=== PATIENT | male | born 1945 | race Caucasian/White ===

== ENCOUNTER 2016-11-01 16:38 | Inpatient (IN) | payer OTHER ==
[~2016-11-01] VITALS: Ht 177.8 cm; Wt 89.0 kg
[~2016-11-01 16:38] MED LIST: ASCO500T3 PO; ASPI81TA28 PO; ATOR-22 PO; ATV1 PO; ENAL10TA88 PO; FLV1 PO; GLC/500 PO; METO50TA16 PO; MRLP17X PO; MULT-506 PO; PYRI100T4 PO; RXC5 PO; THM100 PO; TRAZ50TA35 PO
[2016-11-01] MEDS ORDERED: MoRPHine SULFATE 10 MG/ML CARP/VIAL IM STA (17:11)
[2016-11-01] MEDS ORDERED: EFFSR75 PO (17:15)
[2016-11-01] MEDS ORDERED: METF-384 PO (17:15)
[2016-11-01] MEDS ORDERED: URX/10 PO (17:15)
[2016-11-01] MEDS ORDERED: PRS5 PO (17:15)
[2016-11-01] MEDS ORDERED: LXP10 PO (17:15)
[2016-11-01] MEDS ORDERED: KLN1X PO (17:15)
--- NOTE | 2016-11-01 17:38 | DIAGNOSTIC IMAGING REPORT ---
CT HEAD WITHOUT CONTRAST (CT) CLINICAL HISTORY: Head pain status post trauma. Fall from ladder. COMPARISON STUDY: 12/02/2014 TECHNIQUE: Axial CT of the brain is performed from the vertex to the skull base. IV contrast was not administered for this examination. CT DOSE: 2937.72 mGy.cm FINDINGS: No intra or extra-axial mass lesions are visualized. There is no CT evidence of acute cortical infarction. There is no evidence of midline shift. There is no acute hemorrhage. No calvarial fractures are visualized. There are minor white matter hypodensities likely on a small vessel basis. There is mild ventricular prominence, similar to the preceding study. There is no evidence of acute sinusitis IMPRESSION: No change the prior study. No acute intracranial findings. Stable mild ventricular prominence. Electronically signed by: Kaden Pride M.D. 11/01/2016 5:37 PM Dictated Date/Time: 11/01/2016 5:36 PM
--- NOTE | 2016-11-01 17:47 | DIAGNOSTIC IMAGING REPORT ---
CT OF THE CHEST WITHOUT IV CONTRAST CLINICAL HISTORY: Chest back and rib pain. Trauma. Fall from ladder. COMPARISON STUDY: No previous studies for comparison. CT DOSE: TECHNIQUE: CT of the thorax was performed from the thoracic inlet to the lung bases. Images are reviewed in the axial, sagittal, and coronal planes. IV contrast was not administered for this examination. FINDINGS: Thyroid: Imaged portions of the thyroid gland are normal in appearance. Thoracic aorta: The thoracic aorta is normal in course and caliber, noting standard 3 vessel arch anatomy. Heart: The heart is normal in size. There are coronary artery calcifications. There is no pericardial effusion. Lungs and pleural spaces: There is no pneumothorax. There is no evidence of pulmonary contusion. There are bibasal atelectatic changes. There is right pleural fluid/thickening. There are 2 tiny subpleural right upper lobe nodules, finding of doubtful significance. Mediastinum: There is no evidence of mediastinal hematoma. There is no pathologic adenopathy. Tierra: There is no pathologic hilar adenopathy given the limitations of a noncontrast study.. Axilla: Clear. Upper abdomen: Partially visualized upper abdominal viscera is within normal limits. Skeletal structures: There are fractures of the right posterior 8th, 9th, 10th and 11th 12th ribs. There is a fracture the right L1 transverse process. IMPRESSION: 1. Fractures of the right posterior eighth, ninth, 10th, 11th, 12th ribs. 2. Fracture the right L1 transverse process 3. No evidence of pulmonary contusion. No evidence of pneumothorax 4. No evidence of mediastinal hematoma 5. Right posterior pleural thickening, possibly representing hemorrhage given the adjacent rib fractures Electronically signed by: Kaden Pride M.D. 11/01/2016 5:46 PM Dictated Date/Time: 11/01/2016 5:38 PM
--- NOTE | 2016-11-01 17:49 | DIAGNOSTIC IMAGING REPORT ---
CT THORACIC SPINE WITHOUT CT DOSE: CLINICAL HISTORY: Back pain status post trauma. Fall from ladder. TECHNIQUE: Helical images were acquired in transverse plane. Sagittal and coronal reformatted imaging was obtained COMPARISON STUDY: None. FINDINGS: There is no pneumothorax. There are dependent atelectatic changes. There is right-sided posterior pleural thickening. There are multilevel degenerative changes. No acute fractures or subluxations are visualized. Posterior IMPRESSION: 1. Moderately advanced multilevel degenerative change 2. No acute fractures or subluxations identified 3. Right-sided pleural thickening. Electronically signed by: Kaden Pride M.D. 11/01/2016 5:48 PM Dictated Date/Time: 11/01/2016 5:46 PM
--- NOTE | 2016-11-01 17:56 | DIAGNOSTIC IMAGING REPORT ---
CT LUMBAR SPINE WITHOUT CT DOSE: CLINICAL HISTORY: Back pain status post trauma. Fall from ladder. TECHNIQUE: Helical images were acquired in transverse plane. Reformatted sagittal and coronal images were reviewed. CONTRAST: No contrast was administered COMPARISON STUDY: None. FINDINGS: There is acute fracture of the right L1 transverse process. There are acute fractures of the right 12th and 11th ribs. There are postsurgical changes of discectomies and interbody fusions at the L2-3 and L4-5 levels. There is marked disc space narrowing at the L5-S1 level. There are postsurgical changes of posterior spinal fusion with pedicle screw fixation at the L2-S1 level. No acute vertebral body fractures are visualized. There is a grade 1 spondylolisthesis of L4 and L5. IMPRESSION: 1. Acute fracture the right L1 transverse process 2. Acute fracture the right 11th and 12th ribs 3. Postsurgical changes of prior discectomies and interbody fusions and posterior pedicle screw fixation spinal fusion. No acute vertebral body fractures identified. Electronically signed by: Kaden Pride M.D. 11/01/2016 5:54 PM Dictated Date/Time: 11/01/2016 5:51 PM
[2016-11-01] MEDS ORDERED: OPTIRAY 320 IV PRN (18:30)
[2016-11-01 18:49] LABS: BUN/CREATININE RATIO 19.8 (10-20); CREATININE 0.82 mg/dl (0.60-1.40); POTASSIUM 4.7 mmol/L (3.5-5.1)
--- NOTE | 2016-11-01 18:50 | EMERGENCY ROOM VISIT NOTE ---
History First contact with patient: 16:45 Chief Complaint: FALL Stated Complaint: FELL OFF A LADDER History of Present Illness The patient is a 71 year old male who presents to the Emergency Room for evaluation of back pain after a fall. The patient states that he lost his balance while on a ladder in the basement and fell approximately 4 feet onto the ground. He landed directly on his back. He does state that he hit his head slightly. The fall occurred about 2 hours prior to arrival. The patient reports severe pain in his mid back which is worse with a deep breath, coughing or movement. He is concerned because he has had previous back surgeries performed by Dr. Alcala. The patient denies any pain in his head. He rates his overall discomfort an 8/10 and did not take anything for pain prior to arrival. He denies any radiation of the pain into his arms or legs. There was no loss of consciousness. The patient denies any abdominal or chest pain. The patient's does report that the patient has recently been worked up for some neurological symptoms. She states that he has had some signs of early dementia and has been shuffling his feet while walking. He was seen by a neurologist in [place] and told that he has extra fluid in the ventricles. The patient does admit to drinking 6-12 beers daily. He has been told by multiple providers that this is making his condition worse, but he states that he does not stop because "he enjoys it." The patient is a diabetic but denies any other medical problems. He does not take blood thinners. Review of Systems A complete 10 point review of systems was reviewed with the patient with pertinent positives and negatives as per history of present illness. All else were negative. Past Medical/Surgical History Medical Problems: (1) BPH (benign prostatic hypertrophy) (2) CKD (chronic kidney disease), stage II (3) DM type 2 (diabetes mellitus, type 2) (4) Dyslipidemia (5) Lumbar stenosis with neurogenic claudication (6) Multiple rib fractures Surgical Problems: (1) H/O colonoscopy (2) Status post lumbar surgery Family History FH: diabetes mellitus UNCLE Social History Smoking Status: Never Smoker Drug Use: none Marital Status: Housing Status: lives with family Occupation Status: retired Current/Historical Medications Scheduled Alfuzosin HCl (Alfuzosin HCl ER), 10 MG PO HS Ascorbic Acid (Vitamin C), 500 MG PO QAM Aspirin (Aspirin Ec), 81 MG PO QAM Atorvastatin (Lipitor), 20 MG PO QPM Enalapril (Vasotec), 10 MG PO QAM Escitalopram Oxalate (Escitalopram Oxalate), 10 MG PO HS Finasteride (Finasteride), 5 MG PO HS Folic Acid (Folic Acid), 1 MG PO DAILY Metformin Hcl (Glucophage), 1,000 MG PO BID Metoprolol Tartrate (Lopressor) (Lopressor), 50 MG PO BID Multivitamin (Multivitamin), 1 TAB PO QAM Pyridoxine (Vitamin B6), 100 MG PO BID Thiamine HCl (Vitamin B-1), 100 MG PO DAILY Venlafaxine Hcl (Effexor Extended Rel), 150 MG PO HS Scheduled PRN Clonazepam (Clonazepam), 1 MG PO HS PRN for Anxiety Lorazepam (Lorazepam), 1 MG PO Q6H PRN for Anxiety Allergies Coded Allergies: Sulfa Antibiotics (Verified Allergy, Mild, RASH, 11/01/16) Physical Exam Vital Signs Date Time Temp Pulse Resp B/P (MAP) Pulse Ox O2 Delivery O2 Flow Rate FiO2 11/01/16 21:19 68 20 155/109 96 Room Air 11/01/16 20:22 73 18 163/80 97 Room Air 11/01/16 18:23 69 18 148/105 99 Room Air 11/01/16 16:40 36.6 63 16 165/92 98 Room Air Physical Exam VITALS: Vitals are noted on the nurse's note and reviewed by myself. Vital signs stable. GENERAL: This is a 71-year-old male, in no acute distress, nondiaphoretic, well- developed well-nourished. SKIN: There is an abrasion to the right thoracic region. HEAD: Normocephalic atraumatic. EARS: External auditory canals clear, tympanic membranes pearly robertson without erythema or effusion bilaterally. No hemotympanum. EYES: Pupils equal round and reactive to light and accommodation. Conjunctivae without injection, sclerae without icterus. Extraocular movements intact. MOUTH: Mucous membranes moist. NECK: There is no tenderness of the cervical spine. HEART: Regular rate and rhythm without murmurs gallops or rubs. LUNGS: Clear to auscultation bilaterally without wheezes, rales or rhonchi. ABDOMEN: Soft, nontender to palpation. MUSCULOSKELETAL: There is moderate tenderness to palpation to the thoracic spine and bilateral paraspinous areas. There is mild tenderness to palpation over the upper lumbar spine. NEURO: Patient was alert and oriented to person place and time. Normal sensation to light and sharp touch. No focal neurological deficits. Medical Decision & Procedures ER Provider Diagnostic Interpretation: CT HEAD WITHOUT CONTRAST (CT) FINDINGS: No intra or extra-axial mass lesions are visualized. There is no CT evidence of acute cortical infarction. There is no evidence of midline shift. There is no acute hemorrhage. No calvarial fractures are visualized. There are minor white matter hypodensities likely on a small vessel basis. There is mild ventricular prominence, similar to the preceding study. There is no evidence of acute sinusitis IMPRESSION: No change the prior study. No acute intracranial findings. Stable mild ventricular prominence. CT OF THE CHEST WITHOUT IV CONTRAST FINDINGS: Thyroid: Imaged portions of the thyroid gland are normal in appearance. Thoracic aorta: The thoracic aorta is normal in course and caliber, noting standard 3 vessel arch anatomy. Heart: The heart is normal in size. There are coronary artery calcifications. There is no pericardial effusion. Lungs and pleural spaces: There is no pneumothorax. There is no evidence of pulmonary contusion. There are bibasal atelectatic changes. There is right pleural fluid/thickening. There are 2 tiny subpleural right upper lobe nodules, finding of doubtful significance. Mediastinum: There is no evidence of mediastinal hematoma. There is no pathologic adenopathy. Tierra: There is no pathologic hilar adenopathy given the limitations of a noncontrast study.. Axilla: Clear. Upper abdomen: Partially visualized upper abdominal viscera is within normal limits. Skeletal structures: There are fractures of the right posterior 8th, 9th, 10th and 11th 12th ribs. There is a fracture the right L1 transverse process. IMPRESSION: 1. Fractures of the right posterior eighth, ninth, 10th, 11th, 12th ribs. 2. Fracture the right L1 transverse process 3. No evidence of pulmonary contusion. No evidence of pneumothorax 4. No evidence of mediastinal hematoma 5. Right posterior pleural thickening, possibly representing hemorrhage given the adjacent rib fractures CT THORACIC SPINE WITHOUT IMPRESSION: 1. Moderately advanced multilevel degenerative change 2. No acute fractures or subluxations identified 3. Right-sided pleural thickening. CT LUMBAR SPINE WITHOUT IMPRESSION: 1. Acute fracture the right L1 transverse process 2. Acute fracture the right 11th and 12th ribs 3. Postsurgical changes of prior discectomies and interbody fusions and posterior pedicle screw fixation spinal fusion. No acute vertebral body fractures identified. CT ABD/PELVIS IV AND ORAL CONT IMPRESSION: 1. No evidence of acute intra-abdominal or pelvic injury 2. Fractures of the right eighth, ninth, 10th, 11th, 12th ribs. 3. Fracture the right L1 transverse process 4. No evidence of pneumothorax. Right-sided posterior pleural thickening/hemorrhage. Laboratory Results 11/01/16 18:20 Red Blood Count 4.09, Mean Corpuscular Volume 93.9, Mean Corpuscular Hemoglobin 34.5, Mean Corpuscular Hemoglobin Concent 36.7, Mean Platelet Volume 9.0, Neutrophils (%) (Auto) 72.2, Lymphocytes (%) (Auto) 15.0, Monocytes (%) (Auto) 11.8, Eosinophils (%) (Auto) 0.3, Basophils (%) (Auto) 0.1, Neutrophils # (Auto ) 10.17, Lymphocytes # (Auto) 2.12, Monocytes # (Auto) 1.67, Eosinophils # (Auto ) 0.04, Basophils # (Auto) 0.02 11/01/16 18:20 Test 11/01/16 18:20 White Blood Count 14.11 K/uL (4.8-10.8) Red Blood Count 4.09 M/uL (4.7-6.1) Hemoglobin 14.1 g/dL (14.0-18.0) Hematocrit 38.4 % (42-52) Mean Corpuscular Volume 93.9 fL (80-100) Mean Corpuscular Hemoglobin 34.5 pg (25-34) Mean Corpuscular Hemoglobin Concent 36.7 g/dl (32-36) Platelet Count 218 K/uL (130-400) Mean Platelet Volume 9.0 fL (7.4-10.4) Neutrophils (%) (Auto) 72.2 % Lymphocytes (%) (Auto) 15.0 % Monocytes (%) (Auto) 11.8 % Eosinophils (%) (Auto) 0.3 % Basophils (%) (Auto) 0.1 % Neutrophils # (Auto) 10.17 K/uL (1.4-6.5) Lymphocytes # (Auto) 2.12 K/uL (1.2-3.4) Monocytes # (Auto) 1.67 K/uL (0.11-0.59) Eosinophils # (Auto) 0.04 K/uL (0-0.5) Basophils # (Auto) 0.02 K/uL (0-0.2) RDW Standard Deviation 46.7 fL (36.4-46.3) RDW Coefficient of Variation 13.4 % (11.5-14.5) Immature Granulocyte % (Auto) 0.6 % Immature Granulocyte # (Auto) 0.09 K/uL (0.00-0.02) Anion Gap 10.0 mmol/L (3-11) Est Creatinine Clear Calc Drug Dose 95.5 ml/min Estimated GFR () 104.6 Estimated GFR (Non- 90.2 BUN/Creatinine Ratio 19.8 (10-20) Calcium Level 9.0 mg/dl (8.5-10.1) Total Bilirubin 1.0 mg/dl (0.2-1) Direct Bilirubin 0.3 mg/dl (0-0.2) Aspartate Amino Transf (AST/SGOT) 27 U/L (15-37) Alanine Aminotransferase (ALT/SGPT) 33 U/L (12-78) Alkaline Phosphatase 60 U/L (45-117) Total Protein 7.3 gm/dl (6.4-8.2) Albumin 4.0 gm/dl (3.4-5.0) Medications Administered Medications (Trade) Dose Ordered Sig/Dolores Route Start Time Stop Time Status Last Admin Dose Admin Morphine Sulfate (MoRPHine SULFATE INJ) 8 mg NOW STAT IM 11/01/16 17:11 11/01/16 17:13 DC 11/01/16 17:17 8 MG Morphine Sulfate (MoRPHine SULFATE INJ) 4 mg NOW STAT IV 11/01/16 21:24 11/01/16 21:25 DC 11/01/16 21:46 4 MG ED Course The patient was evaluated as above. Patient was medicated with [address] scan of the head, thoracic spine, lumbar spine and chest were performed and read by radiology as above. Given the findings on chest CT, abdominal CT with IV contrast and oral trauma prep was performed to rule out intra-abdominal injury. Dr. Denise was consulted. He recommended having the patient admitted by the hospitalist service and will consult tomorrow. Case was discussed with Dr. Fair of the [facility] hospitalist service. He agreed to evaluate the patient for admission. The patient was informed of these findings. He was given 4 mg morphine IV for pain. Medical Decision Differential diagnosis includes rib fractures, pneumothorax, hemothorax, thoracic fracture, lumbar fracture, contusion, dislocation, intra-abdominal injury, head injury, among others. The patient is a 71-year-old male who presents today for evaluation of back pain after a [address] scan of the chest revealed multiple right-sided rib fractures as well as a fracture of the right transverse process of L1. There was some pleural thickening suggestive of hemorrhage. I spoke with Dr. Denise of cardiothoracic surgery who agreed to consult on the patient. He will be admitted to the hospitalist service for pain control. He is hemodynamically stable. There was no intra-abdominal injury or head injury. The patient was informed of all findings. He was agreeable with this assessment and treatment plan. The patient's case was reviewed with Dr. Canela, ED attending physician, who agreed with my assessment and treatment plan. Medication reconciliation: I attest that I have personally reviewed the patient 's current medication list. Blood pressure screening: Patient was found to have an elevated blood pressure and was referred to their primary care provider for recheck and further treatment. Impression Primary Impression: Multiple rib fractures Additional Impression: Lumbar transverse process fracture Departure Information Referrals Dong Marte M.D. (PCP) Patient Instructions My [facility] Problem Qualifiers Primary Impression: Multiple rib fractures Encounter type: initial encounter Fracture type: closed Laterality: right Qualified Codes: S22.41XA - Multiple fractures of ribs, right side, initial encounter for closed fracture Additional Impression: Lumbar transverse process fracture Encounter type: initial encounter Fracture type: closed Qualified Codes: S32.008A - Other fracture of unspecified lumbar vertebra, initial encounter for closed fracture
--- NOTE | 2016-11-01 19:31 | DIAGNOSTIC IMAGING REPORT ---
CT ABD/PELVIS IV AND ORAL CONT CLINICAL HISTORY: Abdominal pain status post trauma. Multiple rib fractures. COMPARISON STUDY: None. TECHNIQUE: Following the IV administration of 115 mL of Optiray-320, CT scan of the abdomen and pelvis was performed from the lung bases to the proximal femurs. Images are reviewed in the axial, sagittal, and coronal planes. IV contrast was administered without complication. CT DOSE: 881.13 mGycm FINDINGS: Lower chest: There is right-sided pleural thickening. There is basilar atelectasis. There is no pneumothorax. Liver: The contrast-enhanced liver is normal in size, contour, and attenuation. There is no intrahepatic biliary ductal dilatation. The hepatic veins and portal veins are patent. Gallbladder: Unremarkable. Spleen: Normal in size and attenuation. Pancreas: Unremarkable. Adrenal glands: Unremarkable. Kidneys: There is symmetric renal cortical enhancement. The kidneys are normal in size without hydronephrosis. Bowel: There are no transition zones indicate bowel obstruction. There is no interloop fluid. There is no pneumatosis. There are no extraluminal air collections. Peritoneum: There is no intraperitoneal free air or abdominal ascites. Vasculature: The abdominal aorta is normal in course and caliber. Adenopathy: None. Pelvic viscera: The bladder, and pelvic viscera are unremarkable. Skeletal structures: There are postsurgical changes present within the lumbar spine. There are fractures of the right eighth ninth 10th and 11th and 12th ribs. There is a fracture the right L1 transverse process. IMPRESSION: 1. No evidence of acute intra-abdominal or pelvic injury 2. Fractures of the right eighth, ninth, 10th, 11th, 12th ribs. 3. Fracture the right L1 transverse process 4. No evidence of pneumothorax. Right-sided posterior pleural thickening/hemorrhage. Electronically signed by: Kaden Pride M.D. 11/01/2016 7:30 PM Dictated Date/Time: 11/01/2016 7:28 PM
[2016-11-01 20:40] LABS: BASO % 0.1 %; BASO ABS # 0.02 K/uL (0-0.2); COMPLETE YES; EOS % 0.3 %; HEMATOCRIT 38.4 % (42-52); IG% 0.6 %; LYMPH ABS # 2.12 K/uL (1.2-3.4); MEAN CELL VOLUME 93.9 fL (80-100); MEAN CORPUSCULAR HEMOGLOBIN 34.5 pg (25-34); MEAN CORPUSCULAR HGB CONC 36.7 g/dl (32-36); MONO % 11.8 %; NEUT % 72.2 %; PLATELET COUNT 218 K/uL (130-400); RED BLOOD COUNT 4.09 M/uL (4.7-6.1); WHITE BLOOD COUNT 14.11 K/uL (4.8-10.8)
[2016-11-01] MEDS ORDERED: MoRPHine SULFATE 4 MG/ML 1 ML CARP\\VIAL IV STA (21:24)
[2016-11-01] MEDS ORDERED: CLONAZEPAM 1 MG TAB PO PRN (22:00)
[2016-11-01] MEDS ORDERED: ALUMINUM/MAGNESIUM/SIMETH (MAALOX MAX) 30 ML UDC PO PRN (22:00)
[2016-11-01] MEDS ORDERED: ACETAMINOPHEN 325 MG TAB PO PRN (22:00)
[2016-11-01] MEDS ORDERED: POLYETHYLENE (MIRALAX) 17 GM PACK PO PRN (22:00)
[2016-11-01] MEDS ORDERED: MAGNESIUM HYDROXIDE SUSP 30 ML UDC PO PRN (22:00)
[2016-11-01] MEDS ORDERED: ONDANSETRON INJ 2 MG/ML 2 ML VIAL IV PRN (22:00)
[2016-11-01] MEDS ORDERED: LORAZEPAM 1 MG TAB PO PRN (22:00)
[2016-11-01] MEDS ORDERED: KETOROLAC TROMETHAMINE 15 MG/ML VIAL IV. PRN (22:00)
[2016-11-01 22:50] VITALS: BP 175/93; PULSE 66; TEMP 36.7; O2SAT 98
[2016-11-01 23:42] VITALS: BP 166/83; PULSE 66
--- NOTE | 2016-11-01 23:43 | History and Physical ---
History & Physical Date & Time of Service: Nov 01, 2016 at 23:07 Chief Complaint: Multiple Rib Fractures Primary Care Physician: Dong Marte M.D. History of Present Illness Source: patient, clinic records This is a 71 year old male with a PMH of HTN, DM2, HLD, depression/anxiety, hx. of alcohol abuse/dependence, BPH presents after a fall from a ladder; states he "missed a step" on the way down and fell down and landed on his back. Presented to the ER; found to have multiple rib fractures and L1 transverse process fracture. States that his pain is still present; has had history of spinal stenosis s/p surgical repair; but back pain is much more severe now. Denies bowel or bladder incontinence. Denies fevers/chills. Past Medical/Surgical History Medical Problems: (1) BPH (benign prostatic hypertrophy) Status: Chronic (2) CKD (chronic kidney disease), stage II Status: Chronic (3) DM type 2 (diabetes mellitus, type 2) Status: Chronic (4) Dyslipidemia Status: Chronic (5) Lumbar stenosis with neurogenic claudication Status: Chronic Surgical Problems: (1) H/O colonoscopy Status: Chronic (2) Status post lumbar surgery Status: Chronic Family History FH: diabetes mellitus UNCLE Social History Smoking Status: Never Smoker Drug Use: none Marital Status: Occupational Status: retired Immunizations History of Influenza Vaccine: No History of Tetanus Vaccine?: Yes History of Pneumococcal: Yes History of Hepatitis B Vaccine: Unknown Allergies Coded Allergies: Sulfa Antibiotics (Verified Allergy, Mild, RASH, 11/01/16) Home Medications Scheduled Alfuzosin HCl (Alfuzosin HCl ER), 10 MG PO HS Ascorbic Acid (Vitamin C), 500 MG PO QAM Aspirin (Aspirin Ec), 81 MG PO QAM Atorvastatin (Lipitor), 20 MG PO QPM Enalapril (Vasotec), 10 MG PO QAM Escitalopram Oxalate (Escitalopram Oxalate), 10 MG PO HS Finasteride (Finasteride), 5 MG PO HS Folic Acid (Folic Acid), 1 MG PO DAILY Metformin Hcl (Glucophage), 1,000 MG PO BID Metoprolol Tartrate (Lopressor) (Lopressor), 50 MG PO BID Multivitamin (Multivitamin), 1 TAB PO QAM Pyridoxine (Vitamin B6), 100 MG PO BID Thiamine HCl (Vitamin B-1), 100 MG PO DAILY Venlafaxine Hcl (Effexor Extended Rel), 150 MG PO HS Scheduled PRN Clonazepam (Clonazepam), 1 MG PO HS PRN for Anxiety Lorazepam (Lorazepam), 1 MG PO Q6H PRN for Anxiety Review of Systems Constitutional: No fever, No chills, No sweats, No weight loss, No weakness, No fatigue Respiratory: + problem reported (pain with deep inspiration), No cough, No sputum, No wheezing, No shortness of breath, No dyspnea on exertion, No dyspnea at rest, No hemoptysis Cardiovascular: No chest pain, No orthopnea, No PND, No edema, No claudication , No palpitations Abdomen: No pain, No nausea, No vomiting, No diarrhea, No constipation, No GI bleeding Musculoskeletal: + joint pain (back pain), + muscle pain, No swelling, No calf pain Genitourinary - Male: No hematuria, No dysuria, No urinary frequency, No urinary urgency Neurologic: No paralysis, No numbness/tingling, No vertigo, No balance problems Psychiatric: No depression symptoms, No anxiety, No insomnia Endocrine: No fatigue Hematologic / Lymphatic: No abnormal bleeding/bruising Integumentary: No rash Allergic / Immunologic: No environmental allergies, No seasonal allergies Physical Exam Vital Signs Date Time Temp Pulse Resp B/P (MAP) Pulse Ox O2 Delivery O2 Flow Rate FiO2 11/01/16 22:18 69 20 172/88 97 Room Air 11/01/16 21:19 68 20 155/109 96 Room Air 11/01/16 20:22 73 18 163/80 97 Room Air 11/01/16 18:23 69 18 148/105 99 Room Air 11/01/16 16:40 36.6 63 16 165/92 98 Room Air General Appearance: + moderate distress (mild to moderate distress seconary to pain) Head: normocephalic, atraumatic Eyes: normal inspection ENT: hearing grossly normal Neck: supple Respiratory/Chest: lungs clear, normal breath sounds, no respiratory distress, no accessory muscle use, + pertinent finding (+pain) Cardiovascular: regular rate, rhythm, no edema, no gallop, no JVD, no murmur, normal peripheral pulses Abdomen/GI: normal bowel sounds, non tender, soft Back: + muscle spasm, + decreased range of motion (painful ROM), + paravertebral tenderness Extremities/Musculoskelatal: normal capillary refill, no pedal edema Neurologic/Psych: no motor/sensory deficits, alert, normal mood/affect Skin: normal color Lymphatic: no adenopathy Diagnostics Laboratory Results Results Past 24 Hours Test 11/01/16 18:20 Range/Units White Blood Count 14.11 4.8-10.8 K/uL Red Blood Count 4.09 4.7-6.1 M/uL Hemoglobin 14.1 14.0-18.0 g/dL Hematocrit 38.4 42-52 % Mean Corpuscular Volume 93.9 80-100 fL Mean Corpuscular Hemoglobin 34.5 25-34 pg Mean Corpuscular Hemoglobin Concent 36.7 32-36 g/dl Platelet Count 218 130-400 K/uL Mean Platelet Volume 9.0 7.4-10.4 fL Neutrophils (%) (Auto) 72.2 % Lymphocytes (%) (Auto) 15.0 % Monocytes (%) (Auto) 11.8 % Eosinophils (%) (Auto) 0.3 % Basophils (%) (Auto) 0.1 % Neutrophils # (Auto) 10.17 1.4-6.5 K/uL Lymphocytes # (Auto) 2.12 1.2-3.4 K/uL Monocytes # (Auto) 1.67 0.11-0.59 K/uL Eosinophils # (Auto) 0.04 0-0.5 K/uL Basophils # (Auto) 0.02 0-0.2 K/uL RDW Standard Deviation 46.7 36.4-46.3 fL RDW Coefficient of Variation 13.4 11.5-14.5 % Immature Granulocyte % (Auto) 0.6 % Immature Granulocyte # (Auto) 0.09 0.00-0.02 K/uL Sodium Level 131 136-145 mmol/L Potassium Level 4.7 3.5-5.1 mmol/L Chloride Level 96 98-107 mmol/L Carbon Dioxide Level 25 21-32 mmol/L Anion Gap 10.0 3-11 mmol/L Blood Urea Nitrogen 16 7-18 mg/dl Creatinine 0.82 0.60-1.40 mg/dl Est Creatinine Clear Calc Drug Dose 95.5 ml/min Estimated GFR () 104.6 Estimated GFR (Non- 90.2 BUN/Creatinine Ratio 19.8 10-20 Random Glucose 134 70-99 mg/dl Calcium Level 9.0 8.5-10.1 mg/dl Total Bilirubin 1.0 0.2-1 mg/dl Direct Bilirubin 0.3 0-0.2 mg/dl Aspartate Amino Transf (AST/SGOT) 27 15-37 U/L Alanine Aminotransferase (ALT/SGPT) 33 12-78 U/L Alkaline Phosphatase 60 45-117 U/L Total Protein 7.3 6.4-8.2 gm/dl Albumin 4.0 3.4-5.0 gm/dl Diagnostic Radiology CT THORACIC SPINE WITHOUT CT DOSE: CLINICAL HISTORY: Back pain status post trauma. Fall from ladder. TECHNIQUE: Helical images were acquired in transverse plane. Sagittal and coronal reformatted imaging was obtained COMPARISON STUDY: None. FINDINGS: There is no pneumothorax. There are dependent atelectatic changes. There is right-sided posterior pleural thickening. There are multilevel degenerative changes. No acute fractures or subluxations are visualized. Posterior IMPRESSION: 1. Moderately advanced multilevel degenerative change 2. No acute fractures or subluxations identified 3. Right-sided pleural thickening. CT LUMBAR SPINE WITHOUT CT DOSE: CLINICAL HISTORY: Back pain status post trauma. Fall from ladder. TECHNIQUE: Helical images were acquired in transverse plane. Reformatted sagittal and coronal images were reviewed. CONTRAST: No contrast was administered COMPARISON STUDY: None. FINDINGS: There is acute fracture of the right L1 transverse process. There are acute fractures of the right 12th and 11th ribs. There are postsurgical changes of discectomies and interbody fusions at the L2-3 and L4-5 levels. There is marked disc space narrowing at the L5-S1 level. There are postsurgical changes of posterior spinal fusion with pedicle screw fixation at the L2-S1 level. No acute vertebral body fractures are visualized. There is a grade 1 spondylolisthesis of L4 and L5. IMPRESSION: 1. Acute fracture the right L1 transverse process 2. Acute fracture the right 11th and 12th ribs 3. Postsurgical changes of prior discectomies and interbody fusions and posterior pedicle screw fixation spinal fusion. No acute vertebral body fractures identified. CT HEAD WITHOUT CONTRAST (CT) CLINICAL HISTORY: Head pain status post trauma. Fall from ladder. COMPARISON STUDY: 12/02/2014 TECHNIQUE: Axial CT of the brain is performed from the vertex to the skull base. IV contrast was not administered for this examination. CT DOSE: 2937.72 mGy.cm FINDINGS: No intra or extra-axial mass lesions are visualized. There is no CT evidence of acute cortical infarction. There is no evidence of midline shift. There is no acute hemorrhage. No calvarial fractures are visualized. There are minor white matter hypodensities likely on a small vessel basis. There is mild ventricular prominence, similar to the preceding study. There is no evidence of acute sinusitis IMPRESSION: No change the prior study. No acute intracranial findings. Stable mild ventricular prominence. CT OF THE CHEST WITHOUT IV CONTRAST CLINICAL HISTORY: Chest back and rib pain. Trauma. Fall from ladder. COMPARISON STUDY: No previous studies for comparison. CT DOSE: TECHNIQUE: CT of the thorax was performed from the thoracic inlet to the lung bases. Images are reviewed in the axial, sagittal, and coronal planes. IV contrast was not administered for this examination. FINDINGS: Thyroid: Imaged portions of the thyroid gland are normal in appearance. Thoracic aorta: The thoracic aorta is normal in course and caliber, noting standard 3 vessel arch anatomy. Heart: The heart is normal in size. There are coronary artery calcifications. There is no pericardial effusion. Lungs and pleural spaces: There is no pneumothorax. There is no evidence of pulmonary contusion. There are bibasal atelectatic changes. There is right pleural fluid/thickening. There are 2 tiny subpleural right upper lobe nodules, finding of doubtful significance. Mediastinum: There is no evidence of mediastinal hematoma. There is no pathologic adenopathy. [place]: There is no pathologic hilar adenopathy given the limitations of a noncontrast study.. Axilla: Clear. Upper abdomen: Partially visualized upper abdominal viscera is within normal limits. Skeletal structures: There are fractures of the right posterior 8th, 9th, 10th and 11th 12th ribs. There is a fracture the right L1 transverse process. IMPRESSION: 1. Fractures of the right posterior eighth, ninth, 10th, 11th, 12th ribs. 2. Fracture the right L1 transverse process 3. No evidence of pulmonary contusion. No evidence of pneumothorax 4. No evidence of mediastinal hematoma 5. Right posterior pleural thickening, possibly representing hemorrhage given the adjacent rib fractures EKG Sinus Bradycardia left axis deviation Impression Assessment and Plan This is a 71 year old male with a PMH of HTN, DM2, HLD, depression/anxiety, hx. of alcohol abuse/dependence, BPH presents after a fall from a ladder Multiple Rib Fractures Right L1 Transverse Process Fracture secondary to a mechanical fall from ladder morphine PRN, Toradol PRN for pain has had history of lumbar spinal stenosis and multiple back surgeries for now, monitor; may need a TLSO brace PT/OT incentive spirometry Possible Hemothorax? Chest CT suggests R sided pleural thickening, possibly hemorrhage? CTS consulted; recommended repeat CXR in AM; monitor H/H Dr. Denise to see in AM Hx. of Alcohol Abuse/Dependence continue multivitamin, folate, thiamine monitor electrolytes monitor for any withdrawal symptoms DM2 well controlled with metformin, last Ha1c ~ 6.3% hold metformin, monitor BSGs HTN blood pressure is increased; likely secondary to pain continue metoprolol, enalapril continue pain medications DVT ppx SCDs; secondary to possible hemothorax FULL CODE VTE Prophylaxis VTE Risk Assessment Done? Y/N: Yes Risk Level: Moderate
[2016-11-01 23:48] VITALS: BP 166/83; PULSE 66; TEMP 36.7; Ht 177.8 cm; Wt 89.0 kg
[2016-11-02] VITALS (7 sets, daily range): BP systolic 120–161; BP diastolic 80–88; PULSE 60–69; TEMP 36.4–37; O2SAT 94–97
[2016-11-02] MEDS: MoRPHine SULFATE 2 MG/ML CARP IV PRN ×4 (00:06→13:58)
[2016-11-02 06:29] LABS: HEMATOCRIT 38.2 % (42-52); MEAN CELL VOLUME 93.2 fL (80-100); MEAN CORPUSCULAR HEMOGLOBIN 33.4 pg (25-34); MEAN CORPUSCULAR HGB CONC 35.9 g/dl (32-36); MEAN PLATELET VOLUME 8.3 fL (7.4-10.4); PLATELET COUNT 178 K/uL (130-400)
[2016-11-02 07:08] LABS: BUN/CREATININE RATIO 15.9 (10-20); CREATININE 0.76 mg/dl (0.60-1.40)
[2016-11-02] MEDS: SODIUM CHLORIDE 0.9% 1000ML 1,000 ML IV SCH ×2 (07:53→17:41)
--- NOTE | 2016-11-02 07:58 | Clinical Documentation Query ---
CLINICAL DOCUMENTATION QUERY Dr. CENTENO, In your clinical opinion is this patient being managed for: (x ) Hyponatremia ( ) Other explanation of clinical findings (Please Explain) ( ) Unable to determine (Please Define) ( ) Need to Discuss ( ) Not Agree The medical record reflects the following clinical findings, treatment, and risk factors. Clinical Indicators: 71 yo male presenting with multiple rib and L1 transverse process fracture. Initial Na 131, which has dropped to 128 with repeat AM labs. Treatment: IV fluids, nephrology consult Risk Factors: alcohol consumption Please clarify and document your clinical opinion in the progress notes and discharge summary. Terms such as "probable", "suspected", "likely", "questionable", "possible", or "still to be ruled out" are acceptable. IF IN AGREEMENT, YOU MUST DOCUMENT ABOVE DIAGNOSTIC STATEMENT IN DAILY PROGRESS NOTES AND DISCHARGE SUMMARY. This document is not part of the patient's record. Thank You, Sofy Mendez RN [phone]
--- NOTE | 2016-11-02 08:41 | SURGICAL CONSULTATION ---
DATE OF CONSULTATION: 11/02/2016 DATE OF CONSULTATION: 11/02/2016. REASON FOR CONSULTATION: Fractured ribs. 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 The patient does have a history of discectomy and interbody fusions. He is in some pain. There was some pleural thickening and I was asked to see him from a thoracic surgery standpoint. Prior to this, the patient really had no issues. He could easily walk a mile. He is active around his house. He does have a history of hypertension, diabetes, hyperlipidemia as well as alcohol abuse. He was admitted to the medical service to make sure he does not develop pulmonary contusion or effusion. PAST MEDICAL HISTORY: 1. Lumbosacral disc disease. 2. Lumbar stenosis with neurogenic claudication. 3. Hyperlipidemia. 4. Benign prostatic hypertrophy. 5. Renal insufficiency. 6. Diabetes mellitus. 7. Dyslipidemia. 8. History of alcohol use. PAST SURGICAL HISTORY: 1. Status post lumbar surgery with interbody fusions. 2. History of colonoscopy. MEDICATIONS: 1. Alfuzosin. 2. Effexor. 3. Aspirin. 4. Lipitor. 5. Vasotec. 6. Finasteride. 7. Folic acid. 8. Glucophage. 9. Lopressor. 10. Multivitamins. 11. Escitalopram. 12. The patient does use clonazepam and lorazepam p.r.n. for anxiety. ALLERGIES: SULFA RESULTS IN A RASH. SOCIAL HISTORY: The patient lives at home with his . 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 He has never smoked cigarettes. He does use alcohol on a regular basis. FAMILY MEDICAL HISTORY: The patient's father at 53 from cancer of the stomach. Mother in her mid 80s from "old age." He has 5 children, 12 grandchildren, all of whom are healthy. He has 4 siblings, all of whom are healthy. REVIEW OF SYSTEMS: His weight has been stable. He denies fevers or chills. Prior to this injury he had no productive cough, no hemoptysis. He denied chest pain, palpitations. He has had no peripheral edema. No vascular claudication, although he does have neurogenic claudication with standing for long periods of time. He denies nausea, vomiting or any symptoms. He has had no neurologic symptoms such as amaurosis fugax, transient ischemic attacks. He has no skin breakdown and no hearing or visual symptoms. PHYSICAL EXAMINATION: GENERAL: This is a 5 feet 10 inch, 196 pound male who is awake, alert and oriented. HEAD, EYES, EARS, NOSE, AND THROAT: His extraocular movements are intact. Pupils are equal, round and reactive. Sclerae are anicteric. He has snuff in his mouth with tobacco stains around his mouth. He has no nasolabial flattening. NECK: Supple. He has no supraclavicular or cervical lymphadenopathy, neck vein distention or carotid bruits. LUNGS: He does have some decreased breath sounds on the right. He has no wheezing. HEART: He has a regular rate and rhythm of his heart. ABDOMEN: Soft, nontender. He has no peripheral edema. He has no joint effusions. He has excellent peripheral pulses. NEUROLOGIC: He has no asterixis. He has no focal deficits. Cranial nerves II-XII intact. DATA: I reviewed the CT scan of his chest. He does have very mild pleural thickening. I see at least 2 rib fractures. It appears that there may be as many as 5 rib fractures, although they are subtle. The patient also has a couple of right upper lobe masses, which are probably pleural-based, however they do bear watching. ASSESSMENT AND PLAN: Several rib fractures on the right without a flail chest. We are going to a chest x-ray today.
[2016-11-02] MEDS: METOPROLOL TARTRATE 50 MG TAB PO SCH ×2 (09:06→21:06)
[2016-11-02] MEDS: PYRIDOXINE HCL 50 MG TAB PO SCH ×2 (09:07→21:06)
[2016-11-02] MEDS: ENALAPRIL MALEATE 10 MG TAB PO SCH (09:07)
[2016-11-02] MEDS: MULTIVITAMIN TAB PO SCH (09:08)
[2016-11-02] MEDS: THIAMINE HCL 100 MG TAB PO SCH (09:09)
--- NOTE | 2016-11-02 09:57 | Progress Note ---
Internal Med Progress Note Date of Service: Nov 02, 2016. Provider Documentation: SUBJECTIVE: mentions of pain on Rt sided of chest and back worse with movement comfortable with current pain medication setting denies of being anxious , no tremor no sign of withdrawal mentions last alcohol drink was 1 weeks back OBJECTIVE: Vital Signs-as noted below Exam: General-no sign of distress Eyes-sclera non icteric ENT-NAD Neck-no JVD Lungs-diminished, no rales or wheeze noted Heart-regular S1/s2 Abdomen-soft, non tender Extremities-tenderness on rt side of chest was , bruise on rt back , no open skin lesion Neuro-no focal deficit , AAO x3 Lab data as noted below. ASSESSMENT & PLAN: Multiple Rib Fractures Right L1 Transverse Process Fracture secondary to a mechanical fall from ladder pt denies of being intoxicated mentions last drink was 1 week back ordered for Lidoderm patch morphine PRN, hold Toradol for hyponatremia CT ABDOMEN /PELVIS: 1. No evidence of acute intra-abdominal or pelvic injury 2. Fractures of the right eighth, ninth, 10th, 11th, 12th ribs. 3. Fracture the right L1 transverse process 4. No evidence of pneumothorax. Right-sided posterior pleural thickening/hemorrhage. has had history of lumbar spinal stenosis and multiple back surgeries for now, monitor; may need a TLSO brace Ortho Dr Alcala consulted, pt had previous spinal surgery done by him PT/OT incentive spirometry Possible Hemothorax? Chest CT suggests R sided pleural thickening, possibly hemorrhage? CTS consulted; Dr. Denise consulted appreciate input Cxray ordered Hx. of Alcohol Abuse/Dependence mentions of drinking 6 beers a day last drink was a week back denies of any withdrawal symptom PRN Ativan ordered continue multivitamin, folate, thiamine monitor electrolytes monitor for any withdrawal symptoms Hyponatremia : Na in 128 -appears to be acute on chronic hx chronic alcohol abuse ordered for IV NSS PRP Q8 hrs to prevent rapid correction not more than 10 meq in 24 hrs Nephrology consult requested DM2 well controlled with metformin, last Ha1c ~ 6.3% hold metformin, monitor BSGs HTN continue metoprolol, enalapril continue pain medications DVT ppx SCDs; secondary to possible hemothorax DISPOSITION Discharge home when medically stable Vital Signs: Date Time Temp Pulse Resp B/P (MAP) Pulse Ox O2 Delivery O2 Flow Rate FiO2 11/02/16 08:39 97 Room Air 11/02/16 07:56 37.0 69 16 120/80 (93) 97 Room Air 11/02/16 07:20 Room Air 11/02/16 04:00 155/88 (110) 11/02/16 00:23 160/85 (110) 11/01/16 23:48 36.7 66 16 166/83 Room Air 11/01/16 23:42 66 166/83 (110) 11/01/16 23:30 Room Air 11/01/16 22:50 36.7 66 16 175/93 (120) 98 Room Air 11/01/16 22:18 69 20 172/88 97 Room Air 11/01/16 21:19 68 20 155/109 96 Room Air 11/01/16 20:22 73 18 163/80 97 Room Air 11/01/16 18:23 69 18 148/105 99 Room Air 11/01/16 16:40 36.6 63 16 165/92 98 Room Air Lab Results: Results Past 24 Hours Test 11/01/16 18:20 11/02/16 06:21 11/02/16 08:16 Range/Units White Blood Count 14.11 10.30 4.8-10.8 K/uL Red Blood Count 4.09 4.10 4.7-6.1 M/uL Hemoglobin 14.1 13.7 14.0-18.0 g/dL Hematocrit 38.4 38.2 42-52 % Mean Corpuscular Volume 93.9 93.2 80-100 fL Mean Corpuscular Hemoglobin 34.5 33.4 25-34 pg Mean Corpuscular Hemoglobin Concent 36.7 35.9 32-36 g/dl Platelet Count 218 178 130-400 K/uL Mean Platelet Volume 9.0 8.3 7.4-10.4 fL Neutrophils (%) (Auto) 72.2 % Lymphocytes (%) (Auto) 15.0 % Monocytes (%) (Auto) 11.8 % Eosinophils (%) (Auto) 0.3 % Basophils (%) (Auto) 0.1 % Neutrophils # (Auto) 10.17 1.4-6.5 K/uL Lymphocytes # (Auto) 2.12 1.2-3.4 K/uL Monocytes # (Auto) 1.67 0.11-0.59 K/uL Eosinophils # (Auto) 0.04 0-0.5 K/uL Basophils # (Auto) 0.02 0-0.2 K/uL RDW Standard Deviation 46.7 45.7 36.4-46.3 fL RDW Coefficient of Variation 13.4 13.4 11.5-14.5 % Immature Granulocyte % (Auto) 0.6 % Immature Granulocyte # (Auto) 0.09 0.00-0.02 K/uL Sodium Level 131 128 136-145 mmol/L Potassium Level 4.7 4.0 3.5-5.1 mmol/L Chloride Level 96 90 98-107 mmol/L Carbon Dioxide Level 25 27 21-32 mmol/L Anion Gap 10.0 11.0 3-11 mmol/L Blood Urea Nitrogen 16 12 7-18 mg/dl Creatinine 0.82 0.76 0.60-1.40 mg/dl Est Creatinine Clear Calc Drug Dose 95.5 103.0 ml/min Estimated GFR () 104.6 107.9 Estimated GFR (Non- 90.2 93.1 BUN/Creatinine Ratio 19.8 15.9 10-20 Random Glucose 134 151 70-99 mg/dl Calcium Level 9.0 9.0 8.5-10.1 mg/dl Total Bilirubin 1.0 0.2-1 mg/dl Direct Bilirubin 0.3 0-0.2 mg/dl Aspartate Amino Transf (AST/SGOT) 27 15-37 U/L Alanine Aminotransferase (ALT/SGPT) 33 12-78 U/L Alkaline Phosphatase 60 45-117 U/L Total Protein 7.3 6.4-8.2 gm/dl Albumin 4.0 3.4-5.0 gm/dl Hepatitis C Antibody Screen NEG NEG Bedside Glucose 171 70-99 mg/dl
[2016-11-02] MEDS ORDERED: LORAZEPAM INJ 1 MG in SYRINGE 0.5 ML IV PRN (10:00)
--- NOTE | 2016-11-02 11:19 | DIAGNOSTIC IMAGING REPORT ---
CHEST 2 VIEWS ROUTINE HISTORY: f/u hemothorax? COMPARISON: Chest CT 11/01/2016. FINDINGS: The right lower posterior rib fractures are not well visualized. No pleural effusions. No pneumothorax. The heart is normal in size. Left basilar linear densities favor scarring or subsegmental atelectasis. This remains unchanged. IMPRESSION: The right lower rib fractures are better visualized on the prior chest CT. No pleural effusions. No pneumothorax. Electronically signed by: Joel Lemon M.D. 11/02/2016 11:17 AM Dictated Date/Time: 11/02/2016 11:11 AM
[2016-11-02] MEDS: LIDODERM (LIDOCAINE) PATCH 5% TD SCH (11:35)
[2016-11-02 15:13] LABS: BUN/CREATININE RATIO 14.1 (10-20); CALCIUM 8.6 mg/dl (8.5-10.1); CREATININE 0.87 mg/dl (0.60-1.40); POTASSIUM 4.4 mmol/L (3.5-5.1)
[2016-11-02] MEDS ORDERED: NURSING VERBAL MED ORDER ONE (15:15)
[2016-11-02] MEDS: HYDROmorphone INJ 1 MG/ML SYR IV PRN ×3 (15:53→23:52)
--- NOTE | 2016-11-02 16:00 | ORTHOPEDIC CONSULTATION ---
DATE OF CONSULTATION: 11/02/2016 CHIEF COMPLAINT: Back pain. HISTORY OF PRESENT ILLNESS: This is a 71-year-old male, well known to me, who presents after a fall at home. He has complaints of thoracolumbar back pain. He denies any leg pain, numbness or weakness. He states his symptoms are tolerable at this time. PHYSICAL EXAMINATION: He is sitting up at bedside. Has some pain on palpation and percussion across the thoracolumbar junction. No abnormal skin markings. Excellent strength to testing lower extremities. CAT scans do reveal evidence of transverse process fracture of L1 as well as rib fractures. ASSESSMENT: L1 transverse process fracture. PLAN: At this time, he strongly suspects this will heal without incident. I would not necessarily brace him at this time, particularly in light of his rib injuries. He will undergo very light activity, lifting no more than 5 pounds for the next several weeks. The patient understands and agrees.
--- NOTE | 2016-11-02 19:47 | Nephrology Consultation ---
Nephrology Consultation Date of Consultation: Nov 02, 2016. Attending Physician: Dr Germain Requesting Physician: Dr Germain Reason for Consultation: hyponatremia History of Present Illness 71 year old male whom I am asked to evaluate for hyponatremia after he was admitted yesterday for mgt of multiple rib and R L1 transverse process fractures after mechanical fall from a ladder; also some concern for possible R pleural thickening versus possible hemothorax on CT chest. PMH includes DM2, HTN, HL, depression/anxiety, EtOH dependence/abuse, prostatic hypertrophy, spinal stenosis s/p surgical repair. He has hx of chronic hyponatremia on review of [facility] labs w/ sNa ranging from 129-138, but generally low 130s. Currently receiving NS at 100 mL hourly and w/ toradol prn ordered. On SSRI as outpt; no hctz. Denies outpt nsaid use. Admits to drinking about a 6 pack of beer daily; no hard liquor; states he knows he needs to stop this. Pain controlled currently; no n/v; denies thirst or dyspnea or edema. Past Medical/Surgical History Medical Problems: (1) Lumbar stenosis with neurogenic claudication Status: Chronic (2) Lumbar transverse process fracture Status: Acute -HTN -HL -chronic hyponatremia -EtOH dependence -lumbar stenosis s/p surgical repair -anxiety / depression Family History FH: diabetes mellitus UNCLE Social History Smoking Status: Never Smoker Alcohol Use: heavy Drug Use: none Marital Status: Housing Status: lives with family Occupation Status: retired Allergies Coded Allergies: Sulfa Antibiotics (Verified Allergy, Mild, RASH, 11/01/16) Medications Current Inpatient Medications Medications (Trade) Dose Ordered Sig/Dolores Route Start Time Stop Time Status Last Admin Dose Admin Ioversol (Optiray 320) 111 ml UD PRN IV 11/01/16 18:30 11/05/16 18:29 Acetaminophen (Tylenol Tab) 650 mg Q4H PRN PO 11/01/16 22:00 12/01/16 21:59 Al Hydrox/Mg Hydrox/Simethicone (Maalox Max Susp) 15 ml Q4H PRN PO 11/01/16 22:00 12/01/16 21:59 Magnesium Hydroxide (Milk Of Magnesia Susp) 30 ml Q6H PRN PO 11/01/16 22:00 12/01/16 21:59 Polyethylene (Miralax Powder Packet) 17 gm DAILY PRN PO 11/01/16 22:00 12/01/16 21:59 Ondansetron HCl (Zofran Inj) 4 mg Q6H PRN IV 11/01/16 22:00 12/01/16 21:59 Alfuzosin HCl (Uroxatral Tab) 10 mg HS PO 11/02/16 21:00 12/02/16 20:59 Atorvastatin Calcium (Lipitor Tab) 20 mg QPM PO 11/02/16 21:00 12/02/16 20:59 Clonazepam (Klonopin Tab) 1 mg HS PRN PO 11/01/16 22:00 12/01/16 21:59 11/02/16 00:06 1 MG Escitalopram Oxalate (Lexapro Tab) 10 mg HS PO 11/02/16 21:00 12/02/16 20:59 Finasteride (Proscar Tab) 5 mg HS PO 11/02/16 21:00 12/02/16 20:59 Folic Acid (Folvite Tab) 1 mg DAILY PO 11/02/16 09:00 12/02/16 08:59 11/02/16 09:08 1 MG Lorazepam (Ativan Tab) 1 mg Q6H PRN PO 11/01/16 22:00 12/01/16 21:59 Metoprolol Tartrate (Lopressor Tab) 50 mg BID PO 11/02/16 09:00 12/02/16 08:59 11/02/16 09:06 50 MG Multivitamins (Multivitamin Tab) 1 tab QAM PO 11/02/16 09:00 12/02/16 08:59 11/02/16 09:08 1 TAB Pyridoxine HCl (Vitamin B-6 Tab) 100 mg BID PO 11/02/16 09:00 12/02/16 08:59 11/02/16 09:07 100 MG Thiamine HCl (Vitamin B-1 Tab) 100 mg DAILY PO 11/02/16 09:00 12/02/16 08:59 11/02/16 09:09 100 MG Venlafaxine HCl (effeXOR EXTENDED REL CAP) 150 mg HS PO 11/02/16 21:00 12/02/16 20:59 Morphine Sulfate (MoRPHine SULFATE INJ) 2 mg Q3HWA PRN IV 11/01/16 22:00 11/15/16 21:59 6/14/17 05:04 2 MG Ketorolac Tromethamine (Toradol Inj) 15 mg Q6H PRN IV. 11/01/16 22:00 11/06/16 21:59 Enalapril Maleate (Vasotec Tab) 10 mg QAM PO 11/02/16 09:00 12/02/16 08:59 11/02/16 09:07 10 MG Sodium Chloride 1,000 ml @ 100 mls/hr Q10H IV 11/02/16 07:30 12/02/16 07:29 11/02/16 07:53 100 MLS/HR Home Meds and Scripts Medications Dose Route/Sig Max Daily Dose Days Date Category Effexor Extended Rel (Venlafaxine Hcl) 75 Mg Capcr 150 Mg PO HS 11/01/16 Reported Escitalopram Oxalate 10 Mg Tab 10 Mg PO HS 11/01/16 Reported Alfuzosin HCl ER (Alfuzosin HCl) 10 Mg Tab 10 Mg PO HS 11/01/16 Reported Finasteride 5 Mg Tab 5 Mg PO HS 11/01/16 Reported Glucophage (Metformin Hcl) 1,000 Mg Tab 1,000 Mg PO BID 11/01/16 Reported Clonazepam 1 Mg Tab 1 Mg PO HS PRN 11/01/16 Reported Vitamin C (Ascorbic Acid) 500 Mg Tab 500 Mg PO QAM 12/01/14 Reported Folic Acid 1 Mg Tab 1 Mg PO DAILY 11/25/14 Rx Vitamin B-1 (Thiamine HCl) 100 Mg Tab 100 Mg PO DAILY 11/25/14 Rx Lorazepam 1 Mg Tab 1 Mg PO Q6H PRN 11/19/14 Rx Vitamin B6 (Pyridoxine HCl) 100 Mg Tab 100 Mg PO BID 10/29/14 Reported Multivitamin (Multivitamins) Tab 1 Tab PO QAM 10/29/14 Reported Aspirin Ec (Aspirin) 81 Mg Tab 81 Mg PO QAM 10/29/14 Reported Lipitor (Atorvastatin Calcium) 20 Mg Tab 20 Mg PO QPM 10/29/14 Reported Lopressor (Metoprolol Tartrate) 50 Mg Tab 50 Mg PO BID 10/29/14 Reported Vasotec (Enalapril Maleate) 10 Mg Tab 10 Mg PO QAM 01/06/10 Reported Review of Systems Constitutional: + fatigue, No fever, No weight loss, No weakness Eyes: No worsening of vision ENT: No hearing loss Respiratory: No cough, No shortness of breath Cardiac: + see HPI, + chest pain (including pleuritic), No orthopnea Abdomen: No pain, No nausea, No vomiting, No diarrhea, No constipation Musculoskeletal: + see HPI, + joint pain, No muscle pain Male : No dysuria, No urinary frequency, No hematuria Neuro: + weakness, + balance problems, No memory loss Psych: No depression symptoms, No anxiety Endo: + fatigue Skin: No new/changing skin lesions Physical Exam Date Time Temp Pulse Resp B/P (MAP) Pulse Ox O2 Delivery O2 Flow Rate FiO2 11/02/16 08:39 97 Room Air 11/02/16 07:56 37.0 69 16 120/80 (93) 97 Room Air 11/02/16 07:20 Room Air 11/02/16 04:00 155/88 (110) 11/02/16 00:23 160/85 (110) 11/01/16 23:48 36.7 66 16 166/83 Room Air 11/01/16 23:42 66 166/83 (110) 11/01/16 23:30 Room Air 11/01/16 22:50 36.7 66 16 175/93 (120) 98 Room Air 11/01/16 22:18 69 20 172/88 97 Room Air 11/01/16 21:19 68 20 155/109 96 Room Air 11/01/16 20:22 73 18 163/80 97 Room Air 11/01/16 18:23 69 18 148/105 99 Room Air 11/01/16 16:40 36.6 63 16 165/92 98 Room Air General Appearance: WD/WN, no apparent distress (on ra lying flat w/o resp distress; oriented/alert x 3) Eyes: EOMI ENT: hearing grossly normal Neck: supple Respiratory/Chest: no respiratory distress, + decreased breath sounds, + crackles (bibasilar; poor insp effort) Cardiovascular: regular rate, rhythm, no edema Abdomen: normal bowel sounds, non tender, soft (no hammond) Extremities: non-tender, no pedal edema Neurologic/Psych: alert, normal mood/affect, oriented x 3 (slight psychomotor slowing) Skin: no jaundice, warm/dry, no rash Diagnostics Last 24 Hours Test 11/01/16 18:20 11/02/16 06:21 11/02/16 08:16 White Blood Count 14.11 K/uL 10.30 K/uL Red Blood Count 4.09 M/uL 4.10 M/uL Hemoglobin 14.1 g/dL 13.7 g/dL Hematocrit 38.4 % 38.2 % Mean Corpuscular Volume 93.9 fL 93.2 fL Mean Corpuscular Hemoglobin 34.5 pg 33.4 pg Mean Corpuscular Hemoglobin Concent 36.7 g/dl 35.9 g/dl Platelet Count 218 K/uL 178 K/uL Mean Platelet Volume 9.0 fL 8.3 fL Neutrophils (%) (Auto) 72.2 % Lymphocytes (%) (Auto) 15.0 % Monocytes (%) (Auto) 11.8 % Eosinophils (%) (Auto) 0.3 % Basophils (%) (Auto) 0.1 % Neutrophils # (Auto) 10.17 K/uL Lymphocytes # (Auto) 2.12 K/uL Monocytes # (Auto) 1.67 K/uL Eosinophils # (Auto) 0.04 K/uL Basophils # (Auto) 0.02 K/uL RDW Standard Deviation 46.7 fL 45.7 fL RDW Coefficient of Variation 13.4 % 13.4 % Immature Granulocyte % (Auto) 0.6 % Immature Granulocyte # (Auto) 0.09 K/uL Sodium Level 131 mmol/L 128 mmol/L Potassium Level 4.7 mmol/L 4.0 mmol/L Chloride Level 96 mmol/L 90 mmol/L Carbon Dioxide Level 25 mmol/L 27 mmol/L Anion Gap 10.0 mmol/L 11.0 mmol/L Blood Urea Nitrogen 16 mg/dl 12 mg/dl Creatinine 0.82 mg/dl 0.76 mg/dl Est Creatinine Clear Calc Drug Dose 95.5 ml/min 103.0 ml/min Estimated GFR () 104.6 107.9 Estimated GFR (Non- 90.2 93.1 BUN/Creatinine Ratio 19.8 15.9 Random Glucose 134 mg/dl 151 mg/dl Calcium Level 9.0 mg/dl 9.0 mg/dl Total Bilirubin 1.0 mg/dl Direct Bilirubin 0.3 mg/dl Aspartate Amino Transf (AST/SGOT) 27 U/L Alanine Aminotransferase (ALT/SGPT) 33 U/L Alkaline Phosphatase 60 U/L Total Protein 7.3 gm/dl Albumin 4.0 gm/dl Hepatitis C Antibody Screen NEG Bedside Glucose 171 mg/dl Diagnostic Radiology: CT abd/pelvis w/ IV and po contrast: -R pleural thickening/hemorrhage; no PTX -no abnormal liver imaging findings -unremarkable kidneys/adrenals -R L1 transverse process; R 8-[address] as above Head CT > no acute intracranial process Assessment & Plan 71 y/o M w/ chronic hyponatremia in the setting of HTN, EtOH abuse, depression on SSRI admitted with multiple R rib and L spine transverse process fractures after falling from ladder 11/01. Hyponatremia, worsening on recheck but not outside of chronic range Hyponatremia on a chronic basis shown to have a role in gait instability and to increase fracture risk w/ falls. Stable at outpt /prior levels but will need to be monitored. First need to establish tonicity; volume status is euvolemic to slightly dry -recheck bmp, ur osms, serum osms, rd urine sodium today -for now cont NS -strict I/O -control pain and N -recommend avoiding nsaids where possible until sNa stabilized Appreciate consultation; will follow with you. Care coordinated w/ Dr Germain
[2016-11-02] MEDS: FINASTERIDE 5 MG TAB PO SCH (21:06)
[2016-11-02] MEDS: ESCITALOPRAM OXALATE 10 MG TAB PO SCH (21:07)
[2016-11-02] MEDS: VENLAFAXINE HCL XR 75 MG CAPXR PO SCH (21:07)
[2016-11-02] MEDS: ATORVASTATIN 20 MG TAB PO SCH (21:07)
[2016-11-02] MEDS: ALFUZosin TAB 10 MG TAB PO SCH (21:08)
[2016-11-02 22:49] LABS: CALCIUM 8.6 mg/dl (8.5-10.1)
[2016-11-02 22:50] LABS: BUN/CREATININE RATIO 12.4 (10-20); CREATININE 0.97 mg/dl (0.60-1.40); POTASSIUM 4.1 mmol/L (3.5-5.1)
[2016-11-03] MEDS: SODIUM CHLORIDE 0.9% 1000ML 1,000 ML IV SCH ×2 (03:58→14:34)
[2016-11-03] MEDS: HYDROmorphone INJ 1 MG/ML SYR IV PRN ×3 (05:54→16:12)
[2016-11-03 06:50] LABS: BUN/CREATININE RATIO 15.1 (10-20); CALCIUM 8.2 mg/dl (8.5-10.1); CREATININE 0.72 mg/dl (0.60-1.40)
[2016-11-03 07:26] VITALS: BP 140/86; PULSE 61; TEMP 36.5; O2SAT 97
[2016-11-03 07:30] VITALS: O2SAT 97
[2016-11-03] MEDS: PYRIDOXINE HCL 50 MG TAB PO SCH ×2 (09:41→21:17)
[2016-11-03] MEDS: THIAMINE HCL 100 MG TAB PO SCH (09:41)
[2016-11-03] MEDS: ENALAPRIL MALEATE 10 MG TAB PO SCH (09:41)
[2016-11-03] MEDS: METOPROLOL TARTRATE 50 MG TAB PO SCH ×2 (09:42→21:17)
[2016-11-03] MEDS: MULTIVITAMIN TAB PO SCH (09:42)
[2016-11-03] MEDS: LIDODERM (LIDOCAINE) PATCH 5% TD SCH (09:48)
[2016-11-03 12:00] VITALS: BP 136/82; PULSE 66; TEMP 36.6; O2SAT 98
--- NOTE | 2016-11-03 15:09 | SURGERY PROGRESS NOTE ---
DATE: 11/03/2016 DATE: 11/03/2016. Mr. Martin is seen today. This is his third hospital day after suffering several broken ribs on the right. His x-ray yesterday looked fine. I am quite happy with the appearance of his x-ray yesterday, which showed no evidence of fluid accumulation or pulmonary contusion. He is on room air. He is suffering from pain but quite frankly I think he looks good. At this point, I would not of course intervene in his chest. Pain control would be the order of the day and I would let him be discharged from my standpoint.
[2016-11-03 15:47] VITALS: BP 155/88; PULSE 57; TEMP 36.4; O2SAT 96
--- NOTE | 2016-11-03 16:26 | Progress Note ---
Internal Med Progress Note Date of Service: Nov 03, 2016. Provider Documentation: SUBJECTIVE: sitting up on chair mentions of having pain on movement or taking deep breath no fever or chills OBJECTIVE: Vital Signs-as noted below Exam: General-no sign of distress Eyes-sclera non icteric ENT-NAD Neck-no JVD Lungs-diminished, no rales or wheeze noted Heart-regular S1/s2 Abdomen-soft, non tender Extremities-tenderness on rt side of chest was , bruise on rt back , no open skin lesion Neuro-no focal deficit , AAO x3 Lab data as noted below. ASSESSMENT & PLAN: Multiple Rib Fractures Right L1 Transverse Process Fracture secondary to a mechanical fall from ladder pt denies of being intoxicated mentions last drink was 1 week back ordered for Lidoderm patch morphine PRN, hold Toradol for hyponatremia CT ABDOMEN /PELVIS: 1. No evidence of acute intra-abdominal or pelvic injury 2. Fractures of the right eighth, ninth, 10th, 11th, 12th ribs. 3. Fracture the right L1 transverse process 4. No evidence of pneumothorax. Right-sided posterior pleural thickening/hemorrhage. has had history of lumbar spinal stenosis and multiple back surgeries for now, monitor; may need a TLSO brace Ortho Dr Alcala consulted, appreciate input -conservative management avoid brace due to multiple rib fractures incentive spirometry NO evidence of Hemothorax Chest CT suggests R sided pleural thickening, possibly hemorrhage? CTS consulted; Dr. Denise consulted appreciate input Cxray-shows no evidence of pleural effusion stable Hx. of Alcohol Abuse/Dependence mentions of drinking 6 beers a day last drink was a week back PRN Ativan ordered continue multivitamin, folate, thiamine monitor electrolytes does not have any withdrawal symptoms Hyponatremia : Na in 128 -appears to be acute on chronic hx chronic alcohol abuse ordered for IV NSS PRP Q8 hrs to prevent rapid correction not more than 10 meq in 24 hrs Nephrology consult requested appreciate input Na improved 132 will D/c IVF repeat PRP in AM DM2 well controlled with metformin, last Ha1c ~ 6.3% hold metformin, monitor BSGs HTN continue metoprolol, enalapril continue pain medications DVT ppx SCD teds ambulate DISPOSITION referral made to [facility] for rehab possible transfer to [facility] tomorrow if bed available updated at bedside will provide transport Vital Signs: Date Time Temp Pulse Resp B/P (MAP) Pulse Ox O2 Delivery O2 Flow Rate FiO2 11/03/16 15:47 36.4 57 16 155/88 (110) 96 Room Air 11/03/16 12:00 36.6 66 16 136/82 (100) 98 Room Air 11/03/16 08:10 Room Air 11/03/16 07:30 97 Room Air 11/03/16 07:26 36.5 61 16 140/86 (104) 97 Room Air 11/02/16 23:25 36.9 60 18 155/81 (105) 94 Room Air 11/02/16 23:23 Room Air 11/02/16 21:00 69 161/80 (107) 11/02/16 17:15 Room Air Lab Results: Results Past 24 Hours Test 11/02/16 17:31 11/02/16 20:00 11/02/16 21:14 11/02/16 22:09 Range/Units Bedside Glucose 212 197 70-99 mg/dl Urine Osmolality 513 500-800 mOms/kg Urine Random Sodium 71 mEq/L Sodium Level 129 136-145 mmol/L Potassium Level 4.1 3.5-5.1 mmol/L Chloride Level 94 98-107 mmol/L Carbon Dioxide Level 27 21-32 mmol/L Anion Gap 8.0 3-11 mmol/L Blood Urea Nitrogen 12 7-18 mg/dl Creatinine 0.97 0.60-1.40 mg/dl Est Creatinine Clear Calc Drug Dose 80.7 ml/min Estimated GFR () 91.9 Estimated GFR (Non- 79.3 BUN/Creatinine Ratio 12.4 10-20 Random Glucose 198 70-99 mg/dl Osmolality 273 280-300 mOsm/kg Calcium Level 8.6 8.5-10.1 mg/dl Test 11/03/16 06:04 11/03/16 08:26 11/03/16 12:15 Range/Units Sodium Level 132 136-145 mmol/L Potassium Level 4.0 3.5-5.1 mmol/L Chloride Level 96 98-107 mmol/L Carbon Dioxide Level 28 21-32 mmol/L Anion Gap 8.0 3-11 mmol/L Blood Urea Nitrogen 11 7-18 mg/dl Creatinine 0.72 0.60-1.40 mg/dl Est Creatinine Clear Calc Drug Dose 108.7 ml/min Estimated GFR () 110.3 Estimated GFR (Non- 95.2 BUN/Creatinine Ratio 15.1 10-20 Random Glucose 175 70-99 mg/dl Calcium Level 8.2 8.5-10.1 mg/dl Bedside Glucose 187 185 70-99 mg/dl
[2016-11-03] MEDS ORDERED: ATV1 PO (16:55)
[2016-11-03] MEDS ORDERED: KLN1X PO (16:55)
--- NOTE | 2016-11-03 16:56 | Discharge Instructions ---
Discharge Instructions Date of Service Nov 03, 2016. Admission Reason for Admission: Multiple Rib Fractures Discharge Discharge Diagnosis / Problem: FALL /MULTIPLE RIB FRACTURE Discharge Goals Goal(s): Decrease discomfort, Improve disease control, Diagnostic testing Activity Recommendations Activity Level: Assistance Required Therapies: Physical Therapy, Occupational Therapy Lifting Limitations: no more than 5 pounds Shower/Bathe: no limitations He will undergo very light activity, lifting no more than 5 pounds for the next 4-6 weeks. . Additional Information Patient informed of condition: Yes Advance Directives: No DNR: No Level of Care: Acute Rehab Communicable Disease: No Prognosis: Stable Mayers Catheter: No Instructions / Follow-Up Instructions / Follow-Up FOLLOW UP WITH FAMILY PHYSICIAN DR DAMIAN AFTER DISCHARGE FORM REHAB RECOMMEND NEUROLOGY EVALUATION FOR PROGRESSIVE FORGETFULNESS /MEMORY LOSS STRONGLY RECOMMEND ABSTINENCE FORM ALCOHOL CAN USE NICOTINE PATCH OVER THE COUNTER TO QUIT USING SNUFF Current Hospital Diet Patient's current hospital diet: Diabetes Type 2 Diet Discharge Diet Recommended Diet: Diabetes Type 2 Diet Pending Studies Studies pending at discharge: no Medical Emergencies . Who to Call and When: Medical Emergencies: If at any time you feel your situation is an emergency, please call 911 immediately. . Non-Emergent Contact Non-Emergency issues call your: Primary Care Provider . . "Provider Documentation" section prepared by Constanza Germain. . Core Measure Problem Core Measures: None
[2016-11-03] MEDS ORDERED: LDDP5 TD (16:58)
[2016-11-03] MEDS ORDERED: ULT50X PO (16:58)
[2016-11-03] MEDS ORDERED: MRLP17X PO (16:58)
[2016-11-03] MEDS: ALFUZosin TAB 10 MG TAB PO SCH (21:16)
[2016-11-03] MEDS: FINASTERIDE 5 MG TAB PO SCH (21:17)
[2016-11-03] MEDS: VENLAFAXINE HCL XR 75 MG CAPXR PO SCH (21:18)
[2016-11-03] MEDS: ESCITALOPRAM OXALATE 10 MG TAB PO SCH (21:18)
[2016-11-03] MEDS: ATORVASTATIN 20 MG TAB PO SCH (21:18)
[2016-11-03 21:21] VITALS: BP 171/88; PULSE 67
[2016-11-03 22:06] LABS: BUN/CREATININE RATIO 14.2 (10-20); CREATININE 0.84 mg/dl (0.60-1.40); MAGNESIUM 1.7 mg/dl (1.8-2.4); POTASSIUM 3.8 mmol/L (3.5-5.1)
[2016-11-03 22:15] LABS: THYROID STIMULATING HORMONE 1.44 uIu/ml (0.300-4.500)
[2016-11-03 22:37] LABS: CALCIUM 8.8 mg/dl (8.5-10.1)
[2016-11-03] MEDS ORDERED: MAGNESIUM SULFATE 1GM / D5W 1 GM in PREMIXED IN D5W 100 ML IV STA (23:15)
[2016-11-03 23:19] VITALS: BP 191/93; PULSE 61; TEMP 36.9; O2SAT 96
[2016-11-03] MEDS ORDERED: ENALAPRIL MALEATE 10 MG TAB PO ONE (23:28)
[2016-11-04] MEDS: HYDROmorphone INJ 1 MG/ML SYR IV PRN ×2 (01:51→08:07)
--- NOTE | 2016-11-04 03:18 | Progress Note ---
Internal Med Progress Note Date of Service: Nov 04, 2016. Provider Documentation: Made aware by RN of episodic disorientation, SBP 190s Initiate AWSS for poss ETOH withdrawal. Will relay to AM provider. Vital Signs: Date Time Temp Pulse Resp B/P (MAP) Pulse Ox O2 Delivery O2 Flow Rate FiO2 11/04/16 07:40 36.5 80 17 171/92 (118) 96 Room Air 11/04/16 03:22 36.7 58 16 150/89 (109) 94 Room Air 11/03/16 23:19 36.9 61 16 191/93 (125) 96 Room Air 11/03/16 23:15 Room Air 11/03/16 21:21 67 171/88 (115) 11/03/16 15:47 36.4 57 16 155/88 (110) 96 Room Air 11/03/16 15:15 Room Air 11/03/16 12:00 36.6 66 16 136/82 (100) 98 Room Air Lab Results: Results Past 24 Hours Test 11/03/16 12:15 11/03/16 17:09 11/03/16 21:13 11/03/16 21:40 Range/Units Bedside Glucose 185 184 211 70-99 mg/dl Sodium Level 128 136-145 mmol/L Potassium Level 3.8 3.5-5.1 mmol/L Chloride Level 92 98-107 mmol/L Carbon Dioxide Level 27 21-32 mmol/L Anion Gap 9.0 3-11 mmol/L Blood Urea Nitrogen 12 7-18 mg/dl Creatinine 0.84 0.60-1.40 mg/dl Est Creatinine Clear Calc Drug Dose 93.2 ml/min Estimated GFR () 103.5 Estimated GFR (Non- 89.3 BUN/Creatinine Ratio 14.2 10-20 Random Glucose 234 70-99 mg/dl Calcium Level 8.8 8.5-10.1 mg/dl Magnesium Level 1.7 1.8-2.4 mg/dl Thyroid Stimulating Hormone (TSH) 1.440 0.300-4.500 uIu/ml Test 11/04/16 07:17 Range/Units
[2016-11-04 03:22] VITALS: BP 150/89; PULSE 58; TEMP 36.7; O2SAT 94
[2016-11-04] MEDS ORDERED: GABAPENTIN 600 MG TAB PO STA (03:24)
[2016-11-04] MEDS ORDERED: LORAZEPAM 2 MG/ML 1 ML VIAL IV PRN (03:30)
[2016-11-04] MEDS ORDERED: LORAZEPAM 1MG IV PHA DISPENSED IV PRN (03:45)
[2016-11-04 07:40] VITALS: BP 171/92; PULSE 80; TEMP 36.5; O2SAT 96
[2016-11-04] MEDS: LIDODERM (LIDOCAINE) PATCH 5% TD SCH (08:05)
[2016-11-04] MEDS: PYRIDOXINE HCL 50 MG TAB PO SCH ×2 (08:05→20:36)
[2016-11-04] MEDS: MULTIVITAMIN TAB PO SCH (08:05)
[2016-11-04] MEDS: THIAMINE HCL 100 MG TAB PO SCH (08:05)
[2016-11-04] MEDS: METOPROLOL TARTRATE 50 MG TAB PO SCH ×2 (08:06→20:34)
[2016-11-04] MEDS ORDERED: ENALAPRIL MALEATE 10 MG TAB PO SCH (09:00)
[2016-11-04 09:03] LABS: BUN/CREATININE RATIO 11.9 (10-20); CREATININE 0.72 mg/dl (0.60-1.40); POTASSIUM 4.3 mmol/L (3.5-5.1)
[2016-11-04] MEDS: GABAPENTIN 600MG Q6H DOSE PO SCH ×2 (10:31→16:00)
[2016-11-04 12:04] VITALS: BP 127/81; PULSE 54
[2016-11-04] MEDS: TRAMADOL HCL 50 MG TAB PO PRN ×2 (14:19→20:32)
[2016-11-04 15:17] VITALS: BP 99/68; PULSE 64; TEMP 36.9; O2SAT 94
--- NOTE | 2016-11-04 16:56 | Nephrology Progress Note ---
Nephrology Progress Note Date of Service: Nov 04, 2016. Subjective had pain med at 1400, groggy when I woke him for exam 1600 >> no n/v, no dyspnea , pain ok "provided I don't move," denies thirst; some agitation ON Objective Date Time Temp Pulse Resp B/P (MAP) Pulse Ox O2 Delivery O2 Flow Rate FiO2 11/04/16 09:05 Room Air 11/04/16 07:40 36.5 80 17 171/92 (118) 96 Room Air 11/04/16 03:22 36.7 58 16 150/89 (109) 94 Room Air 11/03/16 23:19 36.9 61 16 191/93 (125) 96 Room Air 11/03/16 23:15 Room Air 11/03/16 21:21 67 171/88 (115) 11/03/16 15:47 36.4 57 16 155/88 (110) 96 Room Air 11/03/16 15:15 Room Air 11/03/16 12:00 36.6 66 16 136/82 (100) 98 Room Air Physical Exam: General Appearance: WD/WN, no apparent distress (on ra lying flat w/o resp distress; lethargic but wakens fully) Eyes: EOMI ENT: hearing grossly normal Neck: supple Respiratory/Chest: no respiratory distress, + decreased breath sounds, poor insp effort Cardiovascular: regular rate, rhythm, no edema Abdomen: normal bowel sounds, non tender, soft (no hammond) Extremities: non-tender, no pedal edema Neurologic/Psych: alert, normal mood/affect, oriented x 3 (slight psychomotor slowing) Skin: no jaundice, warm/dry, no rash Current Inpatient Medications Medications (Trade) Dose Ordered Sig/Dolores Route Start Time Stop Time Status Last Admin Dose Admin Ioversol (Optiray 320) 111 ml UD PRN IV 11/01/16 18:30 11/05/16 18:29 Acetaminophen (Tylenol Tab) 650 mg Q4H PRN PO 11/01/16 22:00 12/01/16 21:59 Al Hydrox/Mg Hydrox/Simethicone (Maalox Max Susp) 15 ml Q4H PRN PO 11/01/16 22:00 12/01/16 21:59 Magnesium Hydroxide (Milk Of Magnesia Susp) 30 ml Q6H PRN PO 11/01/16 22:00 7/13/17 21:59 Polyethylene (Miralax Powder Packet) 17 gm DAILY PRN PO 11/01/16 22:00 12/01/16 21:59 Ondansetron HCl (Zofran Inj) 4 mg Q6H PRN IV 11/01/16 22:00 12/01/16 21:59 Alfuzosin HCl (Uroxatral Tab) 10 mg HS PO 11/02/16 21:00 12/02/16 20:59 11/03/16 21:16 10 MG Atorvastatin Calcium (Lipitor Tab) 20 mg QPM PO 11/02/16 21:00 12/02/16 20:59 11/03/16 21:18 20 MG Escitalopram Oxalate (Lexapro Tab) 10 mg HS PO 11/02/16 21:00 12/02/16 20:59 11/03/16 21:18 10 MG Finasteride (Proscar Tab) 5 mg HS PO 11/02/16 21:00 12/02/16 20:59 11/03/16 21:17 5 MG Folic Acid (Folvite Tab) 1 mg DAILY PO 11/02/16 09:00 12/02/16 08:59 11/04/16 08:05 1 MG Metoprolol Tartrate (Lopressor Tab) 50 mg BID PO 11/02/16 09:00 12/02/16 08:59 11/04/16 08:06 50 MG Multivitamins (Multivitamin Tab) 1 tab QAM PO 11/02/16 09:00 12/02/16 08:59 11/04/16 08:05 1 TAB Pyridoxine HCl (Vitamin B-6 Tab) 100 mg BID PO 11/02/16 09:00 12/02/16 08:59 11/04/16 08:05 100 MG Thiamine HCl (Vitamin B-1 Tab) 100 mg DAILY PO 11/02/16 09:00 12/02/16 08:59 11/04/16 08:05 100 MG Venlafaxine HCl (effeXOR EXTENDED REL CAP) 150 mg HS PO 11/02/16 21:00 12/02/16 20:59 11/03/16 21:18 150 MG Lidocaine (Lidoderm Patch 5%) 1 patch QAM TD 11/02/16 10:00 12/02/16 09:59 11/04/16 08:05 1 PATCH Miscellaneous (Remove Lidoderm Patch) 1 ea DAILY@21 N/A 11/02/16 21:00 12/02/16 20:59 11/03/16 21:18 1 EA Hydromorphone HCl (Dilaudid Inj) 1 mg Q3H PRN IV 11/02/16 15:30 11/16/16 15:29 11/04/16 08:07 1 MG Enalapril Maleate (Vasotec Tab) 10 mg BID PO 11/04/16 09:00 12/02/16 08:59 11/04/16 08:06 10 MG Lorazepam (Ativan Inj) PRN Dosing -Active Protocol Q1H PRN IV 11/04/16 03:30 12/04/16 03:29 Gabapentin (Neurontin Tab) 600 mg Q6H PO 11/04/16 10:00 11/04/16 16:01 Gabapentin (Neurontin Tab) 600 mg Q8H PO 11/05/16 00:00 11/05/16 16:01 Gabapentin (Neurontin Tab) 600 mg Q12H PO 11/06/16 04:00 11/06/16 16:01 Gabapentin (Neurontin Tab) 600 mg Q24H PO 11/07/16 16:00 11/07/16 16:01 Lorazepam 1 mg/ Syringe 1 ml @ 1 mls/min Q1H PRN IV 11/04/16 03:45 12/04/16 03:44 Last 24 Hours Test 11/03/16 12:15 11/03/16 17:09 11/03/16 21:13 11/03/16 21:40 Bedside Glucose 185 mg/dl 184 mg/dl 211 mg/dl Sodium Level 128 mmol/L Potassium Level 3.8 mmol/L Chloride Level 92 mmol/L Carbon Dioxide Level 27 mmol/L Anion Gap 9.0 mmol/L Blood Urea Nitrogen 12 mg/dl Creatinine 0.84 mg/dl Est Creatinine Clear Calc Drug Dose 93.2 ml/min Estimated GFR () 103.5 Estimated GFR (Non- 89.3 BUN/Creatinine Ratio 14.2 Random Glucose 234 mg/dl Calcium Level 8.8 mg/dl Magnesium Level 1.7 mg/dl Thyroid Stimulating Hormone (TSH) 1.440 uIu/ml Test 11/04/16 07:17 11/04/16 08:04 Sodium Level 133 mmol/L Potassium Level 4.3 mmol/L Chloride Level 97 mmol/L Carbon Dioxide Level 26 mmol/L Anion Gap 10.0 mmol/L Blood Urea Nitrogen 9 mg/dl Creatinine 0.72 mg/dl Est Creatinine Clear Calc Drug Dose 108.7 ml/min Estimated GFR () 110.3 Estimated GFR (Non- 95.2 BUN/Creatinine Ratio 11.9 Random Glucose 151 mg/dl Calcium Level 9.0 mg/dl Bedside Glucose 165 mg/dl Assessment & Plan 71 y/o M w/ chronic mild hyponatremia in the setting of HTN, EtOH abuse, depression on SSRI admitted with multiple R rib and L spine transverse process fractures after falling from ladder 11/01. Chronic hyponatremia, slowly improving and not outside of chronic range Hyponatremia on a chronic basis shown to have a role in gait instability and to increase fracture risk w/ falls. Stable at outpt /prior levels but will need to be monitored. -limiting po intake to 1.5L daily <> order in -recheck bmp, ur osms, serum osms, rd urine sodium tomorrow<>orders in -strict I/O -control pain and N -recommend avoiding nsaids where possible until sNa stabilized Appreciate consultation; will follow with you. Care coordinated w/ Dr. Germain
--- NOTE | 2016-11-04 18:01 | Progress Note ---
Internal Med Progress Note Date of Service: Nov 04, 2016. Provider Documentation: SUBJECTIVE: had episode of confusion /agitation last night started on alcohol withdrawal protocol pt is more awake and alert today sitting on chair , trying to shave no sign of agitation noted present at bedside mentions pt still showing evidence of confusion on and off hold transfer to [facility] today OBJECTIVE: Vital Signs-as noted below Exam: General-no sign of distress Eyes-sclera non icteric ENT-NAD Neck-no JVD Lungs-diminished, no rales or wheeze noted Heart-regular S1/s2 Abdomen-soft, non tender Extremities-tenderness on rt side of chest was , bruise on rt back , no open skin lesion Neuro-no focal deficit , AAO x3 Lab data as noted below. ASSESSMENT & PLAN: Multiple Rib Fractures Right L1 Transverse Process Fracture secondary to a mechanical fall from ladder pt denies of being intoxicated mentions last drink was 1 week back ordered for Lidoderm patch morphine PRN, hold Toradol for hyponatremia CT ABDOMEN /PELVIS: 1. No evidence of acute intra-abdominal or pelvic injury 2. Fractures of the right eighth, ninth, 10th, 11th, 12th ribs. 3. Fracture the right L1 transverse process 4. No evidence of pneumothorax. Right-sided posterior pleural thickening/hemorrhage. has had history of lumbar spinal stenosis and multiple back surgeries for now, monitor; may need a TLSO brace Ortho Dr Alcala consulted, appreciate input -conservative management avoid brace due to multiple rib fractures incentive spirometry NO evidence of Hemothorax Chest CT suggests R sided pleural thickening, possibly hemorrhage? CTS consulted; Dr. Denise consulted appreciate input Cxray-shows no evidence of pleural effusion stable Hx. of Alcohol Abuse/Dependence mentions of drinking 6 beers a day last drink was a week back PRN Ativan ordered continue multivitamin, folate, thiamine pt developed episodes of agitation and confusion yesterday night started on Ativan /Neurontin as per Alcohol withdrawal protocol monitor Hyponatremia : Improved to 132 , hx acute on chronic hyponatremia due to alcohol abuse IVF D/alfa Nephrology consult requested appreciate input DM2 well controlled with metformin, last Ha1c ~ 6.3% hold metformin, monitor BSGs HTN continue metoprolol, enalapril continue pain medications DVT ppx SCD teds ambulate DISPOSITION referral made to [facility] for rehab hold transfer to [facility] for possible withdrawal symptom updated at bedside will provide transport to [facility] when pt is medically stable Vital Signs: Date Time Temp Pulse Resp B/P (MAP) Pulse Ox O2 Delivery O2 Flow Rate FiO2 11/05/16 07:48 36.8 14 155/82 (106) 92 Room Air 11/05/16 03:52 36.7 60 16 171/86 (114) 91 Room Air 11/04/16 23:45 Room Air 11/04/16 22:51 36.6 61 16 174/97 (122) 92 Room Air 11/04/16 20:34 67 157/89 (111) 11/04/16 15:23 Room Air 11/04/16 15:17 36.9 64 18 99/68 (78) 94 Room Air 11/04/16 12:04 54 127/81 (96) 11/04/16 09:05 Room Air Lab Results: Results Past 24 Hours Test 11/04/16 12:05 11/04/16 16:48 11/04/16 18:30 11/04/16 20:31 Range/Units Bedside Glucose 151 168 152 70-99 mg/dl Urine Osmolality 646 500-800 mOms/kg Urine Random Sodium 64 mEq/L Test 11/05/16 06:00 Range/Units Sodium Level 131 136-145 mmol/L Potassium Level 4.3 3.5-5.1 mmol/L Chloride Level 94 98-107 mmol/L Carbon Dioxide Level 27 21-32 mmol/L Anion Gap 10.0 3-11 mmol/L Blood Urea Nitrogen 16 7-18 mg/dl Creatinine 0.79 0.60-1.40 mg/dl Est Creatinine Clear Calc Drug Dose 99.1 ml/min Estimated GFR () 106.2 Estimated GFR (Non- 91.6 BUN/Creatinine Ratio 20.1 10-20 Random Glucose 138 70-99 mg/dl Calcium Level 8.5 8.5-10.1 mg/dl
[2016-11-04] MEDS: VENLAFAXINE HCL XR 75 MG CAPXR PO SCH (20:33)
[2016-11-04] MEDS: FINASTERIDE 5 MG TAB PO SCH (20:33)
[2016-11-04] MEDS: ESCITALOPRAM OXALATE 10 MG TAB PO SCH (20:33)
[2016-11-04] MEDS: ATORVASTATIN 20 MG TAB PO SCH (20:33)
[2016-11-04 20:34] VITALS: BP 157/89; PULSE 67
[2016-11-04] MEDS: ALFUZosin TAB 10 MG TAB PO SCH (20:35)
[2016-11-04 22:51] VITALS: BP 174/97; PULSE 61; TEMP 36.6; O2SAT 92
[2016-11-05] VITALS (7 sets, daily range): BP systolic 128–171; BP diastolic 74–86; PULSE 60–70; TEMP 36.7–37; O2SAT 91–95
[2016-11-05] MEDS ORDERED: GABAPENTIN 600MG Q8H DOSE PO SCH
[2016-11-05] MEDS ORDERED: MoRPHine SULFATE 4 MG/ML 1 ML CARP\\VIAL IV PRN (00:15)
[2016-11-05 07:21] LABS: BUN/CREATININE RATIO 20.1 (10-20); CALCIUM 8.5 mg/dl (8.5-10.1); CREATININE 0.79 mg/dl (0.60-1.40); POTASSIUM 4.3 mmol/L (3.5-5.1)
[2016-11-05] MEDS: TRAMADOL HCL 50 MG TAB PO PRN ×3 (07:38→19:57)
[2016-11-05] MEDS: THIAMINE HCL 100 MG TAB PO SCH (08:42)
[2016-11-05] MEDS: MULTIVITAMIN TAB PO SCH (08:42)
[2016-11-05] MEDS: PYRIDOXINE HCL 50 MG TAB PO SCH ×2 (08:43→21:08)
[2016-11-05] MEDS: LIDODERM (LIDOCAINE) PATCH 5% TD SCH (08:45)
[2016-11-05] MEDS: METOPROLOL TARTRATE 50 MG TAB PO SCH ×2 (08:49→21:05)
[2016-11-05] MEDS: ENALAPRIL MALEATE 10 MG TAB PO SCH (08:50)
[2016-11-05] MEDS ORDERED: NURSING VERBAL MED ORDER ONE ×2 (13:00→18:45)
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
--- NOTE | 2016-11-05 19:08 | Progress Note ---
Internal Med Progress Note Date of Service: Nov 05, 2016. Provider Documentation: Pt seen approx 11 am today SUBJECTIVE: had uneventful night having forgetfulness off and on -as per pt has been very forgetful at home lately symptom is worse while in hospital OBJECTIVE: Vital Signs-as noted below Exam: General-no sign of distress Eyes-sclera non icteric ENT-NAD Neck-no JVD Lungs-diminished, no rales or wheeze noted Heart-regular S1/s2 Abdomen-soft, non tender Extremities-tenderness on rt side of chest was , bruise on rt back , no open skin lesion Neuro-no focal deficit , AAO x3 Lab data as noted below. ASSESSMENT & PLAN: Multiple Rib Fractures Right L1 Transverse Process Fracture secondary to a mechanical fall from ladder pt denies of being intoxicated mentions last drink was 1 week back ordered for Lidoderm patch morphine PRN, hold Toradol for hyponatremia CT ABDOMEN /PELVIS: 1. No evidence of acute intra-abdominal or pelvic injury 2. Fractures of the right eighth, ninth, 10th, 11th, 12th ribs. 3. Fracture the right L1 transverse process 4. No evidence of pneumothorax. Right-sided posterior pleural thickening/hemorrhage. has had history of lumbar spinal stenosis and multiple back surgeries for now, monitor; may need a TLSO brace Ortho Dr Alcala consulted, appreciate input -conservative management avoid brace due to multiple rib fractures incentive spirometry NO evidence of Hemothorax Chest CT suggests R sided pleural thickening, possibly hemorrhage? CTS consulted; Dr. Denise consulted appreciate input Cxray-shows no evidence of pleural effusion stable Hx. of Alcohol Abuse/Dependence mentions of drinking 6 beers a day last drink was a week back PRN Ativan ordered continue multivitamin, folate, thiamine Pt is more than > 3 days of last alcohol drink found to be more foggy /disoriented with Neurontin dose was kept on hold yesterday more awake and alert hold Neurontin and Ativan for now observe fall precaution Hyponatremia : Na 132 -. 131 -approx baseline hx acute on chronic hyponatremia due to alcohol abuse cont fluid restriction Nephrology consult requested appreciate input DM2 well controlled with metformin, last Ha1c ~ 6.3% hold metformin, monitor BSGs HTN continue metoprolol, enalapril continue pain medications DVT ppx SCD teds ambulate DISPOSITION referral made to [facility] for rehab continue to monitor for confusion possible transfer to [facility] tomorrow is pt is medically stable updated at bedside will provide transport to [facility] Vital Signs: Date Time Temp Pulse Resp B/P (MAP) Pulse Ox O2 Delivery O2 Flow Rate FiO2 11/05/16 16:10 Room Air 11/05/16 15:12 95 Room Air 11/05/16 15:04 36.7 64 15 128/74 (92) 95 Room Air 11/05/16 08:46 70 152/78 (102) 11/05/16 07:48 36.8 68 14 155/82 (106) 92 Room Air 11/05/16 07:40 Room Air 11/05/16 03:52 36.7 60 16 171/86 (114) 91 Room Air 11/04/16 23:45 Room Air 11/04/16 22:51 36.6 61 16 174/97 (122) 92 Room Air 11/04/16 20:34 67 157/89 (111) Lab Results: Results Past 24 Hours Test 11/04/16 20:31 11/05/16 06:00 11/05/16 08:24 11/05/16 12:33 Range/Units Bedside Glucose 152 154 150 70-99 mg/dl Sodium Level 131 136-145 mmol/L Potassium Level 4.3 3.5-5.1 mmol/L Chloride Level 94 98-107 mmol/L Carbon Dioxide Level 27 21-32 mmol/L Anion Gap 10.0 3-11 mmol/L Blood Urea Nitrogen 16 7-18 mg/dl Creatinine 0.79 0.60-1.40 mg/dl Est Creatinine Clear Calc Drug Dose 99.1 ml/min Estimated GFR () 106.2 Estimated GFR (Non- 91.6 BUN/Creatinine Ratio 20.1 10-20 Random Glucose 138 70-99 mg/dl Osmolality 270 280-300 mOsm/kg Calcium Level 8.5 8.5-10.1 mg/dl Test 11/05/16 16:56 Range/Units Bedside Glucose 167 70-99 mg/dl
[2016-11-05] MEDS: NICOTINE 21 MG/24 HR TDSY EXT SCH (19:39)
[2016-11-05] MEDS ORDERED: THIAMINE HCL INJ 200 MG in SODIUM CHLORIDE 0.9% 50ML 50 ML IV SCH (19:45)
[2016-11-05] MEDS: VENLAFAXINE HCL XR 75 MG CAPXR PO SCH (21:04)
[2016-11-05] MEDS: ESCITALOPRAM OXALATE 10 MG TAB PO SCH (21:04)
[2016-11-05] MEDS: ATORVASTATIN 20 MG TAB PO SCH (21:05)
[2016-11-05] MEDS: FINASTERIDE 5 MG TAB PO SCH (21:07)
[2016-11-05] MEDS: ALFUZosin TAB 10 MG TAB PO SCH (21:07)
[2016-11-06] MEDS: TRAMADOL HCL 50 MG TAB PO PRN ×2 (02:39→10:52)
[2016-11-06] MEDS ORDERED: GABAPENTIN 600MG Q12H DOSE PO SCH (04:00)
[2016-11-06 06:52] VITALS: BP 138/75; PULSE 58; TEMP 36.5; O2SAT 94
[2016-11-06 07:39] LABS: BUN/CREATININE RATIO 17.4 (10-20); CALCIUM 8.8 mg/dl (8.5-10.1); CREATININE 0.79 mg/dl (0.60-1.40); POTASSIUM 3.9 mmol/L (3.5-5.1)
[2016-11-06 08:54] VITALS: BP 151/82; PULSE 63
[2016-11-06] MEDS ORDERED: THIAMINE HCL INJ 100 MG in SYRINGE 9 ML IV SCH (09:00)
[2016-11-06] MEDS: LIDODERM (LIDOCAINE) PATCH 5% TD SCH (09:10)
[2016-11-06] MEDS: MULTIVITAMIN TAB PO SCH (09:11)
[2016-11-06] MEDS: NICOTINE 21 MG/24 HR TDSY EXT SCH (09:11)
[2016-11-06] MEDS: ENALAPRIL MALEATE 10 MG TAB PO SCH (09:12)
[2016-11-06] MEDS: METOPROLOL TARTRATE 50 MG TAB PO SCH (09:13)
[2016-11-06] MEDS: PYRIDOXINE HCL 50 MG TAB PO SCH (09:13)
[2016-11-06] MEDS ORDERED: NICO21DI4 EXT (10:32)
[2016-11-06] MEDS ORDERED: MLXESC PO (10:32)
[2016-11-06] MEDS ORDERED: ASPI81TA28 PO (10:32)
[2016-11-06] MEDS ORDERED: ULT50X PO (10:32)
[2016-11-06] MEDS ORDERED: MOMLX PO (10:32)
[2016-11-06 10:40] VITALS: BP 151/82; PULSE 63; TEMP 36.5; O2SAT 94
--- NOTE | 2016-11-06 11:28 | Progress Note ---
Internal Med Progress Note Date of Service: Nov 06, 2016. Provider Documentation: SUBJECTIVE: no further event last night daughter arrived from [place] , stays with pt overnight Pt seen this Am sitting up on chair , finished breakfast , alert and awake no sign of confusion , conversing appropriately complains of pain on rt side of chest wall with movement but much improved now able o lift his right arm above shoulder with out difficulty last pain medication-Tramadol taken at ~2: 45 am today d/w Daughter , pt is stable to be discharged to Rehab at [facility] OBJECTIVE: Vital Signs-as noted below Exam: General-no sign of distress Eyes-sclera non icteric ENT-NAD Neck-no JVD Lungs-diminished, no rales or wheeze noted Heart-regular S1/s2 Abdomen-soft, non tender Extremities-tenderness on rt side of chest was , bruise on rt back , no open skin lesion Neuro-no focal deficit , AAO x3 Lab data as noted below. ASSESSMENT & PLAN: Multiple Rib Fractures Right L1 Transverse Process Fracture secondary to a mechanical fall from ladder pt denies of being intoxicated mentions last drink was 1 week back ordered for Lidoderm patch CT ABDOMEN /PELVIS: 1. No evidence of acute intra-abdominal or pelvic injury 2. Fractures of the right eighth, ninth, 10th, 11th, 12th ribs. 3. Fracture the right L1 transverse process 4. No evidence of pneumothorax. Right-sided posterior pleural thickening/hemorrhage. has had history of lumbar spinal stenosis and multiple back surgeries for now, monitor; may need a TLSO brace Ortho Dr Alcala consulted, appreciate input -conservative management avoid brace due to multiple rib fractures incentive spirometry pain medication changed to Toradol 50 mg Q 6 hrs prn appears to have appropriate pain control per Ortho : resume light activity do not lift wt more than 5 lbs for next several weeks ( 4-6 weeks ) Hx. 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 pt has baseline gait disturbance, no visual symptom noted forgetful with confabulation present noted in multiple occasion pt given IV thiamine in Hospital will be continued with PO Thiamine 100 mg daily /Folic acid /pyridoxine counselled for ETOH abstinence will need out pt Neurology follow up for formal evaluation of Dementia pt was already establish with [facility] will need follow up appointment after discharge from rehab Daughter given update Hyponatremia : resolved NA 134 today hx acute on chronic hyponatremia due to alcohol abuse cont fluid restriction Nephrology consult requested appreciate input DM2 well controlled with metformin, last Ha1c ~ 6.3% hold metformin, monitor BSGs HTN continue metoprolol, enalapril DVT ppx SCD teds ambulate DISPOSITION referral made to [facility] for rehab Medically stable to be transferred to [facility] today Family will provide transport Vital Signs: Date Time Temp Pulse Resp B/P (MAP) Pulse Ox O2 Delivery O2 Flow Rate FiO2 11/06/16 10:40 36.5 63 17 94 Room Air 11/06/16 08:54 63 151/82 (105) 11/06/16 07:30 Room Air 11/06/16 06:52 36.5 58 17 138/75 (96) 94 Room Air 11/05/16 23:15 Room Air 11/05/16 22:48 37.0 62 18 152/85 (107) 93 Room Air 11/05/16 21:01 65 149/79 (102) 11/05/16 16:10 Room Air 11/05/16 15:12 95 Room Air 11/05/16 15:04 36.7 64 15 128/74 (92) 95 Room Air Lab Results: Results Past 24 Hours Test 11/05/16 12:33 11/05/16 16:56 11/05/16 20:40 11/06/16 06:34 Range/Units Bedside Glucose 150 167 149 70-99 mg/dl Sodium Level 133 136-145 mmol/L Potassium Level 3.9 3.5-5.1 mmol/L Chloride Level 98 98-107 mmol/L Carbon Dioxide Level 28 21-32 mmol/L Anion Gap 7.0 3-11 mmol/L Blood Urea Nitrogen 14 7-18 mg/dl Creatinine 0.79 0.60-1.40 mg/dl Est Creatinine Clear Calc Drug Dose 99.1 ml/min Estimated GFR () 106.2 Estimated GFR (Non- 91.6 BUN/Creatinine Ratio 17.4 10-20 Random Glucose 133 70-99 mg/dl Calcium Level 8.8 8.5-10.1 mg/dl Test 11/06/16 07:55 Range/Units Bedside Glucose 126 70-99 mg/dl
--- NOTE | 2016-11-06 11:29 | Discharge Summary ---
Discharge Summary Date of Service Nov 06, 2016. Discharge Summary Admission Date: Nov 01, 2016 at 21:58 Discharge Date: Nov 04, 2016 Discharge Disposition: Rehab ([facility] ) Principal Diagnosis: FALL /MULTIPLE RIB FRACTURE Procedures: LUMBER SPINE CT : IMPRESSION: 1. Acute fracture the right L1 transverse process 2. Acute fracture the right 11th and 12th ribs 3. Postsurgical changes of prior discectomies and interbody fusions and posterior pedicle screw fixation spinal fusion. No acute vertebral body fractures identified. CT THORACIC SPINE : Posterior IMPRESSION: 1. Moderately advanced multilevel degenerative change 2. No acute fractures or subluxations identified 3. Right-sided pleural thickening. CT ABDOMEN/PELVIS : IMPRESSION: 1. No evidence of acute intra-abdominal or pelvic injury 2. Fractures of the right eighth, ninth, 10th, 11th, 12th ribs. 3. Fracture the right L1 transverse process 4. No evidence of pneumothorax. Right-sided posterior pleural thickening/hemorrhage. Consultations: NEPHROLOGY ORTHOPEDICS Medication Reconciliation New Medications: Tramadol HCl (Tramadol HCl) 50 Mg Tab 1 TAB PO Q6 for Pain, #30 Aluminum/Magnesium/Simeth (Mag-Al Plus Xs 400-400-40 mg/5Ml) 30 Ml Susp 15 ML PO Q4H PRN for Dyspepsia for 30 Days Lidocaine (Lidocaine) 1 Patch Tdsy 1 PATCH TD QAM for 30 Days Magnesium Hydroxide (Milk of Magnesia) 30 Ml Susp 30 ML PO Q6H PRN for Constipation for 30 Days Nicotine (Nicoderm Cq) 21 Mg/24 Hr Dis 1 PATCH EXT QAM for 30 Days, #30 Polyethylene (Miralax) 17 Gm Pow 17 GM PO DAILY PRN for Constipation for 30 Days Tramadol HCl (Tramadol HCl) 50 Mg Tab 50 MG PO Q6 PRN for Pain, #30 TAB Changed Medications: Aspirin (Aspirin Ec) 81 Mg Tab 81 MG PO HS, #30 (Changed from: QAM) Continued Medications: Alfuzosin HCl (Alfuzosin HCl ER) 10 Mg Tab 10 MG PO HS, #90 Ascorbic Acid (Vitamin C) 500 Mg Tab 500 MG PO QAM Atorvastatin (Lipitor) 20 Mg Tab 20 MG PO QPM, TAB Clonazepam (Clonazepam) 1 Mg Tab 1 MG PO HS PRN for Anxiety, #30 (This prescription has been renewed) Enalapril (Vasotec) 10 Mg Tab 10 MG PO QAM, 0 Refills Escitalopram Oxalate (Escitalopram Oxalate) 10 Mg Tab 10 MG PO HS, #90 Finasteride (Finasteride) 5 Mg Tab 5 MG PO HS, #90 Folic Acid (Folic Acid) 1 Mg Tab 1 MG PO DAILY, #30 5 Refills Metformin Hcl (Glucophage) 1,000 Mg Tab 1000 MG PO BID, #180 Metoprolol Tartrate (Lopressor) (Lopressor) 50 Mg Tab 50 MG PO BID, TAB Multivitamin (Multivitamin) Tab 1 TAB PO QAM Pyridoxine (Vitamin B6) 100 Mg Tab 100 MG PO BID, TAB Thiamine HCl (Vitamin B-1) 100 Mg Tab 100 MG PO DAILY, #30 5 Refills Venlafaxine Hcl (Effexor Extended Rel) 75 Mg Capcr 150 MG PO HS, #180 Admission Information HPI (per Admitting provider): This is a 71 year old male with a PMH of HTN, DM2, HLD, depression/anxiety, hx. of alcohol abuse/dependence, BPH presents after a fall from a ladder; states he "missed a step" on the way down and fell down and landed on his back. Presented to the ER; found to have multiple rib fractures and L1 transverse process fracture. States that his pain is still present; has had history of spinal stenosis s/p surgical repair; but back pain is much more severe now. Denies bowel or bladder incontinence. Denies fevers/chills. Physical Exam (per Admitting): General Appearance: + moderate distress (mild to moderate distress seconary to pain) Head: normocephalic, atraumatic Eyes: normal inspection ENT: hearing grossly normal Neck: supple Respiratory/Chest: lungs clear, normal breath sounds, no respiratory distress, no accessory muscle use, + pertinent finding (+pain) Cardiovascular: regular rate, rhythm, no edema, no gallop, no JVD, no murmur , normal peripheral pulses Abdomen/GI: normal bowel sounds, non tender, soft Back: + muscle spasm, + decreased range of motion (painful ROM), + paravertebral tenderness Extremities/Musculoskelatal: normal capillary refill, no pedal edema Neurologic/Psych: no motor/sensory deficits, alert, normal mood/affect Skin: normal color Lymphatic: no adenopathy Hospital Course Multiple Rib Fractures Right L1 Transverse Process Fracture secondary to a mechanical fall from ladder pt denies of being intoxicated mentions last drink was 1 week back ordered for Lidoderm patch CT ABDOMEN /PELVIS: 1. No evidence of acute intra-abdominal or pelvic injury 2. Fractures of the right eighth, ninth, 10th, 11th, 12th ribs. 3. Fracture the right L1 transverse process 4. No evidence of pneumothorax. Right-sided posterior pleural thickening/hemorrhage. has had history of lumbar spinal stenosis and multiple back surgeries for now, monitor; may need a TLSO brace Ortho Dr Alcala consulted, appreciate input -conservative management avoid brace due to multiple rib fractures incentive spirometry pain medication changed to Toradol 50 mg Q 6 hrs prn appears to have appropriate pain control per Ortho : resume light activity do not lift wt more than 5 lbs for next several weeks ( 4-6 weeks ) Hx. 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 pt has baseline gait disturbance, no visual symptom noted forgetful with confabulation present noted in multiple occasion pt given IV thiamine in Hospital will be continued with PO Thiamine 100 mg daily /Folic acid /pyridoxine counselled for ETOH abstinence will need out pt Neurology follow up for formal evaluation of Dementia pt was already establish with [facility] will need follow up appointment after discharge from rehab Daughter given update Hyponatremia : resolved NA 134 today hx acute on chronic hyponatremia due to alcohol abuse cont fluid restriction Nephrology consult requested appreciate input DM2 well controlled with metformin, last Ha1c ~ 6.3% hold metformin, monitor BSGs HTN continue metoprolol, enalapril DVT ppx SCD teds ambulate DISPOSITION referral made to [facility] for rehab Medically stable to be transferred to [facility] today Family will provide transport Total time spent on discharge = 40 CA NS This includes examination of the patient, discharge planning, medication reconciliation, and communication with other providers. Discharge Instructions Discharge Instructions Date of Service Nov 03, 2016. Admission Reason for Admission: Multiple Rib Fractures Discharge Discharge Diagnosis / Problem: FALL /MULTIPLE RIB FRACTURE Discharge Goals Goal(s): Decrease discomfort, Improve disease control, Diagnostic testing Activity Recommendations Activity Level: Assistance Required Therapies: Physical Therapy, Occupational Therapy Lifting Limitations: no more than 5 pounds Shower/Bathe: no limitations He will undergo very light activity, lifting no more than 5 pounds for the next 4-6 weeks. . Additional Information Patient informed of condition: Yes Advance Directives: No DNR: No Level of Care: Acute Rehab Communicable Disease: No Prognosis: Stable Mayers Catheter: No Instructions / Follow-Up Instructions / Follow-Up FOLLOW UP WITH FAMILY PHYSICIAN DR MARTE AFTER DISCHARGE FORM REHAB RECOMMEND NEUROLOGY EVALUATION FOR PROGRESSIVE FORGETFULNESS /MEMORY LOSS STRONGLY RECOMMEND ABSTINENCE FORM ALCOHOL CAN USE NICOTINE PATCH OVER THE COUNTER TO QUIT USING SNUFF Current Hospital Diet Patient's current hospital diet: Diabetes Type 2 Diet Discharge Diet Recommended Diet: Diabetes Type 2 Diet Pending Studies Studies pending at discharge: no Medical Emergencies . Who to Call and When: Medical Emergencies: If at any time you feel your situation is an emergency, please call 911 immediately. . Non-Emergent Contact Non-Emergency issues call your: Primary Care Provider . . "Provider Documentation" section prepared by Constanza Germain. . Core Measure Problem Core Measures: None Additional Copies To Dong Marte M.D. Brock, Alexandra C.R.N.P.
[2016-11-07] MEDS ORDERED: GABAPENTIN 600MG Q24H DOSE PO SCH (16:00)
== END 2016-11-06 12:22 | DRG 183 ==
LOC: C.EDB 16:39 → C.MSN 21:58 → ENRESERV 22:13 → C.MSN 23:11
PROVIDERS: ADMIT Family Medicine; ATTEND Hospitalist
DX: S22.41XA Multiple fractures of ribs, right side, initial encounter for closed fracture (principal); G93.41 Metabolic encephalopathy; S32.018A Other fracture of first lumbar vertebra, initial encounter for closed fracture; E87.1 Hypo-osmolality and hyponatremia; N18.2 Chronic kidney disease, stage 2 (mild); E11.22 Type 2 diabetes mellitus with diabetic chronic kidney disease; E78.5 Hyperlipidemia, unspecified; N40.0 Benign prostatic hyperplasia without lower urinary tract symptoms; I12.9 Hypertensive chronic kidney disease with stage 1 through stage 4 chronic kidney disease, or unspecified chronic kidney disease; F32.9 Major depressive disorder, single episode, unspecified; R91.8 Other nonspecific abnormal finding of lung field; Z79.82 Long term (current) use of aspirin; Z79.84 Long term (current) use of oral hypoglycemic drugs; Z79.899 Other long term (current) drug therapy; W11.XXXA Fall on and from ladder, initial encounter; Z98.1 Arthrodesis status; F10.20 Alcohol dependence, uncomplicated

== ENCOUNTER → 2016-12-05 | Outpatient (CLI) | payer OTHER ==
[~2016-12-05] MED LIST changes: -ATV1 PO; +EFFSR75 PO; -GLC/500 PO; +KLN1X PO; +LDDP5 TD; +LXP10 PO; +METF-384 PO; +MLXESC PO; +MOMLX PO; +NICO21DI4 EXT; +PRS5 PO; -RXC5 PO; -TRAZ50TA35 PO; +ULT50X PO; +URX/10 PO
--- NOTE | 2016-12-05 09:32 | DIAGNOSTIC IMAGING REPORT ---
CHEST 2 VIEWS ROUTINE CLINICAL HISTORY: [id number] Fractured [id number] COMPARISON STUDY: 11/02/2016, CT scan dated 11/01/2016 FINDINGS: The cardiac and mediastinal contours are normal. There is no evidence of focal pulmonary consolidation. There is no evidence of failure. No pleural effusions are visualized.[ No pneumothorax is visualized. There are lower right-sided rib fractures. These were described on the prior CT scan. IMPRESSION: No active disease in the chest. Electronically signed by: Kaden Pride M.D. 12/05/2016 9:30 AM Dictated Date/Time: 12/05/2016 9:29 AM
== END | disposition home or self-care (01) ==
LOC: C.RAD1850 09:15
PROVIDERS: ATTEND Surgery
DX: S22.39XA Fracture of one rib, unspecified side, initial encounter for closed fracture (principal); X58.XXXA Exposure to other specified factors, initial encounter

== ENCOUNTER → 2017-01-02 | Outpatient (CLI) | payer OTHER ==
[~2017-01-02] MED LIST changes: +GADAVIST IV PRN
--- NOTE | 2017-01-02 17:11 | DIAGNOSTIC IMAGING REPORT ---
Brain MRI WITH AND WITHOUT CONTRAST HISTORY: GAIT ABNORMALITY TECHNIQUE: Multiplanar multisequence MRI of the brain was performed both before and after the intravenous administration of contrast. COMPARISON STUDY: Head CT 11/01/2016. Brain MRI 12/18/2014. FINDINGS: There are no areas of restricted diffusion to suggest acute infarction. The midline structures are intact. The paranasal sinuses are clear. The mastoid air cells are clear. There is no mass, hematoma, midline shift. The major vascular flow-voids at the skull base are well maintained. Postcontrast sequences show no areas of abnormal enhancement. 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 Mild ventriculomegaly, unchanged. A few scattered punctate foci of T2 hyperintensity within the periventricular white matter are also unchanged. This favors mild microvascular ischemic change. Stable small developmental venous anomaly within the left frontal lobe. This is considered to be a normal variant. IMPRESSION: No significant change compared to the prior study. No acute intracranial abnormality. Mild ventriculomegaly remains stable. Electronically signed by: Joel Lemon M.D. 01/02/2017 5:10 PM Dictated Date/Time: 01/02/2017 5:02 PM
== END | disposition home or self-care (01) ==
LOC: C.MRI 16:14
PROVIDERS: ATTEND Psychiatry & Neurology Neurology
DX: R26.9 Unspecified abnormalities of gait and mobility (principal)

== ENCOUNTER 2020-01-29 10:53 | Inpatient (IN) ==
--- NOTE | 2020-01-10 13:07 | PAT Medication Instructions ---
Medication Instructions Date of Service January 10, 2020 Home Medications Vitamin B6 100 mg PO QAM Vitamin D 1 tab PO QAM alfuzosin 10 mg PO QPM aspirin [Aspir-81] 81 mg PO QAM atorvastatin 20 mg PO PM enalapril maleate 20 mg PO QAM escitalopram oxalate 10 mg PO QPM metformin 1,000 mg PO BID metoprolol tartrate 50 mg PO BID multivitamin 1 tab PO QAM naproxen sodium [Aleve] 440 - 660 mg PO BID PRN ASK your surgeon for instructions naproxen sodium [Aleve] 440 - 660 mg PO BID PRN ASK your prescriber and surgeon aspirin [Aspir-81] 81 mg PO QAM DO NOT take the morning of surgery Vitamin B6 100 mg PO QAM Vitamin D 1 tab PO QAM enalapril maleate 20 mg PO QAM metformin 1,000 mg PO BID multivitamin 1 tab PO QAM Take morning of surgery With a small sip of water, OTHERWISE NOTHING TO EAT OR DRINK AFTER MIDNIGHT: metoprolol tartrate 50 mg PO BID Take evening before surgery alfuzosin 10 mg PO QPM atorvastatin 20 mg PO PM escitalopram oxalate 10 mg PO QPM metformin 1,000 mg PO BID metoprolol tartrate 50 mg PO BID Other Notes If you have any questions please call us at [phone] or [phone] or [phone] or [phone]
--- NOTE | 2020-01-14 11:06 | Anesthesiology Consultation ---
Date of Service January 14, 2020 Assessment & Plan (1) Encounter for pre-operative examination: - Check BSG AM DOS *Per PAT assessment on 01/13: Travel screen- Lives in [place]. [facility] to [facility] doctor appt. Uses PPE/following COVID precaution guidelines. No known COVID-19 positive contacts. No current COVID-19 related symptoms. Patient scheduled for preop protocol COVID-19 testing (01/23; [facility]). Awaiting results. - Hx normal pressure hydrocephalus: s/p ROUND UP RING HAND shunt (08/2018). Patient seen by neurosurgery 11/12/19- per office visit, complaints of worsening balance and gait difficulties + urinary incontinence. "I have personally reviewed CT head without contrast dated 11/12/2019 which shows per my interpretation stable ventricular size compared to previous CT in March 2019.. At this time I believe that patients symptoms are related to his low back pain.. recommend the patient follow-up with his orthopedic surgeon.. After the patient completes surgery for his back as well as rehab.. he is to call the office to schedule an appointment with us in July 2020." Case reviewed with Dr. Kiser- he does not feel that anything further needed prior to surgery from his perspective. Chart Review Chart Review: Acceptable Risk for Surgery (pending surgeon-ordered PCP clearance scheduled 01/21 ([facility] and Patient seen in Pre Admission Testing Teaching & Discussion Pre-Anesthesia Teaching/Discussion Notes: Instructed NPO after midnight before surgery,except medications with 15 cc of water. Medication instructions provided according to the PAT guidelines. History Surgery Operation Date: 01/29/20 11:05 Proposed Procedures p L1-L2 Decompression, T12-L2 Fuison, Removal of L2 Screws; Spinal Cord Monitoring - Fernando Alcala DO Height/Weight Height: 5 ft 11 in Weight: 90.8 kg Allergies Allergy/AdvReac Type Severity Reaction Status Date / Time Sulfa (Sulfonamide Allergy Mild RASH Verified 01/10/20 12:10 Antibiotics) Medications Home Medications Medication Instructions Recorded Confirmed Last Taken Vitamin B6 100 mg PO QAM 01/10/20 01/10/20 Unknown Vitamin D 1 tab PO QAM 01/10/20 01/10/20 Unknown alfuzosin 10 mg PO QPM 01/10/20 01/10/20 Unknown aspirin [Aspir-81] 81 mg PO QAM 01/10/20 01/10/20 Unknown atorvastatin 20 mg PO PM 01/10/20 01/10/20 Unknown enalapril maleate 20 mg PO QAM 01/10/20 01/10/20 Unknown escitalopram oxalate 10 mg PO QPM 01/10/20 01/10/20 Unknown metformin 1,000 mg PO BID 01/10/20 01/10/20 Unknown metoprolol tartrate 50 mg PO BID 01/10/20 01/10/20 Unknown multivitamin 1 tab PO QAM 01/10/20 01/10/20 Unknown naproxen sodium [Aleve] 440 - 660 mg PO BID PRN 01/10/20 01/10/20 Unknown Past Medical History Medical History (Updated 01/14/20 @ 13:04 by Miguelina Matthews) Chronic back pain CKD (chronic kidney disease), stage II per records Diabetes mellitus, type 2 NIDDM Hyperlipidemia Hypertension Normal pressure hydrocephalus s/p ROUND UP RING HAND shunt (08/2018); under surveillance by neurosurgery Urinary bladder incontinence Exercise / Class Metabolic Activity II 4-5 Yardwork/Stairs/Walk up hill Past Family History Family History Father Gastric cancer Son Family history of diabetes mellitus Other Diabetes Past Surgical History Surgical History (Updated 01/14/20 @ 13:04 by Miguelina Matthews) H/O wrist surgery History of back surgery X 2 History of colonoscopy History of dental surgery Hx of hernia repair S/P ROUND UP RING HAND shunt 08/2018 Past Anesthesia History No Family Hx of Anesthesia Complications and Other Patient reports abdominal skin bruising after back surgery ([facility]). [place] r/t heavy ETOH use at that time (previously drank 2-3 6 packs/day-- now drinks a few beers/week). "Slow to wake"/fuzzy after anesthesia emergence. History of PONV No Hx of PONV and No Hx of Motion Sickness Social History Smoking Status: Never smoker tobacco type: smokeless tobacco Do You Dip or Chew Tobacco: Yes (1/2 BOX/DAY- Advised NPO AM DOS) Hx Alcohol Use: Yes Alcohol type: beer alcohol intake frequency: a few times a week (previous heavier ETOH use) Hx Substance Use: No Review of Systems Patient denies chest pain, shortness of breath, dyspnea on exertion,fever, chills, cough, wheezing, palpitations. Physical Exam Vital Signs VITALS BP 107/63 P 53 TEMP 98.2 SP02 97%RA RESP 16 PHYSICAL Full neck and c-spine range of motion. Full TMJ range of motion. TMD 3.5 finger breaths Mallampati Score 3 Dentition: full dentures upper/lower Lungs: clear throughout to auscultation Cardiac: regular rate and rhythm, no murmurs noted Spine: normal Carotid arteries: negative bruit Extremities: no edema Testing Laboratory Results 01/14/20 11:26 01/14/20 11: PT 11.4 Seconds (9.0-12.0) 01/14/20 11: INR 1.1 (0.9-1.1) 01/14/20 11: APTT 26.7 Seconds (21.0-31.0) 01/14/20 11: Hemoglobin A1c 6.6 % (4.5-5.6) H 01/14/20 11:26 Urine Color Yellow 01/14/20 Unknown Urine Appearance Cloudy (Clear) A 01/14/20 Unknown Urine pH 5.0 (4.5-7.5) 01/14/20 Unknown Ur Specific [place] 1.019 (1.000-1.030) 01/14/20 Unknown Urine Protein Negative (Negative) 01/14/20 Unknown Urine Glucose (UA) Negative (Negative) 01/14/20 Unknown Urine Ketones Negative (Negative) 01/14/20 Unknown Urine Nitrite Positive (Negative) A 01/14/20 Unknown Ur Leukocyte Esterase 3+ (Negative) H 01/14/20 Unknown Urine WBC (Auto) >30 /hpf (0-5) H 01/14/20 Unknown Urine RBC (Auto) 0-4 /hpf (0-4) 01/14/20 Unknown U Hyaline Cast (Auto) 0 /lpf (0-5) 01/14/20 Unknown U Epithel Cells (Auto) 5-10 /lpf (0-5) H 01/14/20 Unknown Urine Bacteria (Auto) 2+ (Negative) H 01/14/20 Unknown Blood Type AB Positive 01/14/20 11: Antibody Screen NEGATIVE 01/14/20 11:26 Surgeon's office made aware of abnormal UA* Electrocardiogram Date: 01/14/20 SB at 52bpm. LAFB. No significant change compared to 08/27/18 per solar hot water installer review. Chest X-Ray Date: 01/14/20 FINDINGS: Lung volumes are normal. Lungs are clear. There is no pneumothorax or pleural effusion. Cardiac size is normal. Mediastinal contours are normal. There is no evidence for pulmonary edema. A catheter projects over the right lower neck and chest. IMPRESSION: No acute cardiopulmonary findings.
--- NOTE | 2020-01-14 12:03 | XRay Report ---
XR chest Pre-admission PA/Lat CLINICAL HISTORY: Preoperative evaluation. COMPARISON STUDY: Chest radiograph August 27, 2018. FINDINGS: Lung volumes are normal. Lungs are clear. There is no pneumothorax or pleural effusion. Car diac size is normal. Mediastinal contours are normal. There is no evidence for pulmonary edema. A cat heter projects over the right lower neck and chest. IMPRESSION: No acute cardiopulmonary findings. ACT 112: Negative or not required by law. Electronically signed by: Marcelino Agosto M.D. 01/14/2020 12:02 PM
[2020-01-14 12:04] LABS: Basophils # (auto) 0.02 K/uL (0-0.2); Basophils % (auto) 0.3 %; Eosinophils # (auto) 0.21 K/uL (0-0.5); Eosinophils % (auto) 2.8 %; Hematocrit (blood only) 41.1 % (42-52); Hemoglobin 14.6 g/dL (14.0-18.0); Immature Granulocytes # (auto) 0.06 K/uL (0.00-0.02); Immature Granulocytes % (auto) 0.8 %; Lymphocytes # (auto) 2.84 K/uL (1.2-3.4); Lymphocytes % (auto) 38.2 %; Mean Corpuscular Hemoglobin 35.3 pg (25-34); Mean Corpuscular Hgb Conc 35.5 g/dL (32-36); Mean Corpuscular Volume 99.3 fL (80-100); Mean Platelet Volume 9.7 fL (7.4-10.4); Monocytes # (auto) 0.99 K/uL (0.11-0.59); Monocytes % (auto) 13.3 %; Neutrophils # (auto) 3.31 K/uL (1.4-6.5); Neutrophils % (auto) 44.6 %; Platelet Count 202 K/uL (130-400); RDW Coefficient of Variation 13.5 % (11.5-14.5); RDW Standard Deviation 48.9 fL (36.4-46.3); Red Blood Count 4.14 M/uL (4.7-6.1); White Blood Count 7.43 K/uL (4.8-10.8)
[2020-01-14 12:17] LABS: BUN Creatinine Ratio 15.7 (10-20); Calcium 9.5 mg/dl (8.5-10.1); Creatinine Clr Calc Pharmacy 77.7 ml/min; Est GFR (African American) 87.8; Est GFR (Non-African American) 75.8; Potassium 4.5 mmol/L (3.5-5.1)
[2020-01-14 12:21] LABS: Appearance Urine Cloudy (Clear); Bacteria Urine Automated 2+ (Negative); Bilirubin Urine Negative (Negative); Blood Urine Trace (Negative); Cast Urine Automated 0 /lpf (0-5); Color Urine Yellow; Glucose Urine UA Negative (Negative); Ketones Urine Negative (Negative); Leukocyte Esterase Urine 3+ (Negative); Nitrite Urine Positive (Negative); Protein Urine Negative (Negative); RBC Urine Automated 0-4 /hpf (0-4); Specific Gravity Urine 1.019 (1.000-1.030); Urobilinogen Urine Negative (Negative); WBC Urine Automated >30 /hpf (0-5)
[2020-01-14 12:23] LABS: INR 1.1 (0.9-1.1); Partial Thromboplastin Time 26.7 Seconds (21.0-31.0); Prothrombin Time 11.4 Seconds (9.0-12.0)
--- NOTE | 2020-01-14 12:33 | Electrocardiogram Report ---
Test Reason : Blood Pressure : / mmHG Vent. Rate : 052 BPM Atrial Rate : 052 BPM P-R Int : 160 ms QRS Dur : 096 ms QT Int : 416 ms P-R-T Axes : 043 -74 039 degrees QTc Int : 386 ms Sinus bradycardia Left anterior fascicular block Abnormal ECG When compared with ECG of 27-AUG-2018 15:27, No significant change was found Confirmed by Vignesh Dallas ([id number]) on 01/14/2020 12:33:28 PM Referred By: Fernando Alcala Confirmed By:Vignesh Dallas
[2020-01-14 12:43] LABS: Estimated Average Glucose 143 mg/dl; Hemoglobin A1C 6.6 % (4.5-5.6)
[~2020-01-29 10:53] MED LIST changes: +ACETAMINOPHEN 500 MG TAB PO SCH; -ASCO500T3 PO; -ASPI81TA28 PO; -ATOR-22 PO; +CeleBREX 200 MG CAP PO SCH; +DEXAMETHASONE SOD INJ 4 MG/ML VIAL ONE; -EFFSR75 PO; -ENAL10TA88 PO; -FLV1 PO; +GABAPENTIN 300 MG CAP PO SCH; -GADAVIST IV PRN; +GLYCOPYRROLATE 0.2 MG/ML VIAL ONE; -KLN1X PO; +LARYING-O-JET KIT (LTA) ONE; -LDDP5 TD; +LIDOCAINE HCL 2% 2 ML VIAL/AMP(20MG/ML) INFIL ONE; +LR 15ML/HR IV SCH; -LXP10 PO; -METF-384 PO; -METO50TA16 PO; +MIDAZOLAM HCL 1 MG/ML 2ML VIAL ONE; -MLXESC PO; -MOMLX PO; -MRLP17X PO; -MULT-506 PO; +NEOSTIGMINE METHYLSULFATE 1 MG/ML 10ML VIAL ONE; -NICO21DI4 EXT; +ONDANSETRON INJ 2 MG/ML 2 ML VIAL ONE; +PHENYLEPHRINE 100MCG/ML 5ML SYR ONE; +PROPOFOL IV EMULSION 10 MG/ML 20 ML VIAL IV ONE; -PRS5 PO; -PYRI100T4 PO; -THM100 PO; -ULT50X PO; -URX/10 PO; +ceFAZolin 2000MG 2,000 MG/15 ML SYR IV SCH; +ePHEDrine sulfate 50 MG/ML SYR ONE; +fentaNYL citrate 100 MCG/2 ML VIAL ONE
[2020-01-29] MEDS ORDERED: PHENYLEPHRINE HCL 10 MG/ML VIAL ONE (12:21)
--- NOTE | 2020-01-29 13:46 | History & Physical Bridge Note ---
Date of Service January 29, 2020 History & Physical Bridge Note I have examined the patient, reviewed the History & Physical and in the interval since the performance of the History & Physical I have noted the following changes of clinical significance: no changes noted
--- NOTE | 2020-01-29 13:47 | History & Physical Report ---
Date of Service January 29, 2020 Assessment & Plan (1) Neurogenic claudication due to lumbar spinal stenosis: Admission and Anticipated Discharge Date Admission Date: L1-L2 decompression, T12-L2 fusion, removal of L2 screws History of Present Illness Chief Complaint: Back and bilateral leg pain Primary Care Provider: Dong Marte MD This is a 72-year-old male well-known to the presents with chronic persistent worsening back and bilateral leg pain. Failing since course of nonoperative care is here for surgical intervention. Allergies Allergy/AdvReac Type Severity Reaction Status Date / Time Sulfa (Sulfonamide Allergy Mild RASH Verified 01/29/20 11:41 Antibiotics) hydrocodone AdvReac Unknown Hallucinati Verified 01/29/20 11:41 ng oxycodone AdvReac Unknown Hallucinati Verified 01/29/20 11:41 ng Home Medications Home Medications Medication Instructions Recorded Confirmed Type Vitamin B6 100 mg PO QAM 01/10/20 01/29/20 History Vitamin D 1 tab PO QAM 01/10/20 01/29/20 History alfuzosin 10 mg PO QPM 01/10/20 01/29/20 History aspirin [Aspir-81] 81 mg PO QAM 01/10/20 01/29/20 History atorvastatin 20 mg PO PM 01/10/20 01/29/20 History enalapril maleate 20 mg PO QAM 01/10/20 01/29/20 History escitalopram oxalate 10 mg PO QPM 01/10/20 01/29/20 History metformin 1,000 mg PO BID 01/10/20 01/29/20 History metoprolol tartrate 50 mg PO BID 01/10/20 01/29/20 History multivitamin 1 tab PO QAM 01/10/20 01/29/20 History naproxen sodium [Aleve] 440 - 660 mg PO BID PRN 01/10/20 01/29/20 History Past Med/Surg History Medical History (Updated 01/29/20 @ 13:46 by Fernando Alcala DO) Chronic back pain CKD (chronic kidney disease), stage II per records Diabetes mellitus, type 2 NIDDM Hyperlipidemia Hypertension Normal pressure hydrocephalus s/p CIDER MAKER shunt (08/2018); under surveillance by neurosurgery Urinary bladder incontinence Surgical History H/O wrist surgery History of back surgery X 2 History of colonoscopy History of dental surgery Hx of hernia repair S/P CIDER MAKER shunt 08/2018 Family History Father Gastric cancer Son Family history of diabetes mellitus Other Diabetes Social History (Updated 09/18/19 @ 16:28 by Shankar Pinto) Smoking Status: Never smoker Second Hand Exposure: Yes (FATHER SMOKED); Do You Dip or Chew Tobacco: Yes (1/2 BOX/DAY- Advised NPO AM DOS); Hx Alcohol Use: Yes Alcohol type: beer Hx Substance Use: No Preferred Language: Swazi Communication Ability: Effective Event Marketing Assistant Required: No Beliefs That Will Affect Care: None marital status: Current Living Situation: Spouse current occupational status: retired Other Information That Helps Us Care for You: No Feels Safe at Home: Yes Safety Concerns: Feels Safe At This Time Physical Exam Physical Exam: Patient is alert and oriented neurologically intact. Heart regular rate and rhythm. Lungs clear to auscultation. Results & Data ([facility]) Vital Signs (Past 12 Hours) Vital Signs Temp Pulse Resp BP Pulse Ox 01/29/20 11:27 36.7 C 52 L 18 124/70 98
[2020-01-29] MEDS ORDERED: BUPIVACAINE/EPINEPHRINE 0.25% 1:200,000 30 ML VIAL ONE (14:04)
[2020-01-29] MEDS ORDERED: BACITRACIN INJ 50,000 UNIT VIAL ONE (14:04)
[2020-01-29] MEDS ORDERED: HYDROmorphone INJ 2 MG/ML SYR/VIAL ONE (14:53)
[2020-01-29] MEDS ORDERED: FLOSEAL HEMOSTATIC MATRIX 10ML TOP ONE (14:58)
[2020-01-29] MEDS ORDERED: GLYCOPYRROLATE 0.2 MG/ML VIAL ONE (15:03)
--- NOTE | 2020-01-29 16:39 | Operative Report ---
Post Operative Report Pre & Post Diagnosis Operation Date: 01/29/20 12:25 Pre-Op Diagnosis: Lumbar spinal stenosis with neurogenic claudication Post-Op Diagnosis: Same I identified the patient and participated in the time-out.: Yes Procedure Operation Date: 01/29/20 12:25 Actual Procedures #1 removal instrumentation L2. #2 exploration of fusion L2-L3. #3 lumbar decompression with bilateral medial facetectomies and foraminotomies 12 L1 and L1-L2. #4 posterior spinal fusion T12-L1 L1-L2. #5 placement posterior instrumentation T12-L1. #6 interbody fusion L1-L2. #7 placement peek cage 8 x 26 mm at L1-L2. #8 placement of locally harvested morselized autograft in the posterior lateral gutters. #9 placement infuse collagen sponge, master graft and posterior gutters and ostial amp interbody space. Surgeon Fernando Alcala DO Sprue Cutting Press Operator Cleo Cash Estimated Blood Loss 200 Findings Consistent with Post-Op Diagnosis Specimens None Indications This is a 74-year-old male known to me the presents above-mentioned diagnosis after failing course of nonoperative care is here for evaluation procedure. Description of Procedure Patient was met with identified informed consent obtained. Patient was then taken to the operative suite underwent an patient placed in the prone position the Luan table on top Sanya frame. All bony prominences well-padded eyes inspected to ensure no external pressure placed upon the. This point the lumbar spine is prepped and draped in normal sterile fashion. Sharp dissection with the assistance of Bovie cautery performed down to expose the lamina and transverse processes of T12-L1 and instrumentation L2. Then removed the connect or and pedicle screw at L2 to explore the fusion mass at L2-L3 noted to be mature and intact. Informed complete laminectomy L1 partial management of L2 including bilateral medial facetectomies and foraminotomies addressing severe spinal stenosis particular in the foraminal area on the right. Pedicle screws were then placed in T12-L1 bilaterally. Believe a transforaminal approach on the right a complete discectomy of L1-L2 was performed endplates coated to subcortical bleeding bone and a 8 x 26 mm peek cage filled with osteo-bone graft tapped in position. Proper sized rods were then placed and connected the previous ken by way of a barrel connectors. All apparatus was locked into position. The transverse processes of T12-L1 and L2 were then burred to subcortical being bone. Infuse collagen sponge master graft local autograft was placed in the posterior gutters. 15 round CLAUDIA drain inserted. Incision was then closed with 1 Vicryl in the fascia 2-0 Vicryl subcutaneously and 4 Monocryl for final skin closure. Steri-Strip sterile dressings placed. Patient will continue to PACU stable condition. Please note spinal cord monitoring was utilized at the procedure no changes noted. Lastly Cleo Cash was present at the entire procedure involved in patient positioning complex portions of the surgery and final skin closure. I attest to the content of the Intraoperative Record and any orders documented therein. Any exceptions are noted below.
--- NOTE | 2020-01-29 16:43 | Fluoroscopy Report ---
FL lumbar spine 2-3V HISTORY: 74 years-old Male L2 REMOVE HARDWARE/L1-2 DECOMPRESSION/T12-L2 FUSION COMPARISON: CT lumbar spine 11/01/2016 TECHNIQUE: 3 spot fluoroscopic images of the lumbar spine were obtained utilizing 15.7 seconds fluoro scopy time FINDINGS: Posterior interbody ken and screw fusion hardware is noted at what appears to be T12-L4, the inferior extent of the hardware is not imaged. Discectomy changes are noted at L1-L2 and L2-L3. Multilevel sp ondylitic spurring. The imaged hardware appears intact. Partially imaged catheter to the right of L3. IMPRESSION: Fluoroscopic assistance as above. Please see operative report for further details. ACT 112: Negative or not required by law. The above report was generated using voice recognition software. It may contain grammatical, syntax o r spelling errors. Electronically signed by: Marquez Chen M.D. 01/29/2020 4:42 PM
[2020-01-29] MEDS ORDERED: NALOXONE HCL 0.4 MG/1 ML VIAL/CARP IV PRN ×2 (17:03→18:11)
[2020-01-29] MEDS ORDERED: ATROPINE SULFATE 0.1 MG/ML 10ML SYR IV PRN (17:03)
[2020-01-29] MEDS ORDERED: PROMETHAZINE HCL 12.5 MG in SODIUM CHLORIDE 0.9% 50 ML IV PRN ×2 (17:03→18:11)
[2020-01-29] MEDS ORDERED: FLUMAZENIL 0.1 MG/1 ML 10 ML VIAL IV PRN (17:03)
[2020-01-29] MEDS ORDERED: fentaNYL citrate 100 MCG/2 ML VIAL IV PRN (17:03)
[2020-01-29] MEDS ORDERED: LABETALOL HCL IV 5 MG/ML 20ML IV PRN (17:03)
[2020-01-29] MEDS ORDERED: ePHEDrine sulfate 50 MG/ML AMP IV PRN (17:03)
[2020-01-29] MEDS ORDERED: ONDANSETRON INJ 2 MG/ML 2 ML VIAL IV PRN ×2 (17:03→18:11)
[2020-01-29 17:20] LABS: Hematocrit (blood only) 36.3 % (42-52); Hemoglobin 12.7 g/dL (14.0-18.0)
--- NOTE | 2020-01-29 18:03 | Anesthesiology Progress Note ---
Date of Service January 29, 2020 Anesthesia Post Procedure Vital Signs Vital Signs: Temp Pulse Resp BP Pulse Ox 01/29/20 17:35 36.2 C L 61 15 122/93 95 01/29/20 17:25 61 15 137/91 95 01/29/20 17:15 61 13 141/81 H 100 01/29/20 17:05 61 12 146/84 H 99 01/29/20 16:57 36.2 C L 56 L 21 146/83 H 100 01/29/20 11:27 36.7 C 52 L 18 124/70 98 Pain Intensity Back: Pain Intensity: 5 Transfer of Care Handoff Completed per policy Notes Mental Status: alert / awake / arousable Patient Amnestic to Procedure: Yes Nausea / Vomiting: adequately controlled Pain: adequately controlled Airway Patency, RR, SpO2: stable & adequate BP & HR: stable & adequate Hydration State: stable & adequate Anesthetic Complications: no major complications apparent
[2020-01-29] MEDS ORDERED: DO NOT ADMINISTER PNEUMOCOCCAL VACCINE PRN (18:11)
[2020-01-29] MEDS ORDERED: SOD PHOSPHATE/SOD BIPHOSPHATE ENEMA 132 ML BTL PR PRN (18:11)
[2020-01-29] MEDS ORDERED: bisacodyL 10 MG SUPP PR PRN (18:11)
[2020-01-29] MEDS ORDERED: hydrOXYzine HCl 25 MG TAB PO PRN (18:11)
[2020-01-29] MEDS ORDERED: MAGNESIUM HYDROXIDE SUSP 30 ML UDC PO PRN (18:11)
[2020-01-29] MEDS ORDERED: diphenhydrAMINE Capsule 25 MG CAP PO PRN (18:11)
[2020-01-29] MEDS ORDERED: ACETAMINOPHEN 500 MG TAB PO PRN (18:11)
[2020-01-29] MEDS ORDERED: LORazepam 0.5 MG TAB PO PRN (18:11)
[2020-01-29] MEDS ORDERED: METOCLOPRAMIDE HCL INJ 5 MG/ML 2 ML VIAL IV PRN (18:11)
[2020-01-29] MEDS ORDERED: LORazepam 0.5 MG/1 ML VIAL IV PRN (18:11)
[2020-01-29] MEDS ORDERED: ALUMINUM/MAGNESIUM SUSP 30 ML UDC PO PRN (18:11)
[2020-01-29] MEDS ORDERED: DO NOT ADMINISTER FLU VACCINE PRN (18:11)
[2020-01-29] MEDS ORDERED: ACETAMINOPHEN 1,000 MG/100 ML VIAL IV PRN (18:11)
[2020-01-29] MEDS ORDERED: ONDANSETRON 4 MG OD TAB PO PRN (18:11)
[2020-01-29] MEDS ORDERED: FAMOTIDINE 20 MG TAB PO PRN (18:11)
[2020-01-29] MEDS ORDERED: PHARMACY GLYCEMIC MGMT CONSULT PRN (18:29)
[2020-01-29] MEDS ORDERED: DEXTROSE 50% 50 ML SYRINGE IV PRN (18:45)
[2020-01-29] MEDS ORDERED: CARBOHYDRATES FOR HYPOGLYCEMIA PO PRN (18:45)
[2020-01-29] MEDS ORDERED: GLUCOSE 10 TABS/TUBE PO PRN (18:45)
[2020-01-29] MEDS ORDERED: GLUCOSE 40% GEL 15 GM TUBE PO PRN (18:45)
[2020-01-29] MEDS ORDERED: GLUCAGON FOR INJ 1 MG VIAL IM PRN (18:45)
[2020-01-29] MEDS ORDERED: HYDROmorphone INJ 1 MG/ML SYRINGE IV PRN (18:46)
[2020-01-29] MEDS: SODIUM CHLORIDE 0.9% 1000ML 1,000 ML IV SCH (19:18)
[2020-01-29] MEDS: ACETAMINOPHEN W/CODEINE #3 1 TAB PO PRN (19:24)
[2020-01-29] MEDS: INSULIN ASPART 100 UNITS/ML 3 ML PEN SC SCH ×2 (19:31→22:26)
--- NOTE | 2020-01-29 20:35 | Hospitalist Consultation ---
Date of Consultation January 29, 2020 Assessment & Plan (1) Neurogenic claudication due to lumbar spinal stenosis: - POD#0 L1-L2 decompression, T12-L2 fusion, removal L2 screws today by Dr. Alcala - activity and wound care orders as per ortho - pain control with bowel regimen - PT/OT - monitor H/H for acute blood loss anemia and transfuse blood products PRN -EBL 200 cc (2) Diabetes mellitus, type 2: -Hgb A1c 6.6 12/2019 -Hold oral agents and utilize NovoLog per protocol while hospitalized -Glycemic pharmacy consult placed by spine Ortho (3) Hypertension: -BP controlled, continue metoprolol and enalapril (4) DVT prophylaxis: -TEDs/SCDs as per spine Ortho Thank you for this consultation. We will follow the patient with you during their hospital stay. You can reach a member of the [facility] Hospitalist Team 12/12 via pager @ [phone]. Supervising Physician Co-Signing Physician Notes 74 yo Male with PMH of DM type II, dyslipidemia, HTN, normal pressure hydrocephalus, s/p L1-L2 decompression, T12-L2 fusion, removal L2 screws today by Dr. Alcala. No postop complication. Continue pain management as per ortho. PT/OT eval. Monitor H/H. Pharmacy on board for glycemic management. Continue monitor BS. Fall precaution. MD Trudy History of Present Illness Reason for Consultation: Postop medical management Requesting Physician: Dr. Alcala Attending Physician: Dr. Yates History of Present Illness With PMH DM type II, dyslipidemia, HTN, normal pressure hydrocephalus, and other problems listed below who is status post L1-L2 decompression, T12-L2 fusion, removal L2 screws today by Dr. Alcala. Postoperatively, the patient is doing well. He reports his pain is well controlled. Denies numbness or tingling to lower extremities. No chest pain or shortness of breath. Denies abdominal pain or nausea. No lightheadedness or dizziness. Mayers catheter is in place draining clear yellow urine. Allergies Allergy/AdvReac Type Severity Reaction Status Date / Time Sulfa (Sulfonamide Allergy Mild RASH Verified 01/29/20 11:41 Antibiotics) hydrocodone AdvReac Unknown Hallucinati Verified 01/29/20 11:41 ng oxycodone AdvReac Unknown Hallucinati Verified 01/29/20 11:41 ng Home Medications Home Medications Medication Instructions Recorded Confirmed Type Vitamin B6 100 mg PO QAM 01/10/20 01/29/20 History Vitamin D 1 tab PO QAM 01/10/20 01/29/20 History alfuzosin 10 mg PO QPM 01/10/20 01/29/20 History aspirin [Aspir-81] 81 mg PO QAM 01/10/20 01/29/20 History atorvastatin 20 mg PO PM 01/10/20 01/29/20 History enalapril maleate 20 mg PO QAM 01/10/20 01/29/20 History escitalopram oxalate 10 mg PO QPM 01/10/20 01/29/20 History metformin 1,000 mg PO BID 01/10/20 01/29/20 History metoprolol tartrate 50 mg PO BID 01/10/20 01/29/20 History multivitamin 1 tab PO QAM 01/10/20 01/29/20 History naproxen sodium [Aleve] 440 - 660 mg PO BID PRN 01/10/20 01/29/20 History Patient History Medical History BPH (benign prostatic hypertrophy) Chronic back pain CKD (chronic kidney disease), stage II per records Diabetes mellitus, type 2 NIDDM Hyperlipidemia Hypertension Normal pressure hydrocephalus s/p IN STORE DEMONSTRATOR shunt (08/2018); under surveillance by neurosurgery Urinary bladder incontinence Surgical History (Updated 01/29/20 @ 20:30 by KOBI Matute) H/O wrist surgery History of back surgery X 2 History of colonoscopy History of dental surgery Hx of hernia repair S/P IN STORE DEMONSTRATOR shunt 08/2018 Family History Father Gastric cancer Son Family history of diabetes mellitus Other Diabetes Social History Smoking Status: Never smoker Second Hand Exposure: Yes (FATHER SMOKED); Do You Dip or Chew Tobacco: Yes (1/2 BOX/DAY- Advised NPO AM DOS); Hx Alcohol Use: Yes Alcohol type: beer Hx Substance Use: No Preferred Language: Icelandic Communication Ability: Effective 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 Required: No Beliefs That Will Affect Care: None marital status: Current Living Situation: Spouse current occupational status: retired Other Information That Helps Us Care for You: No Feels Safe at Home: Yes Safety Concerns: Feels Safe At This Time Review of Systems Review of Systems: ROS per HPI, all other systems reviewed and negative Physical Exam Constitutional: WD/WN, vitals as above Eyes: PERRL, conjunctivae normal, anicteric sclerae ENMT: external ear and nose normal, oropharynx normal Respiratory: normal respiratory effort, lungs clear to auscultation Cardiovascular: Rate/Rhythm: regular rate and regular rhythm Vessels: normal peripheral pulses Extremities: no edema Gastrointestinal (Abdomen): normal bowel sounds, soft, nontender, no hepatosplenomegaly Musculoskeletal: no cyanosis or clubbing, extremities motor strength 5/5 S/p back surgery, pedal pushes and pulls strong bilaterally, drain in place draining bloody drainage Skin: no rashes, warm and dry Neurologic: PERRL, EOMI, accommodation nl, no face palsy, no dysarthria Psychiatric: A+Ox3, euthymic affect Results & Data Results & Data ([facility]) Vital Signs (Past 12 Hours) Vital Signs Temp Pulse Pulse Resp BP Pulse Ox 01/29/20 19:03 36.7 C 72 17 127/77 95 01/29/20 18:41 36.4 C L 68 22 126/78 96 01/29/20 18:11 36.8 C 60 20 131/76 96 01/29/20 17:35 36.2 C L 61 15 122/93 95 01/29/20 17:25 61 15 137/91 95 01/29/20 17:15 61 13 141/81 H 100 01/29/20 17:05 61 12 146/84 H 99 01/29/20 16:57 36.2 C L 56 L 21 146/83 H 100 01/29/20 11:27 36.7 C 52 L 18 124/70 98
[2020-01-29] MEDS: ALFUZOSIN HCL 10 MG TAB PO SCH (21:33)
[2020-01-29] MEDS: ESCITALOPRAM OXALATE 10 MG TAB PO SCH (21:33)
[2020-01-29] MEDS: ATORVASTATIN 20 MG TAB PO SCH (21:33)
[2020-01-29] MEDS: METOPROLOL TARTRATE 50 MG TAB PO SCH (21:33)
[2020-01-29] MEDS: ceFAZolin 2000MG 2,000 MG/15 ML SYR IV SCH (21:34)
[2020-01-29] MEDS: DOCUSATE SODIUM/SENNA 50/8.6MG TAB PO SCH (21:34)
[2020-01-30] MEDS: SODIUM CHLORIDE 0.9% 1000ML 1,000 ML IV SCH (04:18)
[2020-01-30] MEDS: ceFAZolin 2000MG 2,000 MG/15 ML SYR IV SCH (05:03)
[2020-01-30] MEDS: POLYETHYLENE (MIRALAX) 17 GM PACK PO SCH ×3 (05:03→17:39)
[2020-01-30 06:21] LABS: Hematocrit (blood only) 33.9 % (42-52); Hemoglobin 11.4 g/dL (14.0-18.0); Immature Granulocytes # (auto) 0.04 K/uL (0.00-0.02); Immature Granulocytes % (auto) 0.4 %; Lymphocytes # (auto) 1.26 K/uL (1.2-3.4); Lymphocytes % (auto) 11.2 %; Mean Corpuscular Hemoglobin 32.7 pg (25-34); Mean Corpuscular Hgb Conc 33.6 g/dL (32-36); Mean Corpuscular Volume 97.1 fL (80-100); Mean Platelet Volume 9.4 fL (7.4-10.4); Monocytes # (auto) 0.84 K/uL (0.11-0.59); Monocytes % (auto) 7.5 %; Neutrophils # (auto) 9.13 K/uL (1.4-6.5); Neutrophils % (auto) 80.9 %; Platelet Count 236 K/uL (130-400); RDW Coefficient of Variation 13.4 % (11.5-14.5); RDW Standard Deviation 47.2 fL (36.4-46.3); Red Blood Count 3.49 M/uL (4.7-6.1); White Blood Count 11.27 K/uL (4.8-10.8)
[2020-01-30 06:49] LABS: BUN Creatinine Ratio 10.9 (10-20); Calcium 8.9 mg/dl (8.5-10.1); Est GFR (African American) 98.5; Potassium 4.5 mmol/L (3.5-5.1)
[2020-01-30] MEDS: INSULIN ASPART 100 UNITS/ML 3 ML PEN SC SCH ×4 (08:41→20:54)
[2020-01-30] MEDS: ASPIRIN 81 MG ECTAB PO SCH (08:44)
[2020-01-30] MEDS: CHOLECALCIFEROL 1,000 UNITS 25 MCG TAB PO SCH (08:45)
[2020-01-30] MEDS: MULTIVITAMIN TAB PO SCH (08:45)
[2020-01-30] MEDS: PYRIDOXINE HCL 50 MG TAB PO SCH (08:45)
[2020-01-30] MEDS: ENALAPRIL MALEATE 10 MG TAB PO SCH (08:47)
[2020-01-30] MEDS: METOPROLOL TARTRATE 50 MG TAB PO SCH ×2 (08:47→20:52)
--- NOTE | 2020-01-30 08:54 | Hospitalist Progress Note ---
Date of Service January 30, 2020 Assessment & Plan (1) Neurogenic claudication due to lumbar spinal stenosis: - POD#1 L1-L2 decompression, T12-L2 fusion, removal L2 screws by Dr. Alcala - activity and wound care orders as per ortho - pain control with bowel regimen, PT/OT - monitor H/H for acute blood loss anemia and transfuse blood products PRN -hgb stable at 11.4 (12.7 yesterday) (2) Diabetes mellitus, type 2: -Hgb A1c 6.6 12/2019 -Hold oral agents and utilize NovoLog per protocol while hospitalized -Glycemic pharmacy consult placed by spine Ortho (3) Hypertension: -BP controlled, continue metoprolol and enalapril (4) DVT prophylaxis: -TEDs/SCDs as per spine Ortho Patient seen in collaboration with Dr. Cruz. Please see addendum. Thank you for this consultation. We will follow the patient with you during their hospital stay. You can reach a member of the [facility] Team 12/12 via pager @ [phone]. Admission and Anticipated Discharge Date Admission Date: January 29, 2020 Supervising Physician Co-Signing Physician Notes Patient seen and examined by me, care coordinated with Catherine Concepcion PA-C, please refer to her note above for further detail. Pt is a 74 y/o male w/DM type II, dyslipidemia, HTN, normal pressure hydrocephalus, s/p L1-L2 decompression, T12-L2 fusion, removal L2 screws by Dr. Alcala. Currently patient sitting up in chair, in no acute distress. Denies any fevers, chills, chest pain, shortness of breath, abdominal pain, nausea vomiting. He is passing flatus, but no bowel movement yet. He has been ambulating with physical therapy in the hallway, reports no pain at this time. He is alert and oriented and answering questions appropriately. Lungs are clear to auscultation bilaterally, no wheezing rhonchi or crackles. Heart sounds regular. Abdomen soft, nontender nondistended. Skin is warm dry, well- perfused. No weakness noted. Continue pain management as per ortho. PT/OT. Monitor H/H. Pharmacy on board for glycemic management. Continue monitor BS. Fall precaution. Subjective Seen and examined in 316-1. Denies surgical site pain or pain/weakness in bilateral lower extremities. Denies lightheadedness, chest pain or SOB. No nausea, vomiting or abdominal pain. +Catheter is in. Passing flatus, no bowel movement yet. Review of Systems Review of Systems: At least ten systems reviewed and negative except as noted in the HPI. Physical Exam Physical Exam: General Appearance: WD/WN, vitals as above, NAD, sitting up in bed, pleasant, conversing easily Head: normocephalic, atraumatic Eyes: normal inspection, PERRL, conjunctivae normal, anicteric sclerae ENT: external ear and nose normal, oropharynx normal Neck: normal visual inspection, trachea midline, no thyromegaly Respiratory: normal respiratory effort, lungs clear to auscultation, no wheeze, rales, rhonchi Cardiovascular: regular rate, rhythm, no murmur, normal peripheral pulses, no BLE edema Abdomen/GI: normal bowel sounds, soft, nontender, no hepatosplenomegaly Extremities/Musculoskeletal: +surgical dressing on lumbar spine c/d/i. CLAUDIA drain visualized. No cyanosis or clubbing, extremities motor strength 5/5 Neurologic: PERRL, CN's II-XI intact bilaterally and moves all extremities Psychiatric: A+Ox3, euthymic affect Skin: no rashes, normal color, warm/dry Results & Data Results & Data ([facility]) Vital Signs (Past 12 Hours) Vital Signs Temp Pulse Resp BP Pulse Ox 01/30/20 08:46 68 125/67 01/30/20 08:01 36.5 C 66 16 144/77 H 96 01/30/20 03:33 36.6 C 75 18 109/68 94 01/29/20 23:50 36.4 C L 69 18 123/73 98 01/29/20 21:07 36.3 C L 79 17 125/69 95 Laboratory Results Short CBC 01/29/20 01/30/20 Range/Units 17:14 05:37 WBC 11.27 H (4.8-10.8) K/uL Hgb 12.7 L 11.4 L (14.0-18.0) g/dL Hct 36.3 L 33.9 L (42-52) % Plt Count 236 (130-400) K/uL BMP 01/30/20 05:37 Sodium 134 L Potassium 4.5 Chloride 100 Carbon Dioxide 25 BUN 10 Creatinine 0.90 Glucose 210 H Calcium 8.9
[2020-01-30] MEDS ORDERED: LANTUS PER UNIT CHARGE SQ ONE (09:00)
--- NOTE | 2020-01-30 09:49 | Orthopedic Progress Note ---
Date of Service January 30, 2020 Assessment & Plan (1) Neurogenic claudication due to lumbar spinal stenosis: Admission and Anticipated Discharge Date Admission Date: January 29, 2020 This time continue physical therapy monitor his CLAUDIA output consider possible rehab. Subjective Back pain controlled leg symptoms markedly improved. Physical Exam Physical Exam: Patient is in bed in bed is comfortable. Is good strength testing. Results & Data ([facility]) Vital Signs (Past 12 Hours) Vital Signs Temp Pulse Resp BP Pulse Ox 01/30/20 08:46 68 125/67 01/30/20 08:01 36.5 C 66 16 144/77 H 96 01/30/20 03:33 36.6 C 75 18 109/68 94 01/29/20 23:50 36.4 C L 69 18 123/73 98
--- NOTE | 2020-01-30 11:02 | Pharmacy Report ---
Glycemic Control Consultation - Date of Service January 30, 2020 - Scope Scope: Glycemic Pharmacist consulted for glycemic control and to write orders per [facility] inpatient glycemic control protocol. - Objective Weight: 89.2 kg Accuchecks BSG (last 24hrs): Laboratory Data (last 24hrs): 01/30/20 05:37 Potassium 4.5 Carbon Dioxide 25 Anion Gap 9.0 Creatinine 0.90 Est Cr Clr Drug Dosing 79.0 HbA1c: Hemoglobin A1c 6.6 % (4.5-5.6) H 01/14/20 11:26 - Recent Pertinent Medications Outpatient Anti-diabetic Regimen: * Metformin 1000 mg PO BIDM * A1c = 6.6% (01/14/20) Risk Factors for Insulin Resistance: * Steroids: * 12 mg IV Dexamethasone * Recent Surgery: * POD #1 s/p lumbar decompression/fusion * Diet: * T2DM - Assessment & Plan Assessment & Plan: ASSESSMENT: * 74 yo M admitted s/p spinal decompression/fusion. Pharmacy is consulted for inpatient glycemic management. Outpatient A1c demonstrates excellent T2DM control on Metformin monotherapy. * Pre-operative BSG was 115 mg/dL. Post-operative BSG was 155 mg/dL. Patient was never given basal insulin last evening. Her BSG trended up to 323 mg/dL prior to bed last evening. This is likely a result of the IV steroids and stress of surgery. * Fasting BSG elevated this AM at 183 mg/dL. Will give the patient a one time dose of Lantus this AM. Given steroid-induced hyperglycemia, will tighten CR this morning. * Lunchtime BSG was elevated at 220 mg/dL. No changes as steroids should start to wear off given ~ 24 hours since pre-operative dose. PLAN FOR INPATIENT GLYCEMIC CONTROL: * Holding outpatient oral diabetes medications * Basal insulin * Lantus 10 units SQ x 1 * Bolus insulin - tighten CR * NovoLog per scale ACHS or Q6hrs while NPO * Goal Range: Low 110 mg/dL - High 140 mg/dL * Correction Factor: 20 mg/dL/unit * Nutritional / Prandial insulin per carb ratio of 1 unit per 6 grams CHO consumed * Please note that the plan above was derived based on current level of insulin resistance and hospital stress. These recommendations are appropriate for i npatient admission only. Plan of care upon discharge will need to be reassessed to avoid potential outpatient hypo/hyperglycemia. Thank you.
[2020-01-30] MEDS: ALFUZOSIN HCL 10 MG TAB PO SCH (17:36)
[2020-01-30] MEDS: DOCUSATE SODIUM/SENNA 50/8.6MG TAB PO SCH (20:52)
[2020-01-30] MEDS: ATORVASTATIN 20 MG TAB PO SCH (20:52)
[2020-01-30] MEDS: ESCITALOPRAM OXALATE 10 MG TAB PO SCH (20:52)
[2020-01-31] MEDS: POLYETHYLENE (MIRALAX) 17 GM PACK PO SCH ×5 (00:03→23:29)
[2020-01-31 05:50] LABS: Hematocrit (blood only) 28.6 % (42-52); Hemoglobin 10.1 g/dL (14.0-18.0); Mean Corpuscular Hemoglobin 33.4 pg (25-34); Mean Corpuscular Hgb Conc 35.3 g/dL (32-36); Mean Corpuscular Volume 94.7 fL (80-100); Mean Platelet Volume 9.2 fL (7.4-10.4); Platelet Count 203 K/uL (130-400); RDW Coefficient of Variation 13.3 % (11.5-14.5); RDW Standard Deviation 46.8 fL (36.4-46.3); Red Blood Count 3.02 M/uL (4.7-6.1); White Blood Count 10.23 K/uL (4.8-10.8)
[2020-01-31 06:20] LABS: BUN Creatinine Ratio 15.1 (10-20); Calcium 8.8 mg/dl (8.5-10.1); Creatinine Clr Calc Pharmacy 86.7 ml/min; Est GFR (African American) 102.4; Est GFR (Non-African American) 88.3; Potassium 4.3 mmol/L (3.5-5.1)
[2020-01-31] MEDS: traMADol HCL 50 MG TABLET PO PRN ×2 (07:53→15:24)
[2020-01-31] MEDS: ENALAPRIL MALEATE 10 MG TAB PO SCH (07:55)
[2020-01-31] MEDS: METOPROLOL TARTRATE 50 MG TAB PO SCH ×2 (07:55→20:30)
[2020-01-31] MEDS: ASPIRIN 81 MG ECTAB PO SCH (07:56)
[2020-01-31] MEDS: PYRIDOXINE HCL 50 MG TAB PO SCH (07:56)
[2020-01-31] MEDS: CHOLECALCIFEROL 1,000 UNITS 25 MCG TAB PO SCH (07:56)
[2020-01-31] MEDS: MULTIVITAMIN TAB PO SCH (07:56)
[2020-01-31] MEDS: INSULIN ASPART 100 UNITS/ML 3 ML PEN SC SCH ×4 (07:58→21:06)
[2020-01-31] MEDS ORDERED: LANTUS PER UNIT CHARGE SQ ONE (09:00)
--- NOTE | 2020-01-31 09:36 | Pharmacy Report ---
Pharmacy Glycemic Short Note 2 - Date of Service January 31, 2020 - Glycemic Short BSG Results (Last 24 hours): OUTPATIENT ANTIDIABETIC REGIMEN: * Metformin 1000 mg PO BIDM * A1c = 6.6% (01/14/2020) ASSESSMENT: 01/30: * BSGs poorly controlled yesterday: [phone] mg/dL * Received 43 units of insulin yesterday: 10 units basal + 33 units bolus * CR was tightened yesterday and basal insulin was added * Fasting BSG this AM was 143 mg/dL - acceptable * Believe patient may have been basal deficient * Will schedule daily basal insulin dose qAM * No changes to Novolog parameters necessary 01/29: * 74 yo M admitted s/p spinal decompression/fusion. Pharmacy is consulted for inpatient glycemic management. Outpatient A1c demonstrates excellent T2DM control on Metformin monotherapy. * Pre-operative BSG was 115 mg/dL. Post-operative BSG was 155 mg/dL. Patient was never given basal insulin last evening. Her BSG trended up to 323 mg/dL prior to bed last evening. This is likely a result of the IV steroids and stress of surgery. * Fasting BSG elevated this AM at 183 mg/dL. Will give the patient a one time dose of Lantus this AM. Given steroid-induced hyperglycemia, will tighten CR this morning. * Lunchtime BSG was elevated at 220 mg/dL. No changes as steroids should start to wear off given ~ 24 hours since pre-operative dose. PLAN FOR INPATIENT GLYCEMIC CONTROL: * Hold outpatient oral diabetes medications * Basal insulin - scheduled * Lantus 10 units SQ qAM * Bolus insulin - no change * NovoLog per scale ACHS or Q6hrs while NPO * Goal Range: Low 110 mg/dL - High 140 mg/dL * Correction Factor: 20 mg/dL/unit * Nutritional / Prandial insulin per carb ratio of 1 unit per 6 grams CHO consumed PLAN FOR DISCHARGE: * A1c from December was 6.6% - excellent control * Recommend continuing outpatient metformin monotherapy upon discharge
--- NOTE | 2020-01-31 09:43 | Hospitalist Progress Note ---
Date of Service January 31, 2020 Assessment & Plan (1) Neurogenic claudication due to lumbar spinal stenosis: - POD#2 L1-L2 decompression, T12-L2 fusion, removal L2 screws by Dr. Alcala - activity and wound care orders as per ortho - pain control with bowel regimen, PT/OT - monitor H/H for acute blood loss anemia and transfuse blood products PRN - hgb slightly decreased at 10.1 (down from 12.7 initially) - No need for blood transfusion at this time (2) Diabetes mellitus, type 2: -Hgb A1c 6.6 12/2019 -Hold oral agents and utilize NovoLog per protocol while hospitalized -Glycemic pharmacy consult placed by spine Ortho (3) Hypertension: -BP controlled, continue metoprolol and enalapril (4) DVT prophylaxis: -TEDs/SCDs as per spine Ortho Thank you for this consultation. We will follow the patient with you during their hospital stay. You can reach a member of the [facility] Hospitalist Team 12/12 via pager @ [phone]. Admission and Anticipated Discharge Date Admission Date: January 29, 2020 Subjective Patient is currently lying in bed, seems little more uncomfortable than yesterday. Yesterday he denied any pain, today he says that he "overdid it." He walked in the hallway yesterday and today, denies any fevers, chills, urinating okay. Passing flatus but no BM yet. Patient's is currently at the bedside, states that he had significant bleeding from surgical site yesterday, drain has also significant amount of serosanguineous fluid. Patient denies any dizziness or lightheadedness shortness of breath or chest pain. Review of Systems Review of Systems: All systems reviewed & are unremarkable except as noted in HPI & below Constitutional: no fever and no chills Respiratory: no cough and no dyspnea Cardiovascular: no chest pain and no palpitations Gastrointestinal: no abdominal pain, no nausea and no vomiting Physical Exam Physical Exam: Constitutional: WD/WN, vitals as above Eyes: PERRL, conjunctivae normal, anicteric sclerae ENMT: external ear and nose normal, oropharynx normal Respiratory: normal respiratory effort, lungs clear to auscultation Cardiovascular: Rate/Rhythm: regular rate and regular rhythm Vessels: normal peripheral pulses Extremities: no edema Gastrointestinal (Abdomen): normal bowel sounds, soft, nontender, no hepatosplenomegaly Musculoskeletal: no cyanosis or clubbing, extremities motor strength 5/5 S/p back surgery, pedal pushes and pulls strong bilaterally, drain in place draining bloody drainage Skin: no rashes, warm and dry Neurologic: PERRL, EOMI, no face palsy, no dysarthria, moves extremities spontaneously Psychiatric: A+Ox3, euthymic affect Results & Data Results & Data ([facility]) Vital Signs (Past 12 Hours) Vital Signs Temp Pulse Resp BP Pulse Ox 01/31/20 06:43 37.3 C 59 L 18 113/63 98 01/30/20 22:58 36.9 C 52 L 16 143/76 H 97 Laboratory Results 01/31/20 01/31/20 01/31/20 Range/Units 07:06 05:19 05:19 WBC 10.23 (4.8-10.8) K/uL RBC 3.02 L (4.7-6.1) M/uL Hgb 10.1 L (14.0-18.0) g/dL Hct 28.6 L (42-52) % MCV 94.7 (80-100) fL MCH 33.4 (25-34) pg MCHC 35.3 (32-36) g/dL RDW Std Deviation 46.8 H (36.4-46.3) fL RDW Coeff of Cherise 13.3 (11.5-14.5) % Plt Count 203 (130-400) K/uL MPV 9.2 (7.4-10.4) fL Sodium 134 L (136-145) mmol/L Potassium 4.3 (3.5-5.1) mmol/L Chloride 100 (98-107) mmol/L Carbon Dioxide 26 (21-32) mmol/L Anion Gap 8.0 (3-11) BUN 12 (7-18) mg/dl Creatinine 0.82 (0.6-1.4) mg/dl Est Cr Clr Drug Dosing 86.7 ml/min Est GFR ( Amer) 102.4 Est GFR (Non-Af Amer) 88.3 BUN/Creatinine Ratio 15.1 (10-20) Glucose 126 H (70-99) mg/dl POC Glucose 143 H (70-99) mg/dl Calcium 8.8 (8.5-10.1) mg/dl 01/30/20 01/30/20 01/30/20 Range/Units 20:41 17:20 12:07 WBC (4.8-10.8) K/uL RBC (4.7-6.1) M/uL Hgb (14.0-18.0) g/dL Hct (42-52) % MCV (80-100) fL MCH (25-34) pg MCHC (32-36) g/dL RDW Std Deviation (36.4-46.3) fL RDW Coeff of Cherise (11.5-14.5) % Plt Count (130-400) K/uL MPV (7.4-10.4) fL Sodium (136-145) mmol/L Potassium (3.5-5.1) mmol/L Chloride (98-107) mmol/L Carbon Dioxide (21-32) mmol/L Anion Gap (3-11) BUN (7-18) mg/dl Creatinine (0.6-1.4) mg/dl Est Cr Clr Drug Dosing ml/min Est GFR ( Amer) Est GFR (Non-Af Amer) BUN/Creatinine Ratio (10-20) Glucose (70-99) mg/dl POC Glucose 177 H 125 H 220 H (70-99) mg/dl Calcium (8.5-10.1) mg/dl Medications Administered Current Inpatient Medications Acetaminophen (Acetaminophen 500 Mg Tab) 1,000 mg PO Q8H PRN PRN Reason: MILD Pain Scale 1,2,3 & Pre PT Stop: 02/28/20 18:10 Acetaminophen/Codeine Phosphate (Acetaminophen W/Codeine #3 1 Tab) 1 tab PO Q6H PRN PRN Reason: Pain Stop: 02/28/20 18:44 Acetaminophen/Codeine Phosphate (Acetaminophen W/Codeine #3 1 Tab) 2 tab PO Q6H PRN PRN Reason: Pain Stop: 02/28/20 18:44 Last Admin: 01/29/20 19:24 Dose: 2 tab Documented by: Al Hydrox/Mg Hydrox/Simethicone (Aluminum/Magnesium Susp 30 Ml Udc) 30 ml PO Q6H PRN PRN Reason: Dyspepsia Stop: 02/28/20 18:10 Alfuzosin HCl (Alfuzosin Hcl 10 Mg Tab) 10 mg PO QDD [facility] Stop: 02/28/20 19:29 Last Admin: 01/30/20 17:36 Dose: 10 mg Documented by: Aspirin (Aspirin 81 Mg Ectab) 81 mg PO QAM [facility] Stop: 02/29/20 08:59 Last Admin: 01/31/20 07:56 Dose: 81 mg Documented by: Atorvastatin Calcium (Atorvastatin 20 Mg Tab) 20 mg PO PM RANDELL Stop: 02/28/20 20:59 Last Admin: 01/30/20 20:52 Dose: 20 mg Documented by: Bisacodyl (Bisacodyl 10 Mg Supp) 10 mg DC DAILY PRN PRN Reason: Constipation Stop: 02/28/20 18:10 Dextrose (Dextrose 50% 50 Ml Syringe) 25 - 50 ml IV UD PRN; Protocol PRN Reason: Hypoglycemia Protocol Stop: 02/28/20 18:44 Diphenhydramine HCl (Diphenhydramine Hcl 25 Mg Cap) 25 mg PO Q6H PRN PRN Reason: Allergic Rhinitis/Insomnia Stop: 02/28/20 18:10 Enalapril Maleate (Enalapril Maleate 10 Mg Tab) 20 mg PO QAM [facility] Stop: 02/29/20 08:59 Last Admin: 01/31/20 07:55 Dose: Not Given Documented by: Escitalopram Oxalate (Escitalopram Oxalate 10 Mg Tab) 10 mg PO QPM [facility] Stop: 02/28/20 20:59 Last Admin: 01/30/20 20:52 Dose: 10 mg Documented by: Famotidine (Famotidine 20 Mg Tab) 20 mg PO Q12H PRN PRN Reason: Dyspepsia Stop: 02/28/20 18:10 Glucagon (Glucagon For Inj 1 Mg Vial) 1 mg IM UD PRN; Protocol PRN Reason: Hypoglycemia Protocol Stop: 02/28/20 18:44 Glucose (Glucose 40% Gel 15 Gm Tube) 15 - 30 gm PO UD PRN; Protocol PRN Reason: Hypoglycemia Protocol Stop: 02/28/20 18:44 Glucose (Glucose 10 Tabs/Tube) 4 - 8 tabs PO UD PRN; Protocol PRN Reason: Hypoglycemia Protocol Stop: 02/28/20 18:44 Hydromorphone HCl (Hydromorphone Inj 1 Mg/Ml Syringe) 1 mg IV Q8 PRN PRN Reason: Severe Pain Stop: 02/12/20 18:45 Hydroxyzine HCl (Hydroxyzine Hcl 25 Mg Tab) 25 mg PO Q8H PRN PRN Reason: Anxiety Stop: 02/28/20 18:10 Promethazine HCl 12.5 mg/ (Sodium Chloride) 50.5 mls @ 204 mls/hr IV Q6H PRN PRN Reason: Nausea &/or Vomiting Stop: 02/28/20 18:10 Lorazepam (Ativan) 0.5 mg in 1 mls @ 0.5 mls/min IV Q8H PRN PRN Reason: Sedation/Anxiety Stop: 02/28/20 18:10 Influenza Virus Vaccine Quadrival (Do Not Administer Flu Vaccine) 1 ea N/A PRN PRN PRN Reason: Notification Stop: 02/28/20 18:10 Insulin Aspart (Insulin Aspart 100 Units/Ml 3 Ml Pen) 0 units SC [facility]; Protocol Stop: 02/28/20 18:59 Last Admin: 01/31/20 07:58 Dose: 8 units Documented by: Insulin Glargine (Insulin Glargine Solostar 100 Units/Ml 3 Ml Pen) 10 units [place] [facility]; Protocol Stop: 03/02/20 08:59 Lorazepam (Lorazepam 0.5 Mg Tab) 0.5 mg PO Q8H PRN PRN Reason: Sedation/Anxiety Stop: 02/28/20 18:10 Magnesium Hydroxide (Magnesium Hydroxide Susp 30 Ml Udc) 30 ml PO DAILY PRN PRN Reason: Constipation Stop: 02/28/20 18:10 Metoclopramide HCl (Metoclopramide Hcl Inj 5 Mg/Ml 2 Ml Vial) 10 mg IV Q6H PRN PRN Reason: Nausea &/or Vomiting Stop: 02/28/20 18:10 Metoprolol Tartrate (Metoprolol Tartrate 50 Mg Tab) 50 mg PO BID RANDELL Stop: 02/28/20 20:59 Last Admin: 01/31/20 07:55 Dose: Not Given Documented by: Miscellaneous (Carbohydrates For Hypoglycemia ) 15 - 30 gm PO UD PRN PRN Reason: Hypoglycemia Treatment Stop: 02/28/20 18:44 Miscellaneous Information (Pharmacy Glycemic Mgmt Consult) 1 ea N/A UD PRN PRN Reason: Consult Stop: 02/28/20 18:28 Multivitamins (Multivitamin Tab) 1 tab PO QAM RANDELL Stop: 02/29/20 08:59 Last Admin: 01/31/20 07:56 Dose: 1 tab Documented by: Naloxone HCl (Naloxone Hcl 0.4 Mg/1 Ml Vial/Carp) 0.1 mg IV Q5M PRN; Protocol PRN Reason: Oversedation/Resp Depression Stop: 02/28/20 18:10 Ondansetron HCl (Ondansetron Inj 2 Mg/Ml 2 Ml Vial) 4 mg IV Q6H PRN PRN Reason: Nausea &/or Vomiting Stop: 02/28/20 18:10 Ondansetron HCl (Ondansetron 4 Mg Od Tab) 4 mg PO Q6H PRN PRN Reason: Nausea Stop: 02/28/20 18:10 Pneumococcal Polyvalent Vaccine (Do Not Administer Pneumococcal Vaccine) 1 ea N/A PRN PRN PRN Reason: Notification Stop: 02/28/20 18:10 Polyethylene Glycol (Polyethylene (Miralax) 17 Gm Pack) 17 gm PO Q6 RANDELL Stop: 02/29/20 05:59 Last Admin: 01/31/20 05:31 Dose: 17 gm Documented by: Pyridoxine HCl (Pyridoxine Hcl 50 Mg Tab) 100 mg PO QAM RANDELL Stop: 02/29/20 08:59 Last Admin: 01/31/20 07:56 Dose: 100 mg Documented by: Senna/Docusate Sodium (Docusate Sodium/Senna 50/8.6mg Tab) 2 tab PO HS RANDELL Stop: 02/28/20 20:59 Last Admin: 01/30/20 20:52 Dose: 2 tab Documented by: Sodium Biphosphate/Sodium Phosphate (Sod Phosphate/Sod Biphosphate Enema 132 Ml Btl) 132 ml DC ONE PRN PRN Reason: Constipation Stop: 02/28/20 18:10 Tramadol HCl (Tramadol Hcl 50 Mg Tablet) 50 - 100 mg PO Q4H PRN PRN Reason: Moderate-Severe Pain & Pre PT Stop: 02/28/20 18:10 Last Admin: 01/31/20 07:53 Dose: 100 mg Documented by: Vitamin D (Cholecalciferol 1,000 Units 25 Mcg Tab) 1,000 units PO QAM RANDELL Stop: 02/29/20 08:59 Last Admin: 01/31/20 07:56 Dose: 1,000 units Documented by:
--- NOTE | 2020-01-31 11:34 | Orthopedic Progress Note ---
Date of Service January 31, 2020 Assessment & Plan (1) Neurogenic claudication due to lumbar spinal stenosis: Admission and Anticipated Discharge Date Admission Date: January 29, 2020 This time we will continue physical therapy monitor CLAUDIA output anticipate di scharge home or to rehab this weekend. Subjective Back pain controlled leg symptoms improved. Physical Exam Physical Exam: Patient is in the chair at the bedside. Skin strength testing. Appears comfortable. Results & Data ([facility]) Vital Signs (Past 12 Hours) Vital Signs Temp Pulse Resp BP Pulse Ox 01/31/20 06:43 37.3 C 59 L 18 113/63 98
[2020-01-31] MEDS: ACETAMINOPHEN W/CODEINE #3 1 TAB PO PRN ×3 (12:20→18:15)
[2020-01-31] MEDS: ALFUZOSIN HCL 10 MG TAB PO SCH (17:30)
[2020-01-31] MEDS: DOCUSATE SODIUM/SENNA 50/8.6MG TAB PO SCH (17:30)
[2020-01-31] MEDS: ATORVASTATIN 20 MG TAB PO SCH (20:30)
[2020-01-31] MEDS: ESCITALOPRAM OXALATE 10 MG TAB PO SCH (20:30)
[2020-02-01] MEDS: ACETAMINOPHEN W/CODEINE #3 1 TAB PO PRN ×3 (01:01→18:29)
[2020-02-01] MEDS: POLYETHYLENE (MIRALAX) 17 GM PACK PO SCH ×3 (05:34→17:47)
[2020-02-01 06:23] LABS: Hemoglobin 9.2 g/dL (14.0-18.0); Mean Corpuscular Hemoglobin 33.5 pg (25-34); Mean Corpuscular Hgb Conc 35.4 g/dL (32-36); Mean Corpuscular Volume 94.5 fL (80-100); Platelet Count 201 K/uL (130-400); RDW Coefficient of Variation 13.3 % (11.5-14.5); Red Blood Count 2.75 M/uL (4.7-6.1); White Blood Count 10.19 K/uL (4.8-10.8)
[2020-02-01 06:57] LABS: Calcium 8.2 mg/dl (8.5-10.1); Creatinine Clr Calc Pharmacy 97.4 ml/min; Est GFR (African American) 107.4; Est GFR (Non-African American) 92.7
--- NOTE | 2020-02-01 08:50 | Hospitalist Progress Note ---
Date of Service February 01, 2020 Assessment & Plan (1) Neurogenic claudication due to lumbar spinal stenosis: - POD#3 L1-L2 decompression, T12-L2 fusion, removal L2 screws by Dr. Alcala - activity and wound care orders as per ortho - pain control with bowel regimen, PT/OT - monitor H/H for acute blood loss anemia and transfuse blood products PRN - hgb decreased at 9.2 (down from 12.7 initially) - No need for blood transfusion at this time (2) Diabetes mellitus, type 2: -Hgb A1c 6.6 12/2019 -Hold oral agents and utilize NovoLog per protocol while hospitalized -Glycemic pharmacy consult placed by spine Ortho Hyponatremia -New onset, in the setting of hyperglycemia -Repeat sodium level slightly increased, continue to monitor (3) Hypertension: -BP controlled, continue metoprolol and enalapril (4) DVT prophylaxis: -TEDs/SCDs as per spine Ortho Thank you for this consultation. We will follow the patient with you during their hospital stay. You can reach a member of the [facility] Team 12/12 via pager @ [phone]. Admission and Anticipated Discharge Date Admission Date: January 29, 2020 Subjective Patient is sitting up in chair, in no acute distress, sleeping. Says that he has been sore today. He walked in the hallway though. Denies any fevers, chills, chest pain, shortness of breath, abdominal pain, nausea or vomiting. Also denies any dizziness or lightheadedness. Sodium decreased today, however in the setting of hyperglycemia. Repeat sodium slightly increased. Review of Systems Review of Systems: All systems reviewed & are unremarkable except as noted in HPI & below Constitutional: no fever and no chills Respiratory: no cough and no dyspnea Cardiovascular: no chest pain and no palpitations Gastrointestinal: no abdominal pain, no nausea and no vomiting Physical Exam Physical Exam: Constitutional: WD/WN, vitals as above Eyes: PERRL, conjunctivae normal, anicteric sclerae ENMT: external ear and nose normal, oropharynx normal Respiratory: normal respiratory effort, lungs clear to auscultation Cardiovascular: Rate/Rhythm: regular rate and regular rhythm Vessels: normal peripheral pulses Extremities: no edema Gastrointestinal (Abdomen): normal bowel sounds, soft, nontender, no hepatosplenomegaly Musculoskeletal: no cyanosis or clubbing, extremities motor strength 5/5 S/p back surgery, pedal pushes and pulls strong bilaterally, drain in place draining bloody drainage Skin: no rashes, warm and dry Neurologic: PERRL, EOMI, no face palsy, no dysarthria, moves extremities spontaneously Psychiatric: A+Ox3, euthymic affect Results & Data Results & Data ([facility]) Vital Signs (Past 12 Hours) Vital Signs Temp Pulse Pulse Resp BP BP Pulse Ox 02/01/20 06:42 36.8 C 64 16 118/76 99 01/31/20 23:33 37.0 C 65 18 136/77 99 Laboratory Results 02/01/20 02/01/20 02/01/20 Range/Units 06:40 06:00 06:00 WBC 10.19 (4.8-10.8) K/uL RBC 2.75 L (4.7-6.1) M/uL Hgb 9.2 L (14.0-18.0) g/dL Hct 26.0 L (42-52) % MCV 94.5 (80-100) fL MCH 33.5 (25-34) pg MCHC 35.4 (32-36) g/dL RDW Std Deviation 46.0 (36.4-46.3) fL RDW Coeff of Cherise 13.3 (11.5-14.5) % Plt Count 201 (130-400) K/uL MPV 9.0 (7.4-10.4) fL Sodium 127 L D (136-145) mmol/L Potassium 4.0 (3.5-5.1) mmol/L Chloride 94 L (98-107) mmol/L Carbon Dioxide 25 (21-32) mmol/L Anion Gap 8.0 (3-11) BUN 11 (7-18) mg/dl Creatinine 0.73 (0.6-1.4) mg/dl Est Cr Clr Drug Dosing 97.4 ml/min Est GFR ( Amer) 107.4 Est GFR (Non-Af Amer) 92.7 BUN/Creatinine Ratio 15.0 (10-20) Glucose 159 H (70-99) mg/dl POC Glucose 184 H (70-99) mg/dl Calcium 8.2 L (8.5-10.1) mg/dl Crossmatch 0901/31/20 01/31/20 Range/Units 20:45 17:03 12:05 WBC (4.8-10.8) K/uL RBC (4.7-6.1) M/uL Hgb (14.0-18.0) g/dL Hct (42-52) % MCV (80-100) fL MCH (25-34) pg MCHC (32-36) g/dL RDW Std Deviation (36.4-46.3) fL RDW Coeff of Cherise (11.5-14.5) % Plt Count (130-400) K/uL MPV (7.4-10.4) fL Sodium (136-145) mmol/L Potassium (3.5-5.1) mmol/L Chloride (98-107) mmol/L Carbon Dioxide (21-32) mmol/L Anion Gap (3-11) BUN (7-18) mg/dl Creatinine (0.6-1.4) mg/dl Est Cr Clr Drug Dosing ml/min Est GFR ( Amer) Est GFR (Non-Af Amer) BUN/Creatinine Ratio (10-20) Glucose (70-99) mg/dl POC Glucose 182 H 176 H 155 H (70-99) mg/dl Calcium (8.5-10.1) mg/dl Crossmatch 01/29/20 Range/Units 11:24 WBC (4.8-10.8) K/uL RBC (4.7-6.1) M/uL Hgb (14.0-18.0) g/dL Hct (42-52) % MCV (80-100) fL MCH (25-34) pg MCHC (32-36) g/dL RDW Std Deviation (36.4-46.3) fL RDW Coeff of Cherise (11.5-14.5) % Plt Count (130-400) K/uL MPV (7.4-10.4) fL Sodium (136-145) mmol/L Potassium (3.5-5.1) mmol/L Chloride (98-107) mmol/L Carbon Dioxide (21-32) mmol/L Anion Gap (3-11) BUN (7-18) mg/dl Creatinine (0.6-1.4) mg/dl Est Cr Clr Drug Dosing ml/min Est GFR ( Amer) Est GFR (Non-Af Amer) BUN/Creatinine Ratio (10-20) Glucose (70-99) mg/dl POC Glucose (70-99) mg/dl Calcium (8.5-10.1) mg/dl Crossmatch See Detail Medications Administered Current Inpatient Medications Acetaminophen (Acetaminophen 500 Mg Tab) 1,000 mg PO Q8H PRN PRN Reason: MILD Pain Scale 1,2,3 & Pre PT Stop: 02/28/20 18:10 Acetaminophen/Codeine Phosphate (Acetaminophen W/Codeine #3 1 Tab) 1 tab PO Q6H PRN PRN Reason: Pain Stop: 02/28/20 18:44 Acetaminophen/Codeine Phosphate (Acetaminophen W/Codeine #3 1 Tab) 2 tab PO Q6H PRN PRN Reason: Pain Stop: 02/28/20 18:44 Last Admin: 02/01/20 05:34 Dose: 2 tab Documented by: Al Hydrox/Mg Hydrox/Simethicone (Aluminum/Magnesium Susp 30 Ml Udc) 30 ml PO Q6H PRN PRN Reason: Dyspepsia Stop: 02/28/20 18:10 Last Admin: 02/01/20 05:34 Dose: 30 ml Documented by: Alfuzosin HCl (Alfuzosin Hcl 10 Mg Tab) 10 mg PO QDD [facility] Stop: 02/28/20 19:29 Last Admin: 01/31/20 17:30 Dose: 10 mg Documented by: Aspirin (Aspirin 81 Mg Ectab) 81 mg PO QAM [facility]AN[facility] Stop: 02/29/20 08:59 Last Admin: 01/31/20 07:56 Dose: 81 mg Documented by: Atorvastatin Calcium (Atorvastatin 20 Mg Tab) 20 mg PO PM [facility]AN[facility] Stop: 02/28/20 20:59 Last Admin: 01/31/20 20:30 Dose: 20 mg Documented by: Bisacodyl (Bisacodyl 10 Mg Supp) 10 mg UT DAILY PRN PRN Reason: Constipation Stop: 02/28/20 18:10 Dextrose (Dextrose 50% 50 Ml Syringe) 25 - 50 ml IV UD PRN; Protocol PRN Reason: Hypoglycemia Protocol Stop: 02/28/20 18:44 Diphenhydramine HCl (Diphenhydramine Hcl 25 Mg Cap) 25 mg PO Q6H PRN PRN Reason: Allergic Rhinitis/Insomnia Stop: 02/28/20 18:10 Enalapril Maleate (Enalapril Maleate 10 Mg Tab) 20 mg PO QAM [facility] Stop: 02/29/20 08:59 Last Admin: 01/31/20 07:55 Dose: Not Given Documented by: Escitalopram Oxalate (Escitalopram Oxalate 10 Mg Tab) 10 mg PO QPM [facility] Stop: 02/28/20 20:59 Last Admin: 01/31/20 20:30 Dose: 10 mg Documented by: Famotidine (Famotidine 20 Mg Tab) 20 mg PO Q12H PRN PRN Reason: Dyspepsia Stop: 02/28/20 18:10 Glucagon (Glucagon For Inj 1 Mg Vial) 1 mg IM UD PRN; Protocol PRN Reason: Hypoglycemia Protocol Stop: 02/28/20 18:44 Glucose (Glucose 40% Gel 15 Gm Tube) 15 - 30 gm PO UD PRN; Protocol PRN Reason: Hypoglycemia Protocol Stop: 02/28/20 18:44 Glucose (Glucose 10 Tabs/Tube) 4 - 8 tabs PO UD PRN; Protocol PRN Reason: Hypoglycemia Protocol Stop: 02/28/20 18:44 Hydromorphone HCl (Hydromorphone Inj 1 Mg/Ml Syringe) 1 mg IV Q8 PRN PRN Reason: Severe Pain Stop: 02/12/20 18:45 Hydroxyzine HCl (Hydroxyzine Hcl 25 Mg Tab) 25 mg PO Q8H PRN PRN Reason: Anxiety Stop: 02/28/20 18:10 Promethazine HCl 12.5 mg/ (Sodium Chloride) 50.5 mls @ 204 mls/hr IV Q6H PRN PRN Reason: Nausea &/or Vomiting Stop: 02/28/20 18:10 Lorazepam (Ativan) 0.5 mg in 1 mls @ 0.5 mls/min IV Q8H PRN PRN Reason: Sedation/Anxiety Stop: 02/28/20 18:10 Dexamethasone Sodium Phosphate (8 mg/ Syringe) 2 mls @ 1 mls/min IV DAILY [facility] Stop: 03/02/20 08:59 Influenza Virus Vaccine Quadrival (Do Not Administer Flu Vaccine) 1 ea N/A PRN PRN PRN Reason: Notification Stop: 02/28/20 18:10 Insulin Aspart (Insulin Aspart 100 Units/Ml 3 Ml Pen) 0 units SC ACHS [facility]; Protocol Stop: 02/28/20 18:59 Last Admin: 01/31/20 21:06 Dose: 3 units Documented by: Insulin Human NPH (Novolin-N (Nph) Per Unit Charge) 25 units SQ ONE ONE Stop: 02/01/20 09:01 Lorazepam (Lorazepam 0.5 Mg Tab) 0.5 mg PO Q8H PRN PRN Reason: Sedation/Anxiety Stop: 02/28/20 18:10 Last Admin: 01/31/20 20:30 Dose: 0.5 mg Documented by: Magnesium Hydroxide (Magnesium Hydroxide Susp 30 Ml Udc) 30 ml PO DAILY PRN PRN Reason: Constipation Stop: 02/28/20 18:10 Last Admin: 01/31/20 12:19 Dose: 30 ml Documented by: Metoclopramide HCl (Metoclopramide Hcl Inj 5 Mg/Ml 2 Ml Vial) 10 mg IV Q6H PRN PRN Reason: Nausea &/or Vomiting Stop: 02/28/20 18:10 Metoprolol Tartrate (Metoprolol Tartrate 50 Mg Tab) 50 mg PO BID [facility] Stop: 02/28/20 20:59 Last Admin: 01/31/20 20:30 Dose: 50 mg Documented by: Miscellaneous (Carbohydrates For Hypoglycemia ) 15 - 30 gm PO UD PRN PRN Reason: Hypoglycemia Treatment Stop: 02/28/20 18:44 Miscellaneous Information (Pharmacy Glycemic Mgmt Consult) 1 ea N/A UD PRN PRN Reason: Consult Stop: 02/28/20 18:28 Multivitamins (Multivitamin Tab) 1 tab PO QAM [facility] Stop: 02/29/20 08:59 Last Admin: 01/31/20 07:56 Dose: 1 tab Documented by: Naloxone HCl (Naloxone Hcl 0.4 Mg/1 Ml Vial/Carp) 0.1 mg IV Q5M PRN; Protocol PRN Reason: Oversedation/Resp Depression Stop: 02/28/20 18:10 Ondansetron HCl (Ondansetron Inj 2 Mg/Ml 2 Ml Vial) 4 mg IV Q6H PRN PRN Reason: Nausea &/or Vomiting Stop: 02/28/20 18:10 Ondansetron HCl (Ondansetron 4 Mg Od Tab) 4 mg PO Q6H PRN PRN Reason: Nausea Stop: 02/28/20 18:10 Pneumococcal Polyvalent Vaccine (Do Not Administer Pneumococcal Vaccine) 1 ea N/A PRN PRN PRN Reason: Notification Stop: 02/28/20 18:10 Polyethylene Glycol (Polyethylene (Miralax) 17 Gm Pack) 17 gm PO Q6 [facility] Stop: 02/29/20 05:59 Last Admin: 02/01/20 05:34 Dose: 17 gm Documented by: Pyridoxine HCl (Pyridoxine Hcl 50 Mg Tab) 100 mg PO QAM [facility] Stop: 02/29/20 08:59 Last Admin: 01/31/20 07:56 Dose: 100 mg Documented by: Senna/Docusate Sodium (Docusate Sodium/Senna 50/8.6mg Tab) 2 tab PO HS [facility] Stop: 02/28/20 20:59 Last Admin: 01/31/20 17:30 Dose: 2 tab Documented by: Sodium Biphosphate/Sodium Phosphate (Sod Phosphate/Sod Biphosphate Enema 132 Ml Btl) 132 ml UT ONE PRN PRN Reason: Constipation Stop: 02/28/20 18:10 Tramadol HCl (Tramadol Hcl 50 Mg Tablet) 50 - 100 mg PO Q4H PRN PRN Reason: Moderate-Severe Pain & Pre PT Stop: 02/28/20 18:10 Last Admin: 01/31/20 15:24 Dose: 100 mg Documented by: Vitamin D (Cholecalciferol 1,000 Units 25 Mcg Tab) 1,000 units PO QAM [facility] Stop: 02/29/20 08:59 Last Admin: 01/31/20 07:56 Dose: 1,000 units Documented by:
[2020-02-01] MEDS: INSULIN ASPART 100 UNITS/ML 3 ML PEN SC SCH ×4 (08:59→21:41)
[2020-02-01] MEDS ORDERED: HumuLIN N 10 ML VIAL SC SCH ×2 (09:00→16:30)
[2020-02-01] MEDS ORDERED: NovoLIN-N (NPH) PER UNIT CHARGE SQ ONE (09:00)
[2020-02-01] MEDS ORDERED: INSULIN GLARGINE SOLOSTAR 100 UNITS/ML 3 ML PEN SC SCH (09:00)
[2020-02-01] MEDS: traMADol HCL 50 MG TABLET PO PRN ×2 (09:07→21:47)
[2020-02-01] MEDS: ASPIRIN 81 MG ECTAB PO SCH (09:09)
[2020-02-01] MEDS: METOPROLOL TARTRATE 50 MG TAB PO SCH ×2 (09:09→21:38)
[2020-02-01] MEDS: PYRIDOXINE HCL 50 MG TAB PO SCH (09:09)
[2020-02-01] MEDS: CHOLECALCIFEROL 1,000 UNITS 25 MCG TAB PO SCH (09:10)
[2020-02-01] MEDS: DEXAMETHASONE SOD PHOSPHATE 8 MG in SYRINGE 0 ML IV SCH (09:10)
[2020-02-01] MEDS: ENALAPRIL MALEATE 10 MG TAB PO SCH (09:10)
[2020-02-01] MEDS: MULTIVITAMIN TAB PO SCH (09:10)
--- NOTE | 2020-02-01 10:10 | Orthopedic Progress Note ---
Date of Service February 01, 2020 Assessment & Plan (1) Neurogenic claudication due to lumbar spinal stenosis: Admission and Anticipated Discharge Date Admission Date: January 29, 2020 We will continue physical therapy today plan for discharge to rehab Monday or Monday. Subjective Patient is pretty sore today. But is ambulating well. Physical Exam Physical Exam: On exam he is in the chair at the bedside. Good strength testing. Results & Data ([facility]) Vital Signs (Past 12 Hours) Vital Signs Temp Pulse Pulse Resp BP BP Pulse Ox 02/01/20 09:00 70 120/71 02/01/20 06:42 36.8 C 64 16 118/76 99 01/31/20 23:33 37.0 C 65 18 136/77 99
--- NOTE | 2020-02-01 13:46 | Pharmacy Report ---
Pharmacy Glycemic Short Note 2 - Date of Service February 01, 2020 - Glycemic Short BSG Results (Last 24 hours): 01/31/20 01/31/20 02/01/20 17:03 20:45 06:00 Glucose 159 H POC Glucose 176 H 182 H 02/01/20 02/01/20 06:40 12:19 Glucose POC Glucose 184 H 243 H OUTPATIENT ANTIDIABETIC REGIMEN: * Metformin 1000 mg PO BIDM * A1c = 6.6% (01/14/2020) ASSESSMENT: 01/31: * Niko received 41 units of insulin yesterday with BSGs ranging from 126 - 176 mg/dL: * 10 units of basal * 31 units of bolus * Basal insulin was changed from Lantus to NPH starting today due to addition of IV steroids (dex 8 mg IV daily) * Both fasting and lunchtime BSGs are elevated, therefore I will increase NPH and tighten novolog parameters 01/30: * BSGs poorly controlled yesterday: [phone] mg/dL * Received 43 units of insulin yesterday: 10 units basal + 33 units bolus * CR was tightened yesterday and basal insulin was added * Fasting BSG this AM was 143 mg/dL - acceptable * Believe patient may have been basal deficient * Will schedule daily basal insulin dose qAM * No changes to Novolog parameters necessary 01/29: * 74 yo M admitted s/p spinal decompression/fusion. Pharmacy is consulted for inpatient glycemic management. Outpatient A1c demonstrates excellent T2DM control on Metformin monotherapy. * Pre-operative BSG was 115 mg/dL. Post-operative BSG was 155 mg/dL. Patient was never given basal insulin last evening. Her BSG trended up to 323 mg/dL prior to bed last evening. This is likely a result of the IV steroids and stress of surgery. * Fasting BSG elevated this AM at 183 mg/dL. Will give the patient a one time dose of Lantus this AM. Given steroid-induced hyperglycemia, will tighten CR this morning. * Lunchtime BSG was elevated at 220 mg/dL. No changes as steroids should start to wear off given ~ 24 hours since pre-operative dose. PLAN FOR INPATIENT GLYCEMIC CONTROL: * Hold outpatient oral diabetes medications * Basal insulin - increase * NPH 25 units SQ with breakfast * NPH 20 units SQ with dinner * Bolus insulin - tighten * NovoLog per scale ACHS or Q6hrs while NPO * Goal Range: Low 110 mg/dL - High 140 mg/dL * Correction Factor: 15 mg/dL/unit * Nutritional / Prandial insulin per carb ratio of 1 unit per 5 grams CHO consumed PLAN FOR DISCHARGE: * A1c from December was 6.6% - excellent control * Recommend continuing outpatient metformin monotherapy upon discharge
[2020-02-01 14:58] LABS: BUN Creatinine Ratio 10.3 (10-20); Calcium 9.3 mg/dl (8.5-10.1); Creatinine Clr Calc Pharmacy 74.1 ml/min; Est GFR (African American) 91.2; Est GFR (Non-African American) 78.7; Potassium 4.7 mmol/L (3.5-5.1)
[2020-02-01] MEDS: ALFUZOSIN HCL 10 MG TAB PO SCH (17:43)
[2020-02-01] MEDS: DOCUSATE SODIUM/SENNA 50/8.6MG TAB PO SCH (20:22)
[2020-02-01] MEDS: ATORVASTATIN 20 MG TAB PO SCH (20:22)
[2020-02-01] MEDS: ESCITALOPRAM OXALATE 10 MG TAB PO SCH (20:23)
[2020-02-02] MEDS: POLYETHYLENE (MIRALAX) 17 GM PACK PO SCH (00:32)
[2020-02-02] MEDS: INSULIN ASPART 100 UNITS/ML 3 ML PEN SC SCH ×4 (00:59→12:41)
[2020-02-02 06:14] LABS: Hematocrit (blood only) 25.6 % (42-52); Mean Corpuscular Hemoglobin 33.7 pg (25-34); Mean Corpuscular Hgb Conc 35.2 g/dL (32-36); Mean Corpuscular Volume 95.9 fL (80-100); Mean Platelet Volume 9.3 fL (7.4-10.4); Platelet Count 242 K/uL (130-400); RDW Coefficient of Variation 13.3 % (11.5-14.5); RDW Standard Deviation 46.3 fL (36.4-46.3); Red Blood Count 2.67 M/uL (4.7-6.1); White Blood Count 12.41 K/uL (4.8-10.8)
[2020-02-02 06:37] LABS: BUN Creatinine Ratio 20.3 (10-20); Calcium 8.9 mg/dl (8.5-10.1); Creatinine Clr Calc Pharmacy 98.8 ml/min; Est GFR (Non-African American) 93.2; Potassium 4.3 mmol/L (3.5-5.1)
[2020-02-02] MEDS ORDERED: HumuLIN N 10 ML VIAL SC SCH (08:00)
[2020-02-02] MEDS: DEXAMETHASONE SOD PHOSPHATE 8 MG in SYRINGE 0 ML IV SCH (09:22)
[2020-02-02] MEDS: MULTIVITAMIN TAB PO SCH (09:22)
[2020-02-02] MEDS: METOPROLOL TARTRATE 50 MG TAB PO SCH (09:23)
[2020-02-02] MEDS: CHOLECALCIFEROL 1,000 UNITS 25 MCG TAB PO SCH (09:23)
[2020-02-02] MEDS: PYRIDOXINE HCL 50 MG TAB PO SCH (09:24)
[2020-02-02] MEDS: ENALAPRIL MALEATE 10 MG TAB PO SCH (09:24)
[2020-02-02] MEDS: ASPIRIN 81 MG ECTAB PO SCH (09:24)
--- NOTE | 2020-02-02 10:13 | Hospitalist Progress Note ---
Date of Service February 02, 2020 Assessment & Plan (1) Neurogenic claudication due to lumbar spinal stenosis: - POD#4 L1-L2 decompression, T12-L2 fusion, removal L2 screws by Dr. Alcala - activity and wound care orders as per ortho - pain control with bowel regimen, PT/OT - monitor H/H for acute blood loss anemia and transfuse blood products PRN - hgb decreased at 9.0 (down from 12.7 initially) but stable from yesterday - No need for blood transfusion (2) Diabetes mellitus, type 2: -Hgb A1c 6.6 12/2019 -Hold oral agents and utilize NovoLog per protocol while hospitalized -Glycemic pharmacy consult placed by spine Ortho Hyponatremia -New onset, in the setting of hyperglycemia -Repeat sodium level slightly increased, continue to monitor - today sodium increased/almost normalized (3) Hypertension: -BP controlled, continue metoprolol and enalapril (4) DVT prophylaxis: -TEDs/SCDs as per spine Ortho Thank you for this consultation. We will follow the patient with you during their hospital stay. You can reach a member of the [facility] Hospitalist Team 12/12 via pager @ [phone]. Admission and Anticipated Discharge Date Admission Date: January 29, 2020 Subjective Patient is sitting up in chair, in no acute distress, eating. He is feeling quite well today. Patient's is at the bedside. Patient had bowel movement yesterday and today. Denies any fevers, chills, chest pain, shortness of breath, abdominal pain, nausea or vomiting. Also denies any dizziness or lightheadedness. Review of Systems Review of Systems: All systems reviewed & are unremarkable except as noted in HPI & below Constitutional: no fever and no chills Respiratory: no cough and no dyspnea Cardiovascular: no chest pain and no palpitations Gastrointestinal: no abdominal pain, no nausea, no vomiting and no constipation Physical Exam Physical Exam: Constitutional: WD/WN, vitals as above Eyes: PERRL, conjunctivae normal, anicteric sclerae ENMT: external ear and nose normal, oropharynx normal Respiratory: normal respiratory effort, lungs clear to auscultation Cardiovascular: Rate/Rhythm: regular rate and regular rhythm Vessels: normal peripheral pulses Extremities: no edema Gastrointestinal (Abdomen): normal bowel sounds, soft, nontender, no hepatosplenomegaly Musculoskeletal: no cyanosis or clubbing, extremities motor strength 5/5 S/p back surgery, pedal pushes and pulls strong bilaterally Skin: no rashes, warm and dry Neurologic: PERRL, EOMI, no face palsy, no dysarthria, moves extremities spontaneously Psychiatric: A+Ox3, euthymic affect Results & Data Results & Data ([facility]) Vital Signs (Past 12 Hours) Vital Signs Temp Pulse Pulse Resp BP BP Pulse Ox 02/02/20 09:20 72 02/02/20 07:26 36.6 C 60 16 152/69 H 98 02/01/20 23:17 36.8 C 64 16 120/69 97 Laboratory Results 02/02/20 02/02/20 02/02/20 Range/Units 08:05 05:46 05:46 WBC 12.41 H (4.8-10.8) K/uL RBC 2.67 L (4.7-6.1) M/uL Hgb 9.0 L (14.0-18.0) g/dL Hct 25.6 L (42-52) % MCV 95.9 (80-100) fL MCH 33.7 (25-34) pg MCHC 35.2 (32-36) g/dL RDW Std Deviation 46.3 (36.4-46.3) fL RDW Coeff of Cherise 13.3 (11.5-14.5) % Plt Count 242 (130-400) K/uL MPV 9.3 (7.4-10.4) fL Sodium 133 L (136-145) mmol/L Potassium 4.3 (3.5-5.1) mmol/L Chloride 100 (98-107) mmol/L Carbon Dioxide 24 (21-32) mmol/L Anion Gap 9.0 (3-11) BUN 15 (7-18) mg/dl Creatinine 0.72 (0.6-1.4) mg/dl Est Cr Clr Drug Dosing 98.8 ml/min Est GFR ( Amer) 108.0 Est GFR (Non-Af Amer) 93.2 BUN/Creatinine Ratio 20.3 H (10-20) Glucose 121 H (70-99) mg/dl POC Glucose 150 H (70-99) mg/dl Calcium 8.9 (8.5-10.1) mg/dl 02/02/20 02/02/20 02/01/20 Range/Units 04:11 00:27 20:55 WBC (4.8-10.8) K/uL RBC (4.7-6.1) M/uL Hgb (14.0-18.0) g/dL Hct (42-52) % MCV (80-100) fL MCH (25-34) pg MCHC (32-36) g/dL RDW Std Deviation (36.4-46.3) fL RDW Coeff of Cherise (11.5-14.5) % Plt Count (130-400) K/uL MPV (7.4-10.4) fL Sodium (136-145) mmol/L Potassium (3.5-5.1) mmol/L Chloride (98-107) mmol/L Carbon Dioxide (21-32) mmol/L Anion Gap (3-11) BUN (7-18) mg/dl Creatinine (0.6-1.4) mg/dl Est Cr Clr Drug Dosing ml/min Est GFR ( Amer) Est GFR (Non-Af Amer) BUN/Creatinine Ratio (-20) Glucose (70-99) mg/dl POC Glucose 112 H 140 H 231 H (70-99) mg/dl Calcium (8.5-10.1) mg/dl 02/01/20 02/01/20 02/01/20 Range/Units 17:13 14:25 12:19 WBC (4.8-10.8) K/uL RBC (4.7-6.1) M/uL Hgb (14.0-18.0) g/dL Hct (42-52) % MCV (80-100) fL MCH (25-34) pg MCHC (32-36) g/dL RDW Std Deviation (36.4-46.3) fL RDW Coeff of Cherise (11.5-14.5) % Plt Count (130-400) K/uL MPV (7.4-10.4) fL Sodium 129 L (136-145) mmol/L Potassium 4.7 D (3.5-5.1) mmol/L Chloride 95 L (98-107) mmol/L Carbon Dioxide 26 (21-32) mmol/L Anion Gap 8.0 (3-11) BUN 10 (7-18) mg/dl Creatinine 0.96 (0.6-1.4) mg/dl Est Cr Clr Drug Dosing 74.1 ml/min Est GFR ( Amer) 91.2 Est GFR (Non-Af Amer) 78.7 BUN/Creatinine Ratio 10.3 (10-20) Glucose 230 H (70-99) mg/dl POC Glucose 216 H 243 H (70-99) mg/dl Calcium 9.3 (8.5-10.1) mg/dl Medications Administered Current Inpatient Medications Acetaminophen (Acetaminophen 500 Mg Tab) 1,000 mg PO Q8H PRN PRN Reason: MILD Pain Scale 1,2,3 & Pre PT Stop: 02/28/20 18:10 Acetaminophen/Codeine Phosphate (Acetaminophen W/Codeine #3 1 Tab) 1 tab PO Q6H PRN PRN Reason: Pain Stop: 02/28/20 18:44 Last Admin: 02/01/20 18:29 Dose: 1 tab Documented by: Acetaminophen/Codeine Phosphate (Acetaminophen W/Codeine #3 1 Tab) 2 tab PO Q6H PRN PRN Reason: Pain Stop: 02/28/20 18:44 Last Admin: 02/01/20 05:34 Dose: 2 tab Documented by: Al Hydrox/Mg Hydrox/Simethicone (Aluminum/Magnesium Susp 30 Ml Udc) 30 ml PO Q6H PRN PRN Reason: Dyspepsia Stop: 02/28/20 18:10 Last Admin: 02/01/20 05:34 Dose: 30 ml Documented by: Alfuzosin HCl (Alfuzosin Hcl 10 Mg Tab) 10 mg PO QDD [facility] Stop: 02/28/20 19:29 Last Admin: 02/01/20 17:43 Dose: 10 mg Documented by: Aspirin (Aspirin 81 Mg Ectab) 81 mg PO QAM [facility] Stop: 02/29/20 08:59 Last Admin: 02/02/20 09:24 Dose: 81 mg Documented by: Atorvastatin Calcium (Atorvastatin 20 Mg Tab) 20 mg PO PM [facility] Stop: 02/28/20 20:59 Last Admin: 02/01/20 20:22 Dose: 20 mg Documented by: Bisacodyl (Bisacodyl 10 Mg Supp) 10 mg MO DAILY PRN PRN Reason: Constipation Stop: 02/28/20 18:10 Dextrose (Dextrose 50% 50 Ml Syringe) 25 - 50 ml IV UD PRN; Protocol PRN Reason: Hypoglycemia Protocol Stop: 02/28/20 18:44 Diphenhydramine HCl (Diphenhydramine Hcl 25 Mg Cap) 25 mg PO Q6H PRN PRN Reason: Allergic Rhinitis/Insomnia Stop: 02/28/20 18:10 Enalapril Maleate (Enalapril Maleate 10 Mg Tab) 20 mg PO QAM [facility] Stop: 02/29/20 08:59 Last Admin: 02/02/20 09:24 Dose: 20 mg Documented by: Escitalopram Oxalate (Escitalopram Oxalate 10 Mg Tab) 10 mg PO QPM [facility] Stop: 02/28/20 20:59 Last Admin: 02/01/20 20:23 Dose: 10 mg Documented by: Famotidine (Famotidine 20 Mg Tab) 20 mg PO Q12H PRN PRN Reason: Dyspepsia Stop: 02/28/20 18:10 Glucagon (Glucagon For Inj 1 Mg Vial) 1 mg IM UD PRN; Protocol PRN Reason: Hypoglycemia Protocol Stop: 02/28/20 18:44 Glucose (Glucose 40% Gel 15 Gm Tube) 15 - 30 gm PO UD PRN; Protocol PRN Reason: Hypoglycemia Protocol Stop: 02/28/20 18:44 Glucose (Glucose 10 Tabs/Tube) 4 - 8 tabs PO UD PRN; Protocol PRN Reason: Hypoglycemia Protocol Stop: 02/28/20 18:44 Hydromorphone HCl (Hydromorphone Inj 1 Mg/Ml Syringe) 1 mg IV Q8 PRN PRN Reason: Severe Pain Stop: 02/12/20 18:45 Hydroxyzine HCl (Hydroxyzine Hcl 25 Mg Tab) 25 mg PO Q8H PRN PRN Reason: Anxiety Stop: 02/28/20 18:10 Promethazine HCl 12.5 mg/ (Sodium Chloride) 50.5 mls @ 204 mls/hr IV Q6H PRN PRN Reason: Nausea &/or Vomiting Stop: 02/28/20 18:10 Lorazepam (Ativan) 0.5 mg in 1 mls @ 0.5 mls/min IV Q8H PRN PRN Reason: Sedation/Anxiety Stop: 02/28/20 18:10 Dexamethasone Sodium Phosphate (8 mg/ Syringe) 2 mls @ 1 mls/min IV DAILY [facility] Stop: 03/02/20 08:59 Last Admin: 02/02/20 09:22 Dose: 1 mls/min Documented by: Influenza Virus Vaccine Quadrival (Do Not Administer Flu Vaccine) 1 ea N/A PRN PRN PRN Reason: Notification Stop: 02/28/20 18:10 Insulin Aspart (Insulin Aspart 100 Units/Ml 3 Ml Pen) 0 units SC ACHS [facility]; Protocol Stop: 02/28/20 18:59 Last Admin: 02/02/20 09:16 Dose: 13 units Documented by: Insulin Human NPH (Humulin N 10 Ml Vial) 0 units SC BIDM [facility]; Protocol Stop: 03/03/20 07:59 Last Admin: 02/02/20 09:17 Dose: 25 units Documented by: Lorazepam (Lorazepam 0.5 Mg Tab) 0.5 mg PO Q8H PRN PRN Reason: Sedation/Anxiety Stop: 02/28/20 18:10 Last Admin: 01/31/20 20:30 Dose: 0.5 mg Documented by: Magnesium Hydroxide (Magnesium Hydroxide Susp 30 Ml Udc) 30 ml PO DAILY PRN PRN Reason: Constipation Stop: 02/28/20 18:10 Last Admin: 01/31/20 12:19 Dose: 30 ml Documented by: Metoclopramide HCl (Metoclopramide Hcl Inj 5 Mg/Ml 2 Ml Vial) 10 mg IV Q6H PRN PRN Reason: Nausea &/or Vomiting Stop: 02/28/20 18:10 Metoprolol Tartrate (Metoprolol Tartrate 50 Mg Tab) 50 mg PO BID [facility] Stop: 02/28/20 20:59 Last Admin: 02/02/20 09:23 Dose: 50 mg Documented by: Miscellaneous (Carbohydrates For Hypoglycemia ) 15 - 30 gm PO UD PRN PRN Reason: Hypoglycemia Treatment Stop: 02/28/20 18:44 Miscellaneous Information (Pharmacy Glycemic Mgmt Consult) 1 ea N/A UD PRN PRN Reason: Consult Stop: 02/28/20 18:28 Multivitamins (Multivitamin Tab) 1 tab PO QAM [facility] Stop: 02/29/20 08:59 Last Admin: 02/02/20 09:22 Dose: 1 tab Documented by: Naloxone HCl (Naloxone Hcl 0.4 Mg/1 Ml Vial/Carp) 0.1 mg IV Q5M PRN; Protocol PRN Reason: Oversedation/Resp Depression Stop: 02/28/20 18:10 Ondansetron HCl (Ondansetron Inj 2 Mg/Ml 2 Ml Vial) 4 mg IV Q6H PRN PRN Reason: Nausea &/or Vomiting Stop: 02/28/20 18:10 Ondansetron HCl (Ondansetron 4 Mg Od Tab) 4 mg PO Q6H PRN PRN Reason: Nausea Stop: 02/28/20 18:10 Pneumococcal Polyvalent Vaccine (Do Not Administer Pneumococcal Vaccine) 1 ea N/A PRN PRN PRN Reason: Notification Stop: 02/28/20 18:10 Pyridoxine HCl (Pyridoxine Hcl 50 Mg Tab) 100 mg PO [facility] Stop: 02/29/20 08:59 Last Admin: 02/02/20 09:24 Dose: 100 mg Documented by: Senna/Docusate Sodium (Docusate Sodium/Senna 50/8.6mg Tab) 2 tab PO [facility] Stop: 02/28/20 20:59 Last Admin: 02/01/20 20:22 Dose: 2 tab Documented by: Sodium Biphosphate/Sodium Phosphate (Sod Phosphate/Sod Biphosphate Enema 132 Ml Btl) 132 ml MO ONE PRN PRN Reason: Constipation Stop: 02/28/20 18:10 Tramadol HCl (Tramadol Hcl 50 Mg Tablet) 50 - 100 mg PO Q4H PRN PRN Reason: Moderate-Severe Pain & Pre PT Stop: 02/28/20 18:10 Last Admin: 02/01/20 21:47 Dose: 50 mg Documented by: Vitamin D (Cholecalciferol 1,000 Units 25 Mcg Tab) 1,000 units PO [facility] Stop: 02/29/20 08:59 Last Admin: 02/02/20 09:23 Dose: 1,000 units Documented by:
--- NOTE | 2020-02-02 11:21 | Discharge Summary ---
Date of Service February 02, 2020 Admission HPI Per Admitting Provider This is a 72-year-old male well-known to the presents with chronic persistent worsening back and bilateral leg pain. Failing since course of nonoperative care is here for surgical intervention. Principal Diagnosis Lumbar spinal stenosis with neurogenic claudication Discharge Data Allergies Allergy/AdvReac Type Severity Reaction Status Date / Time Sulfa (Sulfonamide Allergy Mild RASH Verified 01/29/20 11:41 Antibiotics) hydrocodone AdvReac Unknown Hallucinati Verified 01/29/20 11:41 ng oxycodone AdvReac Unknown Hallucinati Verified 01/29/20 11:41 ng Consultations 01/29/20 18:11 Consult Case Management - Discharge Planning Routine Consult Hospitalist Routine Procedures Performed Operation Date: 01/29/20 12:25 Actual Procedures p L1-L2 Decompression, T12-L2 Fuison, Spinal Cord Monitoring(Not Applicable) - Fernando Alcala DO s L2 Screw Removal(Not Applicable) - Fernando Alcala DO Ordered Studies 01/29/20 12:25 FL fluoroscopy <1hr Routine FL lumbar spine 2-3V Routine Hospital Course (1) Neurogenic claudication due to lumbar spinal stenosis: Patient underwent a lumbar decompression fusion tolerated so was taken to orthopedic. Postoperatively postop day 1 is up and ambulating progressed to postop day 2-3 and 4 CLAUDIA drain decreasing probably. Tolerating his pain. Strength intact. Subsequently discharged to rehab. Discharge orders instr uctions from the chart for further review. Total Time Total Time Spent Total Time Spent (In Minutes): 20 minutes Discharge Plan Discharge Items Patient Disposition: Transfer Inpatient Rehab Fac Reason For Visit: Other Intervertebral Disc Degenerative, Lumbar Reg Discharge Diagnosis: Lumbar spinal stenosis with neurogenic claudication Activity: As commented below Non-emergency contact: Primary Care Provider Call non-emergency contact if: you have any medication questions Follow-up/Referrals: Dong Marte MD [Primary Care Provider] - Diet: Regular Addtl Attending Provider Instructions: ACTIVITY RECOMMENDATIONS: SELF CARE INSTRUCTIONS AFTER THORACIC/LUMBAR FUSIONS 1. You may walk to your tolerance. It is good exercise for your legs and back. Expect some back and intermittent leg aches and pains. 2. You may perform "counter-top" level activities (make a sandwich, rivin with a project, etc.). 3. No bending or lifting of more than 10 pounds or back twisting of any nature (roll like a log when turning in bed). 4. You may ride in a car for 20-30 minutes at a time. No driving until after your first visit with your doctor. 5. Frequent changes of position and restricting sitting to 30 minutes at a time will help limit the amount of back spasms and stiffness you may experience. 6. You may discontinue the use of ambulatory aids (cane, crutches, etc.) once your strength and confidence allow. 7. You may health care marketing manager the shower and let water strike your incision when you arrive home at least once daily. Do not take a tub bath, sit in a hot tub or go into a swimming pool until after your first recheck in the office. SPECIAL CARE INSTRUCTIONS: VERY IMPORTANT TO READ AND REVIEW A. Your surgical incision has been closed with a cosmetic suture under the skin that will dissolve in about 6 weeks. In 14 days, you can use a pair of clean scissors and cut the suture that is left outside of the skin at the ends of your incision. 1. The small skin tapes can be removed 7 days after surgery if they have not fallen off by that point. 2. You may keep the wound open to air as much as possible to promote healing after post-op day number 5 unless told otherwise by your doctor. 3. If you think the wound looks like it is becoming infected (redness or worsening drainage) and/or you are experiencing fever, chill or worsening back pain and muscle spasms, contact the office so that we may evaluate you as soon as possible. B. Complications are uncommon, but please contact us if you have any signs or symptoms of: 1. wound infection (fever higher than 102.5 degrees F, redness, separation of wound, drainage, or increasing pain from the incision) 2. blood clots in legs (pain, swelling, redness and warmth in legs) 3. urinary tract infection (fever higher than 102.5 degrees F, burning upon urination or increased frequency of urination) 4. nerve problems (inability to walk on your toes or heels, numbness, loss of bowel or bladder control) 5. any other symptoms that concern you C. Please call the office at if you have any concerns or questions about your operation or recovery. D. No smoking! Smoking drastically decreases the chance of a solid fusion. E. Do not take any anti-inflammatory medications (Indocin, Advil, Motrin, Aspirin, Naprosyn, etc.) as these may inhibit the chance of a solid fusion. Tylenol is okay to take for pain. MANAGING PAIN AFTER SPINAL SURGERY 1. Narcotic medication is intended for short-term use and will be provided for surgical pain. Surgical pain usually lasts for a period of 4-6 weeks. Narcotic medication includes Percocet, Vicodin, Darvocet, Tylenol #3 or Lortab. 2. Longer-term pain is more appropriately treated with non-narcotic medication such as Tylenol ES. 3. Muscle spasm is not appropriately treated with narcotics. Muscle relaxers such as Soma, Flexeril or Skelaxin can be used along with Tylenol ES. 4. Remember that we all live with some "aches and pains". This is not unusual or uncommon after an injury or as we get older. a. Back pain is expected and may include muscle spasms for 4 to 6 weeks after surgery. The pain should gradually improve. If the pain worsens for no apparent reason, please contact the office. b. Intermittent leg pain may also be experienced and should not be concerned about unless it worsens for no apparent reason. If so, please contact the office. 5. We will provide appropriate medication within the normal guidelines of their prescribed use. We will also be very cautious and aware of potential abuse and extended duration of patients' medication needs. a. Pain medications are for your comfort and to assist with sleep and rest so that the tissue can heal. They are not provided in order to return to normal activity and should not be used through the day. To do so or worsening pain at night can result from ongoing tissue damage and development of tolerance to the prescribed medicine. 6. Please allow 2-3 days to process refills. Prescriptions will not be mailed but must be picked up at the office. FOLLOW UP VISIT: Keep your scheduled follow-up appointment. Any questions, please call the office at . Pending Studies at Discharge: No Stand-Alone Forms: My [facility] Skilled Items Patient informed of condition?: Yes DNR: No Discharge Level of Care: Acute rehab Communicable Disease: No Discharge Prognosis: Improving Lines: None Urinary Catheter: No Medications and DC Order Prescriptions: New tramadol 50 mg tablet 50 mg PO Q6H PRN (Reason: pain, moderate) Qty: 30 RF: 0 Continued alfuzosin 10 mg tablet extended release 24 hr 10 mg PO QPM RF: 0 atorvastatin 20 mg Tablet 20 mg PO PM RF: 0 enalapril maleate 20 mg Tablet 20 mg PO QAM RF: 0 aspirin [Aspir-81] 81 mg Tablet,Delayed Release (Dr/Ec) 81 mg PO QAM RF: 0 metformin 1,000 mg Tablet 1,000 mg PO BID RF: 0 escitalopram oxalate 10 mg Tablet 10 mg PO QPM RF: 0 multivitamin Tablet 1 tab PO QAM RF: 0 metoprolol tartrate 50 mg Tablet 50 mg PO BID RF: 0 naproxen sodium [Aleve] 220 mg Capsule 440 - 660 mg PO BID PRN (Reason: Pain) RF: 0 Vitamin D 1 tab PO QAM RF: 0 Vitamin B6 100 mg PO QAM RF: 0 Discharge Orders: Discharge Order (Routine); Ordered 02/02/20 Ordered By: Fernando Herrmann/Other Patient Handouts: Managing Type 2 Diabetes Admission Data Admit Date/Time: 01/29/20 17:18 Attending Provider: Fernando Alcala Admit Provider: Fernando Alcala Primary Care Provider: Dong Marte Other Providers: Dung Cruz ; [facility]
[2020-02-02] MEDS: ACETAMINOPHEN W/CODEINE #3 1 TAB PO PRN (13:52)
== END 2020-02-02 14:23 | DRG 454 ==
LOC: ASU 10:53 → 3E 17:18

== ENCOUNTER 2021-09-21 07:26 | Inpatient (IN) ==
--- NOTE | 2021-09-17 11:30 | Anesthesiology Consultation ---
Date of Service September 17, 2021 Assessment & Plan (1) Encounter for pre-operative examination: Chart Review Chart Review: Acceptable Risk for Surgery and Patient NOT seen in Pre Admission Testing Consults Requested none History Surgery Operation Date: 09/21/21 12:25 Proposed Procedures p T10-T11 Decompression, T9-L2 Fusion, T12-L2 Hardware Removal, Spinal Cord Monitoring - Fernando Alcala, Height/Weight Height: 5 ft 10 in Weight: 95.254 kg Allergies Allergy/AdvReac Type Severity Reaction Status Date / Time Sulfa (Sulfonamide Allergy Mild RASH Verified 09/17/21 10:00 Antibiotics) hydrocodone AdvReac Unknown Hallucinati Verified 09/17/21 10:00 ng oxycodone AdvReac Unknown Hallucinati Verified 09/17/21 10:00 ng Medications Home Medications Medication Instructions Recorded Confirmed Last Taken atorvastatin 20 mg tablet 20 mg PO PM 01/10/20 09/17/21 01/28/20 21:00 enalapril maleate 20 mg tablet 20 mg PO QAM 01/10/20 09/17/21 01/28/20 11:00 metformin 1,000 mg tablet 500 mg PO BID 01/10/20 09/17/21 01/28/20 21:00 metoprolol tartrate 50 mg tablet 50 mg PO BID 01/10/20 09/17/21 01/29/20 08:30 multivitamin 1 tab PO QAM 01/10/20 09/17/21 01/22/20 naproxen sodium 220 mg capsule 440 - 660 mg PO BID PRN 01/10/20 09/17/21 01/22/20 (Aleve) aspirin 81 mg capsule 81 mg PO QAM 09/15/21 09/17/21 Unknown cholecalciferol (vitamin D3) 25 25 mcg PO QAM 09/15/21 09/17/21 Unknown mcg (1,000 unit) tablet (Vitamin D3) clonazepam 1 mg tablet 1.5 mg PO HS PRN 09/15/21 09/17/21 Unknown gabapentin 100 mg capsule 200 mg PO TID 09/15/21 09/17/21 Unknown ggpfpkon-boy-kzhdis 5 mg-zeaxanth 1 cap PO QAM 09/15/21 09/17/21 Unknown 1 mg-bilberry 7.5 mg-herbal capsule (Macular Health Formula) pyridoxine (vitamin B6) 100 mg 100 mg PO QAM 09/15/21 09/17/21 Unknown tablet (Vitamin B-6) zinc 50 mg tablet 50 mg PO QAM 09/15/21 09/17/21 Unknown alfuzosin 10 mg tablet,extended 10 mg PO PM 09/17/21 09/17/21 Unknown release 24 hr oxybutynin chloride 5 mg 5 mg PO PM 09/17/21 09/17/21 Unknown tablet,extended release 24 hr Past Medical History Medical History BPH (benign prostatic hypertrophy) Cataracts, bilateral Chronic back pain CKD (chronic kidney disease), stage II per records Diabetes mellitus, type 2 NIDDM Hyperlipidemia Hypertension Normal pressure hydrocephalus s/p RAIL WASHER shunt (08/2018); under surveillance by neurosurgery [facility] Spinal stenosis Urinary bladder incontinence at Past Family History Family History Father Gastric cancer Son Family history of diabetes mellitus Other Diabetes Past Surgical History Surgical History H/O wrist surgery left History of back surgery X 2 > lumbar and S1 History of colonoscopy History of dental surgery Hx of hernia repair S/P RAIL WASHER shunt 08/2018 > will provide card with info dos Social History Smoking Status: Never smoker tobacco type: smokeless tobacco Do You Dip or Chew Tobacco: Yes (advised npo status) Hx Alcohol Use: Yes Alcohol type: beer alcohol intake frequency: holidays/special occasions only Hx Substance Use: No substance use type: does not use Testing Electrocardiogram Findings: + RBBB (incomplete) LAFB Chest X-Ray Date: 09/15/21 Findings: + NAD
[~2021-09-21 07:26] MED LIST changes: -DEXAMETHASONE SOD INJ 4 MG/ML VIAL ONE; -GLYCOPYRROLATE 0.2 MG/ML VIAL ONE; -LARYING-O-JET KIT (LTA) ONE; -LIDOCAINE HCL 2% 2 ML VIAL/AMP(20MG/ML) INFIL ONE; -MIDAZOLAM HCL 1 MG/ML 2ML VIAL ONE; -NEOSTIGMINE METHYLSULFATE 1 MG/ML 10ML VIAL ONE; -ONDANSETRON INJ 2 MG/ML 2 ML VIAL ONE; -PHENYLEPHRINE 100MCG/ML 5ML SYR ONE; -PROPOFOL IV EMULSION 10 MG/ML 20 ML VIAL IV ONE; -ePHEDrine sulfate 50 MG/ML SYR ONE; -fentaNYL citrate 100 MCG/2 ML VIAL ONE
[2021-09-21] MEDS ORDERED: MIDAZOLAM HCL 1 MG/ML 2ML VIAL ONE (08:32)
[2021-09-21] MEDS ORDERED: fentaNYL citrate 100 MCG/2 ML VIAL ONE (08:32)
--- NOTE | 2021-09-21 09:18 | History & Physical Bridge Note ---
Date of Service September 21, 2021 History & Physical Bridge Note I have examined the patient, reviewed the History & Physical and in the interval since the performance of the History & Physical I have noted the following changes of clinical significance: no changes noted
--- NOTE | 2021-09-21 09:20 | History & Physical Report ---
Date of Service September 21, 2021 Assessment & Plan (1) Thoracic radiculopathy due to intervertebral disc disorder: Plan: T10-T11 decompression, T9-L2 fusion, T12-L2 hardware removal History of Present Illness Chief Complaint: Thoracic radiculopathy Primary Care Provider: Gage Kruse MD This is a 76-year-old male known to me the presents with severe thoracic radiculopathy. He is here for surgical intervention. Allergies Allergy/AdvReac Type Severity Reaction Status Date / Time Sulfa (Sulfonamide Allergy Mild RASH Verified 09/21/21 08:21 Antibiotics) hydrocodone AdvReac Unknown Hallucinati Verified 09/21/21 08:21 ng oxycodone AdvReac Unknown Hallucinati Verified 09/21/21 08:21 ng Home Medications Medication Instructions Recorded Confirmed Type atorvastatin 20 mg tablet 20 mg PO PM 01/10/20 09/21/21 History enalapril maleate 20 mg tablet 20 mg PO QAM 01/10/20 09/21/21 History metformin 1,000 mg tablet 500 mg PO BID 01/10/20 09/21/21 History metoprolol tartrate 50 mg tablet 50 mg PO BID 01/10/20 09/21/21 History multivitamin 1 tab PO QAM 01/10/20 09/21/21 History naproxen sodium 220 mg capsule 440 - 660 mg PO BID PRN 01/10/20 09/21/21 History (Aleve) aspirin 81 mg capsule 81 mg PO QAM 09/15/21 09/21/21 History cholecalciferol (vitamin D3) 25 25 mcg PO QAM 09/15/21 09/21/21 History mcg (1,000 unit) tablet (Vitamin D3) clonazepam 1 mg tablet 1.5 mg PO HS PRN 09/15/21 09/21/21 History gabapentin 100 mg capsule 200 mg PO TID 09/15/21 09/21/21 History koutvtce-doo-jtatil 5 mg-zeaxanth 1 cap PO QAM 09/15/21 09/21/21 History 1 mg-bilberry 7.5 mg-herbal capsule (Macular Health Formula) pyridoxine (vitamin B6) 100 mg 100 mg PO QAM 09/15/21 09/21/21 History tablet (Vitamin B-6) zinc 50 mg tablet 50 mg PO QAM 09/15/21 09/21/21 History alfuzosin 10 mg tablet,extended 10 mg PO PM 09/17/21 09/21/21 History release 24 hr oxybutynin chloride 5 mg 5 mg PO PM 09/17/21 09/21/21 History tablet,extended release 24 hr Past Med/Surg History Medical History BPH (benign prostatic hypertrophy) Cataracts, bilateral Chronic back pain CKD (chronic kidney disease), stage II per records Diabetes mellitus, type 2 NIDDM Hyperlipidemia Hypertension Normal pressure hydrocephalus s/p [employer] shunt (08/2018); under surveillance by neurosurgery Snores Spinal stenosis Urinary bladder incontinence at Surgical History H/O wrist surgery left History of back surgery X 2 > lumbar and S1 History of colonoscopy History of dental surgery Hx of hernia repair S/P [employer] shunt 08/2018 > will provide card with info dos Family History Father Gastric cancer Son Family history of diabetes mellitus Other Diabetes Social History Smoking Status: Never smoker Tobacco Type: Smokeless Tobacco (Dip or Chew) Second Hand Exposure: No; Do You Dip or Chew Tobacco: Yes (advised npo status); Tobacco Cessation Education Requested by Patient: No Hx Alcohol Use: Yes Alcohol type: beer Hx Substance Use: No Preferred Language: Arabic Communication Ability: Effective Research Interviewer Required: No Beliefs That Will Affect Care: None marital status: Current Living Situation: Spouse current occupational status: retired Other Information That Helps Us Care for You: No Feels Safe at Home: Yes Safety Concerns: Feels Safe At This Time Assistive Devices: Denture - Upper and Denture - Lower Physical Exam Physical Exam: Patient is alert and oriented Heart regular in rhythm Lungs clear Results & Data ([facility]) Vital Signs (Past 12 Hours) Vital Signs Temp Pulse Resp BP Pulse Ox 09/21/21 08:09 37 C 55 L 20 147/77 H 99
[2021-09-21] MEDS ORDERED: LIDOCAINE 2% 2 ML VIAL/AMP(20MG/ML) INFIL ONE (09:30)
[2021-09-21] MEDS ORDERED: PROPOFOL IV EMULSION 10 MG/ML 20 ML VIAL IV ONE (09:30)
[2021-09-21] MEDS ORDERED: ROCURONIUM BROMIDE 10 MG/ML 5 ML VIAL IV ONE (09:30)
[2021-09-21] MEDS ORDERED: ONDANSETRON INJ 2 MG/ML 2 ML VIAL ONE (09:30)
[2021-09-21] MEDS ORDERED: ceFAZolin 330 MG/ML 1 GM VIAL ONE (09:33)
[2021-09-21] MEDS ORDERED: BUPIVACAINE/EPINEPHRINE 0.25% 1:200,000 30 ML VIAL ONE (09:33)
[2021-09-21] MEDS ORDERED: ePHEDrine sulfate 50 MG/ML AMP IV PRN (10:22)
[2021-09-21] MEDS ORDERED: HYDROmorphone INJ 2 MG/ML SYR/VIAL IV PRN (10:22)
[2021-09-21] MEDS ORDERED: fentaNYL citrate 100 MCG/2 ML VIAL IV PRN (10:22)
[2021-09-21] MEDS ORDERED: ONDANSETRON INJ 2 MG/ML 2 ML VIAL IV PRN ×2 (10:22→13:37)
[2021-09-21] MEDS ORDERED: ATROPINE SULFATE 0.1 MG/ML 10ML SYR IV PRN (10:22)
[2021-09-21] MEDS ORDERED: FLOSEAL HEMOSTATIC MATRIX 10ML TOP ONE (10:25)
[2021-09-21] MEDS ORDERED: GLYCOPYRROLATE 0.2 MG/ML VIAL ONE ×2 (10:45→11:26)
[2021-09-21] MEDS ORDERED: PHENYLEPHRINE HCL 10 MG/ML VIAL ONE (10:45)
[2021-09-21] MEDS ORDERED: NEOSTIGMINE METHYLSULFATE 1 MG/ML 10ML VIAL ONE (10:45)
[2021-09-21] MEDS ORDERED: ePHEDrine sulfate 50 MG/ML SYR ONE (10:45)
[2021-09-21] MEDS ORDERED: PHENYLEPHRINE 100MCG/ML 5ML SYR ONE (10:45)
[2021-09-21] MEDS ORDERED: HYDROmorphone INJ 2 MG/ML SYR/VIAL ONE (10:51)
--- NOTE | 2021-09-21 12:00 | Operative Report ---
Post Operative Report Pre & Post Diagnosis Operation Date: 09/21/21 09:05 Pre-Op Diagnosis: Intervertebral Disc Displacement, Thoracic Region Post-Op Diagnosis: Intervertebral Disc Displacement, Thoracic Region I identified the patient and participated in the time-out.: Yes Procedure Operation Date: 09/21/21 09:05 Actual Procedures #1 removal of instrumentation T12-L1 1. #2 exploration of fusion T12-L1 L1-L2. #3 thoracic decompression T10-T11 T11-T12. #4 posterior spinal fusion T9-L2. #5 placement posterior instrumentation T10 to L2. #6 placement locally harvested morselized autograft in the posterior gutters. #7 placement infuse collagen sponge bone mass graft to posterior gutters from T9-L2. Surgeon Fernando Alcala, Volunteer Services Specialist Cleo Cash Estimated Blood Loss 150 Findings Consistent with Post-Op Diagnosis Specimens None Indications This is a 72-year-old male known to me presents with above-mentioned diagnosis after failing course of nonoperative care is here for the above-mentioned procedure. Description of Procedure Patient was met with identified informed consent obtained. Patient was then taken to the operative suite underwent a patient placed in a prone position the Luan table on top Sanya frame. All bony prominences well-padded eyes inspected to ensure no external pressure placed upon the. This point the thoracolumbar spine was prepped and draped in normal sterile fashion. Sharp dissection with assistance of Bovie cautery performed down to and exposing the lamina transverse processes of T9-T10-T11 and instrumentation at T12 and L1. Then proceeded to remove the barrel connectors rods and screws at T12 and L1. Explored the fusion mass noted to be mature and intact. Then performed a laminectomy of T11 and T10 including bilateral medial facetectomies and foraminotomies particular at T10-T11 on the right where there was evidence of massive discrimination that migrated through the foramen compressing the exiting nerve root. After complete decompression pedicle screws then placed in [id number] and L1. Appropriate sized ken was then placed and connected with a new barrel connector to the previous instrumentation. The transverse processes of T9-T10-T11 T12 were then burred to subcortical bleeding bone. Infuse collagen sponge master graft and locally harvested autograft was placed in posterior gutters. 15 round CLAUDIA drain inserted. The incision was then closed with 1 Vicryl the fascia 2-0 Vicryl subcutaneously and 4 Monocryl for fascial closure. Steri-Strip sterile dressings placed. Patient waken taken PACU stable condition. Please note spinal cord monitoring was utilized at the procedure no changes noted. Lastly Cleo Cash was present at the entire surgery involved the patient positioning complex portions of the surgery and final skin closure. I attest to the content of the Intraoperative Record and any orders documented therein. Any exceptions are noted below.
--- NOTE | 2021-09-21 12:25 | Fluoroscopy Report ---
FL thoracic spine 2V CLINICAL HISTORY: Hardware removal. Decompression and fusion. COMPARISON STUDY: Thoracic spine MRI December 31, 2019. Fluoroscopic images of the thoracolumbar spine January 29, 2020. FLUOROSCOPY TIME: 37 seconds. FLUOROSCOPIC IMAGES: 2 FINDINGS: Exact localization is not possible given partial visualization of the lumbar spine. These i mages demonstrate a multilevel decompression and posterior fusion. Visualized portions of the hardwar e is intact. IMPRESSION: Fluoroscopy provided during hardware removal and subsequent decompression and fusion. ACT 112: Negative or not required by law. Electronically signed by: Marcelino Agosto M.D. 09/21/2021 12:24 PM
--- NOTE | 2021-09-21 13:15 | Anesthesiology Progress Note ---
Date of Service September 21, 2021 Anesthesia Post Procedure Vital Signs Vital Signs: Temp Pulse Pulse Resp BP Pulse Ox 09/21/21 13:00 60 15 137/67 99 09/21/21 12:50 36 C L 61 8 L 136/66 96 09/21/21 12:40 65 13 123/76 100 09/21/21 12:30 70 12 133/68 100 09/21/21 12:23 36.1 C L 65 18 127/71 100 09/21/21 08:09 37 C 55 L 20 147/77 H 99 Transfer of Care Handoff Completed per policy Notes Mental Status: alert / awake / arousable and participated in evaluation Patient Amnestic to Procedure: Yes Nausea / Vomiting: adequately controlled Pain: adequately controlled Airway Patency, RR, SpO2: stable & adequate BP & HR: stable & adequate Hydration State: stable & adequate Anesthetic Complications: no major complications apparent and Pt Satisfied with anesthetic care
[2021-09-21] MEDS ORDERED: DO NOT ADMINISTER PNEUMOCOCCAL VACCINE PRN (13:37)
[2021-09-21] MEDS ORDERED: FAMOTIDINE 20 MG TAB PO PRN (13:37)
[2021-09-21] MEDS ORDERED: METOCLOPRAMIDE HCL INJ 5 MG/ML 2 ML VIAL IV PRN (13:37)
[2021-09-21] MEDS ORDERED: HYDROmorphone INJ 0.5 MG/0.5 ML SYR IV PRN (13:37)
[2021-09-21] MEDS ORDERED: NALOXONE HCL 0.4 MG/1 ML VIAL/CARP IV PRN (13:37)
[2021-09-21] MEDS ORDERED: ONDANSETRON 4 MG OD TAB PO PRN (13:37)
[2021-09-21] MEDS ORDERED: ACETAMINOPHEN 1,000 MG/100 ML VIAL IV PRN (13:37)
[2021-09-21] MEDS ORDERED: PHARMACY GLYCEMIC MGMT CONSULT PRN (13:37)
[2021-09-21] MEDS ORDERED: LORazepam 0.5 MG TAB PO PRN (13:37)
[2021-09-21] MEDS ORDERED: hydrOXYzine HCl 25 MG TAB PO PRN (13:37)
[2021-09-21] MEDS ORDERED: ALUMINUM/MAGNESIUM SUSP 30 ML UDC PO PRN (13:37)
[2021-09-21] MEDS ORDERED: SOD PHOSPHATE/SOD BIPHOSPHATE ENEMA 132 ML BTL PR PRN (13:37)
[2021-09-21] MEDS ORDERED: LORazepam 2 MG/1 ML VIAL IV PRN (13:37)
[2021-09-21] MEDS ORDERED: diphenhydrAMINE Capsule 25 MG CAP PO PRN (13:37)
[2021-09-21] MEDS ORDERED: DO NOT ADMINISTER FLU VACCINE PRN (13:37)
[2021-09-21] MEDS ORDERED: MAGNESIUM HYDROXIDE SUSP 30 ML UDC PO PRN (13:37)
[2021-09-21] MEDS ORDERED: ACETAMINOPHEN 500 MG TAB PO PRN (13:37)
[2021-09-21] MEDS ORDERED: bisacodyL 10 MG SUPP PR PRN (13:37)
[2021-09-21] MEDS ORDERED: traMADol HCL 50 MG TABLET PO PRN (13:37)
[2021-09-21] MEDS ORDERED: PROMETHAZINE HCL 12.5 MG in SODIUM CHLORIDE 0.9% 50 ML IV PRN (13:37)
[2021-09-21] MEDS: SODIUM CHLORIDE 0.9% 1000ML 1,000 ML IV SCH ×2 (13:59→23:54)
[2021-09-21] MEDS ORDERED: INSULIN GLARGINE SOLOSTAR 100 UNITS/ML 3 ML PEN SC ONE (14:30)
[2021-09-21] MEDS ORDERED: GLUCOSE 10 TABS/TUBE PO PRN (14:30)
[2021-09-21] MEDS ORDERED: DEXTROSE 50% 50 ML SYRINGE IV PRN (14:30)
[2021-09-21] MEDS ORDERED: GLUCAGON FOR INJ 1 MG VIAL IM PRN (14:30)
[2021-09-21] MEDS ORDERED: GLUCOSE 40% GEL 15 GM TUBE PO PRN (14:30)
[2021-09-21] MEDS ORDERED: CARBOHYDRATES FOR HYPOGLYCEMIA PO PRN (14:30)
--- NOTE | 2021-09-21 14:31 | Pharmacy Report ---
Pharmacy Glycemic Short Note 2 - Date of Service September 21, 2021 - Glycemic Short BSG Results (Last 24 hours): 09/21/21 09/21/21 08:06 12:25 POC Glucose 133 H 150 H OUTPATIENT ANTIDIABETIC REGIMEN: * metformin 500 mg PO BIDM * HbA1C = 6.6% (01/14/20) ASSESSMENT: * Mr Martin is a 76 y/o M with a PMH of T2DM who presents for spinal surgery. * BSGs prior to surgery was 133-150 mg/dL. Patient will receive dexamethasone 6 mg IV q8 x 3 doses. * Start Lantus 30 units (full weight-based stress of 2) x 1 for steroid hyperglycemia. * Novolog weight-based stress of 3. Overnight checks due to overnight steroids. * Hold metformin. Ordered HbA1C. PLAN FOR INPATIENT GLYCEMIC CONTROL: * Hold outpatient oral diabetes medications * Basal insulin * Lantus 30 units SQ x 1 * Bolus insulin * NovoLog per scale ACHS or Q6hrs while NPO * Goal Range: Low 110 mg/dL - High 140 mg/dL * Correction Factor: 20 mg/dL/unit * Nutritional / Prandial insulin per carb ratio of 1 unit per 5 grams CHO consumed
--- NOTE | 2021-09-21 14:41 | Hospitalist Consultation ---
Date of Consultation September 21, 2021 Assessment & Plan (1) Neurogenic claudication due to lumbar spinal stenosis: (2) Thoracic radiculopathy due to intervertebral disc disorder: - Pain management, bowel regimen and DVT ppx per the primary team - PT/OT consults - Follow am CBC to monitor for acute blood loss, last hgb from 09/15 was 14.3 - negative covid on admission (3) Hypertension: - Continue enalapril maleate, metoprolol tartrate 50 mg BID (4) Diabetes mellitus, type 2: - Holding metformin - ISS with accuchecks achs - Last A1C 7.4 on 09/01/21 (5) CKD (chronic kidney disease), stage II: - Stable, follow am prp (6) BPH (benign prostatic hypertrophy): - Cont oxybutinin, may continue alfuzosin DVT ppx: teds, scds CODE: FULL Dispo: From home, likely to remain in the hospital x 1-2 days. Thank you for involving us in the care of Mr. Martin. Please do not hesitate to call with questions or concerns. Medicine service will follow along. Supervising Physician Co-Signing Physician Notes Pt is a 76 y/o M with hx of HTN, DMII, HLD, GRACIELA, BPH, DDD with hx of back surgery x2 admitted for worsening lower back pain and thoracic radiculopathy. LBM: yesterday PE: NAD, appeared a little drowsy (2/2 anesthesia) Lungs: CTA, no wheezing or crackles Card: Normal S1/S2, no murmur Abd: ND, NT, soft MSK: SCD in place, able to move toe on b/l LE Psych: Normal affect A/P: Worsening Lower back pain + Thoracic radiculopathy: -underwent T10-T11 decompression, T9-L2 fusion, T12-L2 hardware removal today -recovering well -Pain management per primary service -morning CBC and BMP -PT/OT consult -c/w SCD for DVT ppx HTN: -VSS -continue home HTN meds DMII: -hold metformin while inpt -ISS Other chronic conditions: plan as above Agree with A/P by Fanny Drake PA-C History of Present Illness Reason for Consultation: Medical management Requesting Physician: Dr. Alcala Attending Physician: Fernando Alcala, DO History of Present Illness This is a 76 yo M with PMhx of HTN, HLD, normal pressure hydrocephalus s/p PEARL [employer] shunt placed August 2018, DM II, CKD stage II, chronic back pain, spinal stenosis s/p two other surgeries, BPH, and urinary bladder incontinence HS. The patient underwent T10-T11 decompression, T9-T12 fusion, T12-L1 hardware removal and replacement of instrumentation from T10-L2 by Dr. Alcala on 09/21/21. He reports doing well after surgery, has been able to tolerate eating and drinking without difficulty. He has sensation in his toes and legs again, no numbness, no tingling. Denies any acute pain in his back, but feels pain in the left wrist is bad. States that he broke this many years ago, in 7 places, while participating in wrestling. He is requesting something for pain in the wrist now. Allergies Allergy/AdvReac Type Severity Reaction Status Date / Time Sulfa (Sulfonamide Allergy Mild RASH Verified 09/21/21 08:21 Antibiotics) hydrocodone AdvReac Unknown Hallucinati Verified 09/21/21 08:21 ng oxycodone AdvReac Unknown Hallucinati Verified 09/21/21 08:21 ng Home Medications Medication Instructions Recorded Confirmed Type atorvastatin 20 mg tablet 20 mg PO PM 01/10/20 09/21/21 History enalapril maleate 20 mg tablet 20 mg PO QAM 01/10/20 09/21/21 History metformin 1,000 mg tablet 500 mg PO BID 01/10/20 09/21/21 History metoprolol tartrate 50 mg tablet 50 mg PO BID 01/10/20 09/21/21 History multivitamin 1 tab PO QAM 01/10/20 09/21/21 History naproxen sodium 220 mg capsule 440 - 660 mg PO BID PRN 01/10/20 09/21/21 History (Aleve) aspirin 81 mg capsule 81 mg PO QAM 09/15/21 09/21/21 History cholecalciferol (vitamin D3) 25 25 mcg PO QAM 09/15/21 09/21/21 History mcg (1,000 unit) tablet (Vitamin D3) clonazepam 1 mg tablet 1.5 mg PO HS PRN 09/15/21 09/21/21 History gabapentin 100 mg capsule 200 mg PO TID 09/15/21 09/21/21 History hhanjoui-hyt-tropaf 5 mg-zeaxanth 1 cap PO QAM 09/15/21 09/21/21 History 1 mg-bilberry 7.5 mg-herbal capsule (Macular Health Formula) pyridoxine (vitamin B6) 100 mg 100 mg PO QAM 09/15/21 09/21/21 History tablet (Vitamin B-6) zinc 50 mg tablet 50 mg PO QAM 09/15/21 09/21/21 History alfuzosin 10 mg tablet,extended 10 mg PO PM 09/17/21 09/21/21 History release 24 hr oxybutynin chloride 5 mg 5 mg PO PM 09/17/21 09/21/21 History tablet,extended release 24 hr Patient History Medical History BPH (benign prostatic hypertrophy) Cataracts, bilateral Chronic back pain CKD (chronic kidney disease), stage II per records Diabetes mellitus, type 2 NIDDM Hyperlipidemia Hypertension Normal pressure hydrocephalus s/p [employer] shunt (08/2018); under surveillance by neurosurgery Snores Spinal stenosis Urinary bladder incontinence at Surgical History H/O wrist surgery left History of back surgery X 2 > lumbar and S1 History of colonoscopy History of dental surgery Hx of hernia repair S/P [employer] shunt 08/2018 > will provide card with info dos Family History Father Gastric cancer Son Family history of diabetes mellitus Other Diabetes Social History Smoking Status: Never smoker Tobacco Type: Smokeless Tobacco (Dip or Chew) Second Hand Exposure: No; Do You Dip or Chew Tobacco: Yes (advised npo status); Tobacco Cessation Education Requested by Patient: No Hx Alcohol Use: Yes Alcohol type: beer Hx Substance Use: No Preferred Language: Lao Communication Ability: Effective Welt Insole Channeler Required: No Beliefs That Will Affect Care: None marital status: Current Living Situation: Spouse current occupational status: retired Other Information That Helps Us Care for You: No Feels Safe at Home: Yes Safety Concerns: Feels Safe At This Time Assistive Devices: Denture - Upper and Denture - Lower Review of Systems Review of Systems: Constitutional: No fever, sweats or chills Eyes: No diplopia, no worsening or blurred vision ENT: normal hearing, no trouble swallowing Respiratory: No cough, sputum, dyspnea at rest or on exertion Cardiovascular: No chest pain, tightness or palpitations Abdomen: No pain, nausea, vomiting, diarrhea or constipation Musculoskeletal: + As per HPI, + left wrist joint pain, no other acute pain, no calf pain, swelling Neurologic: No weakness, numbness/tingling, or balance problems : incontinence HS Psychiatric: No anxiety or depression Skin: No rash or itch Physical Exam Physical Exam: General: awake, alert, no apparent distress Head: Normocephalic, atraumatic ENT: PERRL, EOMI, no pharyngeal exudate, mucous membranes moist Chest: Clear to auscultation, on room air, no adventitious breath sounds Cardiac: Regular rate and rhythm, no murmur, no JVD, normal peripheral pulses, good capillary refill Abdominal: NABS x 4 quadrants, soft, nondistended, nontender to palpation, no rebound or guarding Extremities: Normal inspection, no peripheral edema or erythema, calfs nontender to palpation Psych: Normal mood and affect Neuro: AAO x 3, strength intact bilaterally and rated 5/5, no motor deficits, speech is clear, no peripheral sensory deficits Results & Data Results & Data ([facility]) Vital Signs (Past 12 Hours) Vital Signs Temp Pulse Pulse Pulse Resp BP Pulse Ox 09/21/21 14:07 36.5 C 60 16 133/77 100 09/21/21 13:37 36.5 C 62 16 143/84 H 99 09/21/21 13:10 58 L 12 132/70 98 09/21/21 13:00 60 15 137/67 99 09/21/21 12:50 36 C L 61 8 L 136/66 96 09/21/21 12:40 65 13 123/76 100 09/21/21 12:30 70 12 133/68 100 09/21/21 12:23 36.1 C L 65 18 127/71 100 09/21/21 08:09 37 C 55 L 20 147/77 H 99 Laboratory Results 09/21/21 09/21/21 09/21/21 14:42 12:25 08:38 POC Glucose 149 H 150 H SARS-CoV-2, RNA, NAAT NEGATIVE Blood Type Antibody Screen Crossmatch 09/21/21 09/21/21 08:08 08:06 POC Glucose 133 H SARS-CoV-2, RNA, NAAT Blood Type AB Positive Antibody Screen NEGATIVE Crossmatch See Detail Diagnostic Findings Thoracic Spine X-Ray 09/21/21 09:05 [place] thoracic spine 2V CLINICAL HISTORY: Hardware removal. Decompression and fusion. COMPARISON STUDY: Thoracic spine MRI December 31, 2019. Fluoroscopic images of the thoracolumbar spine January 29, 2020. FLUOROSCOPY TIME: 37 seconds. FLUOROSCOPIC IMAGES: 2 FINDINGS: Exact localization is not possible given partial visualization of the lumbar spine. These images demonstrate a multilevel decompression and posterior fusion. Visualized portions of the hardware is intact. IMPRESSION: Fluoroscopy provided during hardware removal and subsequent decompression and fusion. ACT 112: Negative or not required by law. Electronically signed by: Marcelino Agosto M.D. 09/21/2021 12:24 PM
[2021-09-21] MEDS ORDERED: HYDROmorphone INJ 0.5 MG/0.5 ML SYR IV ONE (15:28)
[2021-09-21] MEDS: GABAPENTIN 100 MG CAP PO SCH ×2 (15:52→20:21)
[2021-09-21] MEDS: INSULIN ASPART PER UNIT SC SCH ×3 (15:53→20:51)
[2021-09-21] MEDS: dexAMETHasone 6 MG in SYRINGE 0 ML IV SCH ×2 (17:02→21:23)
[2021-09-21] MEDS: ceFAZolin 2000MG 2,000 MG/15 ML SYR IV SCH (18:18)
[2021-09-21] MEDS: OXYBUTYNIN CHLORIDE XL 5 MG TABCR PO SCH (20:20)
[2021-09-21] MEDS: METOPROLOL TARTRATE 50 MG TAB PO SCH (20:20)
[2021-09-21] MEDS: ATORVASTATIN 20 MG TAB PO SCH (20:21)
[2021-09-21] MEDS: DOCUSATE SODIUM/SENNA 50/8.6MG TAB PO SCH (20:21)
[2021-09-21] MEDS: ALFUZOSIN HCL 10 MG TAB PO SCH (20:21)
[2021-09-22] MEDS: INSULIN ASPART PER UNIT SC SCH ×6 (00:36→21:11)
[2021-09-22] MEDS: HYDROmorphone INJ 1 MG/ML SYRINGE IV PRN ×2 (00:40→04:31)
[2021-09-22] MEDS: ceFAZolin 2000MG 2,000 MG/15 ML SYR IV SCH (01:44)
[2021-09-22] MEDS: dexAMETHasone 6 MG in SYRINGE 0 ML IV SCH (05:37)
[2021-09-22] MEDS: POLYETHYLENE (MIRALAX) 17 GM PACK PO SCH ×3 (05:38→17:01)
[2021-09-22] MEDS: ENALAPRIL MALEATE 10 MG TAB PO SCH (07:36)
[2021-09-22] MEDS: ASPIRIN 81 MG ECTAB PO SCH (07:36)
[2021-09-22] MEDS: MULTIVITAMIN TAB PO SCH (07:36)
[2021-09-22] MEDS: CHOLECALCIFEROL 1,000 UNITS 25 MCG TAB PO SCH (07:36)
[2021-09-22] MEDS: PYRIDOXINE HCL 50 MG TAB PO SCH (07:37)
[2021-09-22] MEDS: GABAPENTIN 100 MG CAP PO SCH ×3 (07:37→21:12)
[2021-09-22] MEDS: ZINC SULFATE 220 MG CAPSULE PO SCH (07:37)
[2021-09-22] MEDS: METOPROLOL TARTRATE 50 MG TAB PO SCH ×2 (07:37→21:14)
[2021-09-22 08:14] LABS: Hematocrit (blood only) 36.1 % (42-52); Hemoglobin 12.5 g/dL (14.0-18.0); Immature Granulocytes # (auto) 0.04 K/uL (0.00-0.02); Immature Granulocytes % (auto) 0.3 %; Lymphocytes % (auto) 5.5 %; Mean Corpuscular Hemoglobin 33.7 pg (25-34); Mean Corpuscular Hgb Conc 34.6 g/dL (32-36); Mean Corpuscular Volume 97.3 fL (80-100); Mean Platelet Volume 9.8 fL (7.4-10.4); Monocytes # (auto) 0.58 K/uL (0.11-0.59); Monocytes % (auto) 4.5 %; Neutrophils % (auto) 89.7 %; Platelet Count 242 K/uL (130-400); RDW Coefficient of Variation 13.2 % (11.5-14.5); RDW Standard Deviation 46.6 fL (36.4-46.3); Red Blood Count 3.71 M/uL (4.7-6.1); White Blood Count 12.82 K/uL (4.8-10.8)
[2021-09-22 08:21] LABS: Estimated Average Glucose 151 mg/dl; Hemoglobin A1C 6.9 % (4.5-5.6)
[2021-09-22 08:36] LABS: BUN Creatinine Ratio 14.8 (10-20); Calcium 8.9 mg/dl (8.5-10.1); Creatinine Clr Calc Pharmacy 83.5 ml/min; Est GFR (African American) 98.1 ml/min; Est GFR (Non-African American) 84.6 ml/min; Potassium 4.8 mmol/L (3.5-5.1)
[2021-09-22] MEDS ORDERED: NON-FORMULARY MEDICATION (Mv-Mn-Lutein-Zeax-Bilber-Hb277 [Macular Health Formula] 5-1-7.5 PO SCH (09:00)
[2021-09-22] MEDS ORDERED: INSULIN GLARGINE SOLOSTAR 100 UNITS/ML 3 ML PEN SC ONE (09:15)
[2021-09-22] MEDS: SODIUM CHLORIDE 0.9% 1000ML 1,000 ML IV SCH (10:16)
--- NOTE | 2021-09-22 11:07 | Orthopedic Progress Note ---
Date of Service September 22, 2021 Assessment & Plan (1) Thoracic radiculopathy due to intervertebral disc disorder: Plan: At this time continue physical therapy monitor his CLAUDIA output hopefully discharge home in the next few days. Admission and Anticipated Discharge Date Admission Date: September 21, 2021 Subjective Patient's back and rib pain markedly improved he is tolerating physical therapy and ambulation well. Physical Exam Physical Exam: On exam he sitting up at the bedside. Is constricted testing. Appears comfortable. Results & Data ([facility]) Vital Signs (Past 12 Hours) Vital Signs Temp Pulse Resp BP BP Pulse Ox 09/22/21 07:53 36.3 C L 68 16 145/82 H 97 09/22/21 02:15 36.5 C 78 16 149/78 H 96
--- NOTE | 2021-09-22 15:41 | Hospitalist Progress Note ---
Date of Service September 22, 2021 Assessment & Plan (1) Neurogenic claudication due to lumbar spinal stenosis: Plan: Status post T10-T11 Decompression, T9-L2 Fusion, Spinal Cord Monitoring Management as per orthopedic surgeon PT OT Continues to have minimal drainage Elongated lump right lateral abdominal wall Has been there for more than a year Could be lipoma and/or neurofibroma Doubt any hernia No acute symptoms and just to observe for now (2) Thoracic radiculopathy due to intervertebral disc disorder: Plan: - Pain management, bowel regimen and DVT ppx per the primary team - PT/OT consults - Follow am CBC to monitor for acute blood loss, last hgb from 09/15 was 14.3 - negative covid on admission (3) Hypertension: Plan: - Continue enalapril maleate, metoprolol tartrate 50 mg BID -Remains on the upper side at 164/78 (4) Diabetes mellitus, type 2: Plan: - Holding metformin - ISS with accuchecks achs - Last A1C 7.4 on 09/01/21 (5) CKD (chronic kidney disease), stage II: Plan: - Stable, follow am prp- -creatinine has been normalized (6) BPH (benign prostatic hypertrophy): Plan: - Cont oxybutinin, may continue alfuzosin DVT ppx: dot romano CODE: FULL Dispo: From home, likely to remain in the hospital x 1-2 days. Admission and Anticipated Discharge Date Admission Date: September 21, 2021 Subjective 09/22/2021 The patient was seen and examined in medical floor He is a status post T10-11 decompression, T9-L2 fusion by Dr. Alcala on 09/21/2021 Has pain involving surgical site but denies any other significant symptoms Is worried about the lump in the right lateral abdominal wall which has been there for more than a year Review of Systems Review of Systems: All systems reviewed and are unremarkable as noted below Musculoskeletal: Back pain without radiation Physical Exam Physical Exam: Sitting at the edge of the bed without any acute distress Constitutional: well developed, well nourished and + obese; not ill appearing Eyes: PERRL, conjunctivae normal, anicteric sclerae ENMT: external ear and nose normal, oropharynx normal Neck: trachea midline, no thyromegaly Respiratory: no respiratory distress Auscultation: lungs clear to auscultation bilaterally Cardiovascular: Rate/Rhythm: regular rate and regular rhythm; not tachycardic Heart Sounds: normal S1 and normal S2; no murmur Extremities: + edema (No edema) Gastrointestinal (Abdomen): Inspection/Auscultation: + abdomen distended (Mini nicky distended. Normal for him) and normal bowel sounds Percussion/Palpation: abdomen soft; abdomen nontender And elongated lump involving the upper abdomen on the right lateral side. Nontender, not arising from interesting and/or hernia type Musculoskeletal: No acute arthritis in any joint Neurologic: Alert, awake and oriented x3 Psychiatric: A+Ox3, euthymic affect Lymphatic: no cervical or axillary lymphadenopathy Results & Data Results & Data ([facility]) Vital Signs (Past 12 Hours) Vital Signs Temp Pulse Resp BP Pulse Ox 09/22/21 15:26 36.9 C 65 16 164/78 H 97 09/22/21 11:21 37.2 C 73 16 110/58 L 96 09/22/21 07:53 36.3 C L 68 16 145/82 H 97 Laboratory Results Short CBC 09/22/21 Range/Units 07:12 WBC 12.82 H (4.8-10.8) K/uL Hgb 12.5 L (14.0-18.0) g/dL Hct 36.1 L (42-52) % Plt Count 242 (130-400) K/uL BMP 09/22/21 07:12 Sodium 133 L Potassium 4.8 Chloride 103 Carbon Dioxide 23 BUN 13 Creatinine 0.88 Glucose 184 H Calcium 8.9 Medications Administered Current Inpatient Medications Acetaminophen (Acetaminophen 500 Mg Tab) 1,000 mg PO Q8H PRN PRN Reason: MILD Pain Scale 1,2,3 & Pre PT Stop: 10/21/21 13:36 Al Hydrox/Mg Hydrox/Simethicone (Aluminum/Magnesium Susp 30 Ml Udc) 30 ml PO Q6H PRN PRN Reason: Dyspepsia Stop: 10/21/21 13:36 Alfuzosin HCl (Alfuzosin Hcl 10 Mg Tab) 10 mg PO PM [facility] Stop: 10/21/21 20:59 Last Admin: 09/21/21 20:21 Dose: 10 mg Documented by: Aspirin (Aspirin 81 Mg Ectab) 81 mg PO QAM RANDELL Stop: 10/22/21 08:59 Last Admin: 09/22/21 07:36 Dose: 81 mg Documented by: Atorvastatin Calcium (Atorvastatin 20 Mg Tab) 20 mg PO PM RANDELL Stop: 10/21/21 20:59 Last Admin: 09/21/21 20:21 Dose: 20 mg Documented by: Bisacodyl (Bisacodyl 10 Mg Supp) 10 mg [place] DAILY PRN PRN Reason: Constipation Stop: 10/21/21 13:36 Dextrose (Dextrose 50% 50 Ml Syringe) 25 - 50 ml IV UD PRN; Protocol PRN Reason: Hypoglycemia Protocol Stop: 10/21/21 14:29 Diphenhydramine HCl (Diphenhydramine Capsule 25 Mg Cap) 25 mg PO Q6H PRN PRN Reason: Allergic Rhinitis/Insomnia Stop: 10/21/21 13:36 Enalapril Maleate (Enalapril Maleate 10 Mg Tab) 20 mg PO QAM [facility] Stop: 10/22/21 08:59 Last Admin: 09/22/21 07:36 Dose: 20 mg Documented by: Famotidine (Famotidine 20 Mg Tab) 20 mg PO Q12H PRN PRN Reason: Dyspepsia Stop: 10/21/21 13:36 Gabapentin (Gabapentin 100 Mg Cap) 200 mg PO TID RANDELL Stop: 10/21/21 13:59 Last Admin: 09/22/21 12:56 Dose: 200 mg Documented by: Glucagon (Glucagon For Inj 1 Mg Vial) 1 mg IM UD PRN; Protocol PRN Reason: Hypoglycemia Protocol Stop: 10/21/21 14:29 Glucose (Glucose 40% Gel 15 Gm Tube) 15 - 30 gm PO UD PRN; Protocol PRN Reason: Hypoglycemia Protocol Stop: 10/21/21 14:29 Glucose (Glucose 10 Tabs/Tube) 4 - 8 tabs PO UD PRN; Protocol PRN Reason: Hypoglycemia Protocol Stop: 10/21/21 14:29 Hydromorphone HCl (Hydromorphone Inj 0.5 Mg/0.5 Ml Syr) 0.5 mg IV Q3H PRN PRN Reason: MODERATE Pain (Scale 4,5,6) & Pre PT Stop: 10/05/21 13:36 Last Admin: 09/21/21 21:30 Dose: 0.5 mg Documented by: Hydromorphone HCl (Hydromorphone Inj 1 Mg/Ml Syringe) 1 mg IV Q3H PRN PRN Reason: SEVERE Pain (Scale 7,8,9,10) Stop: 10/05/21 13:36 Last Admin: 09/22/21 04:31 Dose: 1 mg Documented by: Hydroxyzine HCl (Hydroxyzine Hcl 25 Mg Tab) 25 mg PO Q8H PRN PRN Reason: Anxiety Stop: 10/21/21 13:36 Promethazine HCl 12.5 mg/ (Sodium Chloride) 50.5 mls @ 202 mls/hr IV Q6H PRN PRN Reason: Nausea &/or Vomiting Stop: 10/21/21 13:36 Acetaminophen (Ofirmev) 1,000 mg in 100 mls @ 400 mls/hr IV Q8H PRN PRN Reason: Pain Rating 1-3 & Pre PT Stop: 09/24/21 13:36 Last Infusion: 09/21/21 14:20 Dose: Infused Documented by: Influenza Virus Vaccine Quadrival (Do Not Administer Flu Vaccine) 1 ea N/A PRN PRN PRN Reason: Notification Stop: 10/21/21 13:36 Insulin Aspart (Insulin Aspart Per Unit) 0 units [facility] Stop: 09/22/21 17:30 Last Admin: 09/22/21 12:50 Dose: 7 units Documented by: Insulin Aspart (Insulin Aspart Per Unit) 0 units SC [facility] Stop: 10/22/21 20:59 Lorazepam (Lorazepam 0.5 Mg Tab) 0.5 mg PO Q8H PRN PRN Reason: Sedation/Anxiety Stop: 10/21/21 13:36 Lorazepam (Lorazepam 2 Mg/1 Ml Vial) 0.5 mg IV Q8H PRN PRN Reason: Sedation/Anxiety Stop: 10/21/21 13:36 Magnesium Hydroxide (Magnesium Hydroxide Susp 30 Ml Udc) 30 ml PO Q24H PRN PRN Reason: Constipation Stop: 10/21/21 13:36 Metoclopramide HCl (Metoclopramide Hcl Inj 5 Mg/Ml 2 Ml Vial) 10 mg IV Q6H PRN PRN Reason: Nausea &/or Vomiting Stop: 10/21/21 13:36 Metoprolol Tartrate (Metoprolol Tartrate 50 Mg Tab) 50 mg PO BID [facility] Stop: 10/21/21 20:59 Last Admin: 09/22/21 07:37 Dose: 50 mg Documented by: Miscellaneous (Carbohydrates For Hypoglycemia ) 15 - 30 gm PO UD PRN PRN Reason: Hypoglycemia Treatment Stop: 10/21/21 14:29 Miscellaneous Information (Pharmacy Glycemic Mgmt Consult) 1 ea N/A UD PRN PRN Reason: Consult Stop: 10/21/21 13:36 Multivitamins (Multivitamin Tab) 1 tab PO QAM RANDELL Stop: 10/22/21 08:59 Last Admin: 09/22/21 07:36 Dose: 1 tab Documented by: Naloxone HCl (Naloxone Hcl 0.4 Mg/1 Ml Vial/Carp) 0.1 mg IV Q5M PRN PRN Reason: Oversedation/Resp depression Stop: 10/21/21 13:36 Ondansetron HCl (Ondansetron Inj 2 Mg/Ml 2 Ml Vial) 4 mg IV Q6H PRN PRN Reason: Nausea &/or Vomiting Stop: 10/21/21 13:36 Ondansetron HCl (Ondansetron 4 Mg Od Tab) 4 mg PO Q6H PRN PRN Reason: Nausea Stop: 10/21/21 13:36 Oxybutynin Chloride (Oxybutynin Chloride Xl 5 Mg Tabcr) 5 mg PO PM RANDELL Stop: 10/21/21 20:59 Last Admin: 09/21/21 20:20 Dose: 5 mg Documented by: Pneumococcal Polyvalent Vaccine (Do Not Administer Pneumococcal Vaccine) 1 ea N/A PRN PRN PRN Reason: Notification Stop: 10/21/21 13:36 Polyethylene Glycol (Polyethylene (Miralax) 17 Gm Pack) 17 gm PO Q6 RANDELL Stop: 10/22/21 05:59 Last Admin: 09/22/21 12:50 Dose: 17 gm Documented by: Pyridoxine HCl (Pyridoxine Hcl 50 Mg Tab) 100 mg PO QAM RANDELL Stop: 10/22/21 08:59 Last Admin: 09/22/21 07:37 Dose: 100 mg Documented by: Senna/Docusate Sodium (Docusate Sodium/Senna 50/8.6mg Tab) 2 tab PO HS RANDELL Stop: 10/21/21 20:59 Last Admin: 09/21/21 20:21 Dose: 2 tab Documented by: Sodium Biphosphate/Sodium Phosphate (Sod Phosphate/Sod Biphosphate Enema 132 Ml Btl) 132 ml [place] ONE PRN PRN Reason: Constipation Stop: 10/21/21 13:36 Tramadol HCl (Tramadol Hcl 50 Mg Tablet) 50 - 100 mg PO Q4H PRN PRN Reason: Moderate-Severe pain & Pre PT Stop: 10/21/21 13:36 Vitamin D (Cholecalciferol 1,000 Units 25 Mcg Tab) 1,000 units PO [facility] Stop: 10/22/21 08:59 Last Admin: 09/22/21 07:36 Dose: 1,000 units Documented by: Zinc Sulfate (Zinc Sulfate 220 Mg Capsule) 220 mg PO [facility] Stop: 10/22/21 08:59 Last Admin: 09/22/21 07:37 Dose: 220 mg Documented by:
[2021-09-22] MEDS: DOCUSATE SODIUM/SENNA 50/8.6MG TAB PO SCH (21:13)
[2021-09-22] MEDS: ATORVASTATIN 20 MG TAB PO SCH (21:13)
[2021-09-22] MEDS: ALFUZOSIN HCL 10 MG TAB PO SCH (21:14)
[2021-09-22] MEDS: OXYBUTYNIN CHLORIDE XL 5 MG TABCR PO SCH (21:14)
[2021-09-23] MEDS: POLYETHYLENE (MIRALAX) 17 GM PACK PO SCH ×3 (00:29→12:27)
[2021-09-23] MEDS: CHOLECALCIFEROL 1,000 UNITS 25 MCG TAB PO SCH (07:34)
[2021-09-23] MEDS: GABAPENTIN 100 MG CAP PO SCH ×2 (07:34→14:01)
[2021-09-23] MEDS: ENALAPRIL MALEATE 10 MG TAB PO SCH (07:34)
[2021-09-23] MEDS: ZINC SULFATE 220 MG CAPSULE PO SCH (07:34)
[2021-09-23] MEDS: PYRIDOXINE HCL 50 MG TAB PO SCH (07:34)
[2021-09-23] MEDS: METOPROLOL TARTRATE 50 MG TAB PO SCH (07:35)
[2021-09-23] MEDS: MULTIVITAMIN TAB PO SCH (07:35)
[2021-09-23] MEDS: ASPIRIN 81 MG ECTAB PO SCH (07:37)
[2021-09-23] MEDS: INSULIN ASPART PER UNIT SC SCH ×2 (08:38→12:27)
--- NOTE | 2021-09-23 08:51 | Discharge Summary ---
Date of Service September 23, 2021 Admission HPI Per Admitting Provider This is a 76-year-old male known to me the presents with severe thoracic radiculopathy. He is here for surgical intervention. Principal Diagnosis Thoracic disc condition with radiculopathy Discharge Data Allergies Allergy/AdvReac Type Severity Reaction Status Date / Time Sulfa (Sulfonamide Allergy Mild RASH Verified 09/21/21 08:21 Antibiotics) hydrocodone AdvReac Unknown Hallucinati Verified 09/21/21 08:21 ng oxycodone AdvReac Unknown Hallucinati Verified 09/21/21 08:21 ng Consultations 09/21/21 13:37 Consult Hospitalist Routine Procedures Performed Operation Date: 09/21/21 09:05 Actual Procedures p T10-T11 Decompression, T9-L2 Fusion, Spinal Cord Monitoring(Not Applicable) - Fernando Alcala DO s T12-L2 Hardware Removal(Not Applicable) - Fernando Alcala DO Ordered Studies 09/21/21 09:05 [place] thoracic spine 2V Routine Hospital Course (1) Thoracic radiculopathy due to intervertebral disc disorder: Patient underwent thoracic and lumbar decompression fusion tolerated this well was taken to orthopedic floor postoperative. Postop day 1 his pain was improved is ambulating well progressed to postop day #2. His pain was well controlled he was subsequently discharged home with his drain. He will follow- up in the office for drain removal. Discharge orders instructions from the chart for further review. Total Time Total Time Spent Total Time Spent (In Minutes): 20 minutes Discharge Plan Discharge Items Patient Disposition: Home - Self-Care Reason For Visit: Intervertebral Disc Displacement, Thoracic Region Discharge Diagnosis: Thoracic disc herniation with radiculopathy Activity: As commented below Non-emergency contact: Primary Care Provider Call non-emergency contact if: you have any medication questions Follow-up/Referrals: Gage Kruse MD [Primary Care Provider] - Diet: Regular Addtl Attending Provider Instructions: ACTIVITY RECOMMENDATIONS: SELF CARE INSTRUCTIONS AFTER THORACIC/LUMBAR FUSIONS 1. You may walk to your tolerance. It is good exercise for your legs and back. Expect some back and intermittent leg aches and pains. 2. You may perform "counter-top" level activities (make a sandwich, irvin with a project, etc.). 3. No bending or lifting of more than 10 pounds or back twisting of any nature (roll like a log when turning in bed). 4. You may ride in a car for 20-30 minutes at a time. No driving until after your first visit with your doctor. 5. Frequent changes of position and restricting sitting to 30 minutes at a time will help limit the amount of back spasms and stiffness you may experience. 6. You may discontinue the use of ambulatory aids (cane, crutches, etc.) once your strength and confidence allow. 7. You may business leader the shower and let water strike your incision when you arrive home at least once daily. Do not take a tub bath, sit in a hot tub or go into a swimming pool until after your first recheck in the office. SPECIAL CARE INSTRUCTIONS: VERY IMPORTANT TO READ AND REVIEW A. Your surgical incision has been closed with a cosmetic suture under the skin that will dissolve in about 6 weeks. In 14 days, you can use a pair of clean scissors and cut the suture that is left outside of the skin at the ends of your incision. 1. The small skin tapes can be removed 7 days after surgery if they have not fallen off by that point. 2. You may keep the wound open to air as much as possible to promote healing after post-op day number 5 unless told otherwise by your doctor. 3. If you think the wound looks like it is becoming infected (redness or worsening drainage) and/or you are experiencing fever, chill or worsening back pain and muscle spasms, contact the office so that we may evaluate you as soon as possible. B. Complications are uncommon, but please contact us if you have any signs or symptoms of: 1. wound infection (fever higher than 102.5 degrees F, redness, separation of wound, drainage, or increasing pain from the incision) 2. blood clots in legs (pain, swelling, redness and warmth in legs) 3. urinary tract infection (fever higher than 102.5 degrees F, burning upon urination or increased frequency of urination) 4. nerve problems (inability to walk on your toes or heels, numbness, loss of bowel or bladder control) 5. any other symptoms that concern you C. Please call the office at if you have any concerns or questions about your operation or recovery. D. No smoking! Smoking drastically decreases the chance of a solid fusion. E. Do not take any anti-inflammatory medications (Indocin, Advil, Motrin, Aspirin, Naprosyn, etc.) as these may inhibit the chance of a solid fusion. Tylenol is okay to take for pain. MANAGING PAIN AFTER SPINAL SURGERY 1. Narcotic medication is intended for short-term use and will be provided for surgical pain. Surgical pain usually lasts for a period of 4-6 weeks. Narcotic medication includes Percocet, Vicodin, Darvocet, Tylenol #3 or Lortab. 2. Longer-term pain is more appropriately treated with non-narcotic medication such as Tylenol ES. 3. Muscle spasm is not appropriately treated with narcotics. Muscle relaxers such as Soma, Flexeril or Skelaxin can be used along with Tylenol ES. 4. Remember that we all live with some "aches and pains". This is not unusual or uncommon after an injury or as we get older. a. Back pain is expected and may include muscle spasms for 4 to 6 weeks after surgery. The pain should gradually improve. If the pain worsens for no apparent reason, please contact the office. b. Intermittent leg pain may also be experienced and should not be concerned about unless it worsens for no apparent reason. If so, please contact the office. 5. We will provide appropriate medication within the normal guidelines of their prescribed use. We will also be very cautious and aware of potential abuse and extended duration of patients' medication needs. a. Pain medications are for your comfort and to assist with sleep and rest so that the tissue can heal. They are not provided in order to return to normal activity and should not be used through the day. To do so or worsening pain at night can result from ongoing tissue damage and development of tolerance to the prescribed medicine. 6. Please allow 2-3 days to process refills. Prescriptions will not be mailed but must be picked up at the office. FOLLOW UP VISIT: Keep your scheduled follow-up appointment. Any questions, please call the office at . Pending Studies at Discharge: No Stand-Alone Forms: [employer], Smoking Cessation Medications and DC Order Prescriptions: New tramadol 50 mg tablet 50 mg PO Q6H PRN (Reason: pain, moderate) Qty: 30 RF: 0 Continued atorvastatin 20 mg Tablet 20 mg PO PM RF: 0 enalapril maleate 20 mg Tablet 20 mg PO QAM RF: 0 metformin 1,000 mg Tablet 500 mg PO BID RF: 0 multivitamin Tablet 1 tab PO QAM RF: 0 metoprolol tartrate 50 mg Tablet 50 mg PO BID RF: 0 naproxen sodium [Aleve] 220 mg Capsule 440 - 660 mg PO BID PRN (Reason: Pain) RF: 0 clonazepam 1 mg tablet 1.5 mg PO HS PRN (Reason: Anxiety) RF: 0 zinc 50 mg Tablet 50 mg PO QAM RF: 0 pyridoxine (vitamin B6) [Vitamin B-6] 100 mg Tablet 100 mg PO QAM RF: 0 gabapentin 100 mg capsule 200 mg PO TID RF: 0 cholecalciferol (vitamin D3) [Vitamin D3] 25 mcg (1,000 unit) Tablet 25 mcg PO QAM RF: 0 Macular Health Formula 5-1-7.5 mg Capsule 1 cap PO QAM RF: 0 aspirin 81 mg Capsule 81 mg PO QAM RF: 0 oxybutynin chloride 5 mg tablet extended release 24 hr 5 mg PO PM RF: 0 alfuzosin 10 mg tablet extended release 24 hr 10 mg PO PM RF: 0 Discharge Orders: Discharge Order (Routine); Ordered 09/23/21 Ordered By: Fernando Herrmann/Other Patient Handouts: Managing Type 2 Diabetes Admission Data Admit Date/Time: 09/21/21 12:05 Attending Provider: Fernando Alcala Admit Provider: Fernando Alcala Primary Care Provider: Gage Kruse Other Providers: Jany Chang ; Greg Hopkins
[2021-09-23] MEDS ORDERED: INSULIN GLARGINE SOLOSTAR 100 UNITS/ML 3 ML PEN SC ONE (09:00)
[2021-09-23 10:29] LABS: Hematocrit (blood only) 35.9 % (42-52); Hemoglobin 12.6 g/dL (14.0-18.0); Mean Corpuscular Hemoglobin 33.9 pg (25-34); Mean Corpuscular Hgb Conc 35.1 g/dL (32-36); Mean Corpuscular Volume 96.5 fL (80-100); Mean Platelet Volume 9.6 fL (7.4-10.4); Platelet Count 240 K/uL (130-400); RDW Coefficient of Variation 13.8 % (11.5-14.5); RDW Standard Deviation 49.3 fL (36.4-46.3); Red Blood Count 3.72 M/uL (4.7-6.1); White Blood Count 16.83 K/uL (4.8-10.8)
[2021-09-23 11:00] LABS: BUN Creatinine Ratio 22.8 (10-20); Calcium 9.5 mg/dl (8.5-10.1); Creatinine Clr Calc Pharmacy 79.9 ml/min; Est GFR (African American) 94.6 ml/min; Est GFR (Non-African American) 81.6 ml/min; Potassium 4.1 mmol/L (3.5-5.1)
[2021-09-23 11:10] LABS: Basophils # (auto) 0.01 K/uL (0-0.2); Basophils % (auto) 0.1 %; Eosinophils # (auto) 0.02 K/uL (0-0.5); Eosinophils % (auto) 0.1 %; Immature Granulocytes # (auto) 0.07 K/uL (0.00-0.02); Immature Granulocytes % (auto) 0.4 %; Lymphocytes # (auto) 2.29 K/uL (1.2-3.4); Lymphocytes % (auto) 13.6 %; Monocytes # (auto) 1.93 K/uL (0.11-0.59); Monocytes % (auto) 11.5 %; Neutrophils # (auto) 12.51 K/uL (1.4-6.5); Neutrophils % (auto) 74.3 %
== END 2021-09-23 14:05 | disposition home or self-care (01) | DRG 460 ==
LOC: ASU 07:26 → 3N 12:05 → 3E 09-23 06:55

== ENCOUNTER 2022-06-15 10:30 | Inpatient (IN) ==
--- NOTE | 2022-06-15 12:44 | Emergency Department Note ---
Impression & Plan Urinary tract infection, Normal pressure hydrocephalus, Neurogenic claudication due to lumbar spinal stenosis, Ambulatory dysfunction ED Provider Note NAME: SHAD DICKEY AGE: 76 SEX: M ARRIVES VIA: Walk-In INFORMANT: Patient ED PROVIDER(S): Adrian Burks MD CHIEF COMPLAINT: BLE weakness, ambulatory dysfunction. PLAN: Disposition: Admit MEDICAL DECISION MAKING: The patient is a pleasant 76-year-old gentleman with a past medical history of NPH status post GRAIN UNLOADER shunt several years ago, history of spine surgery [address] Alcala, orthopedic spine surgery who presents to the emergency department accompanied by his for evaluation of ongoing bilateral lower extremity weakness where he is no longer able to ambulate secondary to this. They report that he began to have worsening weakness in his legs a month ago when they were in [place] and he was diagnosed with a urinary tract infection that persisted and needed repeat antibiotic courses. Since then he has had increasing difficulty walking. He began physical therapy referred by a specialist employee labor relations 2 days ago but did not go today as he was scheduled as he was unable to even stand. The patient did have a CT of his head performed yesterday at this facility as there was concerned that this may be related to his shunt. Unfortunately the patient presents during an unscheduled [employer] EMR outage and this is unable to be viewed. They deny any fevers, chills, cough, congestion, chest pain, abdominal pain. They deny loss of bowel control. He has had frequent urination but they deny urinary retention. On arrival the patient is fatigued appearing but no distress, afebrile with stable vital signs. He appears clinically dry. He has 3/5 strength of bilat eral lower extremities. He has normal strength in bilateral upper extremities. EKG without overt acute ischemia. WBC, hemoglobin and platelets within normal limits. Chemistry without metabolic acidosis. Lactic acid 1.0, within normal limits. LFTs unremarkable. High- sensitivity troponin 4.4, within normal limits. Procalcitonin is undetectable. UA is consistent with infection with positive nitrites, WBCs and 2+ bacteria with no epithelial cells. COVID-19, RNA, VIVIANA test was negative. Blood cultures were drawn and patient was treated empirically with ceftriaxone. CT of the head, abdomen pelvis and lumbar spine pending. However given the patient's clinical decline in setting of UTI the patient and his family agreed with plan for referral for admission. Case was discussed with Gladys PEACE with Dr. Hopkins, [facility], who will evaluate the patient for admission. CT of the head demonstrates unchanged ventriculomegaly with ventriculostomy catheter in place. Shunt series without evidence of catheter fracture. CT of the abdomen pelvis demonstrates mildly distended bladder without evidence of hydronephrosis. CT of the lumbar spine shows postoperative findings from T10-S1. There is focal area of cortical breakthrough at the superior endplate of the inferior endplate of T10 and osteolysis involving the posterior aspect of the T10 vertebral body with 5 mm of retropulsion of posterior fragments. This results in moderate to severe central canal narrowing. Additional note is made of subacute fractures of the posterior T10 vertebral body extending into the pedicles and involving left T10 facet. No acute fractures are seen. CT compared to October 2016 CT lumbar spine. Further management per admitting team. Triage Nursing notes reviewed and agree them. Prior medical records reviewed Vital Signs: reviewed Differential diagnosis: Infection, dehydration, metabolic abnormality, hypo/hyperglycemia, electrolyte disturbance, anemia, hypoxia, cardiac sources, intracerebral event, toxicologic, neurologic, as well as other pathologies. ER treatment provided: See below. Diagnostics interpreted by me: ECG: Sinus rhythm, 65 bpm, frequent PVCs, incomplete right bundle branch block, left anterior fascicular block, no overt ST elevation or depression, QTC 403, QRS 96 Cardiac Monitoring: An order for continuous cardiac monitoring was placed and demonstrated Sinus rhythm, 65 bpm, frequent PVCs. Laboratory studies: See below Imaging studies: See below Consultation(s): Gladys PEACE with Dr. Hopkins [facility] HPI: The patient is a pleasant 76-year-old gentleman with a past medical history of NPH status post GRAIN UNLOADER shunt several years ago, history of spine surgery [address] Alcala, orthopedic spine surgery who presents to the emergency department accompanied by his for evaluation of ongoing bilateral lower extremity weakness where he is no longer able to ambulate secondary to this. They report that he began to have worsening weakness in his legs a month ago when they were in [place] and he was diagnosed with a urinary tract infection that persisted and needed repeat antibiotic courses. Since then he has had increasing difficulty walking. He began physical therapy referred by a specialist employee labor relations 2 days ago but did not go today as he was scheduled as he was unable to even stand. The patient did have a CT of his head performed yesterday at this facility as there was concerned that this may be related to his shunt. Unfortunately the patient presents during an unscheduled [employer] EMR outage and this is unable to be viewed. They deny any fevers, chills, cough, congestion, chest pain, abdominal pain. They deny loss of bowel control. He has had frequent urination but they deny urinary retention. ROS: See above HPI for pertinent positives & negatives. A total of 10 systems reviewed and were otherwise negative. VITALS:See Below PHYSICAL EXAMINATION: GENERAL: Awake, alert, fatigued-appearing, in no distress HENT: Normocephalic, atraumatic. Oropharynx with dry mucous membranes and otherwise unremarkable. EYES: Normal conjunctiva. Sclera non-icteric. NECK: Supple. No nuchal rigidity. FROM. No JVD. RESPIRATORY: Clear to auscultation. CARDIAC: Regular rate, normal rhythm. Extremities warm and well perfused. Pulses equal. ABDOMEN: Soft, non-distended. No tenderness to palpation. No rebound or guarding. No masses. RECTAL: Deferred. MUSCULOSKELETAL: Chest examination reveals no tenderness. The back is symmetrical on inspection without obvious abnormality. There is no CVA tenderness to palpation. No joint edema. LOWER EXTREMITIES: Calves are equal size bilaterally and non-tender. No edema. No discoloration. NEURO: 3/5 strength of bilateral lower extremities.Patellar DTRs wnl. No clonus. L5 intact bilaterally. Normal strength in bilateral upper extremities. SKIN: No rash or jaundice noted. Adrian Burks MD Past Med/Surg History Medical History BPH (benign prostatic hypertrophy) Cataracts, bilateral Chronic back pain CKD (chronic kidney disease), stage II per records Diabetes mellitus, type 2 NIDDM Hyperlipidemia Hypertension Normal pressure hydrocephalus s/p GRAIN UNLOADER shunt (08/2018); under surveillance by neurosurgery [facility] Spinal stenosis Urinary bladder incontinence at Urinary tract infection Surgical History H/O wrist surgery left History of back surgery X 2 > lumbar and S1 History of colonoscopy History of dental surgery Hx of hernia repair S/P GRAIN UNLOADER shunt 08/2018 > will provide card with info dos Family History Father Gastric cancer Son Family history of diabetes mellitus Other Diabetes Social History Smoking Status: Never smoker Tobacco Type: Smokeless Tobacco (Dip or Chew) Second Hand Exposure: No; Hx Alcohol Use: Yes Alcohol type: beer Hx Substance Use: No Preferred Language: Yoruba Communication Ability: Effective Leather Fitter Required: No Beliefs That Will Affect Care: None marital status: Current Living Situation: Spouse current occupational status: retired Feels Safe at Home: Yes Assistive Devices: None Allergies Allergies Allergy/AdvReac Type Severity Reaction Status Date / Time Sulfa (Sulfonamide Allergy Intermediate RASH Verified 06/15/22 15:04 Antibiotics) hydrocodone AdvReac Intermediate Hallucinati Verified 06/15/22 15:04 ng oxycodone AdvReac Intermediate Hallucinati Verified 06/15/22 15:04 ng Home Meds Home Medications Medication Instructions Recorded Confirmed atorvastatin 20 mg tablet 20 mg PO PM 01/10/20 06/15/22 enalapril maleate 20 mg tablet 20 mg PO QAM 01/10/20 06/15/22 metoprolol tartrate 50 mg tablet 50 mg PO BID 01/10/20 06/15/22 multivitamin 1 tab PO QAM 01/10/20 06/15/22 naproxen sodium 220 mg capsule 440 - 660 mg PO BID PRN Pain 01/10/20 06/15/22 (Aleve) aspirin 81 mg capsule 81 mg PO QAM 09/15/21 06/15/22 cholecalciferol (vitamin D3) 25 25 mcg PO QAM 09/15/21 06/15/22 mcg (1,000 unit) tablet (Vitamin D3) clonazepam 1 mg tablet 1.5 mg PO HS PRN Anxiety 09/15/21 06/15/22 gabapentin 100 mg capsule 200 mg PO TID 09/15/21 06/15/22 ngtsyskf-nxw-xeimll 5 mg-zeaxanth 1 cap PO QAM 09/15/21 06/15/22 1 mg-bilberry 7.5 mg-herbal capsule (Macular Health Formula) pyridoxine (vitamin B6) 100 mg 100 mg PO QAM 04/27/22 01/25/23 tablet (Vitamin B-6) metformin 500 mg tablet,extended 500 mg PO BID 06/15/22 06/15/22 release 24 hr Previous Rx's Medication Instructions Recorded alfuzosin 10 mg tablet,extended 10 mg PO DAILY #90 tabs 10/25/21 release 24 hr oxybutynin chloride 5 mg 5 mg PO DAILY #90 tabs 11/29/21 tablet,extended release 24 hr Results & Data (ED) Vital Signs Vital Signs - 24 hr 06/15/22 11:35 06/15/22 11:39 06/15/22 12:36 Pulse Rate 59 L 63 Respiratory Rate 17 18 25 H Blood Pressure 146/96 H Blood Pressure Mean 112 Pulse Oximetry 96 95 Oxygen Delivery Method Room Air Room Air Sepsis Recent Fever Within 48 Hours No Sepsis New/Unexplained Change in Mental Status N/A Sepsis Action Taken by Nursing No Action Required 06/15/22 13:00 06/15/22 13:30 Pulse Rate 57 L 56 L Respiratory Rate 13 19 Blood Pressure Blood Pressure Mean Pulse Oximetry Oxygen Delivery Method Sepsis Recent Fever Within 48 Hours Sepsis New/Unexplained Change in Mental Status Sepsis Action Taken by Nursing Laboratory Data Attestation: I reviewed the patient's lab results. 06/15/22 10:45 06/15/22 14:43 Lab Results 06/15/22 06/15/22 06/15/22 Range/Units 10:45 10:45 10:45 WBC 8.66 (4.8-10.8) K/ul RBC 4.27 L (4.63-6.08) M/uL Hgb 14.3 (14.0-18.0) g/dl Hct 39.9 L (40.1-51.0) % MCV 93.4 (80.0-100.0) fL MCH 33.5 (25.0-34.0) pg MCHC 35.8 (32.0-36.0) g/dL RDW Std Deviation 43.6 (36.4-46.3) fL RDW Coeff of Cherise 12.8 (11.5-14.5) % Plt Count 194 (130-400) K/uL MPV 10.4 (9.4-12.4) fL PT 11.8 (9.0-12.0) Seconds INR 1.1 (0.9-1.1) Sodium 137 (136-145) mmol/L Potassium TNP Chloride 105 (98-107) mmol/L Carbon Dioxide 24 (21-32) mmol/L Anion Gap 8 (3-11) BUN 12 (6-23) mg/dl Creatinine 0.77 (0.6-1.4) mg/dl Est Cr Clr Drug Dosing Not Reportable Est GFR ( Amer) 103.6 ml/min Est GFR (Non-Af Amer) 89.4 ml/min BUN/Creatinine Ratio 15.6 (10-20) Glucose 125 H (70-99(Fasting)) mg/dl Calcium 9.0 (8.5-10.1) mg/dl Total Bilirubin 1.0 (0.2-1.0) mg/dl AST TNP ALT 15 (7-52) U/L Alkaline Phosphatase 85 (34-104) U/L Troponin I High Sens 4.4 (0-20) pg/ml Total Protein 6.7 (6.0-8.3) gm/dl Albumin 4.0 (3.4-5.0) gm/dl Globulin 2.7 (2.5-4.0) gm/dl Albumin/Globulin Ratio 1.5 (0.9-2) Urine Color Urine Appearance (Clear) Urine pH (4.5-7.5) Ur Specific [place] (1.000-1.030) Urine Protein (Negative) Urine Glucose (UA) (Negative) Urine Ketones (Negative) Urine Blood (Negative) Urine Nitrite (Negative) Urine Bilirubin (Negative) Urine Urobilinogen (Negative) Ur Leukocyte Esterase (Negative) Urine WBC (Auto) (0-5) /hpf Urine RBC (Auto) (0-4) /hpf U Hyaline Cast (Auto) (0-5) /lpf U Epithel Cells (Auto) (0-5) /lpf Urine Bacteria (Auto) (Negative) 06/15/22 Range/Units 10:45 WBC (4.8-10.8) K/ul RBC (4.63-6.08) M/uL Hgb (14.0-18.0) g/dl Hct (40.1-51.0) % MCV (80.0-100.0) fL MCH (25.0-34.0) pg MCHC (32.0-36.0) g/dL RDW Std Deviation (36.4-46.3) fL RDW Coeff of Cherise (11.5-14.5) % Plt Count (130-400) K/uL MPV (9.4-12.4) fL PT (9.0-12.0) Seconds INR (0.9-1.1) Sodium (136-145) mmol/L Potassium Chloride (98-107) mmol/L Carbon Dioxide (21-32) mmol/L Anion Gap (3-11) BUN (6-23) mg/dl Creatinine (0.6-1.4) mg/dl Est Cr Clr Drug Dosing Est GFR ( Amer) ml/min Est GFR (Non-Af Amer) ml/min BUN/Creatinine Ratio (10-20) Glucose (70-99(Fasting)) mg/dl Calcium (8.5-10.1) mg/dl Total Bilirubin (0.2-1.0) mg/dl AST ALT (7-52) U/L Alkaline Phosphatase (34-104) U/L Troponin I High Sens (0-20) pg/ml Total Protein (6.0-8.3) gm/dl Albumin (3.4-5.0) gm/dl Globulin (2.5-4.0) gm/dl Albumin/Globulin Ratio (0.9-2) Urine Color Yellow Urine Appearance Clear (Clear) Urine pH 5.0 (4.5-7.5) Ur Specific [place] 1.014 (1.000-1.030) Urine Protein Negative (Negative) Urine Glucose (UA) Negative (Negative) Urine Ketones Negative (Negative) Urine Blood Negative (Negative) Urine Nitrite Positive A (Negative) Urine Bilirubin Negative (Negative) Urine Urobilinogen Negative (Negative) Ur Leukocyte Esterase 3+ H (Negative) Urine WBC (Auto) >30 H (0-5) /hpf Urine RBC (Auto) 0-4 (0-4) /hpf U Hyaline Cast (Auto) 1-5 (0-5) /lpf U Epithel Cells (Auto) 0-5 (0-5) /lpf Urine Bacteria (Auto) 2+ H (Negative) Administered Medications Discontinued Medications Ceftriaxone Sodium (Rocephin) 2,000 mg in 70 mls @ 140 mls/hr IV NOW STA Stop: 06/15/22 13:57 Last Infusion: 06/15/22 14:30 Dose: 0 mls/hr Documented By: Admin: 06/15/22 14:00 Dose: 140 mls/hr Documented By: KV Ioversol (Optiray 350 100ml) 85 ml IV ONCE ONE Stop: 06/15/22 14:15 Last Admin: 06/15/22 14:16 Dose: 85 ml Documented By: DORON Imaging Data Radiologist's Impression: Abdomen/Pelvis CT 06/15/22 13:23 CT OF THE ABDOMEN AND PELVIS WITH CONTRAST CLINICAL HISTORY: recurrent UTI, BLE weakness COMPARISON STUDY: CT of the abdomen and pelvis November 01, 2016. TECHNIQUE: Following IV administration of 85 mL of Optiray, axial images of the abdomen and pelvis were obtained from the lung bases to the proximal femurs. Images were reviewed in the axial, sagittal, and coronal planes. IV contrast was administered without complication. Automated exposure control was utilized for the study. A dose lowering technique was utilized adhering to the principles of ALARA. FINDINGS: No pneumatosis, free air or portal venous gas is present. Liver, spleen, adrenal glands, kidneys and pancreas are unremarkable. There is no biliary or pancreatic ductal dilatation. There is no peripancreatic or pericholecystic infiltration. There is slight prominence of both renal pelves. However, this is unchanged from earlier exam. There is no hydronephrosis. Bladder is mildly distended. There is mild bladder wall thickening, similar to prior exam. Prostate is enlarged, measuring 5.1 cm in transverse dimension. There are no urinary calculi. There is no evidence for a bowel obstruction. The appendix is normal. The caliber and wall thickness of small and large bowel are normal. Visualized portions of the GRAIN UNLOADER shunt catheter are intact. The catheter terminates within the right mid abdomen. There is no lymphadenopathy. Postoperative findings within the spine are noted. These will be further milka cribed on the lumbar spine CT which will be reported separately. Multilevel discectomy, pedicle screw fusion and posterior decompression is noted. Hardware is intact. There is lucency adjacent to the bilateral T10 pedicle screws as well as the adjacent portions of the interconnecting rods. There is also lucency within the posterior aspect of the T10 vertebral body with bony erosion and subacute fractures within T10 vertebral body. Bony erosion involving the posterior aspect of T10 vertebral body is noted. Ossific material extends into the central canal and results in moderate to severe central canal stenosis. There are also subacute fractures within the posterior elements at the T9-T10 level. There is mild prevertebral edema. Central canal and neural foramen are suboptimally assessed given CT technique. There is also sclerosis along the superior endplate of T11 and widening of the teeth 10-T11 disc space which contains gas. IMPRESSION: 1. No bowel obstruction. No bowel wall thickening. 2. Mildly distended bladder. No hydronephrosis. No urinary calculi. 3. Postoperative findings within the spine, better depicted on the lumbar spine CT which will be reported separately. Lucency adjacent to the bilateral T10 pedicle screws which suggests loosening. Superimposed infection cannot be excluded by CT. Bony erosion and subacute fractures within the T10 vertebral body with associated retropulsion which results in moderate to severe central canal stenosis, suboptimally assessed by CT. Additional findings, as above. Widening of the T10-T11 disc space with sclerosis along the superior endplate of T11, similar to prior radiographs. ACT 112: Negative or not required by law. Electronically signed by: Marcelino Agosto M.D. 06/15/2022 3:[address] 06/15/22 13:23 CT head/brain wo con CLINICAL HISTORY: confusion, BLE weakness, shunt Technique: Contiguous axial CT images of the head were acquired from the base of the skull to the vertex without intravenous contrast administration. Images were viewed in brain, subdural and bone windows. Automated dose lowering techniques and/or adjustment according to patient size were utilized for this exam. Comparison: Comparison is made to CT head 06/14/2022 Findings: Indication catheter terminates in the right lateral ventricle anterior horn. Areas of decreased attenuation are present in the periventricular and subcortical white matter bilaterally consistent with small vessel ischemic disease. Generalized cerebral atrophy with commensurate enlargement of the ventricles, sulci, and cisterns is also present. There is no acute intracranial hemorrhage or evidence of acute territorial infarction. No shift of the midline structures, mass effect, or extra-axial abnormalities are shown. Atheroscleroti c calcifications are present in the intracranial segments of the internal carotid arteries. Imaged portions of the paranasal sinuses and mastoid air cells are clear. The o rbits appear normal. There are no acute fractures of the calvaria or scalp swelling. Impression: Status post GRAIN UNLOADER shunt placement, ventriculomegaly and shunt position appears unchanged from prior exam ACT 112: Negative or not required by law. Electronically signed by: Alexandre Borrero M.D. 06/15/2022 2:23 PM Abdomen X-Ray 06/15/22 13:24 XR skull <4V, XR cervical spine 2 or 3V, XR chest 2V PA/lateral, XR abdomen min 2V CLINICAL HISTORY: Confusion. Assess shunt catheter. COMPARISON STUDY: Chest x-ray 09/15/2021. FINDINGS: There is a right posterior ventriculostomy catheter which terminates near the midline. There is a small focal kink as it enters the calvarium without evidence for a fracture. The visualized shunt catheter traverses along the right neck, right anterior chest, and enters the abdomen near the epigastric region. The tip of the catheter terminates near the right upper quadrant. The liver suggestive intact. Extensive thoracolumbar spinal fusion hardware is again noted. Contrast extends from the recent CT examinations. The lungs are clear . The heart is mildly enlarged. IMPRESSION: 1. There is a right posterior ventriculostomy catheter which terminates near the midline. There is a small focal kink as it enters the calvarium without evidence for a fracture. 2. Otherwise, the shunt catheter appears intact. ACT 112: Negative or not required by law. Electronically signed by: Joel Lemon M.D. 06/15/2022 3:43 PM Cervical Spine X-Ray 06/15/22 13:24 XR skull <4V, XR cervical spine 2 or 3V, XR chest 2V PA/lateral, XR abdomen min 2V CLINICAL HISTORY: Confusion. Assess shunt catheter. COMPARISON STUDY: Chest x-ray 09/15/2021. FINDINGS: There is a right posterior ventriculostomy catheter which terminates near the midline. There is a small focal kink as it enters the calvarium without evidence for a fracture. The visualized shunt catheter traverses along the right neck, right anterior chest, and enters the abdomen near the epigastric region. The tip of the catheter terminates near the right upper quadrant. The liver suggestive intact. Extensive thoracolumbar spinal fusion hardware is again noted. Contrast extends from the recent CT examinations. The lungs are clear . The heart is mildly enlarged. IMPRESSION: 1. There is a right posterior ventriculostomy catheter which terminates near the midline. There is a small focal kink as it enters the calvarium without evidence for a fracture. 2. Otherwise, the shunt catheter appears intact. ACT 112: Negative or not required by law. Electronically signed by: Joel Lemon M.D. 06/15/2022 3:43 PM Chest X-Ray 06/15/22 13:24 XR skull <4V, XR cervical spine 2 or 3V, XR chest 2V PA/lateral, XR abdomen min 2V CLINICAL HISTORY: Confusion. Assess shunt catheter. COMPARISON STUDY: Chest x-ray 09/15/2021. FINDINGS: There is a right posterior ventriculostomy catheter which terminates near the midline. There is a small focal kink as it enters the calvarium without evidence for a fracture. The visualized shunt catheter traverses along the right neck, right anterior chest, and enters the abdomen near the epigastric region. The tip of the catheter terminates near the right upper quadrant. The liver suggestive intact. Extensive thoracolumbar spinal fusion hardware is again no samuel. Contrast extends from the recent CT examinations. The lungs are clear . The heart is mildly enlarged. IMPRESSION: 1. There is a right posterior ventriculostomy catheter which terminates near the midline. There is a small focal kink as it enters the calvarium without evidence for a fracture. 2. Otherwise, the shunt catheter appears intact. ACT 112: Negative or not required by law. Electronically signed by: Joel Lemon M.D. 06/15/2022 3:43 PM Skull X-Ray 06/15/22 13:24 XR skull <4V, XR cervical spine 2 or 3V, XR chest 2V PA/lateral, XR abdomen min 2V CLINICAL HISTORY: Confusion. Assess shunt catheter. COMPARISON STUDY: Chest x-ray 09/15/2021. FINDINGS: There is a right posterior ventriculostomy catheter which terminates near the midline. There is a small focal kink as it enters the calvarium without evidence for a fracture. The visualized shunt catheter traverses along the right neck, right anterior chest, and enters the abdomen near the epigastric region. The tip of the catheter terminates near the right upper quadrant. The liver suggestive intact. Extensive thoracolumbar spinal fusion hardware is again noted. Contrast extends from the recent CT examinations. The lungs are clear . The heart is mildly enlarged. IMPRESSION: 1. There is a right posterior ventriculostomy catheter which terminates near the midline. There is a small focal kink as it enters the calvarium without evidence for a fracture. 2. Otherwise, the shunt catheter appears intact. ACT 112: Negative or not required by law. Electronically signed by: Joel Lemon M.D. 06/15/2022 3:[address] 06/15/22 13:26 CT lumbar spine w con HISTORY: Bilateral lower extremity weakness. TECHNIQUE: Multiaxial CT images of the lumbar spine were performed following the intravenous administration of 85 cc of Optiray 350 and reformatted in the sagittal and coronal plane. COMPARISON STUDY: Lumbar spine CT 11/01/2016. FINDINGS: Extensive posterior fusion and decompression from T10 through S1 with pedicle screws and rods. The hardware appears intact. There is a moderate compression deformity and sclerosis within the T10 vertebral body which is likely chronic. Extensive periprosthetic lucency surrounding the bilateral T10 pedicle screws and proximal rods at the T10 level. There is focal areas of cortical breakthrough at the superior endplate and inferior endplate of T10. There is focal osteolysis involving the posterior aspect of the T10 vertebral body with up to 5 mm of retropulsion of the posterior fragments. This results in moderate to severe central canal narrowing at this level. The periprosthetic lucency and osteolysis of the posterior aspect of the T10 vertebral body is concerning for infection and could represent a developing discitis/osteomyelitis. There is mild paravertebral edema at this level. Gas within the T10-11 disc space is likely chronic. Subacute fractures within the posterior T10 vertebral body extending into the pedicles and involving the left T10 facet. Mild compression deformity at T11 which is also likely chronic. No acute fractures identified within the lumbar spine. The visualized sacrum appears intact. The bilateral L2 pedicle screws and left L1 pedicle screws have been removed. No significant central canal narrowing by CT technique within the lumbar spine. IMPRESSION: 1. Posterior decompression and fusion from T10 through S1 with pedicle screws and rods. 2. Extensive periprosthetic lucency surrounding the bilateral T10 pedicle screws and proximal rods at the T10 level. There is focal areas of cortical breakthrough at the superior endplate and inferior endplate of T10. There is focal osteolysis involving the posterior aspect of the T10 vertebral body with up to 5 mm of retropulsion of the posterior fragments. This results in moderate to severe central canal narrowing at this level. The periprosthetic lucency and osteolysis of the posterior aspect of the T10 vertebral body is concerning for infection and could represent a developing discitis/osteomyelitis. 3. Subacute fractures within the posterior T10 vertebral body extending into the pedicles and involving the left T10 facet. 4. No acute fractures identified within the lumbar spine. ACT 112: Negative or not required by law. Electronically signed by: Joel Lemon M.D. 06/15/2022 3:21 PM Discharge Plan Visit Data Chief Complaint: Illness Stated Complaint: ILNESS ED Provider: Adrian Burks Discharge Problem: Urinary tract infection, Normal pressure hydrocephalus, Neurogenic claudication due to lumbar spinal stenosis, Ambulatory dysfunction
[2022-06-15 13:16] LABS: Hematocrit (blood only) 39.9 % (40.1-51.0); Hemoglobin 14.3 g/dl (14.0-18.0); Mean Corpuscular Hemoglobin 33.5 pg (25.0-34.0); Mean Corpuscular Hgb Conc 35.8 g/dL (32.0-36.0); Mean Corpuscular Volume 93.4 fL (80.0-100.0); Mean Platelet Volume 10.4 fL (9.4-12.4); Platelet Count 194 K/uL (130-400); RDW Coefficient of Variation 12.8 % (11.5-14.5); RDW Standard Deviation 43.6 fL (36.4-46.3); Red Blood Count 4.27 M/uL (4.63-6.08); White Blood Count 8.66 K/ul (4.8-10.8)
[2022-06-15 13:20] LABS: Appearance Urine Clear (Clear); Bacteria Urine Automated 2+ (Negative); Bilirubin Urine Negative (Negative); Blood Urine Negative (Negative); Color Urine Yellow; Epithelial Cell Urine Auto 0-5 /lpf (0-5); Glucose Urine UA Negative (Negative); INR 1.1 (0.9-1.1); Ketones Urine Negative (Negative); Leukocyte Esterase Urine 3+ (Negative); Nitrite Urine Positive (Negative); Protein Urine Negative (Negative); Prothrombin Time 11.8 Seconds (9.0-12.0); RBC Urine Automated 0-4 /hpf (0-4); Specific Gravity Urine 1.014 (1.000-1.030); Urobilinogen Urine Negative (Negative); WBC Urine Automated >30 /hpf (0-5)
[2022-06-15] MEDS ORDERED: cefTRIAXone SODIUM 2,000 MG/70 ML BAG IV STA (13:28)
[2022-06-15 13:48] LABS: Alanine Aminotransferase 15 U/L (7-52); Albumin Globulin Ratio 1.5 (0.9-2); Alkaline Phosphatase 85 U/L (34-104); Anion Gap 8 (3-11); BUN Creatinine Ratio 15.6 (10-20); Blood Urea Nitrogen 12 mg/dl (6-23); Carbon Dioxide 24 mmol/L (21-32); Chloride 105 mmol/L (98-107); Est GFR (African American) 103.6 ml/min; Est GFR (Non-African American) 89.4 ml/min; Globulin 2.7 gm/dl (2.5-4.0); Glucose 125 mg/dl (70-99(Fasting)); Sodium 137 mmol/L (136-145); Total Protein 6.7 gm/dl (6.0-8.3); Troponin I High Sensitivity 4.4 pg/ml (0-20)
[2022-06-15] MEDS ORDERED: ONDANSETRON INJ 2 MG/ML 2 ML VIAL IV PRN (13:49)
[2022-06-15] MEDS ORDERED: MAGNESIUM HYDROXIDE SUSP 30 ML UDC PO PRN (13:49)
[2022-06-15] MEDS ORDERED: ALUMINUM/MAGNESIUM SUSP 30 ML UDC PO PRN (13:49)
[2022-06-15] MEDS ORDERED: POLYETHYLENE (MIRALAX) 17 GM PACK PO PRN (13:49)
--- NOTE | 2022-06-15 14:02 | History & Physical Report ---
Date of Service June 15, 2022 Assessment & Plan (1) Urinary tract infection: (2) Weakness: (3) Normal pressure hydrocephalus: (4) Spinal stenosis: (5) Hypertension: (6) Diabetes mellitus, type 2: (7) Hyperlipidemia: (8) BPH (benign prostatic hypertrophy): Plan 76-year-old presented with progressive lower extremity weakness bilaterally. Progressively worsening over the past 3 weeks despite use of a walker. He reports that the floor feels rubbery underneath him and there is a disconnect between his brain and his legs. Lumbar spine CT T10 vertebral body concerning for developing discitis or osteomyelitis; T10 subacute fracture. Head CT negative for anything progressing from a hydrocephalus perspective. N.p.o. for now. Urinary tract infection: Weakness: Frequent UTIs; just finished Duricef as outpatient UA: Positive nitrates and urine WBC greater than 30 LE 3+ Abdomen/pelvis CT with contrast pending Ceftriaxone started; continue for now; reevaluate based on blood cultures and or further interventions from an Ortho perspective. Spinal stenosis: Status post decompression and fusion surgery with Dr. Alcala August 2021 2 additional back surgeries under the care of Dr. Alcala. Has been seen outpatient with Ortho PT recommended and recently started. Cervical/spine x-ray pending Lumbar Spine CT: T10 vertebral body is concerning for infection and could represent a developing discitis/osteomyelitis. T10 vertebral body is concerning for infection and could represent a developing discitis/osteomyelitis. Takes Gabapentin Ortho consult placed NPO for now; not on any anticoagulation Normal pressure hydrocephalus: Status post TRACK VEHICLE REPAIRER shunt [address]: Ventriculomegaly 5 cm unchanged from previous scan 08/2021.negative for hemorrhage, midline shift, mass Skull x-ray pending Hypertension: Takes enalapril and metoprolol; continue Normotensive in ED Diabetes mellitus type 2: Wmq-lgyrteh-vmyykyrcm 02/10 A1c: 7.3 N.p.o. for now ACHS FSBS and SSI Hold metformin Hyperlipidemia: Takes atorvastatin; continue Lipid panel today triglyceride 54, LDL 34, HDL 39. BPH: Wears a brief at baseline; urinary incontinence Takes Ditropan and alfuzosin; continue Disposition: PCP: Dr. Kruse CODE STATUS: Full code VTE prophylaxis: Teds/SCDs for now A total of 88 minutes was spent with greater than 50% of that time personally reviewing all current laboratory work and diagnostic imaging studies obtained in the ED. Additionally, I was able to review the patients past medication reconciliation and history with direct visualization in the patients chart. Included in the time above, a portion of that time was spent assessing the patient while discussing and collaborating with specialists, if necessary, and making medical decisions regarding orders to be placed. All of the aforementioned completed while collaborating with Dr. Hopkins for a full treatment plan. Please see his addendum for further details. History of Present Illness Chief Complaint: weakness Primary Care Provider: Gage Kruse MD Mr. Malloy is a 76-year-old male that presented to the ED with his family with bilateral lower extremity weakness and inability to ambulate. Him and his report that his weakness has been progressively worsening over the past 3 weeks despite use of a walker. He reports that the floor feels rubbery underneath him and there is a disconnect between his brain and his legs. Visually the floor looks usual to him but he just cannot get enough strength in his muscles to stand appropriately. He did experience a fall while starting to get up off of the chair with his present and he slid to the floor without hitting his head. Has recently returned from [place] and was treated for complicated UTI (he took Duricef and when he returned from [place] was prescribed Cipro by his outpatient PCP. Today, thoracic spine x-ray 05/27/22 disc widening tend T10-T11. Head CT negative for hemorrhage, midline shift, mass or ischemia. Ventriculomegaly noted 5 cm unchanged from previous scan. Patient went into details that he has costochondritis and bilateral diaphragmatic ximena ias on the lateral part of either side of his chest. He also reports having herniated stomach that was evaluated by Dr. Luther and advised not to proceed with surgery. He does have a history of three decompression and fusion back surgeries under the care of Dr. Alcala with the last one being 08/2021. He has seen Dr. Alcala as an outpatient for progressive weakness and imagine obtained was negative. Has been taking Gabapentin and has started PT (he only went twice) Patient has past medical history that includes frequent UTIs, normal pressure hydrocephalus (status post TRACK VEHICLE REPAIRER shunt 2018), spinal stenosis (status post decompression and fusion surgery with Dr. Alcala most recently 09/10), diabetes mellitus type 2, HTN, HLD, and BPH. Patient is lying in his bed in distress with movement but he is able to sit on the side of the bed independently and stand with minimal assistance. He was unable to take a step but could move his right and left leg independently forward. Patient denies headache, dizziness, visual changes, auditory changes, abdominal pain, nausea, vomiting, diarrhea, recent trauma, facial droop, aphasia, appetite changes, loss of bowel or bladder control. I feel this could be a combination of urinary unresolved urinary tract infection coupled with neurologic involvement. Will await diagnostic imaging results prior to specialist consultation. Patient will be admitted for further evaluation and management. Please see A/P for further details. Allergies Allergy/AdvReac Type Severity Reaction Status Date / Time Sulfa (Sulfonamide Allergy Intermediate RASH Verified 06/15/22 15:04 Antibiotics) hydrocodone AdvReac Intermediate Hallucinati Verified 06/15/22 15:04 ng oxycodone AdvReac Intermediate Hallucinati Verified 06/15/22 15:04 ng Home Medications Medication Instructions Recorded Confirmed Type atorvastatin 20 mg tablet 20 mg PO PM 01/10/20 06/15/22 History enalapril maleate 20 mg tablet 20 mg PO QAM 01/10/20 06/15/22 History metoprolol tartrate 50 mg tablet 50 mg PO BID 01/10/20 06/15/22 History multivitamin 1 tab PO QAM 01/10/20 06/15/22 History naproxen sodium 220 mg capsule 440 - 660 mg PO BID PRN Pain 01/10/20 06/15/22 History (Aleve) aspirin 81 mg capsule 81 mg PO QAM 09/15/21 06/15/22 History cholecalciferol (vitamin D3) 25 25 mcg PO QAM 09/15/21 06/15/22 History mcg (1,000 unit) tablet (Vitamin D3) clonazepam 1 mg tablet 1.5 mg PO HS PRN Anxiety 09/15/21 06/15/22 History gabapentin 100 mg capsule 200 mg PO TID 09/15/21 06/15/22 History lotwuyvv-zok-ylsiao 5 mg-zeaxanth 1 cap PO QAM 09/15/21 06/15/22 History 1 mg-bilberry 7.5 mg-herbal capsule (Macular Health Formula) pyridoxine (vitamin B6) 100 mg 100 mg PO QAM 09/15/21 06/15/22 History tablet (Vitamin B-6) alfuzosin 10 mg tablet,extended 10 mg PO DAILY #90 tabs 10/25/21 06/15/22 Rx release 24 hr oxybutynin chloride 5 mg 5 mg PO DAILY #90 tabs 11/29/21 06/15/22 Rx tablet,extended release 24 hr metformin 500 mg tablet,extended 500 mg PO BID 06/15/22 06/15/22 History release 24 hr Past Med/Surg History Medical History (Updated 06/15/22 @ 13:55 by KOBI Meza) BPH (benign prostatic hypertrophy) Cataracts, bilateral Chronic back pain CKD (chronic kidney disease), stage II per records Diabetes mellitus, type 2 NIDDM Hyperlipidemia Hypertension Normal pressure hydrocephalus s/p TRACK VEHICLE REPAIRER shunt (08/2018); under surveillance by neurosurgery Snores Spinal stenosis Urinary bladder incontinence at Urinary tract infection Surgical History H/O wrist surgery left History of back surgery X 2 > lumbar and S1 History of colonoscopy History of dental surgery Hx of hernia repair S/P TRACK VEHICLE REPAIRER shunt 08/2018 > will provide card with info dos Family History Father Gastric cancer Son Family history of diabetes mellitus Other Diabetes Social History Smoking Status: Never smoker Tobacco Type: Smokeless Tobacco (Dip or Chew) Second Hand Exposure: No; Hx Alcohol Use: Yes Alcohol type: beer Hx Substance Use: No Preferred Language: Kazakh Communication Ability: Effective Occupational Therapy Instructor Required: No Beliefs That Will Affect Care: None marital status: Current Living Situation: Spouse current occupational status: retired Feels Safe at Home: Yes Assistive Devices: None Review of Systems Review of Systems: Neuro: (-) Falls, trauma, slurred speech HEENT: (-) MARTEL, dizziness, dysphagia, visual or auditory changes CV: (-) CP, palpitations, swelling Resp: (-) SOB GI: (-) appetite changes, N/V/D, bowel changes : (-) urinary changes Skin: (-) rashes (+) B/L lateral rib cage bulging and abdominal wall bulging with engagement of muscle use. Psych: (-) anxiety, depression Physical Exam Physical Exam: Neuro: AAOx4, PERRLA, no aphagia, memory changes, CNII-XII grossly intact HEENT: head normocephalic, moist mucus membranes CV: S1/S2, (-) M/G/R, (-) edema, cap refill < 3 seconds Resp: Lungs CTA in all villa. On RA GI: Abdomen S/NT/ND, Ax4 bowel sounds, (-) CVA tenderness Musculoskeletal: 5/5 B/L UE strength, 5/5 B/L LE strength. Unable to stand independently and cannot take a step on his own. Skin: (-) rashes , (-) erythema. (+) B/L lateral rib cage bulging and abdominal wall bulging with engagement of muscle us Psych: euthymic mood Results & Data Results & Data ([facility]) Vital Signs (Past 12 Hours) Vital Signs Pulse Resp BP Pulse Ox O2 Del Method 06/15/22 11:39 18 95 Room Air 06/15/22 11:35 59 L 17 146/96 H 96 Room Air Laboratory Results Short CBC 06/15/22 Range/Units 10:45 WBC 8.66 (4.8-10.8) K/ul Hgb 14.3 (14.0-18.0) g/dl Hct 39.9 L (40.1-51.0) % Plt Count 194 (130-400) K/uL BMP 06/15/22 10:45 Sodium 137 Potassium TNP Chloride 105 Carbon Dioxide 24 BUN 12 Creatinine 0.77 Glucose 125 H Calcium 9.0 Liver Function 06/15/22 Range/Units 10:45 Total Bilirubin 1.0 (0.2-1.0) mg/dl AST TNP ALT 15 (7-52) U/L Alkaline Phosphatase 85 (34-104) U/L Albumin 4.0 (3.4-5.0) gm/dl Urine 06/15/22 Range/Units 10:45 Urine Color Yellow Urine Appearance Clear (Clear) Urine pH 5.0 (4.5-7.5) Ur Specific [place] 1.014 (1.000-1.030) Urine Protein Negative (Negative) Urine Glucose (UA) Negative (Negative) Diagnostic Findings Abdomen/Pelvis CT 06/15/22 13:23 CT OF THE ABDOMEN AND PELVIS WITH CONTRAST CLINICAL HISTORY: recurrent UTI, BLE weakness COMPARISON STUDY: CT of the abdomen and pelvis November 01, 2016. TECHNIQUE: Following IV administration of 85 mL of Optiray, axial images of the abdomen and pelvis were obtained from the lung bases to the proximal femurs. Images were reviewed in the axial, sagittal, and coronal planes. IV contrast was administered without complication. Automated exposure control was utilized for the study. A dose lowering technique was utilized adhering to the principles of ALARA. FINDINGS: No pneumatosis, free air or portal venous gas is present. Liver, spleen, adrenal glands, kidneys and pancreas are unremarkable. There is no biliary or pancreatic ductal dilatation. There is no peripancreatic or pericholecystic infiltration. There is slight prominence of both renal pelves. However, this is unchanged from earlier exam. There is no hydronephrosis. Bladder is mildly distended. There is mild bladder wall thickening, similar to prior exam. Prostate is enlarged, measuring 5.1 cm in transverse dimension. There are no urinary calculi. There is no evidence for a bowel obstruction. The appendix is normal. The caliber and wall thickness of small and large bowel are normal. Visualized portions of the TRACK VEHICLE REPAIRER shunt catheter are intact. The catheter terminates within the right mid abdomen. There is no lymphadenopathy. Postoperative findings within the spine are noted. These will be further described on the lumbar spine CT which will be reported separately. Multilevel discectomy, pedicle screw fusion and posterior decompression is noted. Hardware is intact. There is lucency adjacent to the bilateral T10 pedicle screws as well as the adjacent portions of the interconnecting rods. There is also lucency within the posterior aspect of the T10 vertebral body with bony erosion and subacute fractures within T10 vertebral body. Bony erosion involving the posterior aspect of T10 vertebral body is noted. Ossific material extends into the central canal and results in moderate to severe central canal stenosis. There are also subacute fractures within the posterior elements at the T9-T10 level. There is mild prevertebral edema. Central canal and neural foramen are suboptimally assessed given CT technique. There is also sclerosis along the superior endplate of T11 and widening of the teeth 10-T11 disc space which contains gas. IMPRESSION: 1. No bowel obstruction. No bowel wall thickening. 2. Mildly distended bladder. No hydronephrosis. No urinary calculi. 3. Postoperative findings within the spine, better depicted on the lumbar spine CT which will be reported separately. Lucency adjacent to the bilateral T10 pedicle screws which suggests loosening. Superimposed infection cannot be excluded by CT. Bony erosion and subacute fractures within the T10 vertebral body with associated retropulsion which results in moderate to severe central canal stenosis, suboptimally assessed by CT. Additional findings, as above. Widening of the T10-T11 disc space with sclerosis along the superior endplate of T11, similar to prior radiographs. ACT 112: Negative or not required by law. Electronically signed by: Marcelino Agosto M.D. 06/15/2022 3:[address] 06/15/22 13:23 CT head/brain wo con CLINICAL HISTORY: confusion, BLE weakness, shunt Technique: Contiguous axial CT images of the head were acquired from the base of the skull to the vertex without intravenous contrast administration. Images were viewed in brain, subdural and bone windows. Automated dose lowering techniques and/or adjustment according to patient size were utilized for this exam. Comparison: Comparison is made to CT head 06/14/2022 Findings: Indication catheter terminates in the right lateral ventricle anterior horn. Areas of decreased attenuation are present in the periventricular and subcortical white matter bilaterally consistent with small vessel ischemic disease. Generalized cerebral atrophy with commensurate enlargement of the ventricles, sulci, and cisterns is also present. There is no acute intracranial hemorrhage or evidence of acute territorial infarction. No shift of the midline structures, mass effect, or extra-axial abnormalities are shown. Atherosclerotic calcifications are present in the intracranial segments of the internal carotid arteries. Imaged portions of the paranasal sinuses and mastoid air cells are clear. The orbits appear normal. There are no acute fractures of the calvaria or scalp swelling. Impression: Status post TRACK VEHICLE REPAIRER shunt placement, ventriculomegaly and shunt position appears u nchanged from prior exam ACT 112: Negative or not required by law. Electronically signed by: Alexandre Borrero M.D. 06/15/2022 2:23 PM Abdomen X-Ray 06/15/22 13:24 XR skull <4V, XR cervical spine 2 or 3V, XR chest 2V PA/lateral, XR abdomen min 2V CLINICAL HISTORY: Confusion. Assess shunt catheter. COMPARISON STUDY: Chest x-ray 09/15/2021. FINDINGS: There is a right posterior ventriculostomy catheter which terminates near the midline. There is a small focal kink as it enters the calvarium without evidence for a fracture. The visualized shunt catheter traverses along the right neck, right anterior chest, and enters the abdomen near the epigastric region. The tip of the catheter terminates near the right upper quadrant. The liver suggestive intact. Extensive thoracolumbar spinal fusion hardware is again noted. Contrast extends from the recent CT examinations. The lungs are clear . The heart is mildly enlarged. IMPRESSION: 1. There is a right posterior ventriculostomy catheter which terminates near the midline. There is a small focal kink as it enters the calvarium without evidence for a fracture. 2. Otherwise, the shunt catheter appears intact. ACT 112: Negative or not required by law. Electronically signed by: Joel Lemon M.D. 06/15/2022 3:43 PM Cervical Spine X-Ray 06/15/22 13:24 XR skull <4V, XR cervical spine 2 or 3V, XR chest 2V PA/lateral, XR abdomen min 2V CLINICAL HISTORY: Confusion. Assess shunt catheter. COMPARISON STUDY: Chest x-ray 09/15/2021. FINDINGS: There is a right posterior ventriculostomy catheter which terminates near the midline. There is a small focal kink as it enters the calvarium without evidence for a fracture. The visualized shunt catheter traverses along the right neck, right anterior chest, and enters the abdomen near the epigastric region. The tip of the catheter terminates near the right upper quadrant. The liver suggestive intact. Extensive thoracolumbar spinal fusion hardware is again noted. Contrast extends from the recent CT examinations. The lungs are clear . The heart is mildly enlarged. IMPRESSION: 1. There is a right posterior ventriculostomy catheter which terminates near the midline. There is a small focal kink as it enters the calvarium without evidence for a fracture. 2. Otherwise, the shunt catheter appears intact. ACT 112: Negative or not required by law. Electronically signed by: Joel Lemon M.D. 06/15/2022 3:43 PM Chest X-Ray 06/15/22 13:24 XR skull <4V, XR cervical spine 2 or 3V, XR chest 2V PA/lateral, XR abdomen min 2V CLINICAL HISTORY: Confusion. Assess shunt catheter. COMPARISON STUDY: Chest x-ray 09/15/2021. FINDINGS: There is a right posterior ventriculostomy catheter which terminates near the midline. There is a small focal kink as it enters the calvarium without evidence for a fracture. The visualized shunt catheter traverses along the right neck, right anterior chest, and enters the abdomen near the epigastric region. The tip of the catheter terminates near the right upper quadrant. The liver suggestive intact. Extensive thoracolumbar spinal fusion hardware is again noted. Contrast extends from the recent CT examinations. The lungs are clear . The heart is mildly enlarged. IMPRESSION: 1. There is a right posterior ventriculostomy catheter which terminates near the midline. There is a small focal kink as it enters the calvarium without evidence for a fracture. 2. Otherwise, the shunt catheter appears intact. ACT 112: Negative or not required by law. Electronically signed by: Joel Lemon M.D. 06/15/2022 3:43 PM Skull X-Ray 06/15/22 13:24 XR skull <4V, XR cervical spine 2 or 3V, XR chest 2V PA/lateral, XR abdomen min 2V CLINICAL HISTORY: Confusion. Assess shunt catheter. COMPARISON STUDY: Chest x-ray 09/15/2021. FINDINGS: There is a right posterior ventriculostomy catheter which terminates near the midline. There is a small focal kink as it enters the calvarium without evidence for a fracture. The visualized shunt catheter traverses along the right neck, right anterior chest, and enters the abdomen near the epigastric region. The tip of the catheter terminates near the right upper quadrant. The liver suggestive intact. Extensive thoracolumbar spinal fusion hardware is again noted. Contrast extends from the recent CT examinations. The lungs are clear . The heart is mildly enlarged. IMPRESSION: 1. There is a right posterior ventriculostomy catheter which terminates near the midline. There is a small focal kink as it enters the calvarium without evidence for a fracture. 2. Otherwise, the shunt catheter appears intact. ACT 112: Negative or not required by law. Electronically signed by: Joel Lemon M.D. 06/15/2022 3:[address] 06/15/22 13:26 CT lumbar spine w con HISTORY: Bilateral lower extremity weakness. TECHNIQUE: Multiaxial CT images of the lumbar spine were performed following the intravenous administration of 85 cc of Optiray 350 and reformatted in the sagittal and coronal plane. COMPARISON STUDY: Lumbar spine CT 11/01/2016. FINDINGS: Extensive posterior fusion and decompression from T10 through S1 with pedicle screws and rods. The hardware appears intact. There is a moderate compression deformity and sclerosis within the T10 vertebral body which is likely chronic. Extensive periprosthetic lucency surrounding the bilateral T10 pedicle screws and proximal rods at the T10 level. There is focal areas of cortical breakthrough at the superior endplate and inferior endplate of T10. There is focal osteolysis involving the posterior aspect of the T10 vertebral body with up to 5 mm of retropulsion of the posterior fragments. This results in moderate to severe central canal narrowing at this level. The periprosthetic lucency and osteolysis of the posterior aspect of the T10 vertebral body is concerning for infection and could represent a developing discitis/osteomyelitis. There is mild paravertebral edema at this level. Gas within the T10-11 disc space is likely chronic. Subacute fractures within the posterior T10 vertebral body extending into the pedicles and involving the left T10 facet. Mild compression deformity at T11 which is also likely chronic. No acute fractures identified within the lumbar spine. The visualized sacrum appears intact. The bilateral L2 pedicle screws and left L1 pedicle screws have been removed. No significant central canal narrowing by CT technique within the lumbar spine. IMPRESSION: 1. Posterior decompression and fusion from T10 through S1 with pedicle screws and rods. 2. Extensive periprosthetic lucency surrounding the bilateral T10 pedicle screws and proximal rods at the T10 level. There is focal areas of cortical breakthrough at the superior endplate and inferior endplate of T10. There is focal osteolysis involving the posterior aspect of the T10 vertebral body with up to 5 mm of retropulsion of the posterior fragments. This results in moderate to severe central canal narrowing at this level. The periprosthetic lucency and osteolysis of the posterior aspect of the T10 vertebral body is concerning for infection and could represent a developing discitis/osteomyelitis. 3. Subacute fractures within the posterior T10 vertebral body extending into the pedicles and involving the left T10 facet. 4. No acute fractures identified within the lumbar spine. ACT 112: Negative or not required by law. Electronically signed by: Joel Lemon M.D. 06/15/2022 3:21 PM Code Status & VTE Plan Code Status Full Code in the event of cardiac or respiratory arrest VTE Prophylaxis Plan VTE Prophylaxis will be ordered: Yes Supervising Physician Co-Signing Physician Notes Attending addendum; The patient was seen and examined in emergency room in presence of the He has been complaining of bilateral leg weakness since J[place] Has had a UTI which was treated x2 and later with Cipro Has been getting physical therapy but could not be able to get up from bed this morning and was brought into the emergency room Denies any fever and or chills, no headache and or blurred vision, has numbness and tingling involving the extremities but has diabetes too On examination Lying in bed comfortably Blood pressure was noted to be high at 173/97 and afebrile Chest-clear to auscultate bilaterally Heart-S1, S2 regular Abdomen-soft, not distended, bilateral bulging noted with tenderness involving the lower costal radius, bowel sound present Extremities-negative for any edema Musculoskeletal system-minimal tenderness involving the lumbar spine area 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 No neck is stiffness, does have proximal muscle weakness involving the lower extremities. His admission labs, EKG and imaging studies reviewed Spinal stenosis with prior multiple back surgeries with hardware, associated neuropathy and radiculopathy Has TRACK VEHICLE REPAIRER shunt in place to rule out normal pressure hydrocephalus given dizziness and unsteadiness Will get Ortho and neurology opinion. PT OT Agree with assessment and plan as outlined above by Gladys Hopkins
[2022-06-15] MEDS ORDERED: OPTIRAY 350 100ml IV ONE (14:14)
--- NOTE | 2022-06-15 14:26 | CT Scan Report ---
CT head/brain wo con CLINICAL HISTORY: confusion, BLE weakness, shunt Technique: Contiguous axial CT images of the head were acquired from the base of the skull to the tim barbi without intravenous contrast administration. Images were viewed in brain, subdural and bone [facility]. Automated dose lowering techniques and/or adjustment according to patient size were utilized for this exam. Comparison: Comparison is made to CT head 06/14/2022 Findings: Indication catheter terminates in the right lateral ventricle anterior horn. Areas of decreased atten uation are present in the periventricular and subcortical white matter bilaterally consistent with sm all vessel ischemic disease. Generalized cerebral atrophy with commensurate enlargement of the ventri cles, sulci, and cisterns is also present. There is no acute intracranial hemorrhage or evidence of a cute territorial infarction. No shift of the midline structures, mass effect, or extra-axial abnormal ities are shown. Atherosclerotic calcifications are present in the intracranial segments of the inte rnal carotid arteries. Imaged portions of the paranasal sinuses and mastoid air cells are clear. The orbits appear normal. There are no acute fractures of the calvaria or scalp swelling. Impression: Status post SULFONATOR OPERATOR shunt placement, ventriculomegaly and shunt position appears unchanged from prior exam ACT 112: Negative or not required by law. Electronically signed by: Alexandre Borrero M.D. 06/15/2022 2:23 PM
--- NOTE | 2022-06-15 15:15 | CT Scan Report ---
CT OF THE ABDOMEN AND PELVIS WITH CONTRAST CLINICAL HISTORY: recurrent UTI, BLE weakness COMPARISON STUDY: CT of the abdomen and pelvis November 01, 2016. TECHNIQUE: Following IV administration of 85 mL of Optiray, axial images of the abdomen and pelvis we re obtained from the lung bases to the proximal femurs. Images were reviewed in the axial, sagittal, and coronal planes. IV contrast was administered without complication. Automated exposure control wa s utilized for the study. A dose lowering technique was utilized adhering to the principles of ALARA . FINDINGS: No pneumatosis, free air or portal venous gas is present. Liver, spleen, adrenal glands, ki dneys and pancreas are unremarkable. There is no biliary or pancreatic ductal dilatation. There is no peripancreatic or pericholecystic infiltration. There is slight prominence of both renal pelves. How ever, this is unchanged from earlier exam. There is no hydronephrosis. Bladder is mildly distended. T here is mild bladder wall thickening, similar to prior exam. Prostate is enlarged, measuring 5.1 cm i n transverse dimension. There are no urinary calculi. There is no evidence for a bowel obstruction. T he appendix is normal. The caliber and wall thickness of small and large bowel are normal. Visualized portions of the DOCK CLERK shunt catheter are intact. The catheter terminates within the right mid abdomen. There is no lymphadenopathy. Postoperative findings within the spine are noted. These will be further described on the lumbar spin e CT which will be reported separately. Multilevel discectomy, pedicle screw fusion and posterior dec ompression is noted. Hardware is intact. There is lucency adjacent to the bilateral T10 pedicle screw s as well as the adjacent portions of the interconnecting rods. There is also lucency within the post erior aspect of the T10 vertebral body with bony erosion and subacute fractures within T10 vertebral body. Bony erosion involving the posterior aspect of T10 vertebral body is noted. Ossific material ex tends into the central canal and results in moderate to severe central canal stenosis. There are also subacute fractures within the posterior elements at the T9-T10 level. There is mild prevertebral clay[place] ma. Central canal and neural foramen are suboptimally assessed given CT technique. There is also scle rosis along the superior endplate of T11 and widening of the teeth 10-T11 disc space which contains g as. IMPRESSION: 1. No bowel obstruction. No bowel wall thickening. 2. Mildly distended bladder. No hydronephrosis. No urinary calculi. 3. Postoperative findings within the spine, better depicted on the lumbar spine CT which will be repo rted separately. Lucency adjacent to the bilateral T10 pedicle screws which suggests loosening. Super imposed infection cannot be excluded by CT. Bony erosion and subacute fractures within the T10 verteb ral body with associated retropulsion which results in moderate to severe central canal stenosis, sub optimally assessed by CT. Additional findings, as above. Widening of the T10-T11 disc space with scle rosis along the superior endplate of T11, similar to prior radiographs. ACT 112: Negative or not required by law. Electronically signed by: Marcelino Agosto M.D. 06/15/2022 3:14 PM
--- NOTE | 2022-06-15 15:23 | CT Scan Report ---
CT lumbar spine w con HISTORY: Bilateral lower extremity weakness. TECHNIQUE: Multiaxial CT images of the lumbar spine were performed following the intravenous administ ration of 85 cc of Optiray 350 and reformatted in the sagittal and coronal plane. COMPARISON STUDY: Lumbar spine CT 11/01/2016. FINDINGS: Extensive posterior fusion and decompression from T10 through S1 with pedicle screws and ro ds. The hardware appears intact. There is a moderate compression deformity and sclerosis within the T 10 vertebral body which is likely chronic. Extensive periprosthetic lucency surrounding the bilateral T10 pedicle screws and proximal rods at the T10 level. There is focal areas of cortical breakthrough at the superior endplate and inferior endplate of T10. There is focal osteolysis involving the poste rior aspect of the T10 vertebral body with up to 5 mm of retropulsion of the posterior fragments. Thi s results in moderate to severe central canal narrowing at this level. The periprosthetic lucency and osteolysis of the posterior aspect of the T10 vertebral body is concerning for infection and could r epresent a developing discitis/osteomyelitis. There is mild paravertebral edema at this level. Gas wi thin the T10-11 disc space is likely chronic. Subacute fractures within the posterior T10 vertebral b rachana extending into the pedicles and involving the left T10 facet. Mild compression deformity at T11 w hich is also likely chronic. No acute fractures identified within the lumbar spine. The visualized sa brionna appears intact. The bilateral L2 pedicle screws and left L1 pedicle screws have been removed. No significant central canal narrowing by CT technique within the lumbar spine. IMPRESSION: 1. Posterior decompression and fusion from T10 through S1 with pedicle screws and rods. 2. Extensive periprosthetic lucency surrounding the bilateral T10 pedicle screws and proximal rods at the T10 level. There is focal areas of cortical breakthrough at the superior endplate and inferior e ndplate of T10. There is focal osteolysis involving the posterior aspect of the T10 vertebral body wi th up to 5 mm of retropulsion of the posterior fragments. This results in moderate to severe central canal narrowing at this level. The periprosthetic lucency and osteolysis of the posterior aspect of t he T10 vertebral body is concerning for infection and could represent a developing discitis/osteomyel itis. 3. Subacute fractures within the posterior T10 vertebral body extending into the pedicles and involvi ng the left T10 facet. 4. No acute fractures identified within the lumbar spine. ACT 112: Negative or not required by law. Electronically signed by: Joel Lemon M.D. 06/15/2022 3:21 PM
[2022-06-15 15:34] LABS: Chol HDL Ratio 2.2 (0-5); Cholesterol 84 mg/dl (0-200); Creatine Kinase 86 U/L (30-223); HDL Cholesterol 39 mg/dl; LDL Cholesterol Calculated 34 mg/dl; Triglycerides 54 mg/dl (0-150); VLDL Cholesterol 11 mg/dl (0-30)
--- NOTE | 2022-06-15 15:44 | XRay Report ---
XR skull <4V, XR cervical spine 2 or 3V, XR chest 2V PA/lateral, XR abdomen min 2V CLINICAL HISTORY: Confusion. Assess shunt catheter. COMPARISON STUDY: Chest x-ray 09/15/2021. FINDINGS: There is a right posterior ventriculostomy catheter which terminates near the midline. Ther e is a small focal kink as it enters the calvarium without evidence for a fracture. The visualized sh unt catheter traverses along the right neck, right anterior chest, and enters the abdomen near the ep igastric region. The tip of the catheter terminates near the right upper quadrant. The liver suggesti ve intact. Extensive thoracolumbar spinal fusion hardware is again noted. Contrast extends from the r ecent CT examinations. The lungs are clear . The heart is mildly enlarged. IMPRESSION: 1. There is a right posterior ventriculostomy catheter which terminates near the midline. There is a small focal kink as it enters the calvarium without evidence for a fracture. 2. Otherwise, the shunt catheter appears intact. ACT 112: Negative or not required by law. Electronically signed by: Joel Lemon M.D. 06/15/2022 3:43 PM
[2022-06-15 17:56] LABS: Potassium 3.9 mmol/L (3.5-5.1)
--- NOTE | 2022-06-15 18:02 | Electrocardiogram Report ---
Test Reason : Blood Pressure : / mmHG Vent. Rate : 065 BPM Atrial Rate : 065 BPM P-R Int : 166 ms QRS Dur : 096 ms QT Int : 422 ms P-R-T Axes : 029 -55 017 degrees QTc Int : 438 ms Sinus rhythm with frequent Premature ventricular complexes Incomplete right bundle branch block Left anterior fascicular block Abnormal ECG When compared with ECG of 01-JUN-2022 16:32, T wave amplitude has decreased in Anterior leads QT has lengthened Confirmed by Edvin Martini ([id number]) on 06/15/2022 6:01:50 PM Referred By: Confirmed By:Rodolfo Martini
[2022-06-15] MEDS ORDERED: PHARMACY GLYCEMIC MGMT CONSULT PRN (19:34)
[2022-06-15] MEDS ORDERED: CARBOHYDRATES FOR HYPOGLYCEMIA PO PRN (19:34)
[2022-06-15] MEDS ORDERED: GLUCOSE 40% GEL 15 GM TUBE PO PRN (19:34)
[2022-06-15] MEDS ORDERED: GLUCAGON FOR INJ 1 MG VIAL SQ PRN (19:34)
[2022-06-15] MEDS ORDERED: GLUCOSE 10 TAB/TUBE PO PRN (19:34)
[2022-06-15] MEDS ORDERED: DEXTROSE 50% 50 ML SYRINGE IV PRN (19:34)
[2022-06-15] MEDS: INSULIN ASPART PER UNIT SC SCH (20:03)
[2022-06-15] MEDS ORDERED: POTASSIUM CHLORIDE CRTAB 20 MEQ TABCR PO STA (20:54)
[2022-06-15] MEDS ORDERED: METOPROLOL TARTRATE 1 MG/ML VIAL IV STA (20:54)
[2022-06-15] MEDS ORDERED: LACTATED RINGER'S 1,000 ML IV ONE (20:54)
[2022-06-15] MEDS ORDERED: MAGNESIUM SULFATE / D5W 1 GM/100 ML BAG IV ONE (20:55)
--- NOTE | 2022-06-15 21:06 | Communication Note ---
Date of Service: June 15, 2022
[2022-06-15 21:54] LABS: Magnesium 1.4 mg/dl (1.7-2.4)
[2022-06-15] MEDS: GABAPENTIN 100 MG CAP PO SCH (22:42)
[2022-06-15] MEDS: METOPROLOL TARTRATE 50 MG TAB PO SCH (22:43)
[2022-06-16] MEDS: ATORVASTATIN 20 MG TAB PO SCH ×2 (00:40→20:51)
[2022-06-16] MEDS: INSULIN ASPART PER UNIT SC SCH ×4 (07:40→20:33)
[2022-06-16 08:08] LABS: Anion Gap 5 (3-11); Blood Urea Nitrogen 13 mg/dl (6-23); C Reactive Protein < 0.50 mg/dl (0-0.5); Calcium 9.3 mg/dl (8.5-10.1); Carbon Dioxide 28 mmol/L (21-32); Chloride 106 mmol/L (98-107); Est GFR (African American) 93.4 ml/min; Est GFR (Non-African American) 80.6 ml/min; Glucose 116 mg/dl (70-99(Fasting)); Magnesium 1.6 mg/dl (1.7-2.4); Potassium 4.5 mmol/L (3.5-5.1); Sodium 139 mmol/L (136-145)
[2022-06-16 08:22] LABS: Partial Thromboplastin Time 27.9 Seconds (21.0-31.0)
[2022-06-16] MEDS: ASPIRIN 81 MG ECTAB PO SCH (08:49)
[2022-06-16] MEDS: ALFUZOSIN HCL 10 MG TAB PO SCH (08:49)
[2022-06-16] MEDS: PYRIDOXINE HCL 50 MG TAB PO SCH (08:50)
[2022-06-16] MEDS: GABAPENTIN 100 MG CAP PO SCH ×3 (08:50→20:51)
[2022-06-16] MEDS: METOPROLOL TARTRATE 50 MG TAB PO SCH ×2 (08:51→20:51)
--- NOTE | 2022-06-16 08:51 | Orthopedic Consultation ---
Date of Consultation June 16, 2022 Assessment & Plan (1) Spinal stenosis: fracture possible infection T10 MRI ordered Possible decompression I and D neccessary History of Present Illness Reason for Consultation: back pain leg weakness Attending Physician: Greg Hopkins MD Allergies Allergy/AdvReac Type Severity Reaction Status Date / Time Sulfa (Sulfonamide Allergy Intermediate RASH Verified 06/15/22 15:04 Antibiotics) hydrocodone AdvReac Intermediate Hallucinati Verified 06/15/22 15:04 ng oxycodone AdvReac Intermediate Hallucinati Verified 06/15/22 15:04 ng Home Medications Medication Instructions Recorded Confirmed Type atorvastatin 20 mg tablet 20 mg PO PM 01/10/20 06/15/22 History enalapril maleate 20 mg tablet 20 mg PO QAM 01/10/20 06/15/22 History metoprolol tartrate 50 mg tablet 50 mg PO BID 01/10/20 06/15/22 History multivitamin 1 tab PO QAM 01/10/20 06/15/22 History naproxen sodium 220 mg capsule 440 - 660 mg PO BID PRN Pain 01/10/20 06/15/22 History (Aleve) aspirin 81 mg capsule 81 mg PO QAM 09/15/21 06/15/22 History cholecalciferol (vitamin D3) 25 25 mcg PO QAM 09/15/21 06/15/22 History mcg (1,000 unit) tablet (Vitamin D3) clonazepam 1 mg tablet 1.5 mg PO HS PRN Anxiety 09/15/21 06/15/22 History gabapentin 100 mg capsule 200 mg PO TID 09/15/21 06/15/22 History bszvtial-ocm-uzlkgy 5 mg-zeaxanth 1 cap PO QAM 09/15/21 06/15/22 History 1 mg-bilberry 7.5 mg-herbal capsule (Macular Health Formula) pyridoxine (vitamin B6) 100 mg 100 mg PO QAM 09/15/21 06/15/22 History tablet (Vitamin B-6) alfuzosin 10 mg tablet,extended 10 mg PO DAILY #90 tabs 10/25/21 06/15/22 Rx release 24 hr oxybutynin chloride 5 mg 5 mg PO DAILY #90 tabs 11/29/21 06/15/22 Rx tablet,extended release 24 hr metformin 500 mg tablet,extended 500 mg PO BID 06/15/22 06/15/22 History release 24 hr Patient History Medical History BPH (benign prostatic hypertrophy) Cataracts, bilateral Chronic back pain CKD (chronic kidney disease), stage II per records Diabetes mellitus, type 2 NIDDM Hyperlipidemia Hypertension Normal pressure hydrocephalus s/p NURSING SUPPORT WORKER shunt (08/2018); under surveillance by neurosurgery Snores Spinal stenosis Urinary bladder incontinence at HS Urinary tract infection Surgical History H/O wrist surgery left History of back surgery X 2 > lumbar and S1 History of colonoscopy History of dental surgery Hx of hernia repair S/P NURSING SUPPORT WORKER shunt 08/2018 > will provide card with info dos Family History Father Gastric cancer Son Family history of diabetes mellitus Other Diabetes Social History Smoking Status: Former smoker Tobacco Type: Smokeless Tobacco (Dip or Chew) Second Hand Exposure: Yes; Do You Dip or Chew Tobacco: Yes; Tobacco Cessation Education Requested by Patient: No Hx Alcohol Use: No Hx Substance Use: No Preferred Language: Kazakh Communication Ability: Effective Circular Knife Cutter Machine Required: No Beliefs That Will Affect Care: None marital status: Current Living Situation: Spouse current occupational status: retired Other Information That Helps Us Care for You: No Feels Safe at Home: Yes Safety Concerns: Feels Safe At This Time Assistive Devices: Denture - Upper and Denture - Lower Physical Exam Physical Exam: alert neuro intact LE Results & Data ([facility]) Vital Signs (Past 12 Hours) Vital Signs Temp Pulse Pulse Resp BP Pulse Ox O2 Del Method 06/16/22 07:24 36.6 C 58 L 17 151/78 H 96 Room Air 06/16/22 03:19 36.8 C 55 L 16 146/88 H 97 Room Air 06/15/22 23:00 62 06/15/22 22:35 36.8 C 57 L 16 150/74 H 99 Room Air
[2022-06-16] MEDS: OXYBUTYNIN CHLORIDE XL 5 MG TABCR PO SCH (08:52)
[2022-06-16] MEDS: ENALAPRIL MALEATE 10 MG TAB PO SCH (08:52)
[2022-06-16] MEDS: MULTIVITAMIN TAB PO SCH (08:52)
[2022-06-16] MEDS: CHOLECALCIFEROL 1,000 UNITS 25 MCG TAB PO SCH (08:52)
[2022-06-16] MEDS: ACETAMINOPHEN 325 MG TAB PO PRN (08:53)
[2022-06-16] MEDS ORDERED: NON-FORMULARY MEDICATION (Mv-Mn-Lutein-Zeax-Bilber-Hb277 [Macular Health Formula] 5-1-7.5 PO SCH (09:00)
[2022-06-16 09:10] LABS: Estimated Average Glucose 148 mg/dl; Hemoglobin A1C 6.8 % (4.5-5.6)
[2022-06-16 09:28] LABS: Hematocrit (blood only) 39.9 % (42.0-52.0); Hemoglobin 14.4 g/dl (14.0-18.0); Mean Corpuscular Hemoglobin 33.6 pg (25.0-34.0); Mean Corpuscular Hgb Conc 36.1 g/dL (32.0-36.0); Mean Corpuscular Volume 93.2 fL (80.0-100.0); Mean Platelet Volume 9.8 fL (9.4-12.4); Platelet Count 200 K/uL (130-400); RDW Coefficient of Variation 12.5 % (11.5-14.5); RDW Standard Deviation 42.8 fL (36.4-46.3); Red Blood Count 4.28 M/uL (4.70-6.10); White Blood Count 7.01 K/ul (4.8-10.8)
--- NOTE | 2022-06-16 10:48 | XRay Report ---
XR chest 1V portable CLINICAL HISTORY: weakness TECHNIQUE: Single frontal radiograph of the chest was obtained. Comparison: None available at the time of this dictation. FINDINGS: Posterior fixation hardware is seen in the thoracolumbar spine. The cardiomediastinal silhouette is n ormal. The lungs are clear. No evidence of pleural effusion or pneumothorax. IMPRESSION: No acute chest disease. ACT 112: Negative or not required by law. Electronically signed by: Alexandre Borrero M.D. 06/16/2022 10:47 AM
--- NOTE | 2022-06-16 12:42 | Hospitalist Progress Note ---
Date of Service June 16, 2022 Assessment & Plan (1) Urinary tract infection: (2) Weakness: (3) Normal pressure hydrocephalus: (4) Spinal stenosis: (5) Hypertension: (6) Diabetes mellitus, type 2: (7) Hyperlipidemia: (8) BPH (benign prostatic hypertrophy): Plan per admitting service notes with addendum: 76-year-old presented with progressive lower extremity weakness bilaterally. Progressively worsening over the past 3 weeks despite use of a walker. He reports that the floor feels rubbery underneath him and there is a disconnect between his brain and his legs. Lumbar spine CT T10 vertebral body concerning for developing discitis or osteomyelitis; T10 subacute fracture. Head CT negative for anything progressing from a hydrocephalus perspective. N.p.o. for now. Bilateral Leg Weakness Spinal stenosis: Status post decompression and fusion surgery with Dr. Alcala August 2021 2 additional back surgeries under the care of Dr. Alcala. Has been seen outpatient with Ortho PT recommended and recently started. Cervical/spine x-ray pending Lumbar Spine CT: T10 vertebral body is concerning for infection and could represent a developing discitis/osteomyelitis. T10 vertebral body is concerning for infection and could represent a developing discitis/osteomyelitis. Takes Gabapentin Ortho consult placed NPO for now; not on any anticoagulation 06/16 MRI spine ordered awaiting Ortho and Neuro recommendations Normal pressure hydrocephalus: Status post COAT OPERATOR INSULATOR shunt [address]: Ventriculomegaly 5 cm unchanged from previous scan 08/2021.negative for hemorrhage, midline shift, mass Skull x-ray : 1. There is a right posterior ventriculostomy catheter which terminates near the midline. There is a small focal kink as it enters the calvarium without evidence for a fracture. 2. Otherwise, the shunt catheter appears intact. Urinary tract infection: Weakness: Frequent UTIs; just finished Duricef as outpatient UA: Positive nitrates and urine WBC greater than 30 LE 3+ Abdomen/pelvis CT with contrast pending Ceftriaxone started; continue for now; reevaluate based on blood cultures and or further interventions from an Ortho perspective. 06/16 Urine culture: pending on Ceftriaxone IV Day 2 Hypertension: Takes enalapril and metoprolol; continue Normotensive in ED Diabetes mellitus type 2: Kpb-qcanqii-obhrrdlel 02/10 A1c: 7.3 ACHS FSBS and SSI Hold metformin Hyperlipidemia: Takes atorvastatin; continue Lipid panel today triglyceride 54, LDL 34, HDL 39. BPH: Wears a brief at baseline; urinary incontinence Takes Ditropan and alfuzosin; continue Disposition: PCP: Dr. Kruse CODE STATUS: Full code VTE prophylaxis: Teds/SCDs for now Disposition will need PT/OT eval Admission and Anticipated Discharge Date Admission Date: June 15, 2022 Subjective ff up for BL leg weakness, spinal stenosis, possible T10 fracture/discitis, etc seen resting in bed, comfortable states he still has some weakness of BL LE no incontinence no fever/chills has some lower abdominal pain, dysuria no other symptoms Review of Systems Review of Systems: all noted and negative except for above Physical Exam Physical Exam: General- oriented x 3, not in distress, speaks in sentences with no effort or accessory muscle use Eyes- anicteric Neck- no JVD Lungs- clear breath sounds bilaterally, no rales/wheezes Heart- normal rate, regular rhythm; no murmurs Abdomen- normal bowel sounds, nondistended, soft, nontender Extremities- no pretibial edema, no calf tenderness Neuro- alert, oriented x 3; no gross focal neurologic deficits Skin- warm & dry Results & Data Results & Data ([facility]) Vital Signs (Past 12 Hours) Vital Signs Temp Pulse Pulse Resp BP Pulse Ox O2 Del Method 06/16/22 07:00 60 06/16/22 08:51 68 06/16/22 07:24 36.6 C 58 L 17 151/78 H 96 Room Air 06/16/22 03:19 36.8 C 55 L 16 146/88 H 97 Room Air all noted and reviewed including below
--- NOTE | 2022-06-16 13:30 | Neurology Consultation ---
Date of Consultation June 16, 2022 Assessment & Plan (1) Normal pressure hydrocephalus: Plan NEUROLOGY CONSULTATION Assessment & Plan: Impression: pt with subacute course of subjective feeling of leg being weak. Clinically, not much weakness noticed. pt currently feeling symptoms likely due to recurrent UTI, deconditioning and progressive symptoms of NPH as NPH will progress despite FIRST ASSISTANT shunt over time. His current T spine osteo/fx likely also contributing to his symptoms. there is no concern for acute myelopathy or TAG MAKER localizing issues at this point. Recommendations: -continue tx for his infection and management by ortho and primary team. not much to offer from NPH stand point and neurology point of view. he has plans to make f/u appt with neurosurgery in the future for his NPH follow up and FIRST ASSISTANT shunt check up. please call again if new question. Dr. Jim Teran MD [facility] Neurology Chief Complaint: leg weak History of Present Illness: HPI: pt feels his legs are not moving well but he does report not much change acutely. he does have NPH and had FIRST ASSISTANT shunt placed few years ago. 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 chart reviewed. pt comfortable in bed today. Admission/Initial HPI documentation: Mr. Malloy is a 76-year-old male that presented to the ED with his family with bilateral lower extremity weakness and inability to ambulate. Him and his report that his weakness has been progressively worsening over the past 3 weeks despite use of a walker. He reports that the floor feels rubbery underneath him and there is a disconnect between his brain and his legs. Visually the floor looks usual to him but he just cannot get enough strength in his muscles to stand appropriately. He did experience a fall while starting to get up off of the chair with his present and he slid to the floor without hitting his head. Has recently returned from [place] and was treated for complicated UTI (he took Duricef and when he returned from [place] was prescribed Cipro by his outpatient PCP. Today, thoracic spine x-ray 05/27/22 disc widening tend T10-T11. Head CT negative for hemorrhage, midline shift, mass or ischemia. Ventriculomegaly noted 5 cm unchanged from previous scan. Patient went into details that he has costochondritis and bilateral diaphragmatic hernias on the lateral part of either side of his chest. He also reports having herniated stomach that was evaluated by Dr. Luther and advised not to proceed with surgery. He does have a history of three decompression and fusion back surgeries under the care of Dr. Alcala with the last one being 08/2021. He has seen Dr. Alcala as an outpatient for progressive weakness and imagine obtained was negative. Has been taking Gabapentin and has started PT (he only went twice) Patient has past medical history that includes frequent UTIs, normal pressure hydrocephalus (status post FIRST ASSISTANT shunt 2018), spinal stenosis (status post decompression and fusion surgery with Dr. Alcala most recently 09/10), diabetes mellitus type 2, HTN, HLD, and BPH. Patient is lying in his bed in distress with movement but he is able to sit on the side of the bed independently and stand with minimal assistance. He was unable to take a step but could move his right and left leg independently forward. Patient denies headache, dizziness, visual changes, auditory changes, abdominal pain, nausea, vomiting, diarrhea, recent trauma, facial droop, aphasia, appetite changes, loss of bowel or bladder control. I feel this could be a combination of urinary unresolved urinary tract infection coupled with neurologic involvement. Will await diagnostic imaging results prior to specialist consultation. Past Medical History: See chart Meds: See chart I personally reviewed all of the medications Social & Family History: See chart Review of Systems: Per initial HPI on admission. Physical Exam: GEN: NAD HEENT: Normocephalic Neuro: Mental status:A & O x 3.No dysarthria or aphasia.No neglect. Fluent speech. No apraxia Cranial Nerves:II-XII intact Motor:Normal bulk and tone,5/5 strength upper limbs b/l. 5-/5 t/o lower ext including proximally and distally. Coordination:Intact Reflexes: down going toes latrell Sensation: Intact x 4 extremities to touch Chart reviewed I have spent more than 50% educating patient about potential diagnosis and neurological evaluation and coordinating care with patient's treatment team. Total time spent (including chart review and coordination of care): 80 min (this includes chart review). History of Present Illness Attending Physician: Timothy Pascual MD Allergies Allergy/AdvReac Type Severity Reaction Status Date / Time Sulfa (Sulfonamide Allergy Intermediate RASH Verified 06/15/22 15:04 Antibiotics) hydrocodone AdvReac Intermediate Hallucinati Verified 06/15/22 15:04 ng oxycodone AdvReac Intermediate Hallucinati Verified 06/15/22 15:04 ng Home Medications Medication Instructions Recorded Confirmed Type atorvastatin 20 mg tablet 20 mg PO PM 01/10/20 06/15/22 History enalapril maleate 20 mg tablet 20 mg PO QAM 01/10/20 06/15/22 History metoprolol tartrate 50 mg tablet 50 mg PO BID 01/10/20 06/15/22 History multivitamin 1 tab PO QAM 01/10/20 06/15/22 History naproxen sodium 220 mg capsule 440 - 660 mg PO BID PRN Pain 01/10/20 06/15/22 History (Aleve) aspirin 81 mg capsule 81 mg PO QAM 09/15/21 06/15/22 History cholecalciferol (vitamin D3) 25 25 mcg PO QAM 09/15/21 06/15/22 History mcg (1,000 unit) tablet (Vitamin D3) clonazepam 1 mg tablet 1.5 mg PO HS PRN Anxiety 09/15/21 06/15/22 History gabapentin 100 mg capsule 200 mg PO TID 09/15/21 06/15/22 History falhkwjo-dol-[id number] 5 mg-zeaxanth 1 cap PO QAM 09/15/21 06/15/22 History 1 mg-bilberry 7.5 mg-herbal capsule (Mac[employer] Health Formula) pyridoxine (vitamin B6) 100 mg 100 mg PO QAM 09/15/21 06/15/22 History tablet (Vitamin B-6) alfuzosin 10 mg tablet,extended 10 mg PO DAILY #90 tabs 10/25/21 06/15/22 Rx release 24 hr oxybutynin chloride 5 mg 5 mg PO DAILY #90 tabs 11/29/21 06/15/22 Rx tablet,extended release 24 hr metformin 500 mg tablet,extended 500 mg PO BID 06/15/22 06/15/22 History release 24 hr Patient History Medical History BPH (benign prostatic hypertrophy) Cataracts, bilateral Chronic back pain CKD (chronic kidney disease), stage II per records Diabetes mellitus, type 2 NIDDM Hyperlipidemia Hypertension Normal pressure hydrocephalus s/p FIRST ASSISTANT shunt (08/2018); under surveillance by neurosurgery Snores Spinal stenosis Urinary bladder incontinence at HS Urinary tract infection Surgical History H/O wrist surgery left History of back surgery X 2 > lumbar and S1 History of colonoscopy History of dental surgery Hx of hernia repair S/P FIRST ASSISTANT shunt 08/2018 > will provide card with info dos Family History Father Gastric cancer Son Family history of diabetes mellitus Other Diabetes Social History Smoking Status: Former smoker Tobacco Type: Smokeless Tobacco (Dip or Chew) Second Hand Exposure: Yes; Do You Dip or Chew Tobacco: Yes; Tobacco Cessation Education Requested by Patient: No Hx Alcohol Use: No Hx Substance Use: No Preferred Language: Amharic Communication Ability: Effective 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 Business Services Required: No Beliefs That Will Affect Care: None marital status: Current Living Situation: Spouse current occupational status: retired Other Information That Helps Us Care for You: No Feels Safe at Home: Yes Safety Concerns: Feels Safe At This Time Assistive Devices: Cane, Raised Toilet Seat and Walker Results & Data ([facility]) Vital Signs (Past 12 Hours) Vital Signs Temp Pulse Pulse Resp BP Pulse Ox O2 Del Method 06/16/22 12:00 36.7 C 59 L 16 123/66 96 Room Air 06/16/22 07:00 60 06/16/22 08:51 68 06/16/22 07:24 36.6 C 58 L 17 151/78 H 96 Room Air 06/16/22 03:19 36.8 C 55 L 16 146/88 H 97 Room Air
--- NOTE | 2022-06-16 13:47 | Magnetic Resonance Report ---
MR thoracic spine wo con HISTORY: 76 years-old Male pain, r/o infection acute mid back pain with clinical concern for disciti s/osteomyelitis COMPARISON: CT lumbar spine June 15, 2022, MRI thoracic spine 12/31/2019 TECHNIQUE: Multiplanar multisequence MRI of the thoracic spine was obtained without the use of IV con trast. A dose lowering technique was used consistent with the principals of CANDE. FINDINGS: Motion degraded exam. Prostamegaly. No gross abnormality identified on the airport skilled maintenance supervisor localizer images. Po sterior interbody ken and screw fusion hardware extends from T10-S1. Artifact in conjunction with the aforementioned motion artifact limits evaluation of these levels. The subacute fractures in the post erior aspect of the T10 vertebral body extending into the pedicles and left T10 facet is also not wel l visualized. There is apparent marrow edema involving the T9-T11 vertebral bodies. Trace prevertebra l edema is noted at T10-T12. Trace fluid signal within within the posterior aspect of the T10-T11 int ervertebral disc space. Signal within the visualized thoracic spinal cord appears normal. Moderate multilevel intervertebral disc space narrowing and spondylitic spurring with small annular disc bulges throughout the thoracic spine along with moderate facet arthrosis. Mild central canal stenosis at T5-T6, AP dimension of the thecal sac measuring 8 mm. Mild associated neural foraminal narrowing at this interspace. No high-gra de central canal or neural foraminal narrowing identified. IMPRESSION: 1. Posterior interbody ken and screw fusion hardware redemonstrated at T10-S1. Artifact due to the fuentes rdware and also secondary to motion limits the study. 2. Trace fluid signal within the posterior aspect of the T10-T11 intervertebral disc space is noted i n conjunction with nonspecific marrow edema at T9-T11 with trace prevertebral edema at the levels. Co rrelate clinically to exclude discitis/osteomyelitis. 3. The subacute fracture within the posterior aspect of the T10 vertebral body extending into the ped icles and left T10 facet are not well visualized. Please refer to the 06/15/2022 CT lumbar spine study . 4. Discogenic degeneration with spondylitic spurring and facet arthrosis. No high-grade central canal or neural foraminal narrowing of the thoracic spinal cord identified. 4. Mild central canal stenosis at T5-T6. ACT 112: Negative or not required by law. The above report was generated using voice recognition software. It may contain grammatical, syntax o r spelling errors. Electronically signed by: Mati Chen M.D. 06/16/2022 1:45 PM
[2022-06-16] MEDS: traMADol HCL 50 MG TABLET PO PRN (14:07)
[2022-06-16] MEDS: cefTRIAXone SODIUM 2,000 MG in DEXTROSE 5% 50 ML IV SCH (14:25)
--- NOTE | 2022-06-16 14:47 | Pharmacy Report ---
Pharmacy Glycemic Short Note 2 - Date of Service June 16, 2022 - Glycemic Short BSG Results (Last 24 hours): 06/15/22 06/16/22 06/16/22 20:00 06:59 07:10 Glucose 116 H POC Glucose 145 H 120 H 06/16/22 11:48 Glucose POC Glucose 130 H OUTPATIENT ANTIDIABETIC REGIMEN: * metformin * A1c 6.8% ASSESSMENT: * 76 year old presenting with lower extremity weakness. Pharmacy consulted for glycemic management. Patient only on metformin at home. Plan to start novolog stress of 2 for now PLAN FOR INPATIENT GLYCEMIC CONTROL: * Hold outpatient oral diabetes medications * Basal insulin * Lantus - hold * Bolus insulin * NovoLog per scale ACHS or Q6hrs while NPO * Goal Range: Low 110 mg/dL - High 140 mg/dL * Correction Factor: 25 mg/dL/unit * Nutritional / Prandial insulin per carb ratio of 1 unit per 9 grams CHO consumed
[2022-06-17] MEDS: traMADol HCL 50 MG TABLET PO PRN ×3 (06:04→20:54)
[2022-06-17] MEDS: METOPROLOL TARTRATE 50 MG TAB PO SCH ×2 (09:48→20:48)
[2022-06-17] MEDS: PYRIDOXINE HCL 50 MG TAB PO SCH (09:50)
[2022-06-17] MEDS: ALFUZOSIN HCL 10 MG TAB PO SCH (09:51)
[2022-06-17] MEDS: GABAPENTIN 100 MG CAP PO SCH ×3 (09:51→20:47)
[2022-06-17] MEDS: OXYBUTYNIN CHLORIDE XL 5 MG TABCR PO SCH (09:52)
[2022-06-17] MEDS: MULTIVITAMIN TAB PO SCH (09:52)
[2022-06-17] MEDS: ENALAPRIL MALEATE 10 MG TAB PO SCH (09:52)
[2022-06-17] MEDS: CHOLECALCIFEROL 1,000 UNITS 25 MCG TAB PO SCH (09:52)
[2022-06-17] MEDS: ASPIRIN 81 MG ECTAB PO SCH (09:53)
[2022-06-17] MEDS: INSULIN ASPART PER UNIT SC SCH ×4 (10:38→20:42)
[2022-06-17] MEDS: D5W AND NSS 1,000 ML IV SCH ×2 (10:45→19:41)
[2022-06-17] MEDS ORDERED: MIDAZOLAM HCL 1 MG/ML 2ML VIAL ONE (11:33)
[2022-06-17] MEDS ORDERED: fentaNYL citrate 100 MCG/2 ML VIAL ONE ×2 (11:33→15:07)
[2022-06-17] MEDS ORDERED: KETAMINE 50 MG/5 ML SYRINGE ONE (11:33)
[2022-06-17] MEDS ORDERED: ROCURONIUM BROMIDE 10 MG/ML 5 ML VIAL IV ONE ×3 (11:48→15:09)
[2022-06-17] MEDS ORDERED: ONDANSETRON INJ 2 MG/ML 2 ML VIAL ONE (11:48)
[2022-06-17] MEDS ORDERED: DEXAMETHASONE SOD INJ 4 MG/ML VIAL ONE (11:48)
[2022-06-17] MEDS ORDERED: LIDOCAINE 2% MPF LOCAL 5 ML VIAL INFIL ONE (11:48)
--- NOTE | 2022-06-17 12:48 | History & Physical Bridge Note ---
Date of Service June 17, 2022 History & Physical Bridge Note I have examined the patient, reviewed the History & Physical and in the interval since the performance of the History & Physical I have noted the following changes of clinical significance: no changes noted Thoracic decompression fusion T8-T10 possible hardware removal
--- NOTE | 2022-06-17 12:58 | Anesthesiology Consultation ---
Date of Service June 17, 2022 Assessment & Plan ASA ASA3 Proposed Anesthesia Anesthesia Type: General Risk / Benefits Reviewed With: PT / POA / Parent / Guardian, Accepts Plan and Informed Consent Obtained History Surgery Operation Date: 06/17/22 11:55 Proposed Procedures p T8-T10 Decompression and Fusion, Spinal Cord Monitoring - Fernando Alcala DO Height/Weight Height: 5 ft 10 in Weight: 83.2 kg Allergies Allergy/AdvReac Type Severity Reaction Status Date / Time Sulfa (Sulfonamide Allergy Intermediate RASH Verified 06/15/22 15:04 Antibiotics) hydrocodone AdvReac Intermediate Hallucinati Verified 06/15/22 15:04 ng oxycodone AdvReac Intermediate Hallucinati Verified 06/15/22 15:04 ng Medications Home Medications Medication Instructions Recorded Confirmed Last Taken atorvastatin 20 mg tablet 20 mg PO PM 01/10/20 06/15/22 09/20/21 18:00 enalapril maleate 20 mg tablet 20 mg PO QAM 01/10/20 06/15/22 09/21/21 06:00 metoprolol tartrate 50 mg tablet 50 mg PO BID 01/10/20 06/15/22 09/20/21 18:00 multivitamin 1 tab PO QAM 01/10/20 06/15/22 09/20/21 06:00 naproxen sodium 220 mg capsule 440 - 660 mg PO BID PRN Pain 01/10/20 06/15/22 01/22/20 (Aleve) aspirin 81 mg capsule 81 mg PO QAM 09/15/21 06/15/22 09/15/21 06:00 cholecalciferol (vitamin D3) 25 25 mcg PO QAM 09/15/21 06/15/22 09/21/21 06:00 mcg (1,000 unit) tablet (Vitamin D3) clonazepam 1 mg tablet 1.5 mg PO HS PRN Anxiety 09/15/21 06/15/22 Unknown gabapentin 100 mg capsule 200 mg PO TID 09/15/21 06/15/22 09/20/21 18:00 hqrmzhci-ohb-uypwwi 5 mg-zeaxanth 1 cap PO QAM 09/15/21 06/15/22 09/20/21 08:00 1 mg-bilberry 7.5 mg-herbal capsule ([employer] Formula) pyridoxine (vitamin B6) 100 mg 100 mg PO QAM 09/15/21 06/15/22 09/21/21 06:00 tablet (Vitamin B-6) alfuzosin 10 mg tablet,extended 10 mg PO DAILY #90 tabs 10/25/21 06/15/22 Unknown release 24 hr oxybutynin chloride 5 mg 5 mg PO DAILY #90 tabs 11/29/21 06/15/22 Unknown tablet,extended release 24 hr metformin 500 mg tablet,extended 500 mg PO BID 06/15/22 06/15/22 Unknown release 24 hr Active Medications Generic Name Dose Route Start Last Admin Trade Name Freq PRN Reason Stop Dose Admin Acetaminophen 650 mg 06/15/22 13:49 06/16/22 08:53 Acetaminophen 325 Mg Tab PO 07/15/22 13:48 650 mg Q4H PRN Administration Pain or Fever Alfuzosin HCl 10 mg 06/16/22 09:00 06/17/22 09:51 Alfuzosin Hcl 10 Mg Tab PO 07/16/22 08:59 10 mg DAILY RANDELL Administration Aspirin 81 mg 06/16/22 09:00 06/17/22 09:53 Aspirin 81 Mg Ectab PO 07/16/22 08:59 81 mg QAM RANDELL Administration Atorvastatin Calcium 20 mg 06/15/22 21:00 06/16/22 20:51 Atorvastatin 20 Mg Tab PO 07/15/22 20:59 20 mg PM RANDELL Administration Enalapril Maleate 20 mg 06/16/22 09:00 06/17/22 09:52 Enalapril Maleate 10 Mg Tab PO 07/16/22 08:59 20 mg QAM RANDELL Administration Gabapentin 200 mg 06/15/22 21:00 06/17/22 09:51 Gabapentin 100 Mg Cap PO 07/15/22 20:59 200 mg TID RANDELL Administration Ceftriaxone Sodium 2,000 mg/ 70 mls @ 100 mls/hr 06/16/22 14:00 06/16/22 15:03 Dextrose IV 06/21/22 13:59 Infused Q24H RANDELL Infusion Protocol Dextrose/Sodium Chloride 1,000 mls @ 60 mls/hr 06/17/22 10:00 06/17/22 10:45 D5w And Nss IV 07/17/22 09:59 60 mls/hr .[id number] RANDELL Administration Insulin Aspart 0 units 06/15/22 21:00 06/17/22 12:37 Insulin Aspart Per Unit SC 07/15/22 20:59 Not Given ACHS RANDELL Metoprolol Tartrate 50 mg 06/15/22 21:00 06/17/22 09:48 Metoprolol Tartrate 50 Mg Tab PO 07/15/22 20:59 Not Given BID RANDELL Multivitamins 1 tab 06/16/22 09:00 06/17/22 09:52 Multivitamin Tab PO 07/16/22 08:59 1 tab QAM RANDELL Administration Oxybutynin Chloride 5 mg 06/16/22 09:00 06/17/22 09:52 Oxybutynin Chloride Xl 5 Mg Tabcr PO 07/16/22 08:59 5 mg DAILY RANDELL Administration Pyridoxine HCl 100 mg 06/16/22 09:00 06/17/22 09:50 Pyridoxine Hcl 50 Mg Tab PO 07/16/22 08:59 100 mg QAM RANDELL Administration Tramadol HCl 25 mg 06/16/22 10:03 06/17/22 09:47 Tramadol Hcl 50 Mg Tablet PO 07/16/22 10:02 25 mg Q6H PRN Administration moderate to severe pain Vitamin D 1,000 units 06/16/22 09:00 06/17/22 09:52 Cholecalciferol 1,000 Units 25 Mcg Tab PO 07/16/22 08:59 1,000 units QAM RANDELL Administration NPO Date Last Intake of Fluids: 06/16/22 Time Last Intake of Fluids: 22:30 Last Intake of Fluids Comment: 0900 sips with meds Date Last Intake of Solids: 06/16/22 Time Last Intake of Solids: 18:00 Past Medical History Medical History BPH (benign prostatic hypertrophy) Cataracts, bilateral Chronic back pain CKD (chronic kidney disease), stage II per records Diabetes mellitus, type 2 NIDDM Hyperlipidemia Hypertension Normal pressure hydrocephalus s/p EDGE STAINER MACHINE shunt (08/2018); under surveillance by neurosurgery Snores Spinal stenosis Urinary bladder incontinence at HS Urinary tract infection Exercise / Class Metabolic Activity II 4-5 Yardwork/Stairs/Walk up hill Past Family History Family History Father Gastric cancer Son Family history of diabetes mellitus Other Diabetes Past Surgical History Surgical History H/O wrist surgery left History of back surgery X 2 > lumbar and S1 History of colonoscopy History of dental surgery Hx of hernia repair S/P EDGE STAINER MACHINE shunt 08/2018 > will provide card with info dos Past Anesthesia History No Hx of Anesthesia Complications and No Family Hx of Anesthesia Complications History of PONV No Hx of PONV and No Hx of Motion Sickness Social History Smoking Status: Former smoker tobacco type: smokeless tobacco Do You Dip or Chew Tobacco: Yes Hx Alcohol Use: No Alcohol type: beer alcohol intake frequency: holidays/special occasions only Hx Substance Use: No substance use type: does not use Review of Systems denies fever/cough/ colds/ chest pain/ SOB/ FRANCESCO denies FRANCESCO Physical Exam Vital Signs Last Vital Signs Temp 36.8 C 06/17/22 11:21 Pulse 62 06/17/22 11:21 Resp 18 06/17/22 11:21 BP 146/80 H 06/17/22 11:21 Pulse Ox 98 06/17/22 11:21 O2 Del Method 06/17/22 11:21 ENMT Mouth: + dentures; no TMJ abnormality and no dentition abnormality Thyromental Distance: > or= 3.5 Finger Breadths Mallampati Class: II Neck neck extension not limited Respiratory normal respiratory effort; no respiratory distress Auscultation: lungs clear to auscultation bilaterally Cardiovascular Rate/Rhythm: regular rate and regular rhythm Neurologic moves all extremities Psychiatric Orientation: alert and oriented x 3 Testing Laboratory Results 06/16/22 06:59 06/16/22 06:59 PT 11.8 Seconds (9.0-12.0) 06/15/22 10:45 INR 1.1 (0.9-1.1) 06/15/22 10:45 APTT 27.9 Seconds (21.0-31.0) 06/16/22 06:59 Hemoglobin A1c 6.8 % (4.5-5.6) H 06/16/22 06:59 Urine Color Yellow 06/15/22 10:45 Urine Appearance Clear (Clear) 06/15/22 10:45 Urine pH 5.0 (4.5-7.5) 06/15/22 10:45 Ur Specific [place] 1.014 (1.000-1.030) 06/15/22 10:45 Urine Protein Negative (Negative) 06/15/22 10:45 Urine Glucose (UA) Negative (Negative) 06/15/22 10:45 Urine Ketones Negative (Negative) 06/15/22 10:45 Urine Nitrite Positive (Negative) A 06/15/22 10:45 Ur Leukocyte Esterase 3+ (Negative) H 06/15/22 10:45 Urine WBC (Auto) >30 /hpf (0-5) H 06/15/22 10:45 Urine RBC (Auto) 0-4 /hpf (0-4) 06/15/22 10:45 U Hyaline Cast (Auto) 1-5 /lpf (0-5) 06/15/22 10:45 U Epithel Cells (Auto) 0-5 /lpf (0-5) 06/15/22 10:45 Urine Bacteria (Auto) 2+ (Negative) H 06/15/22 10:45 Blood Type AB Positive 06/17/22 06:04 Antibody Screen NEGATIVE 06/17/22 06:04 06/16/22 13:04 Urine Culture - Preliminary Urine,Clean Catch No growth - Less than 1,000 colonies/mL, Final report to follow. 06/15/22 13:55 Aerobic Blood Culture - Preliminary Blood No growth in Aerobic bottle after 24 hours. Anaerobic Blood Culture - Preliminary No growth in Anaerobic bottle after 24 hours. 06/15/22 13:56 Aerobic Blood Culture - Preliminary Blood No growth in Aerobic bottle after 24 hours. Anaerobic Blood Culture - Preliminary No growth in Anaerobic bottle after 24 hours. 06/17/22 06/17/22 11:09 07:17 POC Glucose 121 H 116 H
[2022-06-17] MEDS ORDERED: fentaNYL citrate 100 MCG/2 ML VIAL IV PRN (12:59)
[2022-06-17] MEDS ORDERED: ONDANSETRON INJ 2 MG/ML 2 ML VIAL IV PRN (12:59)
[2022-06-17] MEDS ORDERED: ATROPINE SULFATE 0.1 MG/ML 10ML SYR IV PRN (12:59)
[2022-06-17] MEDS ORDERED: ePHEDrine sulfate 50 MG/ML AMP IV PRN (12:59)
[2022-06-17] MEDS ORDERED: HYDROmorphone INJ 2 MG/ML SYR/VIAL IV PRN (12:59)
[2022-06-17] MEDS ORDERED: GENTAMICIN SULFATE 40 MG/ML 2 ML VIAL ONE (13:13)
[2022-06-17] MEDS ORDERED: ceFAZolin 330 MG/ML 1 GM VIAL ONE (13:13)
[2022-06-17] MEDS ORDERED: VANCOMYCIN HCL 1000MG/20ML VIAL ONE (13:13)
[2022-06-17] MEDS ORDERED: BUPIVACAINE/EPINEPHRINE 0.25% 1:200,000 30 ML VIAL ONE (13:13)
--- NOTE | 2022-06-17 13:20 | Pharmacy Report ---
Pharmacy Glycemic Short Note 2 - Date of Service June 17, 2022 - Glycemic Short BSG Results (Last 24 hours): 06/16/22 06/16/22 06/17/22 16:28 20:15 07:17 POC Glucose 126 H 137 H 116 H 06/17/22 11:09 POC Glucose 121 H OUTPATIENT ANTIDIABETIC REGIMEN: * metformin * A1c 6.8% ASSESSMENT: 06/17 * Patient received 6 units of insulin yesterday * BSGs stable, patient going to OR today for spinal procedure - fasting BSG 116 mg/dL * Pulled steroids in OR during surgery, therefore anticipate steroid induced hyperglycemia - will add small scale for Lantus at dinner in case BSGs are rising * Will tighten CF/CR with steroids 06/16 * 76 year old presenting with lower extremity weakness. Pharmacy consulted for glycemic management. Patient only on metformin at home. Plan to start novolog stress of 2 for now PLAN FOR INPATIENT GLYCEMIC CONTROL: * Hold outpatient oral diabetes medications * Basal insulin * Lantus - 10-15 units today at dinner based upon BSG value * Bolus insulin * NovoLog per scale ACHS or Q6hrs while NPO * Goal Range: Low 110 mg/dL - High 140 mg/dL * Correction Factor: 20 mg/dL/unit * Nutritional / Prandial insulin per carb ratio of 1 unit per 7 grams CHO consumed
[2022-06-17] MEDS: cefTRIAXone SODIUM 2,000 MG in DEXTROSE 5% 50 ML IV SCH (13:34)
[2022-06-17] MEDS ORDERED: ePHEDrine sulfate 50 MG/ML AMP ONE (14:28)
--- NOTE | 2022-06-17 14:30 | Hospitalist Progress Note ---
Date of Service June 17, 2022 Assessment & Plan (1) Urinary tract infection: (2) Weakness: (3) Normal pressure hydrocephalus: (4) Spinal stenosis: (5) Hypertension: (6) Diabetes mellitus, type 2: (7) Hyperlipidemia: (8) BPH (benign prostatic hypertrophy): Plan per admitting service notes with addendum: 76-year-old presented with progressive lower extremity weakness bilaterally. Progressively worsening over the past 3 weeks despite use of a walker. He reports that the floor feels rubbery underneath him and there is a disconnect between his brain and his legs. Lumbar spine CT T10 vertebral body concerning for developing discitis or osteomyelitis; T10 subacute fracture. Head CT negative for anything progressing from a hydrocephalus perspective. N.p.o. for now. Bilateral Leg Weakness Spinal stenosis: Status post decompression and fusion surgery with Dr. Alcala August 2021 2 additional back surgeries under the care of Dr. Alcala. Has been seen outpatient with Ortho PT recommended and recently started. Cervical/spine x-ray pending Lumbar Spine CT: T10 vertebral body is concerning for infection and could represent a developing discitis/osteomyelitis. T10 vertebral body is concerning for infection and could represent a developing discitis/osteomyelitis. Takes Gabapentin Ortho consult placed NPO for now; not on any anticoagulation 06/17 MRI thoracic spine: 1. Posterior interbody ken and screw fusion hardware redemonstrated at T10-S1. Artifact due to the hardware and also secondary to motion limits the study. 2. Trace fluid signal within the posterior aspect of the T10-T11 intervertebral disc space is noted in conjunction with nonspecific marrow edema at T9-T11 with trace prevertebral edema at the levels. Correlate clinically to exclude discitis/osteomyelitis. 3. The subacute fracture within the posterior aspect of the T10 vertebral body extending into the pedicles and left T10 facet are not well visualized. Please refer to the 06/15/2022 CT lumbar spine study. 4. Discogenic degeneration with spondylitic spurring and facet arthrosis. No high-grade central canal or neural foraminal narrowing of the thoracic spinal cord identified. 4. Mild central canal stenosis at T5-T6. Discussed with Dr. Alcala, recommending decompression at T10 level, will proceed today Patient and family agreeable Discussed with neurologist, NPH stable, no urgent interventions at this point according to Dr. Teran Normal pressure hydrocephalus: Status post ROLL ON WORKER shunt [address]: Ventriculomegaly 5 cm unchanged from previous scan 08/2021.negative for hemorrhage, midline shift, mass Skull x-ray : 1. There is a right posterior ventriculostomy catheter which terminates near the midline. There is a small focal kink as it enters the calvarium without evidence for a fracture. 2. Otherwise, the shunt catheter appears intact. Rule out urinary tract infection: Weakness: Frequent UTIs; just finished Duricef as outpatient UA: Positive nitrates and urine WBC greater than 30 LE 3+ Abdomen/pelvis CT with contrast noted Ceftriaxone started; continue for now; reevaluate based on blood cultures and or further interventions from an Ortho perspective. 06/17 CT abd/pendin. No bowel obstruction. No bowel wall thickening. 2. Mildly distended bladder. No hydronephrosis. No urinary calculi. Urine culture: pending on Ceftriaxone IV Day 3 Hypertension: Takes enalapril and metoprolol; continue Slightly elevated Monitor Diabetes mellitus type 2: [id number] 02/10 A1c: 7.3 ACHS FSBS and SSI Hold metformin Hyperlipidemia: Takes atorvastatin; continue Lipid panel today triglyceride 54, LDL 34, HDL 39. BPH: Wears a brief at baseline; urinary incontinence Takes Ditropan and alfuzosin; continue will consult Urology service Disposition: PCP: Dr. Kruse CODE STATUS: Full code VTE prophylaxis: Teds/SCDs for now Disposition will need PT/OT eval plan of care discussed with patient and his family in detail and at length all questions answered they are understanding, agreeable, comfortable with the plan of care Admission and Anticipated Discharge Date Admission Date: June 15, 2022 Subjective Follow-up for bilateral lower extremity weakness, ambulatory dysfunction, etc. Patient seen and examined at bedside, with patient's family Tila and son met with the bedside Patient reports he feels about the same as yesterday, lower extremity still feels weak Denies abdominal pain, nausea vomiting, fevers or chills, problems with urination today Does admit chronic feeling of incomplete voiding, dribbling, urgency especially towards the end of last year No other symptoms Review of Systems Review of Systems: all noted and negative except for above Physical Exam Physical Exam: General- oriented x 3, not in distress, speaks in sentences with no effort or accessory muscle use Eyes- anicteric Neck- no JVD Lungs- clear BS bilaterally, no crackles, no wheezing Heart- normal rate, regular rhythm; no murmurs Abdomen- normal bowel sounds, nondistended, soft, nontender Extremities- no pretibial edema, no calf tenderness Neuro- alert, oriented x 3; no gross focal neurologic deficits Lower extremity 5/5 motor strength, her present sensation Skin- warm & dry Results & Data Results & Data ([facility]) Vital Signs (Past 12 Hours) Vital Signs Temp Pulse Pulse Pulse Resp BP BP 06/17/22 11:21 36.8 C 62 18 146/80 H 06/17/22 10:23 36.6 C 62 17 157/88 H 06/17/22 07:43 60 06/17/22 06:45 36.7 C 58 L 18 152/89 H 06/17/22 04:08 36.7 C 60 18 142/80 H Pulse Ox O2 Del Method 06/17/22 11:21 98 Room Air 06/17/22 10:23 96 Room Air 06/17/22 07:43 06/17/22 06:45 98 Room Air 06/17/22 04:08 96 Room Air all noted and reviewed including below
[2022-06-17] MEDS ORDERED: FLOSEAL HEMOSTATIC MATRIX 10ML TOP ONE (14:51)
[2022-06-17] MEDS ORDERED: NEOSTIGMINE METHYLSULFATE 1 MG/ML 10ML VIAL ONE (15:25)
[2022-06-17] MEDS ORDERED: GLYCOPYRROLATE 0.2 MG/ML VIAL ONE (15:25)
[2022-06-17] MEDS ORDERED: IOPAMIDOL INJ 61% 15 ML VIAL INSTIL ONE (15:34)
--- NOTE | 2022-06-17 16:16 | Operative Report ---
Post Operative Report Pre & Post Diagnosis Operation Date: 06/17/22 11:55 Pre-Op Diagnosis: T10 burst fracture with spinal stenosis and myelopathy. Nonunion T10-T11 fusion Post-Op Diagnosis: Same I identified the patient and participated in the time-out.: Yes Procedure Operation Date: 06/17/22 11:55 Actual Procedures #1 removal of hardware T10-L1. #2 exploration of fusion T10-L1. #3 revision decompression with medial facetectomies and foraminotomies T10-T11. #4 posterior spinal fusion T8-T11. #5 placement posterior segmental instrumentation T8-L1 with barrel connectors. #6 interbody fusion T10-T11. #7 placement of Spira 8 x 22 mm cage at T10-T11. #8 kyphoplasty of T8 and T9. #9 placement of infuse collagen sponge, and V toss in the posterior gutters and I factor combined with V toss interbody space. #10 placement locally harvested morselized autograft in the posterior gutters. Surgeon Fernando Alcala, DO [employer] Systems Architect Shankar Harris Estimated Blood Loss 200 Findings Consistent with Post-Op Diagnosis Specimens Cultures of T10 Indications This is a 76-year-old male who presents above-mentioned diagnosis and subsequently underwent urgent stabilization and decompression of the fracture to prevent progressive myelopathy. Description of Procedure Patient was met with identified informed consent obtained. Patient was then taken to the operative suite underwent a patient placed in the prone position on the Luan table top of the Sanya frame. All bony prominences well-padded eyes inspected to ensure no external pressure placed upon the. This point the thoracolumbar spine was prepped and draped no sterile fashion. Sharp dissection with the assistance of Bovie cautery was performed down to and exposing the lamina and transverse processes of T8-T9 and the instrumentation from T10-L1 including the barrel connectors. The hardware was then removed there was gross loosening of the T10 pedicles screws as well as the T12 screws. Released the barrels of the rods were removed without difficulty. I then performed a revision decompression medial facetectomies and foraminotomies at T10-T11 including complete facetectomy on the left to expose a compressed exiting T10 nerve root. After this was complete pedicle screws were placed in T9-T10 T12 and L1 bilaterally with assistance of fluoroscopy. I then used a gearshift to create channels in the pedicles of T8-T9 bilaterally for pedicle screws. Prior to placing the screws Kyphon 15 mm balloons were inserted in the vertebral bodies and sequentially inflated with fluoroscopic visualization. These were removed and cement was injected approximately 3 cc into both T8 and T9 demonstrating excellent interdigitation and fill. Then followed this by placing the pedicle screws at T8 and T9 bilaterally for additional fixation and stabilization of these levels. By way of a transit foraminal extraforaminal approach at T10-T11 on the left a complete discectomy was performed endplates curetted to subcortical bleeding bone and a 8 x 22 mm spiral cage filled with I factor tapped in position. Proper size rods were then contoured and locked in place bilaterally. Locally harvested morselized autograft combined with infuse and V toss was placed in the posterior gutters from T8-T11 15 round CLAUDIA drain inserted. The incision was then closed with 1 Vicryl the fascia 2-0 Vicryl subcutaneously and 4 Monocryl for fascial closure. Steri-Strip sterile dressings placed. Patient waken taken to PACU stable condition. Please note spinal cord monitoring was utilized at the procedure no changes noted. Lastly Shankar Harris was present at the entire surgeon while the patient positioning complex portions of the surgery and final skin closure. I attest to the content of the Intraoperative Record and any orders documented therein. Any exceptions are noted below.
--- NOTE | 2022-06-17 16:29 | Fluoroscopy Report ---
[place] thoracic spine 2V CLINICAL HISTORY: T8-T10 DECOMPRESSION AND FUSION COMPARISON STUDY: Thoracic spine radiographs May 27, 2022 and thoracic spine MRI June 16, 2022 . FLUOROSCOPY TIME: 2 minutes and 17 seconds. EXPOSURE DOSE: 41.47 mGy FLUOROSCOPIC IMAGES: 3 FINDINGS: Multilevel spinal fusion is partially imaged. Interval T10-T11 discectomy with interbody sp acer placement as noted. T8 and T9 kyphoplasty is are noted. The fusion now begins at the T8 level. IMPRESSION: Fluoroscopy provided during thoracic spine revision surgery and multilevel kyphoplasty, as above. ACT 112: Negative or not required by law. Electronically signed by: Marcelino Agosto M.D. 06/17/2022 4:28 PM
[2022-06-17] MEDS ORDERED: ACETAMINOPHEN 1,000 MG/100 ML VIAL IV STA ×2 (17:31→17:35)
[2022-06-17] MEDS ORDERED: ACETAMINOPHEN 1000 MG/100 ML IV IV ONE (17:31)
[2022-06-17] MEDS ORDERED: LANTUS PER UNIT CHARGE SQ SCH ×2 (18:00→20:00)
--- NOTE | 2022-06-17 18:02 | Anesthesiology Progress Note ---
Date of Service June 17, 2022 Anesthesia Post Procedure Vital Signs Vital Signs: Temp Pulse Pulse Pulse Resp BP BP 06/17/22 17:55 72 15 124/72 06/17/22 17:45 71 14 129/62 06/17/22 17:35 70 12 128/81 06/17/22 17:15 71 14 140/77 06/17/22 17:05 67 11 L 135/78 06/17/22 07:30 06/17/22 17:25 36.2 C L 70 15 141/78 H 06/17/22 16:55 76 13 128/78 06/17/22 16:48 36.0 C L 85 16 113/79 06/17/22 11:21 36.8 C 62 18 146/80 H 06/17/22 10:23 36.6 C 62 17 157/88 H 06/17/22 07:43 60 06/17/22 06:45 36.7 C 58 L 18 152/89 H 06/17/22 04:08 36.7 C 60 18 142/80 H 06/17/22 00:21 79 06/16/22 22:53 37.0 C 65 18 147/80 H 06/16/22 20:40 06/16/22 19:00 36.6 C 64 18 154/87 H Pulse Ox O2 Del Method O2 Flow Rate 06/17/22 17:55 99 Room Air 06/17/22 17:45 98 Room Air 06/17/22 17:35 97 Room Air 06/17/22 17:15 100 Oxymask 5 06/17/22 17:05 100 Oxymask 7 06/17/22 07:30 Room Air 06/17/22 17:25 100 Oxymask 3 06/17/22 16:55 99 Oxymask 9 06/17/22 16:48 97 Oxymask 9 06/17/22 11:21 98 Room Air 06/17/22 10:23 96 Room Air 06/17/22 07:43 06/17/22 06:45 98 Room Air 06/17/22 04:08 96 Room Air 06/17/22 00:21 06/16/22 22:53 97 Room Air 06/16/22 20:40 Room Air 06/16/22 19:00 97 Room Air Pain Intensity Back: Pain Intensity: 4 Transfer of Care Handoff Completed per policy Notes Mental Status: alert / awake / arousable Nausea / Vomiting: adequately controlled Pain: adequately controlled Airway Patency, RR, SpO2: stable & adequate BP & HR: stable & adequate Hydration State: stable & adequate Anesthetic Complications: no major complications apparent
[2022-06-17] MEDS ORDERED: HYDROmorphone INJ 0.5 MG/0.5 ML SYR IV PRN (18:57)
[2022-06-17] MEDS: ATORVASTATIN 20 MG TAB PO SCH (20:48)
[2022-06-17] MEDS: HYDROmorphone INJ 0.5 MG/0.5 ML SYR IV PRN (22:23)
[2022-06-17] MEDS: ACETAMINOPHEN 325 MG TAB PO PRN (23:51)
[2022-06-18] MEDS ORDERED: INSULIN ASPART PER UNIT SC SCH
[2022-06-18] MEDS: traMADol HCL 50 MG TABLET PO PRN ×2 (04:39→19:17)
[2022-06-18] MEDS ORDERED: INSULIN ASPART PER UNIT SC ONE (04:45)
[2022-06-18] MEDS: INSULIN ASPART PER UNIT SC SCH ×4 (07:59→20:00)
[2022-06-18] MEDS ORDERED: LANTUS PER UNIT CHARGE SQ ONE (08:00)
[2022-06-18] MEDS: PYRIDOXINE HCL 50 MG TAB PO SCH (08:03)
[2022-06-18] MEDS: OXYBUTYNIN CHLORIDE XL 5 MG TABCR PO SCH (08:03)
[2022-06-18] MEDS: ALFUZOSIN HCL 10 MG TAB PO SCH (08:04)
[2022-06-18] MEDS: MULTIVITAMIN TAB PO SCH (08:04)
[2022-06-18] MEDS: ASPIRIN 81 MG ECTAB PO SCH (08:04)
[2022-06-18] MEDS: ENALAPRIL MALEATE 10 MG TAB PO SCH (08:04)
[2022-06-18] MEDS: CHOLECALCIFEROL 1,000 UNITS 25 MCG TAB PO SCH (08:05)
[2022-06-18] MEDS: METOPROLOL TARTRATE 50 MG TAB PO SCH ×2 (08:05→20:07)
[2022-06-18] MEDS: GABAPENTIN 100 MG CAP PO SCH ×3 (08:05→20:08)
--- NOTE | 2022-06-18 08:34 | Orthopedic Progress Note ---
Date of Service June 18, 2022 Assessment & Plan (1) Closed T10 spinal fracture with cord injury: Plan: This time we will initiate transfers bed to chair and weightbearing as tolerated. He will be a candidate for rehab hopefully next week. Admission and Anticipated Discharge Date Admission Date: June 15, 2022 Subjective Back pain is controlled he feels his leg symptoms are improved Physical Exam Physical Exam: Patient is currently seen in bed. Is alert and oriented. Has good strength testing lower extremities. Results & Data ([facility]) Vital Signs (Past 12 Hours) Vital Signs Temp Pulse Pulse Resp BP Pulse Ox O2 Del Method 06/18/22 07:08 36.6 C 63 19 124/74 98 Room Air 06/18/22 04:27 36.4 C L 57 L 18 101/62 94 Room Air 06/17/22 23:51 83 06/17/22 22:25 36.5 C 83 18 107/73 99 Room Air
[2022-06-18 08:46] LABS: Basophils # (auto) 0.01 K/uL (0-0.2); Basophils % (auto) 0.1 %; Eosinophils # (auto) 0.02 K/uL (0-0.50); Eosinophils % (auto) 0.2 %; Hematocrit (blood only) 33.3 % (42.0-52.0); Hemoglobin 11.8 g/dl (14.0-18.0); Immature Granulocytes # (auto) 0.04 K/uL (0.01-0.20); Immature Granulocytes % (auto) 0.4 %; Lymphocytes # (auto) 1.41 K/uL (1.2-3.4); Lymphocytes % (auto) 13.7 %; Mean Corpuscular Hemoglobin 33.7 pg (25.0-34.0); Mean Corpuscular Hgb Conc 35.4 g/dL (32.0-36.0); Mean Corpuscular Volume 95.1 fL (80.0-100.0); Mean Platelet Volume 9.6 fL (9.4-12.4); Monocytes # (auto) 1.38 K/uL (0.11-0.59); Monocytes % (auto) 13.4 %; Neutrophils # (auto) 7.42 K/uL (1.40-6.50); Neutrophils % (auto) 72.2 %; Platelet Count 167 K/uL (130-400); RDW Coefficient of Variation 12.9 % (11.5-14.5); RDW Standard Deviation 44.5 fL (36.4-46.3); White Blood Count 10.28 K/ul (4.8-10.8)
[2022-06-18 09:21] LABS: Calcium 8.6 mg/dl (8.5-10.1); Potassium 4.1 mmol/L (3.5-5.1)
[2022-06-18 09:27] LABS: BUN Creatinine Ratio 18.3 (10-20); Est GFR (African American) 93.4 ml/min; Est GFR (Non-African American) 80.6 ml/min
--- NOTE | 2022-06-18 09:43 | Urology Consultation ---
Date of Consultation June 18, 2022 Assessment & Plan (1) BPH (benign prostatic hypertrophy): At this point, Mr. Martin has several possible explanations for incomplete bladder emptying. He has pre-existing BPH which is managed with alfuzosin. He should continue this medication. Spinal stenosis could cause exacerbation of urinary retention, but hopefully this has been addressed with surgery. Recent anesthesia could also slow down bladder emptying. For now he is draining well with catheter. I would recommend a voiding trial once he is up and ambulatory. If he is unable to void, he could have a catheter replaced or learn CIC. We will plan to schedule follow-up as an outpatient for couple weeks. If he is still having any urinary symptoms, urodynamics could potentially be performed at that time for further evaluation. Urology will sign off for now, please call with any questions or concerns. (2) Urinary tract infection: History of Present Illness Reason for Consultation: Incomplete bladder emptying, urinary straining Attending Physician: Timothy Pascual MD History of Present Illness This is a 76-year-old male with history of BPH and lower urinary tract symptoms, previously followed by urology as an outpatient. He presented to the hospital on 06/15/2022 with progressive bilateral lower extremity weakness. He had prior episodes of spinal stenosis and was brought to the operating room on 06/17/2022 for surgical decompression of his spine. A catheter was placed. Urology was consulted for evaluation of his urinary symptoms. Today, he reports that he is feeling well and recovering reasonably well from surgery. Regarding his urinary symptoms, he has been on oxybutynin and alfuzosin per Dr. Hoyt. He has felt like these are controlling his symptoms well. He denies any sense of incomplete emptying, although was found to have an elevated PVR. He reports a couple recent urinary tract infections, but denies any recent hematuria. Lab work-up was notable for no leukocytosis (WBC 10.28). He has been mildly hyponatremic (sodium 132) other electrolytes are within normal limits. Creatinine was 0.93 on 06/10/2022. He has had mildly elevated blood glucose up to 224 recently. Urinalysis demonstrated positive nitrites, 3+ leukocyte esterase, 2+ bacteria. Urine culture demonstrated less than 1000 colonies per milliliter. A CT scan was performed of the abdomen and pelvis on 06/15/2022. I independently reviewed these images. Both kidneys are in normal position and somewhat atrophied. Both enhance symmetrically. There is mild fullness of the renal pelvis, but no apparent hydronephrosis. There is no dilation of either ureter extending down to the bladder. The bladder is enlarged with no suspicious wall thickening. The prostate appears mildly enlarged with small calcifications. Allergies Allergy/AdvReac Type Severity Reaction Status Date / Time Sulfa (Sulfonamide Allergy Intermediate RASH Verified 06/15/22 15:04 Antibiotics) hydrocodone AdvReac Intermediate Hallucinati Verified 06/15/22 15:04 ng oxycodone AdvReac Intermediate Hallucinati Verified 06/15/22 15:04 ng Home Medications Medication Instructions Recorded Confirmed Type atorvastatin 20 mg tablet 20 mg PO PM 01/10/20 06/15/22 History enalapril maleate 20 mg tablet 20 mg PO QAM 01/10/20 06/15/22 History metoprolol tartrate 50 mg tablet 50 mg PO BID 01/10/20 06/15/22 History multivitamin 1 tab PO QAM 01/10/20 06/15/22 History naproxen sodium 220 mg capsule 440 - 660 mg PO BID PRN Pain 01/10/20 06/15/22 History (Aleve) aspirin 81 mg capsule 81 mg PO QAM 09/15/21 06/15/22 History cholecalciferol (vitamin D3) 25 25 mcg PO QAM 09/15/21 06/15/22 History mcg (1,000 unit) tablet (Vitamin D3) clonazepam 1 mg tablet 1.5 mg PO HS PRN Anxiety 09/15/21 06/15/22 History gabapentin 100 mg capsule 200 mg PO TID 09/15/21 06/15/22 History yyplkfbl-bpp-djziev 5 mg-zeaxanth 1 cap PO QAM 09/15/21 06/15/22 History 1 mg-bilberry 7.5 mg-herbal capsule (Macular Health Formula) pyridoxine (vitamin B6) 100 mg 100 mg PO QAM 09/15/21 06/15/22 History tablet (Vitamin B-6) alfuzosin 10 mg tablet,extended 10 mg PO DAILY #90 tabs 10/25/21 06/15/22 Rx release 24 hr oxybutynin chloride 5 mg 5 mg PO DAILY #90 tabs 11/29/21 06/15/22 Rx tablet,extended release 24 hr metformin 500 mg tablet,extended 500 mg PO BID 06/15/22 06/15/22 History release 24 hr Patient History Medical History BPH (benign prostatic hypertrophy) Cataracts, bilateral Chronic back pain CKD (chronic kidney disease), stage II per records Diabetes mellitus, type 2 NIDDM Hyperlipidemia Hypertension Normal pressure hydrocephalus s/p PHYSICIAN RECRUITER shunt (08/2018); under surveillance by neurosurgery Snores Spinal stenosis Urinary bladder incontinence at HS Urinary tract infection Surgical History H/O wrist surgery left History of back surgery X 2 > lumbar and S1 History of colonoscopy History of dental surgery Hx of hernia repair S/P PHYSICIAN RECRUITER shunt 08/2018 > will provide card with info dos Family History Father Gastric cancer Son Family history of diabetes mellitus Other Diabetes Social History Smoking Status: Former smoker Tobacco Type: Smokeless Tobacco (Dip or Chew) Second Hand Exposure: Yes; Do You Dip or Chew Tobacco: Yes; Tobacco Cessation Education Requested by Patient: No Hx Alcohol Use: No Hx Substance Use: No Preferred Language: Khmer Communication Ability: Effective 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 Physical Exam Physical Exam: Resting in bed, NAD Constitutional: well developed and well nourished; no acute distress Eyes: + anicteric sclerae; pupils not irregular Respiratory: normal respiratory effort; no respiratory distress, does not use accessory muscles and no cough Cardiovascular: well perfused Gastrointestinal (Abdomen): Inspection/Auscultation: abdomen normal to inspection; abdomen not distended Musculoskeletal: Extremities: extremities normal to inspection Skin: normal turgor; no rashes and no lesions Neurologic: moves all extremities and awake Psychiatric: Orientation: alert and oriented x 3 Genitourinary: Mayers catheter draining clear urine Results & Data ([facility]) Vital Signs (Past 12 Hours) Vital Signs Temp Pulse Pulse Resp BP Pulse Ox O2 Del Method 06/18/22 08:00 Room Air 06/18/22 07:08 36.6 C 63 19 124/74 98 Room Air 06/18/22 04:27 36.4 C L 57 L 18 101/62 94 Room Air 06/17/22 23:51 83 06/17/22 22:25 36.5 C 83 18 107/73 99 Room Air PG Care Time/CCT Total # of Minutes Spent Total Time Spent with Patient: Total time spent is greater than 50% in coordination of care (as documented) at patient's floor/unit and/or counseling patient: Coding Level of Care Code 11099 INT INP/OBS CARE 2MIN Diagnoses BPH (benign prostatic hypertrophy) N40.0 Urinary tract infection N39.0
[2022-06-18] MEDS: ACETAMINOPHEN 325 MG TAB PO PRN (09:44)
[2022-06-18] MEDS: cefTRIAXone SODIUM 2,000 MG in DEXTROSE 5% 50 ML IV SCH (13:52)
--- NOTE | 2022-06-18 16:06 | Hospitalist Progress Note ---
Date of Service June 18, 2022 Assessment & Plan (1) Urinary tract infection: (2) Weakness: (3) Normal pressure hydrocephalus: (4) Spinal stenosis: (5) Hypertension: (6) Diabetes mellitus, type 2: (7) Hyperlipidemia: (8) BPH (benign prostatic hypertrophy): Plan per admitting service notes with addendum: 76-year-old presented with progressive lower extremity weakness bilaterally. Progressively worsening over the past 3 weeks despite use of a walker. He reports that the floor feels rubbery underneath him and there is a disconnect between his brain and his legs. Lumbar spine CT T10 vertebral body concerning for developing discitis or osteomyelitis; T10 subacute fracture. Head CT negative for anything progressing from a hydrocephalus perspective. N.p.o. for now. Bilateral Leg Weakness Spinal stenosis: Status post decompression and fusion surgery with Dr. Alcala August 2021 2 additional back surgeries under the care of Dr. Alcala. Has been seen outpatient with Ortho PT recommended and recently started. Cervical/spine x-ray pending Lumbar Spine CT: T10 vertebral body is concerning for infection and could represent a developing discitis/osteomyelitis. T10 vertebral body is concerning for infection and could represent a developing discitis/osteomyelitis. Takes Gabapentin Ortho consult placed NPO for now; not on any anticoagulation MRI thoracic spine: 1. Posterior interbody ken and screw fusion hardware redemonstrated at T10-S1. Artifact due to the hardware and also secondary to motion limits the study. 2. Trace fluid signal within the posterior aspect of the T10-T11 intervertebral disc space is noted in conjunction with nonspecific marrow edema at T9-T11 with trace prevertebral edema at the levels. Correlate clinically to exclude discitis/osteomyelitis. 3. The subacute fracture within the posterior aspect of the T10 vertebral body extending into the pedicles and left T10 facet are not well visualized. Please refer to the 06/15/2022 CT lumbar spine study. 4. Discogenic degeneration with spondylitic spurring and facet arthrosis. No high-grade central canal or neural foraminal narrowing of the thoracic spinal cord identified. 4. Mild central canal stenosis at T5-T6. 06/17 Status post decompression fusion of T 8 - T11 by Dr. Alcala next Stable overall postsurgery Continue to monitor closely PT and OT evaluation in progress Discussed with neurologist, NPH stable, no urgent interventions at this point according to Dr. Teran Normal pressure hydrocephalus: Status post [employer] shunt [address]: Ventriculomegaly 5 cm unchanged from previous scan 08/2021.negative for hemorrhage, midline shift, mass Skull x-ray : 1. There is a right posterior ventriculostomy catheter which terminates near the midline. There is a small focal kink as it enters the calvarium without evidence for a fracture. 2. Otherwise, the shunt catheter appears intact. Rule out urinary tract infection: Weakness: Frequent UTIs; just finished Duricef as outpatient UA: Positive nitrates and urine WBC greater than 30 LE 3+ Abdomen/pelvis CT with contrast noted Ceftriaxone started; continue for now; reevaluate based on blood cultures and or further interventions from an Ortho perspective. 06/17 CT abd/pendin. No bowel obstruction. No bowel wall thickening. 2. Mildly distended bladder. No hydronephrosis. No urinary calculi. Urine culture: Negative Urinalysis indicative of possible UTI Afebrile, no abdominal pain next We will continue ceftriaxone IV Day 08/24 Continue Mayers catheter Urologist consulted, maintain Mayers catheter for now, trial of voiding down the road, outpatient follow-up with urology clinic in 2 weeks to Hypertension: BP on the lower side Hold enalapril Continue metoprolol Gentle IV fluids Diabetes mellitus type 2: [id number] 02/10 A1c: 7.3 ACHS FSBS and SSI Hold metformin Hyperlipidemia: Takes atorvastatin; continue Lipid panel triglyceride 54, LDL 34, HDL 39. BPH: Wears a brief at baseline; urinary incontinence Takes Ditropan and alfuzosin; continue Urologist consulted Disposition: PCP: Dr. Kruse CODE STATUS: Full code VTE prophylaxis: Heparin or Lovenox once okay with surgical service Disposition PT and OT evaluation from plan of care discussed with patient and his in detail and at length all questions answered they are understanding, agreeable, comfortable with the plan of care Admission and Anticipated Discharge Date Admission Date: June 15, 2022 Subjective Follow-up for status post thoracic spine surgery, possible UTI, etc. Seen resting in bed, sleeping but easily awakened Patient's at the bedside visiting Patient is awake and alert, oriented, conversant States he feels tired, but otherwise feels okay Minimal discomfort over the surgical site No abdominal pain nausea vomiting, fevers or chills, cough, shortness of breath No other symptoms Review of Systems Review of Systems: all noted and negative except for above Physical Exam Physical Exam: General- oriented x 3, not in distress, speaks in sentences with no effort or accessory muscle use Head-small abrasion noted on the right frontoparietal aspect, no active bleeding, no signs of hematoma to indicate trauma Eyes- anicteric Neck- no JVD Lungs- clear BS bilaterally, no rales/wheezes Heart- normal rate, regular rhythm; no murmurs Abdomen- normal bowel sounds, nondistended, soft, no tenderness Extremities- no pretibial edema, no calf tenderness Mayers catheter in place-draining yellow urine Neuro- alert, oriented x 3; no gross focal neurologic deficits Skin- warm & dry Results & Data Results & Data ([facility]) Vital Signs (Past 12 Hours) Vital Signs Temp Pulse Resp BP Pulse Ox O2 Del Method 06/18/22 15:24 36.7 C 74 19 96/57 L 95 Room Air 06/18/22 12:10 36.7 C 55 L 19 96/53 L 96 Room Air 06/18/22 08:00 Room Air 06/18/22 07:08 36.6 C 63 19 124/74 98 Room Air 06/18/22 04:27 36.4 C L 57 L 18 101/62 94 Room Air all noted and reviewed including below
[2022-06-18] MEDS: SODIUM CHLORIDE 0.9% 1000ML 1,000 ML IV SCH (17:20)
[2022-06-18] MEDS: ATORVASTATIN 20 MG TAB PO SCH (20:06)
[2022-06-18] MEDS: HYDROmorphone INJ 0.5 MG/0.5 ML SYR IV PRN (22:28)
[2022-06-19] MEDS: HYDROmorphone INJ 0.5 MG/0.5 ML SYR IV PRN (04:25)
[2022-06-19] MEDS: SODIUM CHLORIDE 0.9% 1000ML 1,000 ML IV SCH ×2 (06:30→21:28)
[2022-06-19] MEDS: ACETAMINOPHEN 325 MG TAB PO PRN ×3 (07:56→23:55)
[2022-06-19 08:10] LABS: Basophils # (auto) 0.02 K/uL (0-0.2); Basophils % (auto) 0.2 %; Eosinophils # (auto) 0.18 K/uL (0-0.50); Eosinophils % (auto) 1.9 %; Hematocrit (blood only) 29.8 % (42.0-52.0); Hemoglobin 10.7 g/dl (14.0-18.0); Immature Granulocytes # (auto) 0.15 K/uL (0.01-0.20); Immature Granulocytes % (auto) 1.6 %; Lymphocytes # (auto) 2.35 K/uL (1.2-3.4); Lymphocytes % (auto) 24.8 %; Mean Corpuscular Hemoglobin 33.6 pg (25.0-34.0); Mean Corpuscular Hgb Conc 35.9 g/dL (32.0-36.0); Mean Corpuscular Volume 93.7 fL (80.0-100.0); Mean Platelet Volume 9.7 fL (9.4-12.4); Monocytes # (auto) 1.64 K/uL (0.11-0.59); Monocytes % (auto) 17.3 %; Neutrophils # (auto) 5.15 K/uL (1.40-6.50); Neutrophils % (auto) 54.2 %; Platelet Count 158 K/uL (130-400); RDW Coefficient of Variation 12.6 % (11.5-14.5); RDW Standard Deviation 43.6 fL (36.4-46.3); Red Blood Count 3.18 M/uL (4.70-6.10); White Blood Count 9.49 K/ul (4.8-10.8)
[2022-06-19] MEDS: GABAPENTIN 100 MG CAP PO SCH ×3 (08:43→19:32)
[2022-06-19] MEDS: INSULIN ASPART PER UNIT SC SCH ×4 (08:43→20:49)
[2022-06-19] MEDS: ASPIRIN 81 MG ECTAB PO SCH (08:44)
[2022-06-19] MEDS: ALFUZOSIN HCL 10 MG TAB PO SCH (08:44)
[2022-06-19] MEDS: METOPROLOL TARTRATE 50 MG TAB PO SCH ×2 (08:44→19:33)
[2022-06-19] MEDS: OXYBUTYNIN CHLORIDE XL 5 MG TABCR PO SCH (08:44)
[2022-06-19] MEDS: PYRIDOXINE HCL 50 MG TAB PO SCH (08:44)
[2022-06-19] MEDS: MULTIVITAMIN TAB PO SCH (08:44)
[2022-06-19] MEDS: CHOLECALCIFEROL 1,000 UNITS 25 MCG TAB PO SCH (08:45)
--- NOTE | 2022-06-19 10:35 | Pharmacy Report ---
Pharmacy Glycemic Short Note 2 - Date of Service June 19, 2022 - Glycemic Short BSG Results (Last 24 hours): 06/18/22 06/18/22 06/18/22 11:18 16:09 19:53 POC Glucose 156 H 142 H 160 H 06/19/22 07:27 POC Glucose 119 H OUTPATIENT ANTIDIABETIC REGIMEN: * metformin * A1c 6.8% ASSESSMENT: 06/19/22 * BSGS yesterday were [phone] mg/dL. Patient received 35 units of insulin (Lantus 10 units + 25 units of bolus). * Initially BSGs elevated in morning due to D5NS @ 60 mL/hr + dexamethasone 8 mg IV given intraop. * Today's fasting is 119 mg/dL. * Will hold off on Lantus as before surgery patient did not require. * Tighten Novolog slightly since Lantus not being given. 06/17 * Patient received 6 units of insulin yesterday * BSGs stable, patient going to OR today for spinal procedure - fasting BSG 116 mg/dL * Pulled steroids in OR during surgery, therefore anticipate steroid induced hyperglycemia - will add small scale for Lantus at dinner in case BSGs are rising * Will tighten CF/CR with steroids 06/16 * 76 year old presenting with lower extremity weakness. Pharmacy consulted for glycemic management. Patient only on metformin at home. Plan to start novolog stress of 2 for now PLAN FOR INPATIENT GLYCEMIC CONTROL: * Hold outpatient oral diabetes medications * Basal insulin * Lantus - hold * Bolus insulin * NovoLog per scale ACHS or Q6hrs while NPO * Goal Range: Low 110 mg/dL - High 140 mg/dL * Correction Factor: 25 mg/dL/unit * Nutritional / Prandial insulin per carb ratio of 1 unit per 7 grams CHO consumed
[2022-06-19 11:17] LABS: BUN Creatinine Ratio 14.5 (10-20); Calcium 8.5 mg/dl (8.5-10.1); Creatinine Clr Calc Pharmacy 80.6 ml/min; Est GFR (African American) 100.5 ml/min; Est GFR (Non-African American) 86.7 ml/min; Potassium 4.3 mmol/L (3.5-5.1)
--- NOTE | 2022-06-19 11:17 | Orthopedic Progress Note ---
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 Admission and Anticipated Discharge Date Admission Date: June 15, 2022 Subjective Patient states his pain is controlled today. He feels more confident with his lower extremities. Physical Exam Physical Exam: Exam visible comfortable. Is regional strength testing extremities. Results & Data ([facility]) Vital Signs (Past 12 Hours) Vital Signs Temp Pulse Resp BP Pulse Ox O2 Del Method 06/19/22 06:41 37.1 C 66 18 107/66 94 Room Air 06/19/22 03:45 37.0 C 66 17 117/67 96 Room Air
[2022-06-19] MEDS: POLYETHYLENE (MIRALAX) 17 GM PACK PO SCH (12:12)
[2022-06-19] MEDS: traMADol HCL 50 MG TABLET PO PRN ×2 (12:13→19:31)
[2022-06-19] MEDS: cefTRIAXone SODIUM 2,000 MG in DEXTROSE 5% 50 ML IV SCH (13:39)
--- NOTE | 2022-06-19 14:39 | Hospitalist Progress Note ---
Date of Service June 19, 2022 Assessment & Plan (1) Urinary tract infection: (2) Weakness: (3) Normal pressure hydrocephalus: (4) Spinal stenosis: (5) Hypertension: (6) Diabetes mellitus, type 2: (7) Hyperlipidemia: (8) BPH (benign prostatic hypertrophy): Plan per admitting service notes with addendum: 76-year-old presented with progressive lower extremity weakness bilaterally. Progressively worsening over the past 3 weeks despite use of a walker. He reports that the floor feels rubbery underneath him and there is a disconnect between his brain and his legs. Lumbar spine CT T10 vertebral body concerning for developing discitis or osteomyelitis; T10 subacute fracture. Head CT negative for anything progressing from a hydrocephalus perspective. N.p.o. for now. Bilateral Leg Weakness Spinal stenosis: Status post decompression and fusion surgery with Dr. Alcala August 2021 2 additional back surgeries under the care of Dr. Alcala. Has been seen outpatient with Ortho PT recommended and recently started. Cervical/spine x-ray pending Lumbar Spine CT: T10 vertebral body is concerning for infection and could represent a developing discitis/osteomyelitis. T10 vertebral body is concerning for infection and could represent a developing discitis/osteomyelitis. Takes Gabapentin Ortho consult placed NPO for now; not on any anticoagulation MRI thoracic spine: 1. Posterior interbody ken and screw fusion hardware redemonstrated at T10-S1. Artifact due to the hardware and also secondary to motion limits the study. 2. Trace fluid signal within the posterior aspect of the T10-T11 intervertebral disc space is noted in conjunction with nonspecific marrow edema at T9-T11 with trace prevertebral edema at the levels. Correlate clinically to exclude discitis/osteomyelitis. 3. The subacute fracture within the posterior aspect of the T10 vertebral body extending into the pedicles and left T10 facet are not well visualized. Please refer to the 06/15/2022 CT lumbar spine study. 4. Discogenic degeneration with spondylitic spurring and facet arthrosis. No high-grade central canal or neural foraminal narrowing of the thoracic spinal cord identified. 4. Mild central canal stenosis at T5-T6. 06/17 Status post decompression fusion of T 8 - T11 by Dr. Alcala 06/19 stable overall monitor PT and OT evaluation in progress Discussed with neurologist, NPH stable, no urgent interventions at this point according to Dr. Teran Normal pressure hydrocephalus: Status post [employer] shunt [address]: Ventriculomegaly 5 cm unchanged from previous scan 08/2021.negative for hemorrhage, midline shift, mass Skull x-ray : 1. There is a right posterior ventriculostomy catheter which terminates near the midline. There is a small focal kink as it enters the calvarium without evidence for a fracture. 2. Otherwise, the shunt catheter appears intact. Rule out urinary tract infection: Weakness: Frequent UTIs; just finished Duricef as outpatient UA: Positive nitrates and urine WBC greater than 30 LE 3+ Abdomen/pelvis CT with contrast noted Ceftriaxone started; continue for now; reevaluate based on blood cultures and or further interventions from an Ortho perspective. 06/17 CT abd/pendin. No bowel obstruction. No bowel wall thickening. 2. Mildly distended bladder. No hydronephrosis. No urinary calculi. Urine culture: Negative Urinalysis indicative of possible UTI Afebrile, no abdominal pain next We will continue ceftriaxone IV Day 09/23 Continue Mayers catheter Urologist consulted, maintain Mayers catheter for now, trial of voiding down the road, outpatient follow-up with urology clinic in 2 weeks to Hypertension: BP on the lower side Hold enalapril Continue metoprolol Gentle IV fluids monitor Diabetes mellitus type 2: [id number] 02/10 A1c: 7.3 ACHS FSBS and SSI Hold metformin Hyperlipidemia: Takes atorvastatin; continue Lipid panel triglyceride 54, LDL 34, HDL 39. BPH: Wears a brief at baseline; urinary incontinence Takes Ditropan and alfuzosin; continue Urologist consulted Disposition: PCP: Dr. Kruse CODE STATUS: Full code VTE prophylaxis: Heparin or Lovenox once okay with surgical service Disposition PT and OT evaluation in progress will need acute rehab plan of care discussed with patient and his in detail and at length all questions answered they are understanding, agreeable, comfortable with the plan of care Admission and Anticipated Discharge Date Admission Date: June 15, 2022 Subjective ff up for s/p T spine surgery, etc seen resting in bed, comfortable in good spirits states he feels fine overall has some back discomfort but manageable reports leg strength is improving no abdominal pain, nausea/vomiting no chest pain, dyspnea, palpitations, dizziness re-evaluated at 2pm patient's at bedside patient just had PT, able to take more steps had some back pain no other symptoms Review of Systems Review of Systems: all noted and negative except for above Physical Exam Physical Exam: General- oriented x 3, not in distress, speaks in sentences with no effort or accessory muscle use Eyes- anicteric Neck- no JVD Lungs- clear BS bilaterally, no crackles Heart- normal rate, regular rhythm; no murmurs Abdomen- normal bowel sounds, nondistended, soft, no tenderness Extremities- no pretibial edema, no calf tenderness Mayers cath in place- yellow urine Neuro- alert, oriented x 3; no gross focal neurologic deficits Skin- warm & dry Results & Data Results & Data ([facility]) Vital Signs (Past 12 Hours) Vital Signs Temp Pulse Resp BP Pulse Ox O2 Del Method 06/19/22 11:48 36.8 C 69 19 117/68 98 Room Air 06/19/22 06:41 37.1 C 66 18 107/66 94 Room Air 06/19/22 03:45 37.0 C 66 17 117/67 96 Room Air all noted and reviewed including below
[2022-06-19] MEDS: ADVANCED PROBIOTIC 1250 MG CAPSULE PO SCH (17:40)
[2022-06-19] MEDS: ATORVASTATIN 20 MG TAB PO SCH (19:33)
[2022-06-20] MEDS: traMADol HCL 50 MG TABLET PO PRN ×3 (01:40→20:21)
[2022-06-20] MEDS: ACETAMINOPHEN 325 MG TAB PO PRN (05:38)
[2022-06-20] MEDS: INSULIN ASPART PER UNIT SC SCH ×4 (08:20→20:21)
[2022-06-20] MEDS: CHOLECALCIFEROL 1,000 UNITS 25 MCG TAB PO SCH (09:22)
[2022-06-20] MEDS: ALFUZOSIN HCL 10 MG TAB PO SCH (09:22)
[2022-06-20] MEDS: GABAPENTIN 100 MG CAP PO SCH ×3 (09:22→20:22)
[2022-06-20] MEDS: ASPIRIN 81 MG ECTAB PO SCH (09:22)
[2022-06-20] MEDS: METOPROLOL TARTRATE 50 MG TAB PO SCH ×2 (09:23→20:22)
[2022-06-20] MEDS: ADVANCED PROBIOTIC 1250 MG CAPSULE PO SCH (09:23)
[2022-06-20] MEDS: MULTIVITAMIN TAB PO SCH (09:24)
[2022-06-20] MEDS: OXYBUTYNIN CHLORIDE XL 5 MG TABCR PO SCH (09:24)
[2022-06-20] MEDS: POLYETHYLENE (MIRALAX) 17 GM PACK PO SCH (09:24)
[2022-06-20] MEDS: PYRIDOXINE HCL 50 MG TAB PO SCH (09:25)
[2022-06-20] MEDS: SODIUM CHLORIDE 0.9% 1000ML 1,000 ML IV SCH (09:27)
[2022-06-20] MEDS: MAGNESIUM HYDROXIDE SUSP 30 ML UDC PO PRN (09:30)
--- NOTE | 2022-06-20 10:02 | Orthopedic Progress Note ---
Date of Service June 20, 2022 Assessment & Plan (1) Closed T10 spinal fracture with cord injury: Plan: At this time we will continue to encourage him to transfer to a chair and ambulate as tolerated with assistance. He is a candidate for rehab once bed available. Admission and Anticipated Discharge Date Admission Date: June 15, 2022 Subjective Back pain controlled leg symptoms improving Physical Exam Physical Exam: Patient is in bed. He is comfortable. Is good strength testing lower extremities. Results & Data ([facility]) Vital Signs (Past 12 Hours) Vital Signs Temp Pulse Pulse Resp BP Pulse Ox O2 Del Method 06/20/22 03:17 36.7 C 56 L 18 126/72 96 Room Air 06/19/22 22:58 36.7 C 57 L 18 123/68 97 Room Air 06/19/22 23:30 57 L
[2022-06-20] MEDS: ACETAMINOPHEN 500 MG TAB PO PRN (12:27)
[2022-06-20] MEDS: cefTRIAXone SODIUM 2,000 MG in DEXTROSE 5% 50 ML IV SCH (14:10)
--- NOTE | 2022-06-20 14:27 | Hospitalist Progress Note ---
Date of Service June 20, 2022 Assessment & Plan (1) Urinary tract infection: (2) Weakness: (3) Normal pressure hydrocephalus: (4) Spinal stenosis: (5) Hypertension: (6) Diabetes mellitus, type 2: (7) Hyperlipidemia: (8) BPH (benign prostatic hypertrophy): Plan: Plan per admitting service notes with addendum: 76-year-old presented with progressive lower extremity weakness bilaterally. Progressively worsening over the past 3 weeks despite use of a walker. He reports that the floor feels rubbery underneath him and there is a disconnect between his brain and his legs. Lumbar spine CT T10 vertebral body concerning for developing discitis or osteomyelitis; T10 subacute fracture. Head CT negative for anything progressing from a hydrocephalus perspective. N.p.o. for now. Bilateral Leg Weakness Spinal stenosis: Status post decompression and fusion surgery with Dr. Alcala August 2021 2 additional back surgeries under the care of Dr. Alcala. Has been seen outpatient with Ortho PT recommended and recently started. Cervical/spine x-ray pending Lumbar Spine CT: T10 vertebral body is concerning for infection and could represent a developing discitis/osteomyelitis. T10 vertebral body is concerning for infection and could represent a developing discitis/osteomyelitis. Takes Gabapentin Ortho consult placed NPO for now; not on any anticoagulation MRI thoracic spine: 1. Posterior interbody ken and screw fusion hardware redemonstrated at T10-S1. Artifact due to the hardware and also secondary to motion limits the study. 2. Trace fluid signal within the posterior aspect of the T10-T11 intervertebral disc space is noted in conjunction with nonspecific marrow edema at T9-T11 with trace prevertebral edema at the levels. Correlate clinically to exclude discitis/osteomyelitis. 3. The subacute fracture within the posterior aspect of the T10 vertebral body extending into the pedicles and left T10 facet are not well visualized. Please refer to the 06/15/2022 CT lumbar spine study. 4. Discogenic degeneration with spondylitic spurring and facet arthrosis. No high-grade central canal or neural foraminal narrowing of the thoracic spinal cord identified. 4. Mild central canal stenosis at T5-T6. 06/17 Status post decompression fusion of T 8 - T11 by Dr. Alcala 06/20 stable overall monitor PT and OT evaluation in progress Discussed with neurologist, NPH stable, no urgent interventions at this point according to Dr. Teran Normal pressure hydrocephalus: Status post [employer] shunt [address]: Ventriculomegaly 5 cm unchanged from previous scan 08/2021.negative for hemorrhage, midline shift, mass Skull x-ray : 1. There is a right posterior ventriculostomy catheter which terminates near the midline. There is a small focal kink as it enters the calvarium without evidence for a fracture. 2. Otherwise, the shunt catheter appears intact. Rule out urinary tract infection: Weakness: Frequent UTIs; just finished Duricef as outpatient UA: Positive nitrates and urine WBC greater than 30 LE 3+ Abdomen/pelvis CT with contrast noted Ceftriaxone started; continue for now; reevaluate based on blood cultures and or further interventions from an Ortho perspective. 06/20 CT abd/pelvis: 1. No bowel obstruction. No bowel wall thickening. 2. Mildly distended bladder. No hydronephrosis. No urinary calculi. Urine culture: Negative Urinalysis indicative of possible UTI Afebrile, no abdominal pain next We will continue ceftriaxone IV Day 10/26 Continue Mayers catheter Urologist consulted, maintain Mayers catheter for now, trial of voiding tomorrow, outpatient follow-up with urology clinic in 2 weeks to Hypertension: Blood pressure improving DC IV fluids Hold enalapril Continue metoprolol monitor Diabetes mellitus type 2: [id number] 02/10 A1c: 7.3 ACHS FSBS and SSI Hold metformin Hyperlipidemia: Takes atorvastatin; continue Lipid panel triglyceride 54, LDL 34, HDL 39. BPH: Wears a brief at baseline; urinary incontinence Takes Ditropan and alfuzosin; continue Urologist consulted Disposition: PCP: Dr. Kruse CODE STATUS: Full code VTE prophylaxis: Heparin or Lovenox once okay with surgical service Disposition PT and OT evaluation in progress will need acute rehab plan of care discussed with patient and his in detail and at length all questions answered they are understanding, agreeable, comfortable with the plan of care Admission and Anticipated Discharge Date Admission Date: June 15, 2022 Subjective ff up for bilateral extremity weakness, thoracic spine compression, etc. Seen resting in bed, comfortable, not in distress Back pain well controlled Positive constipation, no abdominal pain or nausea or vomiting No fevers or chills no chest pain, dyspnea, palpitations, dizziness Reevaluated in the afternoon with patient's at bedside Sitting at the bedside chair, tolerated physical therapy well today No other new symptoms Review of Systems Review of Systems: all noted and negative except for above Physical Exam Physical Exam: General- oriented x 3, not in distress, speaks in sentences with no effort or accessory muscle use Eyes- anicteric Neck- no JVD Lungs- clear BS BL Heart- normal rate, regular rhythm; no murmurs Abdomen- normal bowel sounds, nondistended, soft, nontender Extremities- no pretibial edema, no calf tenderness Mayers catheter in place with yellow urine Neuro- alert, oriented x 3; no gross focal neurologic deficits Skin- warm & dry Results & Data Results & Data ([facility]) Vital Signs (Past 12 Hours) Vital Signs Temp Pulse Pulse Resp BP Pulse Ox O2 Del Method 06/20/22 08:00 Room Air 06/20/22 11:50 36.7 C 65 17 146/78 H 98 Room Air 06/20/22 07:30 57 L 06/20/22 03:17 36.7 C 56 L 18 126/72 96 Room Air all noted and reviewed including below
[2022-06-20] MEDS ORDERED: LACTULOSE SYRUP 20 GM/30 ML UDC PO PRN (14:28)
[2022-06-20] MEDS: ATORVASTATIN 20 MG TAB PO SCH (20:21)
[2022-06-21] MEDS: ACETAMINOPHEN 500 MG TAB PO PRN ×2 (01:38→20:49)
[2022-06-21] MEDS: traMADol HCL 50 MG TABLET PO PRN ×3 (02:50→18:10)
[2022-06-21] MEDS: POLYETHYLENE (MIRALAX) 17 GM PACK PO SCH (08:44)
[2022-06-21] MEDS: METOPROLOL TARTRATE 50 MG TAB PO SCH ×2 (08:45→20:50)
[2022-06-21] MEDS: GABAPENTIN 100 MG CAP PO SCH ×3 (08:46→20:51)
[2022-06-21] MEDS: PYRIDOXINE HCL 50 MG TAB PO SCH (08:46)
[2022-06-21] MEDS: ALFUZOSIN HCL 10 MG TAB PO SCH (08:46)
[2022-06-21] MEDS: ADVANCED PROBIOTIC 1250 MG CAPSULE PO SCH (08:46)
[2022-06-21] MEDS: CHOLECALCIFEROL 1,000 UNITS 25 MCG TAB PO SCH (08:47)
[2022-06-21] MEDS: MULTIVITAMIN TAB PO SCH (08:47)
[2022-06-21] MEDS: ASPIRIN 81 MG ECTAB PO SCH (08:47)
[2022-06-21] MEDS: OXYBUTYNIN CHLORIDE XL 5 MG TABCR PO SCH (08:47)
[2022-06-21] MEDS: INSULIN ASPART PER UNIT SC SCH ×4 (08:52→20:38)
--- NOTE | 2022-06-21 11:32 | Orthopedic Progress Note ---
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 He is ready for rehab when a bed is available. Admission and Anticipated Discharge Date Admission Date: June 15, 2022 Subjective Back pain controlled leg symptoms improving Physical Exam Physical Exam: On exam patient is in the chair at the bedside. Is good strength testing. Peers comfortable. Results & Data ([facility]) Vital Signs (Past 12 Hours) Vital Signs Temp Pulse Pulse Resp BP Pulse Ox O2 Del Method 06/21/22 11:30 37.0 C 54 L 16 125/63 96 Room Air 06/21/22 08:00 65 06/21/22 07:49 36.5 C 62 17 133/75 95 Room Air 06/21/22 00:01 56 L 06/21/22 03:26 36.7 C 62 16 129/63 96 Room Air
[2022-06-21] MEDS: MAGNESIUM HYDROXIDE SUSP 30 ML UDC PO PRN ×2 (14:27→20:50)
--- NOTE | 2022-06-21 14:51 | XRay Report ---
THORACOLUMBAR SPINE 3 VIEWS CLINICAL HISTORY: Postoperative examination. FINDINGS: AP and lateral views of the thoracolumbar spine are compared to study dated 05/27/2022. The s keletal structures are osteopenic. There are chronic compression deformities with evidence of previou s vertebroplasty at T8 and T9. There is postsurgical change from laminectomy and posterior fusion see n extending from T8 to S1. Interpedicular screws are present at all levels with the exception of T10 and L2. The orthopedic hardware appears intact. Alignment is preserved. Anterior osteophytes are seen throughout. There is evidence of multilevel discectomy. There is mild hyperkyphosis of the thoracic spine. A ventricular shunt catheter projects over the chest and abdomen. The visualized lung parenchy ma appears clear. IMPRESSION: 1. There is no radiographic evidence of acute fracture or malalignment. 2. Extensive postsurgical change as above. The orthopedic hardware appears intact. Dictated: 06/21/2022 2:19 PM Transcribed: 06/21/2022 2:33 PM Elida [id number] [facility] Electronically signed by: Justus Batres M.D. 06/21/2022 2:50 PM
[2022-06-21] MEDS ORDERED: bisacodyL 10 MG SUPP PR STA (17:57)
--- NOTE | 2022-06-21 18:42 | Hospitalist Progress Note ---
Date of Service June 21, 2022 Assessment & Plan (1) Urinary tract infection: (2) Weakness: (3) Normal pressure hydrocephalus: (4) Spinal stenosis: (5) Hypertension: (6) Diabetes mellitus, type 2: (7) Hyperlipidemia: (8) BPH (benign prostatic hypertrophy): Plan: Plan per admitting service notes with addendum: 76-year-old presented with progressive lower extremity weakness bilaterally. Progressively worsening over the past 3 weeks despite use of a walker. He reports that the floor feels rubbery underneath him and there is a disconnect between his brain and his legs. Lumbar spine CT T10 vertebral body concerning for developing discitis or osteomyelitis; T10 subacute fracture. Head CT negative for anything progressing from a hydrocephalus perspective. N.p.o. for now. Bilateral Leg Weakness Spinal stenosis: Status post decompression and fusion surgery with Dr. Alcala August 2021 2 additional back surgeries under the care of Dr. Alcala. Has been seen outpatient with Ortho PT recommended and recently started. Cervical/spine x-ray pending Lumbar Spine CT: T10 vertebral body is concerning for infection and could represent a developing discitis/osteomyelitis. T10 vertebral body is concerning for infection and could represent a developing discitis/osteomyelitis. Takes Gabapentin Ortho consult placed NPO for now; not on any anticoagulation MRI thoracic spine: 1. Posterior interbody ken and screw fusion hardware redemonstrated at T10-S1. Artifact due to the hardware and also secondary to motion limits the study. 2. Trace fluid signal within the posterior aspect of the T10-T11 intervertebral disc space is noted in conjunction with nonspecific marrow edema at T9-T11 with trace prevertebral edema at the levels. Correlate clinically to exclude discitis/osteomyelitis. 3. The subacute fracture within the posterior aspect of the T10 vertebral body extending into the pedicles and left T10 facet are not well visualized. Please refer to the 06/15/2022 CT lumbar spine study. 4. Discogenic degeneration with spondylitic spurring and facet arthrosis. No high-grade central canal or neural foraminal narrowing of the thoracic spinal cord identified. 4. Mild central canal stenosis at T5-T6. 06/17 Status post decompression fusion of T 8 - T11 by Dr. Alcala 06/21 stable overall, postop day #4 Bilateral lower extremity weakness improving Lovenox for DVT prophylaxis PT and OT evaluation in progress Discussed with neurologist, NPH stable, no urgent interventions at this point according to Dr. Teran Normal pressure hydrocephalus: Status post [employer] shunt [address]: Ventriculomegaly 5 cm unchanged from previous scan 08/2021.negative for hemorrhage, midline shift, mass Skull x-ray : 1. There is a right posterior ventriculostomy catheter which terminates near the midline. There is a small focal kink as it enters the calvarium without evidence for a fracture. 2. Otherwise, the shunt catheter appears intact. Rule out urinary tract infection: Weakness: Frequent UTIs; just finished Duricef as outpatient UA: Positive nitrates and urine WBC greater than [address] abd/pelvis: 1. No bowel obstruction. No bowel wall thickening. 2. Mildly distended bladder. No hydronephrosis. No urinary calculi. Urine culture: Negative Urinalysis indicative of possible UTI Afebrile, no abdominal pain next Completed 1 week course of ceftriaxone Continue Mayers catheter Urologist consulted, trial of voiding tomorrow, outpatient follow-up with urology clinic in 2 weeks to Hypertension: Blood pressure on the lower side after surgery Given IV fluids Holding enalapril Continue metoprolol BP stable so far May not need enalapril upon discharge Diabetes mellitus type 2: [id number] 02/10 A1c: 7.3 ACHS FSBS and SSI Hold metformin Hyperlipidemia: Takes atorvastatin; continue Lipid panel triglyceride 54, LDL 34, HDL 39. BPH: Wears a brief at baseline; urinary incontinence Takes Ditropan and alfuzosin; continue Urologist consulted, outpatient follow-up in 2 weeks Disposition: PCP: Dr. Kruse CODE STATUS: Full code VTE prophylaxis: Heparin or Lovenox once okay with surgical service Disposition PT and OT evaluation in progress will need acute rehab, likely discharge in 1 to 2 days plan of care discussed with patientin detail and at length all questions answered he is understanding, agreeable, comfortable with the plan of care Admission and Anticipated Discharge Date Admission Date: June 15, 2022 Subjective Follow-up for status post thoracic spine surgery, thoracic spine compression, lower extremity weakness, etc. Seen resting in bed, sitting up, not in distress, comfortable States his legs continue to feel stronger, tolerated physical therapy well No abdominal pain, nausea vomiting, fevers or chills Reports constipation, mild abdominal discomfort Back pain adequately controlled No other symptoms Review of Systems Review of Systems: all noted and negative except for above Physical Exam Physical Exam: General- oriented x 3, not in distress, speaks in sentences with no effort or accessory muscle use Eyes- anicteric Neck- no JVD Lungs- clear BS BL Heart- normal rate, regular rhythm; no murmurs Abdomen- normal bowel sounds, nondistended, soft, no tenderness Mayers catheter in place-yellow urine Extremities- no pretibial edema, no calf tenderness Neuro- alert, oriented x 3; no gross focal neurologic deficits Skin- warm & dry Results & Data Results & Data ([facility]) Vital Signs (Past 12 Hours) Vital Signs Temp Pulse Pulse Resp BP Pulse Ox O2 Del Method 06/21/22 16:21 62 06/21/22 15:23 36.4 C L 76 20 125/64 96 Room Air 06/21/22 11:30 37.0 C 54 L 16 125/63 96 Room Air 06/21/22 08:00 65 06/21/22 07:49 36.5 C 62 17 133/75 95 Room Air all noted and reviewed including below
[2022-06-21] MEDS: ENOXAPARIN INJ 40 MG/0.4 ML SYR SQ SCH (19:00)
[2022-06-21] MEDS: ATORVASTATIN 20 MG TAB PO SCH (20:51)
[2022-06-22] MEDS: traMADol HCL 50 MG TABLET PO PRN ×2 (06:05→20:46)
[2022-06-22] MEDS: INSULIN ASPART PER UNIT SC SCH ×4 (08:04→20:47)
[2022-06-22] MEDS: OXYBUTYNIN CHLORIDE XL 5 MG TABCR PO SCH (08:10)
[2022-06-22] MEDS: PYRIDOXINE HCL 50 MG TAB PO SCH (08:10)
[2022-06-22] MEDS: ASPIRIN 81 MG ECTAB PO SCH (08:10)
[2022-06-22] MEDS: MULTIVITAMIN TAB PO SCH (08:10)
[2022-06-22] MEDS: CHOLECALCIFEROL 1,000 UNITS 25 MCG TAB PO SCH (08:10)
[2022-06-22] MEDS: GABAPENTIN 100 MG CAP PO SCH ×3 (08:10→20:48)
[2022-06-22] MEDS: ADVANCED PROBIOTIC 1250 MG CAPSULE PO SCH (08:11)
[2022-06-22] MEDS: ALFUZOSIN HCL 10 MG TAB PO SCH (08:11)
[2022-06-22] MEDS: METOPROLOL TARTRATE 50 MG TAB PO SCH ×2 (08:11→20:47)
[2022-06-22] MEDS: POLYETHYLENE (MIRALAX) 17 GM PACK PO SCH (08:11)
--- NOTE | 2022-06-22 14:25 | Orthopedic Progress Note ---
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 I would like to proceed without bracing as this may create more limitation than necessary. It is best that he go to rehab as soon as bed available. Admission and Anticipated Discharge Date Admission Date: June 15, 2022 Subjective Patient resting comfortably. He is tolerating physical therapy. Results & Data ([facility]) Vital Signs (Past 12 Hours) Vital Signs Temp Pulse Resp BP Pulse Ox O2 Del Method 06/22/22 11:03 36.5 C 50 L 19 108/72 99 Room Air 06/22/22 07:18 36.8 C 66 20 132/86 96 Room Air 06/22/22 03:50 36.8 C 60 18 141/67 H 98 Room Air
--- NOTE | 2022-06-22 15:16 | Pharmacy Report ---
Pharmacy Glycemic Short Note 2 - Date of Service June 22, 2022 - Glycemic Short BSG Results (Last 24 hours): 06/21/22 06/21/22 06/22/22 16:10 20:14 07:17 POC Glucose 159 H 189 H 138 H 06/22/22 11:08 POC Glucose 236 H OUTPATIENT ANTIDIABETIC REGIMEN: * metformin * A1c 6.8% ASSESSMENT: 06/22/22 * Patient received total of 21 units of insulin yesterday, all correctional * BSGs above goal range, may tighten CF/CR more today 06/19/22 * BSGS yesterday were [phone] mg/dL. Patient received 35 units of insulin (Lantus 10 units + 25 units of bolus). * Initially BSGs elevated in morning due to D5NS @ 60 mL/hr + dexamethasone 8 mg IV given intraop. * Today's fasting is 119 mg/dL. * Will hold off on Lantus as before surgery patient did not require. * Tighten Novolog slightly since Lantus not being given. 06/17 * Patient received 6 units of insulin yesterday * BSGs stable, patient going to OR today for spinal procedure - fasting BSG 116 mg/dL * Pulled steroids in OR during surgery, therefore anticipate steroid induced hyperglycemia - will add small scale for Lantus at dinner in case BSGs are rising * Will tighten CF/CR with steroids 06/16 * 76 year old presenting with lower extremity weakness. Pharmacy consulted for glycemic management. Patient only on metformin at home. Plan to start novolog stress of 2 for now PLAN FOR INPATIENT GLYCEMIC CONTROL: * Hold outpatient oral diabetes medications * Basal insulin * Lantus - hold * Bolus insulin * NovoLog per scale ACHS or Q6hrs while NPO * Goal Range: Low 110 mg/dL - High 140 mg/dL * Correction Factor: 20 mg/dL/unit * Nutritional / Prandial insulin per carb ratio of 1 unit per 6 grams CHO consumed
--- NOTE | 2022-06-22 17:13 | Hospitalist Progress Note ---
Date of Service June 22, 2022 Assessment & Plan (1) Urinary tract infection: (2) Weakness: (3) Normal pressure hydrocephalus: (4) Spinal stenosis: (5) Hypertension: (6) Diabetes mellitus, type 2: (7) Hyperlipidemia: (8) BPH (benign prostatic hypertrophy): Plan: Plan 76-year-old presented with progressive lower extremity weakness bilaterally. Progressively worsening over the past 3 weeks despite use of a walker. He reports that the floor feels rubbery underneath him and there is a disconnect between his brain and his legs. Lumbar spine CT T10 vertebral body concerning for developing discitis or osteomyelitis; T10 subacute fracture. Head CT negative for anything progressing from a hydrocephalus perspective. N.p.o. for now. Bilateral Leg Weakness Spinal stenosis: Status post decompression and fusion surgery with Dr. Alcala August 2021 2 additional back surgeries under the care of Dr. Alcala. Has been seen outpatient with Ortho PT recommended and recently started. Cervical/spine x-1. There is a right posterior ventriculostomy catheter which terminates near the midline. There is a small focal kink as it enters the calvarium without evidence for a fracture. 2. Otherwise, the shunt catheter appears intac Lumbar Spine CT: T10 vertebral body is concerning for infection and could represent a developing discitis/osteomyelitis. T10 vertebral body is concerning for infection and could represent a developing discitis/osteomyelitis. MRI thoracic spine: 1. Posterior interbody ken and screw fusion hardware redemonstrated at T10-S1. Artifact due to the hardware and also secondary to motion limits the study. 2. Trace fluid signal within the posterior aspect of the T10-T11 intervertebral disc space is noted in conjunction with nonspecific marrow edema at T9-T11 with trace prevertebral edema at the levels. Correlate clinically to exclude discitis/osteomyelitis. 3. The subacute fracture within the posterior aspect of the T10 vertebral body extending into the pedicles and left T10 facet are not well visualized. Please refer to the 06/15/2022 CT lumbar spine study. 4. Discogenic degeneration with spondylitic spurring and facet arthrosis. No high-grade central canal or neural foraminal narrowing of the thoracic spinal cord identified. 4. Mild central canal stenosis at T5-T6. Appreciate orthospine recommendation and is Status post decompression fusion of T 8 - T11 by Dr. Alcala Has been doing much better following the procedure Has been getting physical therapy and recommended to [facility] Likely discharge tomorrow to continue physical therapy at [facility] Normal pressure hydrocephalus: Status post [employer] shunt [address]: Ventriculomegaly 5 cm unchanged from previous scan 08/2021.negative for hemorrhage, midline shift, mass Skull x-ray : 1. There is a right posterior ventriculostomy catheter which terminates near the midline. There is a small focal kink as it enters the calvarium without evidence for a fracture. 2. Otherwise, the shunt catheter appears intact. Discussed with neurologist, NPH stable, no urgent interventions at this point according to Dr. Teran Denies any acute symptoms of dizziness, nausea and or vomiting Rule out urinary tract infection: Weakness: Frequent UTIs; just finished Duricef as outpatient UA: Positive nitrates and urine WBC greater than [address] abd/pelvis: 1. No bowel obstruction. No bowel wall thickening. 2. Mildly distended bladder. No hydronephrosis. No urinary calculi. Urine culture: Negative Completed 1 week course of ceftriaxone Continue Mayers catheter Urologist consulted, trial of voiding tomorrow, outpatient follow-up with urology clinic in 2 weeks to Mayers catheter was discontinued on 06/22/2022 Hypertension: Blood pressure on the lower side after surgery Given IV fluids Holding enalapril Continue metoprolol BP stable so far May not need enalapril upon discharge Blood pressure remains on the lower side at 114/64-likely enalapril will be discontinued on discharge Diabetes mellitus type 2: [id number] 02/10 A1c: 7.3 ACHS FSBS and SSI Hold metformin Hyperlipidemia: Takes atorvastatin; continue Lipid panel triglyceride 54, LDL 34, HDL 39. BPH: Wears a brief at baseline; urinary incontinence Takes Ditropan and alfuzosin; continue Urologist consulted, outpatient follow-up in 2 weeks Disposition: PCP: Dr. Kruse CODE STATUS: Full code VTE prophylaxis: Heparin or Lovenox once okay with surgical service Disposition PT and OT evaluation in progress will need acute rehab, likely discharge in 1 to 2 days Discussed with the patient and the about the discharge tomorrow Admission and Anticipated Discharge Date Admission Date: June 15, 2022 Subjective 06/22/2022 Patient was seen and examined in telemetry unit He has been feeling much better Not yet ready to be discharged today Has been getting physical therapy and doing good Accepted to [facility] and likely transfer tomorrow Review of Systems Review of Systems: All systems reviewed and are unremarkable except as noted below Musculoskeletal: Minimal back pain without radiation Neurologic: Denies any more dizziness Physical Exam Physical Exam: Sitting on a chair without any acute distress Constitutional: well developed and well nourished; not ill appearing Eyes: PERRL, conjunctivae normal, anicteric sclerae ENMT: external ear and nose normal, oropharynx normal Neck: trachea midline, no thyromegaly Respiratory: no respiratory distress Auscultation: lungs clear to auscultation bilaterally Cardiovascular: Rate/Rhythm: regular rate, regular rhythm and + bradycardic Heart Sounds: normal S1 and normal S2; no murmur Extremities: + edema (Trace edema bilaterally) Gastrointestinal (Abdomen): Inspection/Auscultation: normal bowel sounds; abdomen not distended Percussion/Palpation: abdomen soft; abdomen nontender Musculoskeletal: Back pain with tenderness. No acute arthritis involving any other joint Neurologic: Alert, 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 No focal sensory or no motor deficit appreciated Psychiatric: A+Ox3, euthymic affect Lymphatic: no cervical or axillary lymphadenopathy Results & Data Results & Data ([facility]) Vital Signs (Past 12 Hours) Vital Signs Temp Pulse Resp BP Pulse Ox O2 Del Method 06/22/22 15:14 37.1 C 53 L 18 114/64 97 Room Air 06/22/22 11:03 36.5 C 50 L 19 108/72 99 Room Air 06/22/22 07:18 36.8 C 66 20 132/86 96 Room Air Medications Administered Current Inpatient Medications Acetaminophen (Acetaminophen 500 Mg Tab) 1,000 mg PO Q8H PRN PRN Reason: mild-moderate pain Stop: 07/20/22 11:59 Last Admin: 06/21/22 20:49 Dose: 1,000 mg Al Hydrox/Mg Hydrox/Simethicone (Aluminum/Magnesium Susp 30 Ml Udc) 15 ml PO Q4H PRN PRN Reason: Dyspepsia Stop: 07/15/22 13:48 Alfuzosin HCl (Alfuzosin Hcl 10 Mg Tab) 10 mg PO DAILY [facility] Stop: 07/16/22 08:59 Last Admin: 06/22/22 08:11 Dose: 10 mg Aspirin (Aspirin 81 Mg Ectab) 81 mg PO QAM [facility] Stop: 07/16/22 08:59 Last Admin: 06/22/22 08:10 Dose: 81 mg Atorvastatin Calcium (Atorvastatin 20 Mg Tab) 20 mg PO PM [facility] Stop: 07/15/22 20:59 Last Admin: 06/21/22 20:51 Dose: 20 mg Clonazepam (Clonazepam 0.5 Mg Tab) 1.5 mg PO HS PRN PRN Reason: Anxiety Stop: 07/15/22 15:46 Dextrose (Dextrose 50% 50 Ml Syringe) 25 - 50 ml IV UD PRN; Protocol PRN Reason: Hypoglycemia Protocol Stop: 07/15/22 19:33 Enalapril Maleate (Enalapril Maleate 10 Mg Tab) 20 mg PO QAM [facility] Stop: 07/16/22 08:59 Last Admin: 06/18/22 08:04 Dose: 20 mg Enoxaparin Sodium (Enoxaparin Inj 40 Mg/0.4 Ml Syr) 40 mg SQ Q24H [facility] Stop: 07/21/22 18:59 Last Admin: 06/21/22 19:00 Dose: 40 mg Gabapentin (Gabapentin 100 Mg Cap) 200 mg PO TID [facility] Stop: 07/15/22 20:59 Last Admin: 06/22/22 14:36 Dose: 200 mg Glucagon (Glucagon For Inj 1 Mg Vial) 1 mg SQ UD PRN; Protocol PRN Reason: Hypoglycemia Protocol Stop: 07/15/22 19:33 Glucose (Glucose 40% Gel 15 Gm Tube) 15 - 30 gm PO UD PRN; Protocol PRN Reason: Hypoglycemia Protocol Stop: 07/15/22 19:33 Glucose (Glucose 10 Tab/Tube) 4 - 8 tab PO UD PRN; Protocol PRN Reason: Hypoglycemia Treatment Stop: 07/15/22 19:33 Insulin Aspart (Insulin Aspart Per Unit) 0 units SC ACHS [facility] Stop: 07/15/22 20:59 Last Admin: 06/22/22 16:51 Dose: 9 units Lactobacillus Acidophilus (Advanced Probiotic 1250 Mg Capsule) 2 cap PO DAILY [facility] Stop: 07/19/22 15:59 Last Admin: 06/22/22 08:11 Dose: 2 cap Lactulose (Lactulose Syrup 20 Gm/30 Ml Udc) 20 gm PO ONE PRN PRN Reason: constipation Stop: 07/20/22 14:29 Last Admin: 06/20/22 17:29 Dose: 20 gm Magnesium Hydroxide (Magnesium Hydroxide Susp 30 Ml Udc) 30 ml PO Q6H PRN PRN Reason: Constipation Stop: 07/19/22 09:40 Last Admin: 06/21/22 20:50 Dose: 30 ml Metoprolol Tartrate (Metoprolol Tartrate 50 Mg Tab) 50 mg PO BID [facility] Stop: 07/15/22 20:59 Last Admin: 06/22/22 08:11 Dose: 50 mg Miscellaneous (Carbohydrates For Hypoglycemia ) 15 - 30 gm PO UD PRN PRN Reason: Hypoglycemia Protocol Stop: 07/15/22 19:33 Miscellaneous Information (Pharmacy Glycemic Mgmt Consult) 1 each N/A UD PRN PRN Reason: Consult Stop: 07/15/22 19:33 Multivitamins ([facility]itamin Tab) [facility] [place] Stop: 07/16/22 08:59 Last Admin: 06/22/22 08:10 Dose: 1 tab Ondansetron HCl (Ondansetron Inj 2 Mg/Ml 2 Ml Vial) 4 mg IV Q6H PRN PRN Reason: Nausea Stop: 07/15/22 13:48 Oxybutynin Chloride (Oxybutynin Chloride Xl 5 Mg Tabcr) 5 mg PO DAILY [facility] Stop: 07/16/22 08:59 Last Admin: 06/22/22 08:10 Dose: 5 mg Polyethylene Glycol (Polyethylene (Miralax) 17 Gm Pack) 17 gm PO DAILY PRN PRN Reason: Constipation Stop: 07/15/22 13:48 Polyethylene Glycol (Polyethylene (Miralax) 17 Gm Pack) 17 gm PO DAILY [facility] Stop: 07/19/22 09:59 Last Admin: 06/22/22 08:11 Dose: Not Given Pyridoxine HCl (Pyridoxine Hcl 50 Mg Tab) 100 mg PO QAM [facility] Stop: 07/16/22 08:59 Last Admin: 06/22/22 08:10 Dose: 100 mg Tramadol HCl (Tramadol Hcl 50 Mg Tablet) 50 mg PO Q6H PRN PRN Reason: moderate to severe pain Stop: 07/16/22 10:02 Last Admin: 06/22/22 06:05 Dose: 50 mg Vitamin D (Cholecalciferol 1,000 Units 25 Mcg Tab) 1,[facility] [place] Stop: 07/16/22 08:59 Last Admin: 06/22/22 08:10 Dose: 1,000 units
[2022-06-22] MEDS: ENOXAPARIN INJ 40 MG/0.4 ML SYR SQ SCH (18:43)
[2022-06-22] MEDS: ATORVASTATIN 20 MG TAB PO SCH (20:48)
[2022-06-23] MEDS: clonazePAM 0.5 MG TAB PO PRN ×2 (00:14→20:51)
[2022-06-23] MEDS: ACETAMINOPHEN 500 MG TAB PO PRN (00:14)
[2022-06-23 06:44] LABS: Basophils # (auto) 0.03 K/uL (0-0.2); Basophils % (auto) 0.4 %; Eosinophils # (auto) 0.23 K/uL (0-0.50); Eosinophils % (auto) 2.8 %; Hematocrit (blood only) 30.1 % (42.0-52.0); Hemoglobin 10.6 g/dl (14.0-18.0); Immature Granulocytes # (auto) 0.08 K/uL (0.01-0.20); Lymphocytes # (auto) 3.02 K/uL (1.2-3.4); Lymphocytes % (auto) 37.2 %; Mean Corpuscular Hemoglobin 33.7 pg (25.0-34.0); Mean Corpuscular Hgb Conc 35.2 g/dL (32.0-36.0); Mean Corpuscular Volume 95.6 fL (80.0-100.0); Mean Platelet Volume 9.7 fL (9.4-12.4); Monocytes # (auto) 1.31 K/uL (0.11-0.59); Monocytes % (auto) 16.2 %; Neutrophils # (auto) 3.44 K/uL (1.40-6.50); Neutrophils % (auto) 42.4 %; Platelet Count 240 K/uL (130-400); RDW Coefficient of Variation 12.7 % (11.5-14.5); RDW Standard Deviation 44.3 fL (36.4-46.3); Red Blood Count 3.15 M/uL (4.70-6.10); White Blood Count 8.11 K/ul (4.8-10.8)
[2022-06-23 06:56] LABS: BUN Creatinine Ratio 12.3 (10-20); Calcium 9.1 mg/dl (8.5-10.1); Creatinine Clr Calc Pharmacy 82.6 ml/min; Est GFR (African American) 101.5 ml/min; Est GFR (Non-African American) 87.6 ml/min; Potassium 4.3 mmol/L (3.5-5.1)
--- NOTE | 2022-06-23 08:13 | Orthopedic Progress Note ---
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 He is cleared to discharge per orthopedics. Admission and Anticipated Discharge Date Admission Date: June 15, 2022 Subjective Patient's back pain is well controlled. He was up and ambulating without difficulty yesterday. He feels he is getting stronger. Physical Exam Physical Exam: On exam he is comfortable. Is good strength testing lower extremities. Results & Data ([facility]) Vital Signs (Past 12 Hours) Vital Signs Temp Pulse Pulse Resp BP Pulse Ox O2 Del Method 06/23/22 08:00 36.4 C L 61 16 130/80 97 Room Air 06/23/22 03:43 36.8 C 60 19 117/60 95 Room Air 06/23/22 00:04 37.1 C 67 19 135/79 97 Room Air 06/22/22 23:52 69
[2022-06-23] MEDS: INSULIN ASPART PER UNIT SC SCH ×4 (08:23→20:31)
[2022-06-23] MEDS: PYRIDOXINE HCL 50 MG TAB PO SCH (08:27)
[2022-06-23] MEDS: ASPIRIN 81 MG ECTAB PO SCH (08:27)
[2022-06-23] MEDS: GABAPENTIN 100 MG CAP PO SCH ×3 (08:27→20:52)
[2022-06-23] MEDS: METOPROLOL TARTRATE 50 MG TAB PO SCH ×2 (08:28→20:53)
[2022-06-23] MEDS: MULTIVITAMIN TAB PO SCH (08:28)
[2022-06-23] MEDS: OXYBUTYNIN CHLORIDE XL 5 MG TABCR PO SCH (08:28)
[2022-06-23] MEDS: CHOLECALCIFEROL 1,000 UNITS 25 MCG TAB PO SCH (08:28)
[2022-06-23] MEDS: ALFUZOSIN HCL 10 MG TAB PO SCH (08:28)
[2022-06-23] MEDS: POLYETHYLENE (MIRALAX) 17 GM PACK PO SCH (08:28)
[2022-06-23] MEDS: ADVANCED PROBIOTIC 1250 MG CAPSULE PO SCH (08:28)
[2022-06-23] MEDS: traMADol HCL 50 MG TABLET PO PRN ×2 (08:36→20:50)
--- NOTE | 2022-06-23 11:12 | Hospitalist Progress Note ---
Date of Service June 23, 2022 Assessment & Plan (1) Urinary tract infection: (2) Weakness: (3) Normal pressure hydrocephalus: (4) Spinal stenosis: (5) Hypertension: (6) Diabetes mellitus, type 2: (7) Hyperlipidemia: (8) BPH (benign prostatic hypertrophy): Plan: Plan 76-year-old presented with progressive lower extremity weakness bilaterally. Progressively worsening over the past 3 weeks despite use of a walker. He reports that the floor feels rubbery underneath him and there is a disconnect between his brain and his legs. Lumbar spine CT T10 vertebral body concerning for developing discitis or osteomyelitis; T10 subacute fracture. Head CT negative for anything progressing from a hydrocephalus perspective. N.p.o. for now. Bilateral Leg Weakness Spinal stenosis: Status post decompression and fusion surgery with Dr. Alcala August 2021 2 additional back surgeries under the care of Dr. Alcala. Has been seen outpatient with Ortho PT recommended and recently started. Cervical/spine x-1. There is a right posterior ventriculostomy catheter which terminates near the midline. There is a small focal kink as it enters the calvarium without evidence for a fracture. 2. Otherwise, the shunt catheter appears intac Lumbar Spine CT: T10 vertebral body is concerning for infection and could represent a developing discitis/osteomyelitis. T10 vertebral body is concerning for infection and could represent a developing discitis/osteomyelitis. MRI thoracic spine: 1. Posterior interbody ken and screw fusion hardware redemonstrated at T10-S1. Artifact due to the hardware and also secondary to motion limits the study. 2. Trace fluid signal within the posterior aspect of the T10-T11 intervertebral disc space is noted in conjunction with nonspecific marrow edema at T9-T11 with trace prevertebral edema at the levels. Correlate clinically to exclude discitis/osteomyelitis. 3. The subacute fracture within the posterior aspect of the T10 vertebral body extending into the pedicles and left T10 facet are not well visualized. Please refer to the 06/15/2022 CT lumbar spine study. 4. Discogenic degeneration with spondylitic spurring and facet arthrosis. No high-grade central canal or neural foraminal narrowing of the thoracic spinal cord identified. 4. Mild central canal stenosis at T5-T6. Appreciate orthospine recommendation and is Status post decompression fusion of T 8 - T11 by Dr. Alcala Has been doing much better following the procedure Has been getting physical therapy and recommended to go to [facility] Evaluated by orthospine and he remained stable to go to [facility] this afternoon Normal pressure hydrocephalus: Status post [employer] shunt [address]: Ventriculomegaly 5 cm unchanged from previous scan 08/2021.negative for hemorrhage, midline shift, mass Skull x-ray : 1. There is a right posterior ventriculostomy catheter which terminates near the midline. There is a small focal kink as it enters the calvarium without evidence for a fracture. 2. Otherwise, the shunt catheter appears intact. Discussed with neurologist, NPH stable, no urgent interventions at this point according to Dr. Teran Denies any acute symptoms of dizziness, nausea and or vomiting Rule out urinary tract infection: Weakness: Frequent UTIs; just finished Duricef as outpatient UA: Positive nitrates and urine WBC greater than [address] abd/pelvis: 1. No bowel obstruction. No bowel wall thickening. 2. Mildly distended bladder. No hydronephrosis. No urinary calculi. Urine culture: Negative Completed 1 week course of ceftriaxone Continue Mayers catheter Urologist consulted, trial of voiding tomorrow, outpatient follow-up with urology clinic in 2 weeks to Mayers catheter was discontinued on 06/22/2022 Has been passing urine with persisting residual more than 400 mL Mayers was replaced before discharge to [facility] He will have an appointment with urologist as an outpatient Hypertension: Blood pressure on the lower side after surgery Given IV fluids Holding enalapril Continue metoprolol BP stable so far May not need enalapril upon discharge Blood pressure remains on the lower side at 114/64-likely enalapril will be discontinued on discharge Diabetes mellitus type 2: [id number] 02/10 A1c: 7.3 ACHS FSBS and SSI Hold metformin Metformin will be restarted on discharge Hyperlipidemia: Takes atorvastatin; continue Lipid panel triglyceride 54, LDL 34, HDL 39. BPH: Wears a brief at baseline; urinary incontinence Takes Ditropan and alfuzosin; continue Urologist consulted, outpatient follow-up in 2 weeks Disposition: PCP: Dr. Kruse CODE STATUS: Full code VTE prophylaxis: Heparin or Lovenox once okay with surgical service Disposition PT and OT evaluation in progress will need acute rehab, likely discharge in 1 to 2 days Will be discharged to [facility] this afternoon Admission and Anticipated Discharge Date Admission Date: June 15, 2022 Subjective 06/22/2022 Patient was seen and examined in telemetry unit He has been feeling much better Not yet ready to be discharged today Has been getting physical therapy and doing good Accepted to [facility] and likely transfer tomorrow 06/23/2022 The patient was seen and examined in telemetry unit He does not have any significant symptoms except he feels distention even after urination He was noted to have residual urine of more than 400 after voiding about 400 Mayers catheter will be placed in and he will have an appointment with outpatient urologist He is stable to be transferred to [facility] Review of Systems Review of Systems: All systems reviewed and are unremarkable except as noted below Musculoskeletal: Minimal back pain without radiation Neurologic: Denies any more dizziness Physical Exam Physical Exam: Sitting on a chair without any acute distress Constitutional: well developed and well nourished; not ill appearing Eyes: PERRL, conjunctivae normal, anicteric sclerae ENMT: external ear and nose normal, oropharynx normal Neck: trachea midline, no thyromegaly Respiratory: no respiratory distress Auscultation: lungs clear to auscultation bilaterally Cardiovascular: Rate/Rhythm: regular rate, regular rhythm and + bradycardic Heart Sounds: normal S1 and normal S2; no murmur Extremities: + edema (Trace edema bilaterally) Gastrointestinal (Abdomen): Inspection/Auscultation: normal bowel sounds; abdomen not distended Percussion/Palpation: abdomen soft; abdomen nontender Musculoskeletal: Minimal back pain and tenderness status post back surgery Neurologic: normal touch/pain/proprioception and moves all extremities; no focal motor deficits Psychiatric: A+Ox3, euthymic affect Lymphatic: no cervical or axillary lymphadenopathy Results & Data Results & Data ([facility]) Vital Signs (Past 12 Hours) Vital Signs Temp Pulse Pulse Resp BP Pulse Ox O2 Del Method 06/23/22 08:00 Room Air 06/23/22 08:00 36.4 C L 61 16 130/80 97 Room Air 06/23/22 03:43 36.8 C 60 19 117/60 95 Room Air 06/23/22 00:04 37.1 C 67 19 135/79 97 Room Air 06/22/22 23:52 69 Laboratory Results Short CBC 06/23/22 Range/Units 05:48 WBC 8.11 (4.8-10.8) K/ul Hgb 10.6 L (14.0-18.0) g/dl Hct 30.1 L (42.0-52.0) % Plt Count 240 (130-400) K/uL BMP 06/23/22 05:48 Sodium 135 L Potassium 4.3 Chloride 101 Carbon Dioxide 29 BUN 10 Creatinine 0.81 Glucose 124 H Calcium 9.1 Medications Administered Current Inpatient Medications Acetaminophen (Acetaminophen 500 Mg Tab) 1,000 mg PO Q8H PRN PRN Reason: mild-moderate pain Stop: 07/20/22 11:59 Last Admin: 06/23/22 00:14 Dose: 1,000 mg Al Hydrox/Mg Hydrox/Simethicone (Aluminum/Magnesium Susp 30 Ml Udc) 15 ml PO Q4H PRN PRN Reason: Dyspepsia Stop: 07/15/22 13:48 Alfuzosin HCl (Alfuzosin Hcl 10 Mg Tab) 10 mg PO DAILY [facility] Stop: 07/16/22 08:59 Last Admin: 06/23/22 08:28 Dose: 10 mg Aspirin (Aspirin 81 Mg Ectab) 81 mg PO QAM [facility] Stop: 07/16/22 08:59 Last Admin: 06/23/22 08:27 Dose: 81 mg Atorvastatin Calcium (Atorvastatin 20 Mg Tab) 20 mg PO PM [facility] Stop: 07/15/22 20:59 Last Admin: 06/22/22 20:48 Dose: 20 mg Clonazepam (Clonazepam 0.5 Mg Tab) 1.5 mg PO HS PRN PRN Reason: Anxiety Stop: 07/15/22 15:46 Last Admin: 06/23/22 00:14 Dose: 1.5 mg Dextrose (Dextrose 50% 50 Ml Syringe) 25 - 50 ml IV UD PRN; Protocol PRN Reason: Hypoglycemia Protocol Stop: 07/15/22 19:33 Enalapril Maleate (Enalapril Maleate 10 Mg Tab) 20 mg PO QAM [facility] Stop: 07/16/22 08:59 Last Admin: 06/18/22 08:04 Dose: 20 mg Enoxaparin Sodium (Enoxaparin Inj 40 Mg/0.4 Ml Syr) 40 mg SQ Q24H [facility] Stop: 07/21/22 18:59 Last Admin: 06/22/22 18:43 Dose: 40 mg Gabapentin (Gabapentin 100 Mg Cap) 200 mg PO TID [facility] Stop: 07/15/22 20:59 Last Admin: 06/23/22 08:27 Dose: 200 mg Glucagon (Glucagon For Inj 1 Mg Vial) 1 mg SQ UD PRN; Protocol PRN Reason: Hypoglycemia Protocol Stop: 07/15/22 19:33 Glucose (Glucose 40% Gel 15 Gm Tube) 15 - 30 gm PO UD PRN; Protocol PRN Reason: Hypoglycemia Protocol Stop: 07/15/22 19:33 Glucose (Glucose 10 Tab/Tube) 4 - 8 tab PO UD PRN; Protocol PRN Reason: Hypoglycemia Treatment Stop: 07/15/22 19:33 Insulin Aspart (Insulin Aspart Per Unit) 0 units SC ACHS [facility] Stop: 07/15/22 20:59 Last Admin: 06/23/22 08:23 Dose: 13 units Lactobacillus Acidophilus (Advanced Probiotic 1250 Mg Capsule) 2 cap PO DAILY [facility] Stop: 07/19/22 15:59 Last Admin: 06/23/22 08:28 Dose: 2 cap Lactulose (Lactulose Syrup 20 Gm/30 Ml Udc) 20 gm PO ONE PRN PRN Reason: constipation Stop: 07/20/22 14:29 Last Admin: 06/20/22 17:29 Dose: 20 gm Magnesium Hydroxide (Magnesium Hydroxide Susp 30 Ml Udc) 30 ml PO Q6H PRN PRN Reason: Constipation Stop: 07/19/22 09:40 Last Admin: 06/21/22 20:50 Dose: 30 ml Metoprolol Tartrate (Metoprolol Tartrate 50 Mg Tab) 50 mg PO BID [facility] Stop: 07/15/22 20:59 Last Admin: 06/23/22 08:28 Dose: 50 mg Miscellaneous (Carbohydrates For Hypoglycemia ) 15 - 30 gm PO UD PRN PRN Reason: Hypoglycemia Protocol Stop: 07/15/22 19:33 Miscellaneous Information (Pharmacy Glycemic Mgmt Consult) 1 each N/A UD PRN PRN Reason: Consult Stop: 07/15/22 19:33 Multivitamins (Multivitamin Tab) 1 tab PO QAM [facility] Stop: 07/16/22 08:59 Last Admin: 06/23/22 08:28 Dose: 1 tab Ondansetron HCl (Ondansetron Inj 2 Mg/Ml 2 Ml Vial) 4 mg IV Q6H PRN PRN Reason: Nausea Stop: 07/15/22 13:48 Oxybutynin Chloride (Oxybutynin Chloride Xl 5 Mg Tabcr) 5 mg PO DAILY [facility] Stop: 07/16/22 08:59 Last Admin: 06/23/22 08:28 Dose: 5 mg Polyethylene Glycol (Polyethylene (Miralax) 17 Gm Pack) 17 gm PO DAILY PRN PRN Reason: Constipation Stop: 07/15/22 13:48 Polyethylene Glycol (Polyethylene (Miralax) 17 Gm Pack) 17 gm PO DAILY [facility] Stop: 07/19/22 09:59 Last Admin: 06/23/22 08:28 Dose: Not Given Pyridoxine HCl (Pyridoxine Hcl 50 Mg Tab) 100 mg PO QAM [facility] Stop: 07/16/22 08:59 Last Admin: 06/23/22 08:27 Dose: 100 mg Tramadol HCl (Tramadol Hcl 50 Mg Tablet) 50 mg PO Q6H PRN PRN Reason: moderate to severe pain Stop: 07/16/22 10:02 Last Admin: 06/23/22 08:36 Dose: 50 mg Vitamin D (Cholecalciferol 1,000 Units 25 Mcg Tab) 1,000 units PO QAM [facility] Stop: 07/16/22 08:59 Last Admin: 06/23/22 08:28 Dose: 1,000 units
[2022-06-23] MEDS: ATORVASTATIN 20 MG TAB PO SCH (20:52)
[2022-06-23] MEDS: ENOXAPARIN INJ 40 MG/0.4 ML SYR SQ SCH (20:53)
[2022-06-24] MEDS: clonazePAM 0.5 MG TAB PO PRN ×2 (02:59→05:02)
[2022-06-24] MEDS: INSULIN ASPART PER UNIT SC SCH ×2 (08:00→12:00)
[2022-06-24] MEDS: GABAPENTIN 100 MG CAP PO SCH (08:33)
[2022-06-24] MEDS: ASPIRIN 81 MG ECTAB PO SCH (08:33)
[2022-06-24] MEDS: METOPROLOL TARTRATE 50 MG TAB PO SCH (08:33)
[2022-06-24] MEDS: OXYBUTYNIN CHLORIDE XL 5 MG TABCR PO SCH (08:33)
[2022-06-24] MEDS: PYRIDOXINE HCL 50 MG TAB PO SCH (08:33)
[2022-06-24] MEDS: CHOLECALCIFEROL 1,000 UNITS 25 MCG TAB PO SCH (08:34)
[2022-06-24] MEDS: POLYETHYLENE (MIRALAX) 17 GM PACK PO SCH (08:34)
[2022-06-24] MEDS: MULTIVITAMIN TAB PO SCH (08:34)
[2022-06-24] MEDS: ADVANCED PROBIOTIC 1250 MG CAPSULE PO SCH (08:34)
[2022-06-24] MEDS: ALFUZOSIN HCL 10 MG TAB PO SCH (08:35)
[2022-06-24] MEDS: traMADol HCL 50 MG TABLET PO PRN (08:40)
--- NOTE | 2022-06-24 11:17 | Hospitalist Progress Note ---
Date of Service June 24, 2022 Assessment & Plan (1) Urinary tract infection: (2) Weakness: (3) Normal pressure hydrocephalus: (4) Spinal stenosis: (5) Hypertension: (6) Diabetes mellitus, type 2: (7) Hyperlipidemia: (8) BPH (benign prostatic hypertrophy): Plan: Plan 76-year-old presented with progressive lower extremity weakness bilaterally. Progressively worsening over the past 3 weeks despite use of a walker. He reports that the floor feels rubbery underneath him and there is a disconnect between his brain and his legs. Lumbar spine CT T10 vertebral body concerning for developing discitis or osteomyelitis; T10 subacute fracture. Head CT negative for anything progressing from a hydrocephalus perspective. N.p.o. for now. Bilateral Leg Weakness Spinal stenosis: Status post decompression and fusion surgery with Dr. Alcala August 2021 2 additional back surgeries under the care of Dr. Alcala. Has been seen outpatient with Ortho PT recommended and recently started. Cervical/spine x-1. There is a right posterior ventriculostomy catheter which terminates near the midline. There is a small focal kink as it enters the calvarium without evidence for a fracture. 2. Otherwise, the shunt catheter appears intac Lumbar Spine CT: T10 vertebral body is concerning for infection and could represent a developing discitis/osteomyelitis. T10 vertebral body is concerning for infection and could represent a developing discitis/osteomyelitis. MRI thoracic spine: 1. Posterior interbody ken and screw fusion hardware redemonstrated at T10-S1. Artifact due to the hardware and also secondary to motion limits the study. 2. Trace fluid signal within the posterior aspect of the T10-T11 intervertebral disc space is noted in conjunction with nonspecific marrow edema at T9-T11 with trace prevertebral edema at the levels. Correlate clinically to exclude discitis/osteomyelitis. 3. The subacute fracture within the posterior aspect of the T10 vertebral body extending into the pedicles and left T10 facet are not well visualized. Please refer to the 06/15/2022 CT lumbar spine study. 4. Discogenic degeneration with spondylitic spurring and facet arthrosis. No high-grade central canal or neural foraminal narrowing of the thoracic spinal cord identified. 4. Mild central canal stenosis at T5-T6. Appreciate orthospine recommendation and is Status post decompression fusion of T 8 - T11 by Dr. Alcala Has been doing much better following the procedure Has been getting physical therapy and recommended to go to [facility] Medically stable without any significant symptoms Will be discharged to [facility] this afternoon Normal pressure hydrocephalus: Status post [employer] shunt [address]: Ventriculomegaly 5 cm unchanged from previous scan 08/2021.negative for hemorrhage, midline shift, mass Skull x-ray : 1. There is a right posterior ventriculostomy catheter which terminates near the midline. There is a small focal kink as it enters the calvarium without evidence for a fracture. 2. Otherwise, the shunt catheter appears intact. Discussed with neurologist, NPH stable, no urgent interventions at this point according to Dr. Teran Denies any acute symptoms of dizziness, nausea and or vomiting Rule out urinary tract infection: Weakness: Frequent UTIs; just finished Duricef as outpatient UA: Positive nitrates and urine WBC greater than [address] abd/pelvis: 1. No bowel obstruction. No bowel wall thickening. 2. Mildly distended bladder. No hydronephrosis. No urinary calculi. Urine culture: Negative Completed 1 week course of ceftriaxone Continue Mayers catheter Urologist consulted, trial of voiding tomorrow, outpatient follow-up with urology clinic in 2 weeks to Mayers catheter was discontinued on 06/22/2022 Has been passing urine with persisting residual more than 400 mL Mayers was replaced before discharge to [facility] Hypertension: Blood pressure on the lower side after surgery Given IV fluids Holding enalapril Continue metoprolol BP stable so far May not need enalapril upon discharge Blood pressure remains on the lower side at 114/64-likely enalapril will be discontinued on discharge BP remains on the lower side of normal at 105/62 Diabetes mellitus type 2: [id number] 02/10 A1c: 7.3 ACHS FSBS and SSI Hold metformin Metformin will be restarted on discharge Hyperlipidemia: Takes atorvastatin; continue Lipid panel triglyceride 54, LDL 34, HDL 39. BPH: Wears a brief at baseline; urinary incontinence Takes Ditropan and alfuzosin; continue Urologist consulted, outpatient follow-up in 2 weeks Disposition: PCP: Dr. Kruse CODE STATUS: Full code VTE prophylaxis: Heparin or Lovenox once okay with surgical service Disposition PT and OT evaluation in progress will need acute rehab, likely discharge in 1 to 2 days Will be discharged to [facility] this afternoon Did not go yesterday as because there were no bed Admission and Anticipated Discharge Date Admission Date: June 15, 2022 Subjective 06/22/2022 Patient was seen and examined in telemetry unit He has been feeling much better Not yet ready to be discharged today Has been getting physical therapy and doing good Accepted to [facility] and likely transfer tomorrow 06/23/2022 The patient was seen and examined in telemetry unit He does not have any significant symptoms except he feels distention even after urination He was noted to have residual urine of more than 400 after voiding about 400 Mayers catheter will be placed in and he will have an appointment with outpatient urologist He is stable to be transferred to [facility] 06/24/2022 The patient was seen and examined in telemetry unit He has been feeling much better and has been getting physical therapy He will be going to [facility] this afternoon Review of Systems Review of Systems: All systems reviewed and are unremarkable except as noted below Musculoskeletal: Minimal back pain without radiation Neurologic: Denies any more dizziness Physical Exam Physical Exam: Sitting at the edge of the bed without any acute distress Constitutional: well developed and well nourished; not ill appearing Eyes: PERRL, conjunctivae normal, anicteric sclerae ENMT: external ear and nose normal, oropharynx normal Neck: trachea midline, no thyromegaly Respiratory: no respiratory distress Auscultation: + crackles (Minimal crackles bilaterally) Cardiovascular: Rate/Rhythm: regular rate, regular rhythm and + bradycardic Heart Sounds: normal S1 and normal S2; no murmur Extremities: + edema (Trace edema bilaterally) Gastrointestinal (Abdomen): Inspection/Auscultation: normal bowel sounds; abdomen not distended Percussion/Palpation: abdomen soft; abdomen nontender Musculoskeletal: No acute arthritis involving any joint Neurologic: normal touch/pain/proprioception and moves all extremities; no focal motor deficits Psychiatric: A+Ox3, euthymic affect Lymphatic: no cervical or axillary lymphadenopathy Results & Data Results & Data ([facility]) Vital Signs (Past 12 Hours) Vital Signs Temp Pulse Pulse Resp BP Pulse Ox O2 Del Method 06/24/22 07:35 63 06/24/22 07:04 36.7 C 66 18 105/62 95 Room Air 06/24/22 03:15 37.2 C 61 18 122/70 94 Room Air 06/23/22 23:52 68 Medications Administered Current Inpatient Medications Acetaminophen (Acetaminophen 500 Mg Tab) 1,000 mg PO Q8H PRN PRN Reason: mild-moderate pain Stop: 07/20/22 11:59 Last Admin: 06/23/22 00:14 Dose: 1,000 mg Al Hydrox/Mg Hydrox/Simethicone (Aluminum/Magnesium Susp 30 Ml Udc) 15 ml PO Q4H PRN PRN Reason: Dyspepsia Stop: 07/15/22 13:48 Alfuzosin HCl (Alfuzosin Hcl 10 Mg Tab) 10 mg PO DAILY [facility] Stop: 07/16/22 08:59 Last Admin: 06/24/22 08:35 Dose: 10 mg Aspirin (Aspirin 81 Mg Ectab) 81 mg PO QAM [facility] Stop: 07/16/22 08:59 Last Admin: 06/24/22 08:33 Dose: 81 mg Atorvastatin Calcium (Atorvastatin 20 Mg Tab) 20 mg PO PM [facility] Stop: 07/15/22 20:59 Last Admin: 06/23/22 20:52 Dose: 20 mg Clonazepam (Clonazepam 0.5 Mg Tab) 1.5 mg PO HS PRN PRN Reason: Anxiety Stop: 07/15/22 15:46 Last Admin: 06/24/22 05:02 Dose: 1.5 mg Dextrose (Dextrose 50% 50 Ml Syringe) 25 - 50 ml IV UD PRN; Protocol PRN Reason: Hypoglycemia Protocol Stop: 07/15/22 19:33 Enalapril Maleate (Enalapril Maleate 10 Mg Tab) 20 mg PO QAM [facility] Stop: 07/16/22 08:59 Last Admin: 06/18/22 08:04 Dose: 20 mg Enoxaparin Sodium (Enoxaparin Inj 40 Mg/0.4 Ml Syr) 40 mg SQ Q24H [facility] Stop: 07/21/22 18:59 Last Admin: 06/23/22 20:53 Dose: 40 mg Gabapentin (Gabapentin 100 Mg Cap) 200 mg PO TID [facility] Stop: 07/15/22 20:59 Last Admin: 06/24/22 08:33 Dose: 200 mg Glucagon (Glucagon For Inj 1 Mg Vial) 1 mg SQ UD PRN; Protocol PRN Reason: Hypoglycemia Protocol Stop: 07/15/22 19:33 Glucose (Glucose 40% Gel 15 Gm Tube) 15 - 30 gm PO UD PRN; Protocol PRN Reason: Hypoglycemia Protocol Stop: 07/15/22 19:33 Glucose (Glucose 10 Tab/Tube) 4 - 8 tab PO UD PRN; Protocol PRN Reason: Hypoglycemia Treatment Stop: 07/15/22 19:33 Insulin Aspart (Insulin Aspart Per Unit) 0 units SC ACHS [facility] Stop: 07/15/22 20:59 Last Admin: 06/24/22 08:00 Dose: 11 units Lactobacillus Acidophilus (Advanced Probiotic 1250 Mg Capsule) 2 cap PO DAILY [facility] Stop: 07/19/22 15:59 Last Admin: 06/24/22 08:34 Dose: 2 cap Lactulose (Lactulose Syrup 20 Gm/30 Ml Udc) 20 gm PO ONE PRN PRN Reason: constipation Stop: 07/20/22 14:29 Last Admin: 06/20/22 17:29 Dose: 20 gm Magnesium Hydroxide (Magnesium Hydroxide Susp 30 Ml Udc) 30 ml PO Q6H PRN PRN Reason: Constipation Stop: 07/19/22 09:40 Last Admin: 06/21/22 20:50 Dose: 30 ml Metoprolol Tartrate (Metoprolol Tartrate 50 Mg Tab) 50 mg PO BID [facility] Stop: 07/15/22 20:59 Last Admin: 06/24/22 08:33 Dose: 50 mg Miscellaneous (Carbohydrates For Hypoglycemia ) 15 - 30 gm PO UD PRN PRN Reason: Hypoglycemia Protocol Stop: 07/15/22 19:33 Miscellaneous Information (Pharmacy Glycemic Mgmt Consult) 1 each N/A UD PRN PRN Reason: Consult Stop: 07/15/22 19:33 Multivitamins (Multivitamin Tab) 1 tab PO QAM [facility] Stop: 07/16/22 08:59 Last Admin: 06/24/22 08:34 Dose: 1 tab Ondansetron HCl (Ondansetron Inj 2 Mg/Ml 2 Ml Vial) 4 mg IV Q6H PRN PRN Reason: Nausea Stop: 07/15/22 13:48 Oxybutynin Chloride (Oxybutynin Chloride Xl 5 Mg Tabcr) 5 mg PO DAILY [facility] Stop: 07/16/22 08:59 Last Admin: 06/24/22 08:33 Dose: 5 mg Polyethylene Glycol (Polyethylene (Miralax) 17 Gm Pack) 17 gm PO DAILY PRN PRN Reason: Constipation Stop: 07/15/22 13:48 Polyethylene Glycol (Polyethylene (Miralax) 17 Gm Pack) 17 gm PO DAILY [facility] Stop: 07/19/22 09:59 Last Admin: 06/24/22 08:34 Dose: 17 gm Pyridoxine HCl (Pyridoxine Hcl 50 Mg Tab) 100 mg PO QAM [facility] Stop: 07/16/22 08:59 Last Admin: 06/24/22 08:33 Dose: 100 mg Tramadol HCl (Tramadol Hcl 50 Mg Tablet) 50 mg PO Q6H PRN PRN Reason: moderate to severe pain Stop: 07/16/22 10:02 Last Admin: 06/24/22 08:40 Dose: 50 mg Vitamin D (Cholecalciferol 1,000 Units 25 Mcg Tab) [facility]: 07/16/22 08:59 Last Admin: 06/24/22 08:34 Dose: 1,000 units
--- NOTE | 2022-06-24 17:14 | Discharge Summary ---
Date of Service June 24, 2022 Admission HPI Per Admitting Provider Mr. Malloy is a 76-year-old male that presented to the ED with his family with bilateral lower extremity weakness and inability to ambulate. Him and his report that his weakness has been progressively worsening over the past 3 weeks despite use of a walker. He reports that the floor feels rubbery underneath him and there is a disconnect between his brain and his legs. Visually the floor looks usual to him but he just cannot get enough strength in his muscles to stand appropriately. He did experience a fall while starting to get up off of the chair with his present and he slid to the floor without hitting his head. Has recently returned from [place] and was treated for complicated UTI (he took Duricef and when he returned from [place] was prescribed Cipro by his outpatient PCP. Today, thoracic spine x-ray 05/27/22 disc widening tend T10-T11. Head CT negative for hemorrhage, midline shift, mass or ischemia. Ventriculomegaly noted 5 cm unchanged from previous scan. Patient went into details that he has costochondritis and bilateral diaphragmatic hernias on the lateral part of either side of his chest. He also reports having herniated stomach that was evaluated by Dr. Luther and advised not to proceed with surgery. He does have a history of three decompression and fusion back surgeries under the care of Dr. Alcala with the last one being 08/2021. He has seen Dr. Alcala as an outpatient for progressive weakness and imagine obtained was negative. Has been taking Gabapentin and has started PT (he only went twice) Patient has past medical history that includes frequent UTIs, normal pressure hydrocephalus (status post [employer] S[employer] shunt 2018), spinal stenosis (status post decompression and fusion surgery with Dr. Alcala most recently 09/10), diabetes mellitus type 2, HTN, HLD, and BPH. Patient is lying in his bed in distress with movement but he is able to sit on the side of the bed independently and stand with minimal assistance. He was unable to take a step but could move his right and left leg independently forward. Patient denies headache, dizziness, visual changes, auditory changes, abdominal pain, nausea, vomiting, diarrhea, recent trauma, facial droop, aphasia, appetite changes, loss of bowel or bladder control. I feel this could be a combination of urinary unresolved urinary tract infection coupled with neurologic involvement. Will await diagnostic imaging results prior to specialist consultation. Patient will be admitted for further evaluation and management. Please see A/P for further details. Admission Exam Per Admitting Provider Physical Exam: Neuro: AAOx4, PERRLA, no aphagia, memory changes, CNII-XII grossly intact HEENT: head normocephalic, moist mucus membranes CV: S1/S2, (-) M/G/R, (-) edema, cap refill < 3 seconds Resp: Lungs CTA in all villa. On RA GI: Abdomen S/NT/ND, Ax4 bowel sounds, (-) CVA tenderness Musculoskeletal: 5/5 B/L UE strength, 5/5 B/L LE strength. Unable to stand independently and cannot take a step on his own. Skin: (-) rashes , (-) erythema. (+) B/L lateral rib cage bulging and abdominal wall bulging with engagement of muscle us Psych: euthymic mood Principal Diagnosis T10 fracture with cord compression, UTI, type 2 diabetes, BPH with retention of urine, normal pressure hydrocephalus Discharge Exam Sitting at the edge of the bed without any acute distress Constitutional well developed and well nourished; not ill appearing Eyes PERRL, conjunctivae normal, anicteric sclerae ENMT external ear and nose normal, oropharynx normal Neck trachea midline, no thyromegaly Respiratory no respiratory distress Auscultation: lungs clear to auscultation bilaterally and + crackles (Minimal crackles bilaterally) Cardiovascular Rate/Rhythm: regular rate, regular rhythm and + bradycardic Heart Sounds: normal S1 and normal S2; no murmur Extremities: + edema (Trace edema bilaterally) Gastrointestinal (Abdomen) Inspection/Auscultation: normal bowel sounds; abdomen not distended Percussion/Palpation: abdomen soft; abdomen nontender Neurologic normal touch/pain/proprioception and moves all extremities; no focal motor deficits Psychiatric A+Ox3, euthymic affect Lymphatic no cervical or axillary lymphadenopathy Discharge Data Allergies Allergy/AdvReac Type Severity Reaction Status Date / Time Sulfa (Sulfonamide Allergy Intermediate RASH Verified 06/15/22 15:04 Antibiotics) hydrocodone AdvReac Intermediate Hallucinati Verified 06/15/22 15:04 ng oxycodone AdvReac Intermediate Hallucinati Verified 06/15/22 15:04 ng Consultations 06/15/22 13:30 ED Decision to Admit Stat 06/15/22 17:01 Consult Orthopedic Surgery Routine 06/16/22 08:00 Consult Neurology Routine 06/17/22 11:01 Consult Urology Routine HIM [Consult Health Information Management] Routine Procedures Performed Operation Date: 06/17/22 11:55 Actual Procedures p #2 exploration of fusion T10-L1. #3 revision decompression with medial facetectomies and foraminotomies T10-T11. #4 posterior spinal fusion T8-T11. #5 placement posterior segmental instrumentation T8-L1 with barrel connectors. #6 interbody fusion T10-T11. #7 placement of Spira 8 x 22 mm cage at T10-T11. #9 placement of infuse collagen sponge, and V toss in the posterior gutters and I factor combined with V toss interbody space. #10 placement locally harvested morselized autograft in the posterior gutters. Spinal Cord Monitoring - Fernando Alcala DO s #8 kyphoplasty of T8 and T9, (Not Applicable) - Fernando Alcala DO s #1 removal of hardware T10-L1. (Not Applicable) - Fernando Alcala DO Ordered Studies 06/15/22 13:23 CT abd pelvis IV con only Stat CT head/brain wo con Stat 06/15/22 13:26 CT lumbar spine w con Stat 06/16/22 07:58 MR thoracic spine wo con Urgent 06/17/22 11:55 FL thoracic spine 2V Routine Hospital Course (1) Urinary tract infection: (2) Weakness: (3) Normal pressure hydrocephalus: (4) Spinal stenosis: (5) Hypertension: (6) Diabetes mellitus, type 2: (7) Hyperlipidemia: (8) BPH (benign prostatic hypertrophy): Plan 76-year-old presented with progressive lower extremity weakness bilaterally. Progressively worsening over the past 3 weeks despite use of a walker. He reports that the floor feels rubbery underneath him and there is a disconnect between his brain and his legs. Lumbar spine CT T10 vertebral body concerning for developing discitis or osteomyelitis; T10 subacute fracture. Head CT negati ve for anything progressing from a hydrocephalus perspective. N.p.o. for now. Bilateral Leg Weakness Spinal stenosis: Status post decompression and fusion surgery with Dr. Alcala August 2021 2 additional back surgeries under the care of Dr. Alcala. Has been seen outpatient with Ortho PT recommended and recently started. Cervical/spine x-1. There is a right posterior ventriculostomy catheter which terminates near the midline. There is a small focal kink as it enters the calvarium without evidence for a fracture. 2. Otherwise, the shunt catheter appears intac Lumbar Spine CT: T10 vertebral body is concerning for infection and could represent a developing discitis/osteomyelitis. T10 vertebral body is concerning for infection and could represent a developing discitis/osteomyelitis. MRI thoracic spine: 1. Posterior interbody ken and screw fusion hardware redemonstrated at T10-S1. Artifact due to the hardware and also secondary to motion limits the study. 2. Trace fluid signal within the posterior aspect of the T10-T11 intervertebral disc space is noted in conjunction with nonspecific marrow edema at T9-T11 with trace prevertebral edema at the levels. Correlate clinically to exclude discitis/osteomyelitis. 3. The subacute fracture within the posterior aspect of the T10 vertebral body extending into the pedicles and left T10 facet are not well visualized. Please refer to the 06/15/2022 CT lumbar spine study. 4. Discogenic degeneration with spondylitic spurring and facet arthrosis. No high-grade central canal or neural foraminal narrowing of the thoracic spinal cord identified. 4. Mild central canal stenosis at T5-T6. Appreciate orthospine recommendation and is Status post decompression fusion of T 8 - T11 by Dr. Alcala Has been doing much better following the procedure Has been getting physical therapy and recommended to go to [facility] Medically stable without any significant symptoms Will be discharged to [facility] this afternoon Normal pressure hydrocephalus: Status post [employer] S[employer] shunt [address]: Ventriculomegaly 5 cm unchanged from previous scan 08/2021.negative for hemorrhage, midline shift, mass Skull x-ray : 1. There is a right posterior ventriculostomy catheter which terminates near the midline. There is a small focal kink as it enters the calvarium without evidence for a fracture. 2. Otherwise, the shunt catheter appears intact. Discussed with neurologist, NPH stable, no urgent interventions at this point ac cording to Dr. Teran Denies any acute symptoms of dizziness, nausea and or vomiting Rule out urinary tract infection: Weakness: Frequent UTIs; just finished Duricef as outpatient UA: Positive nitrates and urine WBC greater than [address] abd/pelvis: 1. No bowel obstruction. No bowel wall thickening. 2. Mildly distended bladder. No hydronephrosis. No urinary calculi. Urine culture: Negative Completed 1 week course of ceftriaxone Continue Mayers catheter Urologist consulted, trial of voiding tomorrow, outpatient follow-up with urology clinic in 2 weeks to Mayers catheter was discontinued on 06/22/2022 Has been passing urine with persisting residual more than 400 mL Mayers was replaced before discharge to [facility] Hypertension: Blood pressure on the lower side after surgery Given IV fluids Holding enalapril Continue metoprolol BP stable so far May not need enalapril upon discharge Blood pressure remains on the lower side at 114/64-likely enalapril will be discontinued on discharge BP remains on the lower side of normal at 105/62 Diabetes mellitus type 2: [id number] 02/10 A1c: 7.3 ACHS FSBS and SSI Hold metformin Metformin will be restarted on discharge Hyperlipidemia: Takes atorvastatin; continue Lipid panel triglyceride 54, LDL 34, HDL 39. BPH: Wears a brief at baseline; urinary incontinence Takes Ditropan and alfuzosin; continue Urologist consulted, outpatient follow-up in 2 weeks Disposition: PCP: Dr. Kruse CODE STATUS: Full code VTE prophylaxis: Heparin or Lovenox once okay with surgical service Disposition PT and OT evaluation in progress will need acute rehab, likely discharge in 1 to 2 days Will be discharged to [facility] this afternoon Did not go yesterday as because there were no bed Total Time Total Time Spent Total Time Spent (In Minutes): 45 minutes Discharge Plan Discharge Items Patient Disposition: Transfer Inpatient Rehab Fac Reason For Visit: WEAKNESS/UTI Discharge Diagnosis: T10 fracture with cord compression, UTI, type 2 diabetes, BPH with retention of urine, normal pressure hydrocephalus Condition on Discharge: Fair Activity: As commented below Non-emergency contact: Primary Care Provider Call non-emergency contact if: you have any medication questions Follow-up/Referrals: Gage Kruse MD [Primary Care Provider] - Diet: Carb Consistent or DM2 Addtl Attending Provider Instructions: ACTIVITY RECOMMENDATIONS: SELF CARE INSTRUCTIONS AFTER THORACIC/LUMBAR FUSIONS 1. You may walk to your tolerance. It is good exercise for your legs and back. Expect some back and intermittent leg aches and pains. 2. You may perform "counter-top" level activities (make a sandwich, irvin with a project, etc.). 3. No bending or lifting of more than 10 pounds or back twisting of any nature (roll like a log when turning in bed). 4. You may ride in a car for 20-30 minutes at a time. No driving until after your first visit with your doctor. 5. Frequent changes of position and restricting sitting to 30 minutes at a time will help limit the amount of back spasms and stiffness you may experience. 6. You may discontinue the use of ambulatory aids (cane, crutches, etc.) once your strength and confidence allow. 7. You may clinical sales consultant the shower and let water strike your incision when you arrive home at least once daily. Do not take a tub bath, sit in a hot tub or go into a swimming pool until after your first recheck in the office. SPECIAL CARE INSTRUCTIONS: VERY IMPORTANT TO READ AND REVIEW A. Your surgical incision has been closed with a cosmetic suture under the skin that will dissolve in about 6 weeks. In 14 days, you can use a pair of clean scissors and cut the suture that is left outside of the skin at the ends of your incision. 1. The small skin tapes can be removed 7 days after surgery if they have not fallen off by that point. 2. You may keep the wound open to air as much as possible to promote healing after post-op day number 5 unless told otherwise by your doctor. 3. If you think the wound looks like it is becoming infected (redness or worsening drainage) and/or you are experiencing fever, chill or worsening back pain and muscle spasms, contact the office so that we may evaluate you as soon as possible. B. Complications are uncommon, but please contact us if you have any signs or symptoms of: 1. wound infection (fever higher than 102.5 degrees F, redness, separation of wound, drainage, or increasing pain from the incision) 2. blood clots in legs (pain, swelling, redness and warmth in legs) 3. urinary tract infection (fever higher than 102.5 degrees F, burning upon urination or increased frequency of urination) 4. nerve problems (inability to walk on your toes or heels, numbness, loss of bowel or bladder control) 5. any other symptoms that concern you C. Please call the office at if you have any concerns or questions about your operation or recovery. D. No smoking! Smoking drastically decreases the chance of a solid fusion. E. Do not take any anti-inflammatory medications (Indocin, Advil, Motrin, Aspirin, Naprosyn, etc.) as these may inhibit the chance of a solid fusion. Tylenol is okay to take for pain. MANAGING PAIN AFTER SPINAL SURGERY 1. Narcotic medication is intended for short-term use and will be provided for surgical pain. Surgical pain usually lasts for a period of 4-6 weeks. Narcotic medication includes Percocet, Vicodin, Darvocet, Tylenol #3 or Lortab. 2. Longer-term pain is more appropriately treated with non-narcotic medication such as Tylenol ES. 3. Muscle spasm is not appropriately treated with narcotics. Muscle relaxers such as Soma, Flexeril or Skelaxin can be used along with Tylenol ES. 4. Remember that we all live with some "aches and pains". This is not unusual or uncommon after an injury or as we get older. a. Back pain is expected and may include muscle spasms for 4 to 6 weeks after surgery. The pain should gradually improve. If the pain worsens for no apparent reason, please contact the office. b. Intermittent leg pain may also be experienced and should not be concerned about unless it worsens for no apparent reason. If so, please contact the office. 5. We will provide appropriate medication within the normal guidelines of their prescribed use. We will also be very cautious and aware of potential abuse and extended duration of patients' medication needs. a. Pain medications are for your comfort and to assist with sleep and rest so that the tissue can heal. They are not provided in order to return to normal activity and should not be used through the day. To do so or worsening pain at night can result from ongoing tissue damage and development of tolerance to the prescribed medicine. 6. Please allow 2-3 days to process refills. Prescriptions will not be mailed but must be picked up at the office. FOLLOW UP VISIT: Keep your scheduled follow-up appointment. Any questions, please call the office at . Pending Studies at Discharge: No Stand-Alone Forms: My [facility] Skilled Items Patient informed of condition?: Yes DNR: No Discharge Level of Care: Acute rehab Communicable Disease: No Discharge Prognosis: Improving Lines: None Urinary Catheter: Yes (Urologist will manage the catheter as an outpatient) Medications and DC Order Prescriptions: New polyethylene glycol 3350 [Miralax] 17 gram Powder In Packet 17 g PO DAILY Qty: 30 0RF tramadol 50 mg Tablet 50 mg PO Q6H PRN (Reason: pain) 5 Days Qty: 15 0RF Continued alfuzosin 10 mg tablet extended release 24 hr 10 mg PO DAILY Qty: 90 3RF Rx Instructions: administer after the same meal each day oxybutynin chloride 5 mg tablet extended release 24 hr 5 mg PO DAILY Qty: 90 3RF atorvastatin 20 mg Tablet 20 mg PO PM enalapril maleate 20 mg Tablet 20 mg PO QAM multivitamin Tablet 1 tab PO QAM metoprolol tartrate 50 mg Tablet 50 mg PO BID naproxen sodium [Aleve] 220 mg Capsule 440 - 660 mg PO BID PRN (Reason: Pain) clonazepam 1 mg tablet 1.5 mg PO HS PRN (Reason: Anxiety) pyridoxine (vitamin B6) [Vitamin B-6] 100 mg Tablet 100 mg PO QAM gabapentin 100 mg capsule 200 mg PO TID cholecalciferol (vitamin D3) [Vitamin D3] 25 mcg (1,000 unit) Tablet 25 mcg PO QAM Macular Health Formula 5-1-7.5 mg Capsule 1 cap PO QAM aspirin 81 mg Capsule 81 mg PO QAM metformin 500 mg tablet extended release 24 hr 500 mg PO BID Discharge Orders: Discharge Order (Routine); Ordered 06/24/22 Ordered By: Greg Herrmann/Other Patient Handouts: Managing Type 2 Diabetes Admission Data Admit Date/Time: 06/15/22 13:49 Attending Provider: Greg Hopkins Admit Provider: Greg Hopkins Primary Care Provider: Gage Kruse Other Providers: Greg Hopkins ; Fernando Alcala ; Jim Teran ; [facility] ; Timothy Pascual
== END 2022-06-24 14:17 | DRG 454 ==
LOC: ED 11:31 → EDINP 13:49 → SUATTDRO 13:49 → 2S 19:18